=== PATIENT | male | born 1975 | race Caucasian/White ===

== ENCOUNTER 2020-02-19 01:08 | Emergency (ER) | payer OTHER, SELFPAY ==
[2020-02-19 02:00] VITALS: BP 110/73; PULSE 82; PULSE 83; RESP 15; TEMP 36.8; TEMP 37.2; O2SAT 93; O2SAT 94; BMI 27.3
--- NOTE | 2020-02-19 02:27 | ED.WOUNDLAC ---
HPI - Wound/Laceration General Chief Complaint: Wound/Laceration Stated Complaint: Wrist Lac Time Seen by Provider: 02/19/20 02:15 History of Present Illness HPI narrative: Patient is status post laceration to the left palmar aspect of the forearm. Patient cut it on a box turner. Patient denies any suicidal homicidal ideation. Completely accidental in nature. No systemic complaints. Patient not on blood thinners. Tetanus not updated. Related Data Allergies Allergy/AdvReac Type Severity Reaction Status Date / Time animal dander Allergy Unknown SINUS/RESPI Verified 02/19/20 02:17 RATORY Review of Systems Review of Systems: Constitutional: No Weight loss, No Fever, No Chills, No Night Sweats, No Fatigue, No Malaise ENT/Mouth: No Hearing loss, No Ear Pain, No Nasal Congestion, No Sinus Pain, No Hoarseness, No sore throat, No Rhinorrhea, No Swallowing Difficulty Eyes: No Eye Pain, No Swelling, No Redness, No Foreign Body, No Discharge, No Vision Changes Cardiovascular: No Chest Pain, No SOB, No Dyspnea on Exertion, No Orthopnea, No Edema, No Palpitations Respiratory: No Cough, No Sputum, No Wheezing, No Smoke Exposure, No Dyspnea Gastrointestinal: No Nausea, No Vomiting, No Diarrhea, No Constipation, No abdominal Pain, No Hematochezia, No Melena Genitourinary: no irregular bleeding, No Dysuria, No Urinary Frequency, No Hematuria, No Urinary Incontinence, No Urgency, No Flank Pain, No Urinary Flow Changes, No Hesitancy Musculoskeletal: No joint pain, No Myalgias, No Joint Swelling Skin: Positive laceration to the left forearm Neuro: No Weakness, No Numbness, No Paresthesias, No Loss of Consciousness, No Dizziness, No Headache Psych: No Anxiety/Panic, No Depression, No SI/HI/AH/VH, No Social Issues, Heme/Lymph: No Bruising, No Bleeding,No Lymphadenopathy Endocrine: No Polyuria, No Polydipsia, No Temperature Intolerance [facility] Past Medical History Attestation statement: The following information was validated with the patient. Medical History Asthma Social History Social History Smoking Status: Current every day smoker Use of substances other than those prescribed or required for medical reasons: No Advance Directives: No Advance Directives Information Provided: No Physical Exam Vital Signs: Vital Signs: Vital Signs Temp Pulse Resp BP Pulse Ox 02/19/20 02:00 98.9 F 83 15 110/73 93 Body Mass Index 27.3 Appearance: Alert. Oriented X3. No acute distress. Eyes: Pupils equal, round and reactive to light. ENT: Pharynx normal. Neck: Normal inspection. Neck supple. No lymph nodes noted. No crepitus CVS: Normal heart rate and rhythm. Pulses normal. Normal S1 and S2 Respiratory: No respiratory distress. Breath sounds normal. No Wheezing. No rales Abdomen: Soft and nontender. No rigidity. No distention. good BS x4 Skin: Skin warm and dry. Normal skin color. Positive laceration to the left palmar aspect of the forearm proximally 5 cm in size. The hand were put through full range of motion. There is no tendon laceration noted. Sensation grossly intact. Capillary refill less than 2 seconds. Negative De test. Extremities: No lower extremity edema. Neurovascular intact to all extremities. No Lacerations. No Rash Neuro: Oriented X 3. No motor deficit. No sensory deficit. Moving all extermities. No slurred speech Procedures Laceration Laceration 1: Site: upper extremity (left forarm) and other Side (If applicable): left Size (cm): 5 Description: linear Depth: simple, single layer Local Anesthetic: lidocaine 1% Amount of anesthesia used (mL): 3 Pre-repair: wound explored, irrigated extensively and deep structures intact Skin layer closed with: nylon Size (cm): 5-0 Number of sutures: 7 MDM - Wound/Laceration MDM Narrative Medical decision making narrative: Patient's wound closed. No distress. Will discharge patient home. Neurovascularly intact. No evidence of any tendon injury on full exploration of the wound. The wrist, hand and fingers were put through full range of motion Differential Diagnosis Differential diagnosis: Likely laceration Medical Records Attestation: I reviewed the patient's medical records. Lab Data Attestation: I reviewed the patient's lab results. Discharge Plan Discharge Clinical Impression: Laceration Patient Disposition: Home, Self-Care Instructions: Laceration (ED) Referrals: [place],Luisa Lopez MD [Emergency Provider] - 2 days Physician,Unknown [Primary Care Provider] - 10 days (For suture removal. You can also go to your regular doctor for suture removal)
[2020-02-19] MEDS: Acetaminophen 325 MG TABLET 650 MG PO (02:51)
[2020-02-19] MEDS: Lidocaine HCl 1 % MPF 5 ML VIAL SUBCUT (02:52)
== END 2020-02-19 03:30 | disposition home or self-care (01) ==
PROVIDERS: Emergency Provider Emergency Medicine Emergency Medical Services
DX: S51.812A Laceration without foreign body of left forearm, initial encounter (principal); S50.812A Abrasion of left forearm, initial encounter; M79.632 Pain in left forearm; W26.0XXA Contact with knife, initial encounter; Y93.9 Activity, unspecified; Y92.9 Unspecified place or not applicable; Y99.9 Unspecified external cause status; Z23 Encounter for immunization
CPT/HCPCS: 12002; 90471; 90715; 99284

== ENCOUNTER 2020-08-07 21:15 | Emergency (ER) | payer OTHER, SELFPAY ==
--- NOTE | ~2020-08-07 | CT_ITS ---
EXAMINATION: CT HEAD WITHOUT CONTRAST CLINICAL INFORMATION: Trauma. Fall. Intoxicated. COMPARISON: 09/26/2005 report only. TECHNIQUE: Contiguous helical images of the brain were obtained without IV contrast. Multiplanar reconstructions were performed. DLP: 757 mGy-cm. FINDINGS: There are no pathologic extra-axial fluid collections. The lateral, third, fourth ventricles are nondilated and concordant with the appearance of the sulci. There is no evidence for acute intraparenchymal hemorrhage or infarct. There is neither mass nor mass effect. There is no shift of midline structures. The paranasal sinuses and mastoid air cells are clear. There are no osseous lesions. CT/CT head/brain wo con IMPRESSION: No evidence for acute intracranial injury. Automated exposure control (Care Dose) Adjustment of the mA and/or kv according to patient size (this includes techniques or standardized protocols for targeted exams where dose is matched to indication / reason for exam; i.e. extremities or head).
[2020-08-07 21:26] VITALS: BP 144/92; PULSE 114; PULSE 98; RESP 16; TEMP 36.7; O2SAT 95; O2SAT 96; BMI 28.5
--- NOTE | 2020-08-07 23:18 | PC.NURSE ---
AT BEDSIDE FOR EVAL.
--- NOTE | 2020-08-07 23:20 | ED.ALCOHOL ---
HPI - Alcohol General Chief Complaint: ETOH/Substance Use Stated Complaint: etoh Time Seen by Provider: 08/07/20 23:16 Source: patient Mode of arrival: ambulatory Limitations: no limitations History of Present Illness HPI narrative: Patient comes to the emergency room for alcohol intoxication. Patient states that earlier this evening, he was drinking a lot of alcohol, estimates that he drink 40 oz beers and 10 nips and he has been drinking for of the 30 years. Patient is going to 45 day treatment program tomorrow. Denies suicidal or homicidal ideation. Patient states that this evening he had an argument with his mother, he fell in front of her, his mother got very concerned and brought him to the emergency room. Patient denies headache, no complaints. MD complaint: alcohol intoxication Related Data Allergies Allergy/AdvReac Type Severity Reaction Status Date / Time animal dander Allergy Unknown SINUS/RESPI Verified 02/19/20 02:17 RATORY Review of Systems Review of Systems: Constitutional : No Weight loss, No Fever, No Chills, No Night Sweats, No Fatigue, No Malaise ENT/Mouth : No Hearing loss, No Ear Pain, No Nasal Congestion, No Sinus Pain, No Hoarseness, No sore throat, No Rhinorrhea, No Swallowing Difficulty Eyes: No Eye Pain, No Swelling, No Redness, No Foreign Body, No Discharge, No Vision Changes Cardiovascular : No Chest Pain, No SOB, No Dyspnea on Exertion, No Orthopnea, No Edema, No Palpitations Respiratory : No Cough, No Sputum, No Wheezing, No Smoke Exposure, No Dyspnea Gastrointestinal : No Nausea, No Vomiting, No Diarrhea, No Constipation, No abdominal Pain, No Hematochezia, No Melena Genitourinary : no irregular bleeding, No Dysuria, No Urinary Frequency, No Hematuria, No Urinary Incontinence, No Urgency, No Flank Pain, No Urinary Flow Changes, No Hesitancy Musculoskeletal : No joint pain, No Myalgias, No Joint Swelling Skin : No Skin Lesions, No rash Neuro : No Weakness, No Numbness, No Paresthesias, No Loss of Consciousness, No Dizziness, No Headache Psych : No Anxiety/Panic, No Depression, No SI/HI/AH/VH, No Social Issues, Heme/Lymph: No Bruising, No Bleeding,No Lymphadenopathy Endocrine : No Polyuria, No Polydipsia, No Temperature Intolerance [facility] Past Medical History Medical History Asthma Social History Social History Smoking Status: Current every day smoker Advance Directives: No Advance Directives Information Provided: No Physical Exam Vital Signs: Vital Signs: Last Vital Signs Temp 98.1 F 08/07/20 21:26 Pulse 94 08/08/20 04:30 Resp 16 08/08/20 04:17 BP 118/84 08/08/20 04:30 Pulse Ox 97 08/08/20 04:17 Body Mass Index 28.5 Appearance: Alert. Oriented X3. No acute distress. Sleeping but easily arousable Eyes: Pupils equal, round and reactive to light. ENT: Pharynx normal. Neck: Normal inspection. Neck supple. No lymph nodes noted. No crepitus CVS: Normal heart rate and rhythm. Pulses normal. Normal S1 and S2 Respiratory: No respiratory distress. Breath sounds normal. No Wheezing. No rales Abdomen: Soft and nontender. No rigidity. No distention. good BS x4 Skin: Skin warm , mildly diaphoretic. Normal skin color. Normal skin turgor. Extremities: No lower extremity edema. No lower extremity edema. No Lacerations. No Rash Neuro: Oriented X 3. No motor deficit. No sensory deficit. Moving all extermities. No slurred speech. No signs of withdrawal Course Course Course Narrative: Patient's head CT shows no acute pathology. Patient states he feels well. Patient working on getting a sober ride to be discharged. Patient's history is picking him up, patient requested clonidine for shakiness sensation in his hands Patient has no clear signs of withdrawal, blood pressure normal, not diaphoretic, no tremor observed. Patient walking steadily on assisted alert and oriented x3 Discharge Plan Discharge Clinical Impression: Alcoholic intoxication Qualifiers: Complication of substance-induced condition: uncomplicated Qualified Code(s): F10.920 - Alcohol use, unspecified with intoxication, uncomplicated Patient Disposition: Home, Self-Care Instructions: Alcohol Intoxication (ED) Additional Instructions: Please follow-up with your primary care physician tomorrow. If you have any worsening or new symptoms, please return to the emergency room or call 911
[2020-08-08 02:00] VITALS: BP 118/90; PULSE 90; RESP 16; O2SAT 96
[2020-08-08 04:17] VITALS: BP 116/89; PULSE 94; RESP 16; O2SAT 97
[2020-08-08 04:30] VITALS: BP 118/84; PULSE 94
[2020-08-08] MEDS: cloNIDine HCL 0.2 MG TABLET PO (04:30)
--- NOTE | 2020-08-08 04:40 | PC.NURSE ---
pt walks with steady even gait to restroom. pt alert and drinking water. pt calling for ride home by his sister.
== END 2020-08-08 05:06 | disposition home or self-care (01) ==
PROVIDERS: Emergency Provider Emergency Medicine
DX: F10.920 Alcohol use, unspecified with intoxication, uncomplicated (principal); Y90.9 Presence of alcohol in blood, level not specified
CPT/HCPCS: 70450; 99283; 99284

== ENCOUNTER 2020-12-21 12:47 | Emergency (ER) | payer OTHER, SELFPAY ==
[2020-12-21 12:49] VITALS: BP 117/84; PULSE 127; RESP 22; TEMP 36.9; O2SAT 86; BMI 25.8
--- NOTE | 2020-12-21 13:05 | ED_ITS ---
HPI - Allergic Reaction General Chief complaint: Allergic Reaction Stated complaint: bee sting, difficulty breathing Time Seen by Provider: 12/21/20 12:57 Source: patient Mode of arrival: ambulatory Limitations: no limitations History of Present Illness HPI narrative: THIS IS A 45 YEARS OLD PRESENTED TO THE EMERGENCY DEPARTMENT COMPLAINING OF AN ALLERGIC REACTION. HE WAS STUNG MULTIPLE TIMES BY BEES, HE ARRIVED IN TRIAGE WITH 0 O2 SATURATION OF 86% ON ROOM AIR complaint: allergic reaction Onset (ago): hour(s) (1) Symptoms: rash and difficulty breathing Severity: moderate Treatment prior to arrival: none Related Data Previous Rx's Medication Instructions Recorded epinephrine 0.3 mg/0.3 mL 0.3 mg IM Q10M PRN #1 ea 12/21/20 injection, auto-injector (EpiPen) Allergies Allergy/AdvReac Type Severity Reaction Status Date / Time animal dander Allergy Unknown SINUS/RESPI Verified 12/21/20 12:49 RATORY Review of Systems Review of Systems: Yes all other systems are reviewed and are negative Eyes: Eyes: Reports no additional eye complaints Cardiovascular: Cardiovascular: Reports no additional cardiovascular complaints and Reports dyspnea Respiratory: Respiratory: Reports dyspnea Gastrointestinal: Gastrointestinal: Reports no additional gastrointestinal complaints PMFSH Past Medical History Medical History Asthma Social History Social History Advance Directives: Yes Advance Directives Information Provided: Yes Advance Directives on File: No Physical Exam Vital Signs: Vital Signs: Last Vital Signs Temp 98.5 F 12/21/20 12:49 Pulse 86 12/21/20 13:21 Resp 22 H 12/21/20 12:49 BP 127/87 12/21/20 13:21 Pulse Ox 86 L 12/21/20 12:49 Body Mass Index 25.8 Const: General: cooperative Nutritional Appearance: well nourished HENMT: Head: Yes normal to inspection Ears: hearing grossly normal bilaterally General nose exam: Normal external nose present Face and sinus: Yes normal facial exam Neck: Neck: Yes normal visual inspection Thyroid: Thyroid normal Chest: Chest palpation & inspection: normal inspection of the chest Resp: Auscultation: rhonchi and wheezes Cardio: Jugular venous distension: no JVD Rate: regular rate Rhythm: regular rhythm GI: Inspection: Yes normal to inspection Palpation (GI): Soft to palpation, not firm, nontender and no guarding Course Course Course Narrative: Patient is completely asymptomatic at this time he wants to go home a his sat is 94% Reevaluation(s) Reevaluation #1: doing much better reexamined at 2.40 PM asyntomatic off 02 MDM - Allergic Reaction Lab Data Result diagrams: 12/21/20 13:50 12/21/20 13:50 Labs: Lab Results 12/21/20 12/21/20 12/21/20 Range/Units 13:18 13:50 13:50 WBC 9.2 (4.8-10.8) X10*3/uL RBC 5.03 (4.60-5.80) X10*6/uL Hgb 15.0 (14.0-18.0) g/dl Hct 43.7 (42-52) % MCV 86.9 (80-98) fL MCH 29.8 (27.0-33.0) pg MCHC 34.3 (31.0-36.0) g/dl RDW 12.9 (11.0-16.0) % Plt Count 285 (160-400) X10*3/uL MPV 9.2 L (9.4-12.4) fL Immature Gran % (Auto) 0.2 (0.0-0.4) % Neut % (Auto) 51.6 (45-73) % Lymph % (Auto) 38.2 (20-40) % [place] % (Auto) 8.4 (2-11) % Eos % (Auto) 1.4 (0-4) % Baso % (Auto) 0.2 (0-2) % Lymph # (Auto) 3.5 (1.2-4.9) X10*3/uL [place] # (Auto) 0.8 (0.1-1.2) X10*3/uL Eos # (Auto) 0.1 (0.0-0.4) X10*3/uL Baso # (Auto) 0.0 (0.0-0.2) X10*3/uL Abs Immat Gran (auto) 0.02 (0.00-0.03) X10*3/uL Absolute Neuts (auto) 4.8 (2.0-8.3) X10*3/uL Absolute Nucleated RBC 0.000 (0.0-0.012) X10*3/uL Nucleated RBC % (auto) 0.0 (0.0-0.2) /100WBC Sodium 140 (135-145) mmol/L Potassium 3.7 (3.3-5.1) mmol/L Chloride 107 (96-108) mmol/L Carbon Dioxide 23 (22-29) mmol/L Anion Gap 14 (12-20) BUN 15 (9-16) mg/dL Creatinine 0.69 (0.5-1.4) mg/dL Estim Creat Clear Calc 128.0 Estimated GFR > 60 Random Glucose 112 (60-115) mg/dL Calcium 8.2 L (8.4-10.2) mg/dL Total Bilirubin 0.3 (0.0-1.0) mg/dL AST 28 (5-37) U/L ALT 41 H (0-40) U/L Alkaline Phosphatase 53 (39-117) U/L Total Protein 6.5 (6.5-8.0) g/dL Albumin 4.1 (3.5-5.0) g/dL Ethyl Alcohol mg/dL COVID-19 (MAIA) Negative (Negative) COVID-19 Clin Com See Note 12/21/20 Range/Units 13:50 WBC (4.8-10.8) X10*3/uL RBC (4.60-5.80) X10*6/uL Hgb (14.0-18.0) g/dl Hct (42-52) % MCV (80-98) fL MCH (27.0-33.0) pg MCHC (31.0-36.0) g/dl RDW (11.0-16.0) % Plt Count (160-400) X10*3/uL MPV (9.4-12.4) fL Immature Gran % (Auto) (0.0-0.4) % Neut % (Auto) (45-73) % Lymph % (Auto) (20-40) % [place] % (Auto) (2-11) % Eos % (Auto) (0-4) % Baso % (Auto) (0-2) % Lymph # (Auto) (1.2-4.9) X10*3/uL [place] # (Auto) (0.1-1.2) X10*3/uL Eos # (Auto) (0.0-0.4) X10*3/uL Baso # (Auto) (0.0-0.2) X10*3/uL Abs Immat Gran (auto) (0.00-0.03) X10*3/uL Absolute Neuts (auto) (2.0-8.3) X10*3/uL Absolute Nucleated RBC (0.0-0.012) X10*3/uL Nucleated RBC % (auto) (0.0-0.2) /100WBC Sodium (135-145) mmol/L Potassium (3.3-5.1) mmol/L Chloride (96-108) mmol/L Carbon Dioxide (22-29) mmol/L Anion Gap (12-20) BUN (9-16) mg/dL Creatinine (0.5-1.4) mg/dL Estim Creat Clear Calc Estimated GFR Random Glucose (60-115) mg/dL Calcium (8.4-10.2) mg/dL Total Bilirubin (0.0-1.0) mg/dL AST (5-37) U/L ALT (0-40) U/L Alkaline Phosphatase (39-117) U/L Total Protein (6.5-8.0) g/dL Albumin (3.5-5.0) g/dL Ethyl Alcohol 206 mg/dL COVID-19 (MAIA) (Negative) COVID-19 Clin Com Critical Care Time Critical Care Time Critical Care Time: Yes Total Critical Care Time: 45 Attestation: epi,IV steroids/nebs Discharge Plan Discharge Clinical Impression: Allergic reaction, Anaphylaxis Patient Disposition: Home, Self-Care Instructions: Anaphylaxis (ED) Prescriptions: New epinephrine [EpiPen] 0.3 mg/0.3 mL auto-injector 0.3 mg IM Q10M PRN (Reason: anaphylaxis) Qty: 1 RF: 0 Referrals: Physician,Unknown [Primary Care Provider] - 2 days
[2020-12-21] MEDS: Albuterol Sulfate 90 MCG 8 GM INHALER 4 PUFF INHALE (13:17)
[2020-12-21 13:21] VITALS: BP 127/87; PULSE 86
[2020-12-21] MEDS: EPINEPHrine 1 MG/ML VIAL 0.3 MG SUBCUT (13:21)
[2020-12-21] MEDS: Famotidine/PF 20 MG/2 ML VIAL IVPUSH (13:21)
[2020-12-21] MEDS: ondansetron HCL 4 MG/2 ML VIAL IVPUSH (13:21)
[2020-12-21] MEDS: methylPREDNISolone Sod Succ 125 MG/2 ML VIAL IVPUSH (13:21)
[2020-12-21] MEDS: diphenhydrAMINE HCL 50 MG/ML VIAL IVPUSH (13:21)
[2020-12-21] MEDS: 0.9 % Sodium Chloride 1,000 ML 999 ML IVCONT (13:24)
[2020-12-21 13:39] LABS: COVID-19 Test Negative (Negative); IDNOW Serial# 9DD0AD1C
[2020-12-21 13:55] LABS: MANUAL DIFF FLAG NO
[2020-12-21 13:57] LABS: Basophils Percent Auto 0.2 % (0-2); Eosinophils Absolute Auto 0.1 X10*3/uL (0.0-0.4); Eosinophils Percent Auto 1.4 % (0-4); Hematocrit 43.7 % (42-52); Imm Gran Abs Auto 0.02 X10*3/uL (0.00-0.03); Imm Gran Pct Auto 0.2 % (0.0-0.4); Lymphocytes Absolute Auto 3.5 X10*3/uL (1.2-4.9); Lymphocytes Percent Auto 38.2 % (20-40); Mean Corpuscular HGB Conc 34.3 g/dl (31.0-36.0); Mean Corpuscular Hemoglobin 29.8 pg (27.0-33.0); Mean Corpuscular Volume 86.9 fL (80-98); Mean Platelet Volume 9.2 fL (9.4-12.4); Monocytes Absolute Auto 0.8 X10*3/uL (0.1-1.2); Monocytes Percent Auto 8.4 % (2-11); Neutrophils Absolute Auto 4.8 X10*3/uL (2.0-8.3); Neutrophils Percent Auto 51.6 % (45-73); Platelet Count 285 X10*3/uL (160-400); Red Blood Count 5.03 X10*6/uL (4.60-5.80); Red Cell Distribution Width 12.9 % (11.0-16.0); White Blood Count 9.2 X10*3/uL (4.8-10.8)
[2020-12-21 14:24] LABS: Ethanol 206 mg/dL
[2020-12-21 14:26] LABS: Alanine Aminotransferase 41 U/L (0-40); Albumin Level 4.1 g/dL (3.5-5.0); Alkaline Phosphatase 53 U/L (39-117); Anion Gap 14 (12-20); Aspartate Amino Transferase 28 U/L (5-37); Bilirubin Total 0.3 mg/dL (0.0-1.0); Blood Urea Nitrogen 15 mg/dL (9-16); Calcium 8.2 mg/dL (8.4-10.2); Carbon Dioxide 23 mmol/L (22-29); Chloride 107 mmol/L (96-108); Estimated Glomerular Filt Rate > 60; Glucose Random 112 mg/dL (60-115); Potassium 3.7 mmol/L (3.3-5.1); Sodium 140 mmol/L (135-145); Total Protein 6.5 g/dL (6.5-8.0)
== END 2020-12-21 16:32 | disposition home or self-care (01) ==
PROVIDERS: Emergency Provider Emergency Medicine
DX: T63.441A Toxic effect of venom of bees, accidental (unintentional), initial encounter (principal); R06.00 Dyspnea, unspecified; T78.49XA Other allergy, initial encounter; Y92.9 Unspecified place or not applicable; X58.XXXA Exposure to other specified factors, initial encounter; Z20.822 Contact with and (suspected) exposure to COVID-19; Z79.899 Other long term (current) drug therapy
CPT/HCPCS: 36415; 80053; 82077; 85025; 87635; 96365; 96372; 96375; 99283; 99284; J0171; J1200; J2405; J2930

== ENCOUNTER 2021-01-08 17:33 | Emergency (ER) | payer OTHER, SELFPAY ==
[2021-01-08 17:35] VITALS: BP 150/94; PULSE 94; RESP 18; TEMP 37; O2SAT 95; BMI 22.0
--- NOTE | 2021-01-08 17:53 | ECG_ITS ---
Test Reason : OVERDOSE Blood Pressure : / mmHG Vent. Rate : 085 BPM Atrial Rate : 085 BPM P-R Int : 136 ms QRS Dur : 092 ms QT Int : 398 ms P-R-T Axes : 055 026 044 degrees QTc Int : 473 ms Normal sinus rhythm with sinus arrhythmia Normal ECG When compared with ECG of 04-MAY-2012 07:40, Vent. rate has decreased BY 43 BPM Referred By: John Law Electronically Signed By:GALE HALE
--- NOTE | 2021-01-08 18:05 | ED.OVERDOSE ---
HPI - Overdose General Chief Complaint: Overdose Stated Complaint: OD Time Seen by Provider: 01/08/21 17:53 Source: patient and family Mode of arrival: ambulatory Limitations: no limitations History of Present Illness HPI Narrative: 46-year-old male came in for evaluation after overdosing 16 pills of hydroxyzine 50 mg each (patient normally uses it for anxiety). Patient was drinking alcohol earlier today having fun with his friend and he overdosed on 16 pills of hydroxyzine, patient do not feel depressed or suicidal patient stated that he did that with no purpose of hurting himself. Patient declined any other coingestion. Related Data Previous Rx's Medication Instructions Recorded epinephrine 0.3 mg/0.3 mL 0.3 mg IM Q10M PRN #1 ea 12/21/20 injection, auto-injector (EpiPen) Allergies Allergy/AdvReac Type Severity Reaction Status Date / Time animal dander Allergy Unknown SINUS/RESPI Verified 01/08/21 17:35 RATORY Review of Systems Review of Systems: All other systems are reviewed and are negative Constitutional: Reports as per HPI and Reports no additional constitutional complaints Eyes: Reports as per HPI and Reports no additional eye complaints Reports system reviewed and no additional complaints, except as documented Cardiovascular: Reports as per HPI and Reports no additional cardiovascular complaints Respiratory: Reports as per HPI and Reports no additional respiratory complaints Gastrointestinal: Reports as per HPI and Reports no additional gastrointestinal complaints Genitourinary: Reports no additional female genitourinary complaints Musculoskeletal: Reports no additional musculoskeletal complaints Skin/Breast: Reports system reviewed and no additional complaints, except as docu Psychiatric: Reports no additional psychiatric complaints Endocrine: Reports no additional endocrine complaints Hematologic/Lymphatic: Reports no additional hematologic/lymphatic complaints Allergic/Immunologic: Reports no additional allergic/immunologic complaints Reports system reviewed and no additional complaints, except as documented and Reports Abnormal speech present [facility] Past Medical History Medical History Asthma Social History Social History Advance Directives: No Advance Directives Information Provided: No Physical Exam Vital Signs: Vital Signs: Last Vital Signs Temp 98 F 01/08/21 18:33 Pulse 81 01/08/21 18:33 Resp 20 01/08/21 18:33 BP 120/80 01/08/21 18:33 Pulse Ox 93 01/08/21 18:33 Body Mass Index 22.0 Vital signs have been reviewed as appeared to be correct. Blood pressure normal. Heart rate normal. Respiration rate normal. Temperature normal. Oxygen saturation normal. Appearance: Alert. Oriented X3. No acute distress. Head: Normal external exam. Normocephalic. Atraumatic. No Bravo signs noted. No raccoon eyes noted Eyes: PERRLA. EOMI. Conjunctiva and sclera normal. Eyelids normal. ENT: TM's Normal. Pharynx normal. Uvula midline. Moist mucous membranes. No trismus noted. No drooling noted. No muffled voice noted. Neck: Normal inspection. Neck supple. FROM. No adenopathy. Thyroid Normal. No meningeal signs. No neck mass noted. CVS: Normal heart rate and rhythm. Heart sound normal. No murmurs noted. Pulses normal throughout. Respiratory: No respiratory distress. Painless inspiration. Breath sounds normal. No wheezes/rales/rhonchi noted. Chest nontender. No accessory muscle usage noted or decreased air movement noted. Abdomen: Soft and nontender. Bowel sounds normal in all 4 quadrants. No distention noted. No organomegaly noted. No visible injury noted. Back: No CVA tenderness. Full range of motion noted. Skin: Skin warm and dry. Normal skin color. Normal skin turgor. No rashes/lesions/lacerations noted. Extremities: No lower extremity edema. Extremities exhibit normal range of motion. Extremities nontender. Neuro: Oriented X 3. Cranial nerve exam: II-XII are grossly intact No motor deficit. No sensory deficit. Reflexes normal. Course Course Course Narrative: Assessment and plan. 46-year-old male came in after drinking alcohol alcohol level is above 300, patient also overdosed on his medication for anxiety ( hydroxyzine) patient declined HI or SI, no other psychiatric symptoms, despite the high level of alcohol patient is competent to make his own decision. And patient will be discharged home with a sober adult (mother) at the bedside was willing to take the patient. Case discussed with poison control who recommended to which the patient for anticholinergic symptoms which patient do not have, EKG was unremarkable. MDM - Overdose Lab Data Attestation: I reviewed the patient's lab results. Result diagrams: 01/08/21 18:32 01/08/21 18:31 Labs: Lab Results 01/08/21 01/08/21 01/08/21 Range/Units 18:31 18:31 18:32 WBC 7.9 (4.8-10.8) X10*3/uL RBC 4.67 (4.60-5.80) X10*6/uL Hgb 14.4 (14.0-18.0) g/dl Hct 41.1 L (42-52) % MCV 88.0 (80-98) fL MCH 30.8 (27.0-33.0) pg MCHC 35.0 (31.0-36.0) g/dl RDW 13.2 (11.0-16.0) % Plt Count 245 (160-400) X10*3/uL MPV 9.3 L (9.4-12.4) fL Immature Gran % (Auto) 0.3 (0.0-0.4) % Neut % (Auto) 41.5 L (45-73) % Lymph % (Auto) 47.7 H (20-40) % [place] % (Auto) 8.2 (2-11) % Eos % (Auto) 1.8 (0-4) % Baso % (Auto) 0.5 (0-2) % Lymph # (Auto) 3.8 (1.2-4.9) X10*3/uL [place] # (Auto) 0.7 (0.1-1.2) X10*3/uL Eos # (Auto) 0.1 (0.0-0.4) X10*3/uL Baso # (Auto) 0.0 (0.0-0.2) X10*3/uL Abs Immat Gran (auto) 0.02 (0.00-0.03) X10*3/uL Absolute Neuts (auto) 3.3 (2.0-8.3) X10*3/uL Absolute Nucleated RBC 0.000 (0.0-0.012) X10*3/uL Nucleated RBC % (auto) 0.0 (0.0-0.2) /100WBC Sodium 145 (135-145) mmol/L Potassium 4.0 (3.3-5.1) mmol/L Chloride 108 (96-108) mmol/L Carbon Dioxide 26 (22-29) mmol/L Anion Gap 15 (12-20) BUN 7 L D (9-16) mg/dL Creatinine 0.75 (0.5-1.4) mg/dL Estim Creat Clear Calc 112.0 Estimated GFR > 60 Random Glucose 123 H (60-115) mg/dL Calcium 8.7 D (8.4-10.2) mg/dL Total Bilirubin 0.5 (0.0-1.0) mg/dL Direct Bilirubin < 0.2 (0.0-0.5) mg/dL AST 47 H D (5-37) U/L ALT 58 H (0-40) U/L Alkaline Phosphatase 60 (39-117) U/L Total Protein 7.0 (6.5-8.0) g/dL Albumin 4.4 (3.5-5.0) g/dL Lipase 103 H (8-78) U/L Salicylates < 5.0 L (15-30) mg/dL Acetaminophen < 1 (<30) mcg/mL Ethyl Alcohol 368 H* mg/dL ECG Data Interpretation: Normal sinus rhythm at 85 beats per minute, normal axis deviation, normal intervals, no ST-T changes. Discharge Plan Discharge Clinical Impression: Drug overdose Qualifiers: Encounter type: initial encounter Injury intent: accidental or unintentional Qualified Code(s): T50.901A - Poisoning by unspecified drugs, medicaments and biological substances, accidental (unintentional), initial encounter Alcohol intoxication Qualifiers: Complication of substance-induced condition: uncomplicated Qualified Code(s): F10.920 - Alcohol use, unspecified with intoxication, uncomplicated Patient Disposition: Home, Self-Care Instructions: Abuse of Alcohol (ED) Prescriptions: No Action epinephrine [EpiPen] 0.3 mg/0.3 mL auto-injector 0.3 mg IM Q10M PRN (Reason: anaphylaxis) Qty: 1 RF: 0 Referrals: Physician,Unknown [Primary Care Provider] - 2 days
--- NOTE | 2021-01-08 18:28 | PC.NURSE ---
Poison control called and recommends to monitor for HTN, confusion, dry mouth, widended QRS and tremors/seizurespt states taking pills not in SI attempts. 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 Mother at bedside and given bottle of meds. Sinus tach on tele, speech is slurred
[2021-01-08 18:33] VITALS: BP 120/80; PULSE 81; RESP 20; TEMP 36.6; O2SAT 93
[2021-01-08 18:42] LABS: MANUAL DIFF FLAG NO
[2021-01-08 18:43] LABS: Basophils Percent Auto 0.5 % (0-2); Eosinophils Absolute Auto 0.1 X10*3/uL (0.0-0.4); Eosinophils Percent Auto 1.8 % (0-4); Hematocrit 41.1 % (42-52); Hemoglobin 14.4 g/dl (14.0-18.0); Imm Gran Abs Auto 0.02 X10*3/uL (0.00-0.03); Imm Gran Pct Auto 0.3 % (0.0-0.4); Lymphocytes Absolute Auto 3.8 X10*3/uL (1.2-4.9); Lymphocytes Percent Auto 47.7 % (20-40); Mean Corpuscular Hemoglobin 30.8 pg (27.0-33.0); Mean Platelet Volume 9.3 fL (9.4-12.4); Monocytes Absolute Auto 0.7 X10*3/uL (0.1-1.2); Monocytes Percent Auto 8.2 % (2-11); Neutrophils Absolute Auto 3.3 X10*3/uL (2.0-8.3); Neutrophils Percent Auto 41.5 % (45-73); Platelet Count 245 X10*3/uL (160-400); Red Blood Count 4.67 X10*6/uL (4.60-5.80); Red Cell Distribution Width 13.2 % (11.0-16.0); White Blood Count 7.9 X10*3/uL (4.8-10.8)
[2021-01-08 19:02] LABS: Acetaminophen LAB < 1 mcg/mL (<30); Alanine Aminotransferase 58 U/L (0-40); Albumin Level 4.4 g/dL (3.5-5.0); Alkaline Phosphatase 60 U/L (39-117); Anion Gap 15 (12-20); Aspartate Amino Transferase 47 U/L (5-37); Bilirubin Direct < 0.2 mg/dL (0.0-0.5); Bilirubin Total 0.5 mg/dL (0.0-1.0); Blood Urea Nitrogen 7 mg/dL (9-16); Calcium 8.7 mg/dL (8.4-10.2); Carbon Dioxide 26 mmol/L (22-29); Chloride 108 mmol/L (96-108); Estimated Glomerular Filt Rate > 60; Glucose Random 123 mg/dL (60-115); Lipase 103 U/L (8-78); Salicylate < 5.0 mg/dL (15-30); Sodium 145 mmol/L (135-145)
[2021-01-08 19:20] LABS: Ethanol 368 mg/dL
[2021-01-08 19:47] VITALS: BP 126/80; PULSE 90; RESP 14; TEMP 37.3; O2SAT 94
== END 2021-01-08 20:24 | disposition home or self-care (01) ==
PROVIDERS: Emergency Provider Emergency Medicine
DX: T43.591A Poisoning by other antipsychotics and neuroleptics, accidental (unintentional), initial encounter (principal); T50.901A Poisoning by unspecified drugs, medicaments and biological substances, accidental (unintentional), initial encounter; F10.920 Alcohol use, unspecified with intoxication, uncomplicated; Y92.9 Unspecified place or not applicable; Z79.899 Other long term (current) drug therapy; Z71.51 Drug abuse counseling and surveillance of drug abuser
CPT/HCPCS: 36415; 80048; 80076; 80143; 80179; 82077; 83690; 85025; 93005; 99283; 99284

== ENCOUNTER 2021-04-13 04:13 | Inpatient (IN) | payer OTHER, SELFPAY ==
[2021-04-13] VITALS (10 sets, daily range): BP systolic 123–162; BP diastolic 78–97; PULSE 84–115; RESP 12–20; TEMP 36.4–36.8; O2SAT 85–100; BMI 25.9
--- NOTE | ~2021-04-13 | MR_ITS ---
EXAMINATION: MR BRAIN WITHOUT CONTRAST CLINICAL INFORMATION: Confusion and hyponatremia. To evaluate for central pontine myelinolysis. COMPARISON: Head CT 04/13/2021. TECHNIQUE: Multiplanar, multisequence imaging of the brain was performed without intravenous contrast. FINDINGS: There is no acute infarction, hemorrhage, mass, or extra-axial fluid collection. The nadira and remainder of the brainstem demonstrate normal signal. There is no restricted diffusion. The brain parenchyma signal is unremarkable. The ventricles are normal in size without hydrocephalus. The major arterial flow voids are preserved at the skull base. A small amount fluid is seen in the left mastoid. MR/MR head/brain wo con IMPRESSION: No acute intracranial abnormality identified. No brainstem signal abnormality. No evidence of central pontine myelinolysis.
--- NOTE | ~2021-04-13 | XR_ITS ---
EXAMINATION: XR CHEST CLINICAL INFORMATION: Shortness of breath COMPARISON: Report from 05/28/2013 TECHNIQUE: Frontal view of the chest was obtained. FINDINGS: Cardiac silhouettes overlie the chest. The lungs are well expanded. Bronchial wall thickening. There is no focal consolidation, edema, or effusion. No pneumothorax. The cardiomediastinal silhouette is within normal limits. No acute osseous abnormality. XR/XR chest 1V IMPRESSION: No dense consolidation. Bronchial wall thickening can be seen with a small airways process such as asthma or atypical/viral infection.
--- NOTE | ~2021-04-13 | CT_ITS ---
EXAMINATION: CT HEAD WITHOUT CONTRAST CLINICAL INFORMATION: Altered mental status COMPARISON: 08/08/2020 TECHNIQUE: Contiguous axial imaging was performed from the skull base to vertex without intravenous contrast. This CT examination was performed using dose optimization techniques as appropriate, variously including the following: * Automated exposure control * Adjustment of mA and/or kV according to patient size (this includes techniques or standardized protocols for targeted exams where dose is matched to indication/reason for exam; i.e. extremities or head) Use of iterative reconstruction technique DLP: 1294 mGy-cm. FINDINGS: There is no evidence of acute intracranial hemorrhage or territorial infarction. No abnormal mass effect or midline shift is seen. Ulrich to white matter differentiation is well preserved. No extra-axial fluid collections are identified. No hydrocephalus. No significant volume loss. There is no abnormal attenuation within the brain parenchyma. The osseous structures and soft tissues are normal. The mastoid air cells and visualized portions of the paranasal sinuses are well aerated. CT/CT head/brain wo con IMPRESSION: No acute intracranial pathology.
--- NOTE | 2021-04-13 04:44 | ED.GENADULT ---
HPI - General Adult General Chief complaint: Psychiatric Symptoms Stated complaint: Delusional/altered mental state Time Seen by Provider: 04/13/21 04:41 Source: patient and family Mode of arrival: ambulatory History of Present Illness HPI narrative: Patient history of asthma, alcohol abuse brought by his mother for increased confusion delusional and having the visual hallucinations for last 24 hours. Also per mother patient been drinking lot of water lately says that he is supposed to be on lot of medication which he is not taking but according to record has only hydroxyzine , no head injury has been vaccinated against COVID-19 been coughing for last 1 week his girlfriend has pneumonia was admitted to the hospital on arrival patient was saturating 85% at room air on 2 L saturating 95% afebrile per mother patient has been falling very often and has problem in walking Related Data Previous Rx's Medication Instructions Recorded epinephrine 0.3 mg/0.3 mL 0.3 mg (0.3 mL) IM Q10M PRN #1 ea 12/21/20 injection, auto-injector (EpiPen) Allergies Allergy/AdvReac Type Severity Reaction Status Date / Time animal dander Allergy Unknown SINUS/RESPI Verified 01/08/21 17:35 RATORY Review of Systems Review of Systems: Yes Unobtainable due to mental status PMFSH Past Medical History Medical History Asthma Social History Social History Advance Directives: No Advance Directives Information Provided: No Physical Exam Vital Signs: Vital Signs: Last Vital Signs Temp 98.2 F 04/13/21 07:24 Pulse 84 04/13/21 07:24 Resp 12 04/13/21 07:24 BP 162/97 H 04/13/21 07:24 Pulse Ox 100 04/13/21 07:24 BMI result Body Mass Index 25.9 Appearance: Alert. Oriented X1-2. No acute distress. Eyes: PERRLA, No Nystagmus EOMI ENT: Pharynx normal. Oral Mucosa moist Neck: Normal inspection. Neck supple. CVS: Normal heart rate and rhythm. Pulses normal. Respiratory: No respiratory distress. Equal air entry bilateral, no wheezing/rales/rhonchi Abdomen: Soft and nontender. Bowel sounds are present, no mass palpable, no CVA tenderness Skin: Skin warm and dry. Normal skin color. Normal skin turgor. Extremities: No lower extremity edema. No calf tenderness Neuro: Oriented X 1-2. No motor deficit. No sensory deficit.No cerebellar signs , cranial nerves II-XII intact delusional with visual hallucinations Procedures Lumbar Puncture Time Out Performed: Yes Patient Position: upright Skin Prep: Povidone-Iodine 1% Local Anesthetic: lidocaine 2% Amount of anesthesia used (mL): 4 Spinal Needle Gauge: 22G Interspace Used: L3-L4 Fluid Initially Obtained: clear Complications: none Medical Decision Making MDM Narrative Medical decision making narrative: Patient alcoholic with acute confusion lab workup showed leukocytosis etiology not very clear also lab shows metabolic alkalosis with severe hypercalcemia and hyponatremia and hypokalemia patient's symptoms seems like metabolic encephalopathy. Patient does have ataxia Shai acute confusion possible he has Wernicke's encephalopathy although there is no stool motor abnormalities patient does have ataxia acute confusion will give him IV thiamine. IV fluids. IV pamidronate. Calcitonin is not available at our hospital Lab Data Result diagrams: 04/13/21 04:54 04/13/21 04:54 Labs: Lab Results 04/13/21 04/13/21 04/13/21 Range/Units 04:54 04:54 04:54 WBC 22.5 H (4.8-10.8) X10*3/uL RBC 4.52 L (4.60-5.80) X10*6/uL Hgb 14.1 (14.0-18.0) g/dl Hct 38.5 L (42.0-52.0) % MCV 85.2 (80.0-98.0) fL MCH 31.2 (27.0-33.0) pg MCHC 36.6 H (31.0-36.0) g/dl RDW 11.7 (11.0-16.0) % Plt Count 256 (160-400) X10*3/uL MPV 10.3 (9.4-12.4) fL Immature Gran % (Auto) 0.7 H (0.0-0.4) % Neut % (Auto) 83.9 H (45-73) % Lymph % (Auto) 8.3 L (20-40) % [place] % (Auto) 7.0 (2-11) % Eos % (Auto) 0.0 (0-4) % Baso % (Auto) 0.1 (0-2) % Lymph # (Auto) 1.9 (1.2-4.9) X10*3/uL [place] # (Auto) 1.6 H (0.1-1.2) X10*3/uL Eos # (Auto) 0.0 (0.0-0.4) X10*3/uL Baso # (Auto) 0.0 (0.0-0.2) X10*3/uL Abs Immat Gran (auto) 0.16 H (0.00-0.03) X10*3/uL Absolute Neuts (auto) 18.9 H (2.0-8.3) x10*3/uL Absolute Nucleated RBC 0.020 H (0.0-0.012) X10*3/uL Nucleated RBC % (auto) 0.1 (0.0-0.2) /100WBC Smear Tech's Comments VERIFIED PT (9.9-13.0) SEC INR (0.9-1.1) APTT (24.1-38.0) SEC D-Dimer High Sensitivty NG/ML O2 Saturation % ABG pH at Pt Temp (7.35-7.45) ABG pH (Temp Correct) (7.35-7.45) ABG pCO2 at Pt Temp (32-45) mmHg ABG pCO2 (Temp Corrct (32-45) mmHg ABG pO2 at Pt Temp (83-108) mmHg ABG pO2 (Temp Correct (83-108) ABG HCO3 (22-26) mmol/L ABG Base Excess (Actual) mmol/L Sodium 128 L (135-145) mmol/L Potassium 2.6 L D (3.3-5.1) mmol/L Chloride 72 L D (96-108) mmol/L Carbon Dioxide 44 H* D (22-29) mmol/L Anion Gap 15 (12-20) BUN 49 H (9-16) mg/dL Creatinine 1.86 H (0.5-1.4) mg/dL Estim Creat Clear Calc 48.5 Estimated GFR 39 Random Glucose 124 H (60-115) mg/dL Lactic Acid (0.5-2.0) mmol/L Calcium 15.4 H* D (8.4-10.2) mg/dL Magnesium 2.2 (1.6-2.6) mg/dL Total Bilirubin 1.8 H (0.0-1.0) mg/dL Direct Bilirubin 0.7 H (0.0-0.5) mg/dL AST 358 H (5-37) U/L ALT 88 H (0-40) U/L Alkaline Phosphatase 76 D (39-117) U/L B-Natriuretic Peptide (<100) pg/mL Total Protein 6.8 (6.5-8.0) g/dL Albumin 4.1 (3.5-5.0) g/dL Urine Color Urine Appearance Urine pH (5.0-8.0) Ur Specific [place] (1.005-1.025) Urine Protein (NEG-TRACE) MG/DL Urine Glucose (UA) (NEG) MG/DL Urine Ketones (NEG) MG/DL Urine Blood (NEG) Urine Nitrite (NEG) Ur Leukocyte Esterase (NEG) CSF Tube Number CSF Appearance (b) CSF Glucose mg/dL CSF Total Protein (15-45) mg/dL Urine Opiates Screen (Not Detect) Urine Fentanyl Screen (Not Detect) Ur Barbiturates Screen (Not Detect) Ur Phencyclidine Scrn (Not Detect) Ur Amphetamines Screen (Not Detect) U Benzodiazepines Scrn (Not Detect) Urine Cocaine Screen (Not Detect) U Marijuana (THC) Screen (Not Detect) Ethyl Alcohol mg/dL COVID-19 (MAIA) Negative (Negative) COVID-19 Clin Com See Note 04/13/21 04/13/21 04/13/21 Range/Units 04:54 04:54 04:54 WBC (4.8-10.8) X10*3/uL RBC (4.60-5.80) X10*6/uL Hgb (14.0-18.0) g/dl Hct (42.0-52.0) % MCV (80.0-98.0) fL MCH (27.0-33.0) pg MCHC (31.0-36.0) g/dl RDW (11.0-16.0) % Plt Count (160-400) X10*3/uL MPV (9.4-12.4) fL Immature Gran % (Auto) (0.0-0.4) % Neut % (Auto) (45-73) % Lymph % (Auto) (20-40) % [place] % (Auto) (2-11) % Eos % (Auto) (0-4) % Baso % (Auto) (0-2) % Lymph # (Auto) (1.2-4.9) X10*3/uL [place] # (Auto) (0.1-1.2) X10*3/uL Eos # (Auto) (0.0-0.4) X10*3/uL Baso # (Auto) (0.0-0.2) X10*3/uL Abs Immat Gran (auto) (0.00-0.03) X10*3/uL Absolute Neuts (auto) (2.0-8.3) x10*3/uL Absolute Nucleated RBC (0.0-0.012) X10*3/uL Nucleated RBC % (auto) (0.0-0.2) /100WBC Smear Tech's Comments PT 9.8 L (9.9-13.0) SEC INR 0.9 (0.9-1.1) APTT 21.3 L (24.1-38.0) SEC D-Dimer High Sensitivty 424 NG/ML O2 Saturation % ABG pH at Pt Temp (7.35-7.45) ABG pH (Temp Correct) (7.35-7.45) ABG pCO2 at Pt Temp (32-45) mmHg ABG pCO2 (Temp Corrct (32-45) mmHg ABG pO2 at Pt Temp (83-108) mmHg ABG pO2 (Temp Correct (83-108) ABG HCO3 (22-26) mmol/L ABG Base Excess (Actual) mmol/L Sodium (135-145) mmol/L Potassium (3.3-5.1) mmol/L Chloride (96-108) mmol/L Carbon Dioxide (22-29) mmol/L Anion Gap (12-20) BUN (9-16) mg/dL Creatinine (0.5-1.4) mg/dL Estim Creat Clear Calc Estimated GFR Random Glucose (60-115) mg/dL Lactic Acid (0.5-2.0) mmol/L Calcium (8.4-10.2) mg/dL Magnesium (1.6-2.6) mg/dL Total Bilirubin (0.0-1.0) mg/dL Direct Bilirubin (0.0-0.5) mg/dL AST (5-37) U/L ALT (0-40) U/L Alkaline Phosphatase (39-117) U/L B-Natriuretic Peptide 171 H (<100) pg/mL Total Protein (6.5-8.0) g/dL Albumin (3.5-5.0) g/dL Urine Color Urine Appearance Urine pH (5.0-8.0) Ur Specific [place] (1.005-1.025) Urine Protein (NEG-TRACE) MG/DL Urine Glucose (UA) (NEG) MG/DL Urine Ketones (NEG) MG/DL Urine Blood (NEG) Urine Nitrite (NEG) Ur Leukocyte Esterase (NEG) CSF Tube Number CSF Appearance (b) CSF Glucose mg/dL CSF Total Protein (15-45) mg/dL Urine Opiates Screen (Not Detect) Urine Fentanyl Screen (Not Detect) Ur Barbiturates Screen (Not Detect) Ur Phencyclidine Scrn (Not Detect) Ur Amphetamines Screen (Not Detect) U Benzodiazepines Scrn (Not Detect) Urine Cocaine Screen (Not Detect) U Marijuana (THC) Screen (Not Detect) Ethyl Alcohol < 10 mg/dL COVID-19 (MAIA) (Negative) COVID-19 Clin Com 04/13/21 04/13/21 04/13/21 Range/Units 05:01 06:21 06:32 WBC (4.8-10.8) X10*3/uL RBC (4.60-5.80) X10*6/uL Hgb (14.0-18.0) g/dl Hct (42.0-52.0) % MCV (80.0-98.0) fL MCH (27.0-33.0) pg MCHC (31.0-36.0) g/dl RDW (11.0-16.0) % Plt Count (160-400) X10*3/uL MPV (9.4-12.4) fL Immature Gran % (Auto) (0.0-0.4) % Neut % (Auto) (45-73) % Lymph % (Auto) (20-40) % [place] % (Auto) (2-11) % Eos % (Auto) (0-4) % Baso % (Auto) (0-2) % Lymph # (Auto) (1.2-4.9) X10*3/uL [place] # (Auto) (0.1-1.2) X10*3/uL Eos # (Auto) (0.0-0.4) X10*3/uL Baso # (Auto) (0.0-0.2) X10*3/uL Abs Immat Gran (auto) (0.00-0.03) X10*3/uL Absolute Neuts (auto) (2.0-8.3) x10*3/uL Absolute Nucleated RBC (0.0-0.012) X10*3/uL Nucleated RBC % (auto) (0.0-0.2) /100WBC Smear Tech's Comments PT (9.9-13.0) SEC INR (0.9-1.1) APTT (24.1-38.0) SEC D-Dimer High Sensitivty NG/ML O2 Saturation 96.0 % ABG pH at Pt Temp 7.56 H (7.35-7.45) ABG pH (Temp Correct) 7.57 H (7.35-7.45) ABG pCO2 at Pt Temp 50 H (32-45) mmHg ABG pCO2 (Temp Corrct 49 H (32-45) mmHg ABG pO2 at Pt Temp 87 (83-108) mmHg ABG pO2 (Temp Correct 85 (83-108) ABG HCO3 45 H (22-26) mmol/L ABG Base Excess (Actual) 20.3 mmol/L Sodium (135-145) mmol/L Potassium (3.3-5.1) mmol/L Chloride (96-108) mmol/L Carbon Dioxide (22-29) mmol/L Anion Gap (12-20) BUN (9-16) mg/dL Creatinine (0.5-1.4) mg/dL Estim Creat Clear Calc Estimated GFR Random Glucose (60-115) mg/dL Lactic Acid 1.6 (0.5-2.0) mmol/L Calcium (8.4-10.2) mg/dL Magnesium (1.6-2.6) mg/dL Total Bilirubin (0.0-1.0) mg/dL Direct Bilirubin (0.0-0.5) mg/dL AST (5-37) U/L ALT (0-40) U/L Alkaline Phosphatase (39-117) U/L B-Natriuretic Peptide (<100) pg/mL Total Protein (6.5-8.0) g/dL Albumin (3.5-5.0) g/dL Urine Color Urine Appearance Urine pH (5.0-8.0) Ur Specific [place] (1.005-1.025) Urine Protein (NEG-TRACE) MG/DL Urine Glucose (UA) (NEG) MG/DL Urine Ketones (NEG) MG/DL Urine Blood (NEG) Urine Nitrite (NEG) Ur Leukocyte Esterase (NEG) CSF Tube Number 2 CSF Appearance (b) Clear, Colorless CSF Glucose 89 mg/dL CSF Total Protein 43.9 (15-45) mg/dL Urine Opiates Screen (Not Detect) Urine Fentanyl Screen (Not Detect) Ur Barbiturates Screen (Not Detect) Ur Phencyclidine Scrn (Not Detect) Ur Amphetamines Screen (Not Detect) U Benzodiazepines Scrn (Not Detect) Urine Cocaine Screen (Not Detect) U Marijuana (THC) Screen (Not Detect) Ethyl Alcohol mg/dL COVID-19 (MAIA) (Negative) COVID-19 Clin Com 04/13/21 04/13/21 Range/Units 06:51 06:51 WBC (4.8-10.8) X10*3/uL RBC (4.60-5.80) X10*6/uL Hgb (14.0-18.0) g/dl Hct (42.0-52.0) % MCV (80.0-98.0) fL MCH (27.0-33.0) pg MCHC (31.0-36.0) g/dl RDW (11.0-16.0) % Plt Count (160-400) X10*3/uL MPV (9.4-12.4) fL Immature Gran % (Auto) (0.0-0.4) % Neut % (Auto) (45-73) % Lymph % (Auto) (20-40) % [place] % (Auto) (2-11) % Eos % (Auto) (0-4) % Baso % (Auto) (0-2) % Lymph # (Auto) (1.2-4.9) X10*3/uL [place] # (Auto) (0.1-1.2) X10*3/uL Eos # (Auto) (0.0-0.4) X10*3/uL Baso # (Auto) (0.0-0.2) X10*3/uL Abs Immat Gran (auto) (0.00-0.03) X10*3/uL Absolute Neuts (auto) (2.0-8.3) x10*3/uL Absolute Nucleated RBC (0.0-0.012) X10*3/uL Nucleated RBC % (auto) (0.0-0.2) /100WBC Smear Tech's Comments PT (9.9-13.0) SEC INR (0.9-1.1) APTT (24.1-38.0) SEC D-Dimer High Sensitivty NG/ML O2 Saturation % ABG pH at Pt Temp (7.35-7.45) ABG pH (Temp Correct) (7.35-7.45) ABG pCO2 at Pt Temp (32-45) mmHg ABG pCO2 (Temp Corrct (32-45) mmHg ABG pO2 at Pt Temp (83-108) mmHg ABG pO2 (Temp Correct (83-108) ABG HCO3 (22-26) mmol/L ABG Base Excess (Actual) mmol/L Sodium (135-145) mmol/L Potassium (3.3-5.1) mmol/L Chloride (96-108) mmol/L Carbon Dioxide (22-29) mmol/L Anion Gap (12-20) BUN (9-16) mg/dL Creatinine (0.5-1.4) mg/dL Estim Creat Clear Calc Estimated GFR Random Glucose (60-115) mg/dL Lactic Acid (0.5-2.0) mmol/L Calcium (8.4-10.2) mg/dL Magnesium (1.6-2.6) mg/dL Total Bilirubin (0.0-1.0) mg/dL Direct Bilirubin (0.0-0.5) mg/dL AST (5-37) U/L ALT (0-40) U/L Alkaline Phosphatase (39-117) U/L B-Natriuretic Peptide (<100) pg/mL Total Protein (6.5-8.0) g/dL Albumin (3.5-5.0) g/dL Urine Color YELLOW Urine Appearance CLEAR Urine pH 5.5 (5.0-8.0) Ur Specific [place] 1.020 (1.005-1.025) Urine Protein NEG (NEG-TRACE) MG/DL Urine Glucose (UA) NEG (NEG) MG/DL Urine Ketones NEG (NEG) MG/DL Urine Blood 2+ H (NEG) Urine Nitrite NEG (NEG) Ur Leukocyte Esterase NEG (NEG) CSF Tube Number CSF Appearance (b) CSF Glucose mg/dL CSF Total Protein (15-45) mg/dL Urine Opiates Screen Not Detected (Not Detect) Urine Fentanyl Screen Not Detected (Not Detect) Ur Barbiturates Screen Not Detected (Not Detect) Ur Phencyclidine Scrn Not Detected (Not Detect) Ur Amphetamines Screen Not Detected (Not Detect) U Benzodiazepines Scrn Not Detected (Not Detect) Urine Cocaine Screen Not Detected (Not Detect) U Marijuana (THC) Screen Not Detected (Not Detect) Ethyl Alcohol mg/dL COVID-19 (MAIA) (Negative) COVID-19 Clin Com ECG Data Attestation: I personally reviewed and interpreted this ECG as follows: Interpretation: Normal sinus rhythm heart rate 81 beats per minute nonspecific T-wave changes QT interval prolonged to 501 milliseconds no acute ischemia Critical Care Time Critical Care Time Critical Care Time: Yes Total Critical Care Time: 60 Attestation: I spent 60 minutes of critical care, with interventions, assessments, speaking to patient, consultants, and family. Discharge Plan Discharge Clinical Impression: Acute metabolic encephalopathy, Hypercalcemia, Acute hyponatremia, Acute hypokalemia, Wernicke's encephalopathy Patient Disposition: Admitted As Inpatient
[2021-04-13 05:02] LABS: Basophils Percent Auto 0.1 % (0-2); Hematocrit 38.5 % (42.0-52.0); Hemoglobin 14.1 g/dl (14.0-18.0); Imm Gran Abs Auto 0.16 X10*3/uL (0.00-0.03); Imm Gran Pct Auto 0.7 % (0.0-0.4); Lymphocytes Absolute Auto 1.9 X10*3/uL (1.2-4.9); Lymphocytes Percent Auto 8.3 % (20-40); MANUAL DIFF FLAG SCAN; Mean Corpuscular HGB Conc 36.6 g/dl (31.0-36.0); Mean Corpuscular Hemoglobin 31.2 pg (27.0-33.0); Mean Corpuscular Volume 85.2 fL (80.0-98.0); Mean Platelet Volume 10.3 fL (9.4-12.4); Monocytes Absolute Auto 1.6 X10*3/uL (0.1-1.2); NRBC Pct Auto 0.1 /100WBC (0.0-0.2); Neutrophils Absolute Auto 18.9 x10*3/uL (2.0-8.3); Neutrophils Percent Auto 83.9 % (45-73); Platelet Count 256 X10*3/uL (160-400); Red Blood Count 4.52 X10*6/uL (4.60-5.80); Red Cell Distribution Width 11.7 % (11.0-16.0); SCAN SMEAR FLAG 1; White Blood Count 22.5 X10*3/uL (4.8-10.8)
[2021-04-13 05:15] LABS: COVID-19 Test Negative (Negative); IDNOW Serial# 9DD0AD1C
--- NOTE | 2021-04-13 05:15 | PC.NURSE ---
PT's mother wanted RN to know that pt has been drinking a bunch of water. Wanted to patient to be tested to see if he is a diabetic. RN Jim meng
[2021-04-13 05:18] LABS: D Dimer High Sensitivity 424 NG/ML; Ethanol < 10 mg/dL
[2021-04-13 05:19] LABS: Lactic Acid 1.6 mmol/L (0.5-2.0)
[2021-04-13 05:20] LABS: B Type Natriuretic Peptide 171 pg/mL (<100)
[2021-04-13 05:24] LABS: Alanine Aminotransferase 88 U/L (0-40); Albumin Level 4.1 g/dL (3.5-5.0); Alkaline Phosphatase 76 U/L (39-117); Anion Gap 15 (12-20); Aspartate Amino Transferase 358 U/L (5-37); Bilirubin Direct 0.7 mg/dL (0.0-0.5); Bilirubin Total 1.8 mg/dL (0.0-1.0); Blood Urea Nitrogen 49 mg/dL (9-16); Calcium 15.4 mg/dL (8.4-10.2); Carbon Dioxide 44 mmol/L (22-29); Chloride 72 mmol/L (96-108); Creatinine Clr Calc Pharmacy 48.5; Estimated Glomerular Filt Rate 39; Glucose Random 124 mg/dL (60-115); Magnesium 2.2 mg/dL (1.6-2.6); Potassium 2.6 mmol/L (3.3-5.1); Sodium 128 mmol/L (135-145); Total Protein 6.8 g/dL (6.5-8.0)
[2021-04-13 05:31] LABS: SLIDE REVIEW VERIFIED
--- NOTE | 2021-04-13 05:32 | ECG_ITS ---
Test Reason : psych Blood Pressure : / mmHG Vent. Rate : 081 BPM Atrial Rate : 081 BPM P-R Int : 142 ms QRS Dur : 100 ms QT Int : 432 ms P-R-T Axes : 074 050 041 degrees QTc Int : 501 ms Normal sinus rhythm Nonspecific T wave abnormality Prolonged QT Abnormal ECG When compared with ECG of 08-JAN-2021 18:21, ST elevation now present in Anterior leads QT has lengthened Referred By: Giovanni Bertrand Electronically Signed By:SADAF MARTINEZ
[2021-04-13] MEDS: 0.9 % Sodium Chloride 1,000 ML 999 ML IVCONT ×2 (05:58)
[2021-04-13] MEDS: Potassium Chloride Packet 20 MEQ PACKET 40 MEQ PO (05:58)
[2021-04-13] MEDS: Potassium Chloride/H20 10 MEQ/100 ML PIGGYBACK 100 MEQ IV ×4 (06:03→10:47)
[2021-04-13 06:17] LABS: INTERNATIONAL NORM RATIO 0.9 (0.9-1.1); Prothrombin Time 9.8 SEC (9.9-13.0)
[2021-04-13 06:26] LABS: ABG Refer to POC result
[2021-04-13 06:27] LABS: ABG Base Excess 20.3 mmol/L; ABG HCO3 45 mmol/L (22-26); ABG pCO2 50 mmHg (32-45); ABG pCO2 TC 49 mmHg (32-45); ABG pH 7.56 (7.35-7.45); ABG pH TC 7.57 (7.35-7.45); ABG pO2 87 mmHg (83-108); ABG pO2 TC 85 (83-108)
[2021-04-13 06:29] LABS: Partial Thromboplastin Time 21.3 SEC (24.1-38.0)
[2021-04-13] MEDS: Piperacillin Sodium/Tazobactam 3.375 GM in 0.9 % Sodium Chloride 50 ML IV (06:36)
[2021-04-13 06:50] LABS: CSF Appearance Clear, Colorless; CSF Tube # 2
[2021-04-13 07:06] LABS: Glucose CSF 89 mg/dL; Total Protein CSF 43.9 mg/dL (15-45)
[2021-04-13 07:19] LABS: Appearance Urine CLEAR; Color Urine YELLOW; Glucose Urine UA NEG (NEG); Leukocyte Esterase Urine NEG (NEG); Nitrite Urine NEG (NEG); PH 5.5 (5.0-8.0); UACC Culture Trigger NO; Urine Blood 2+ (NEG); Urine Ketones NEG (NEG); Urine Protein NEG (NEG-TRACE)
[2021-04-13 07:21] LABS: Amphetamine Screen Urine Not Detected (Not Detect); Barbiturates, Urine Not Detected (Not Detect); Benzodiazepines Screen Urine Not Detected (Not Detect); Cannabinoid Screen Urine Not Detected (Not Detect); Cocaine Screen Urine Not Detected (Not Detect); Fentanyl, urine Not Detected (Not Detect); Opiate Screen Urine Not Detected (Not Detect); Phencyclidine Screen Urine Not Detected (Not Detect)
--- NOTE | 2021-04-13 07:25 | PC.NURSE ---
pt is a/o x 2, pt is confused states that the yr is 1973. pt's sister is at the bedside.
[2021-04-13] MEDS: Folic Acid 1 MG TABLET PO (07:39)
[2021-04-13] MEDS: Thiamine HCL 500 MG in 0.9 % Sodium Chloride 100 ML 210 MG IV ×2 (07:39→21:15)
[2021-04-13 07:40] LABS: Appearance CSF CLEAR; CSF Tube # 1
[2021-04-13 07:41] LABS: Appearance CSF CLEAR; CSF Monos 50 %; CSF Tube # 4; Color CSF COLORLESS; Lymphocytes CSF 50 %; Red Blood Cell CSF 22 MM*3; White Blood Cell CSF 1 MM*3
[2021-04-13 07:42] LABS: CSF Monos 50 %; Lymphocytes CSF 50 %; Red Blood Cell CSF 0 MM*3
[2021-04-13 08:14] LABS: Squamous Epithelial Cell Urine TRACE /LPF; WBC Urine 0-2 /HPF (0-4)
--- NOTE | 2021-04-13 09:42 | PM.IMHP ---
History of Present Illness Date of Service: 04/13/21 Chief Complaint: confusion This is a 46 yo M with a history of heavy alcohol use who was brought in by family after they noticed that he was confused. The history is obtained from the ED chart/provider note + the patients sister who is bedside. The patient himself is oriented to self, but otherwise disoriented. Per ED charts -- the patient was was hallucinating and was seeing things run across his room. His mother reported that he was speaking with people on the porch that were that there. His sister who is bedside reports that their mother called her on the day of admission around 330AM. She is unsure how long these symptoms have been on going. She reports that he drinks vodka daily but is unsure the amount and when his last drink was. She reports that the patients baseline mentation is normal. Upon arrival to the ED, the patient underwent work up which revealed significant electrolyte abnormalities including hypercalcemia, hypoNa, hypoK and abnormal LFTs. He underwent a LP which was no suggestive of an infectious process. He was given multiple liters of IVF, potassium replacement, 1 dose of pamidronate, IV thiamin, IV zosyn and will not be admitted for further treatment. PMH/PSH/SH/FH -- all cannot be accurately assessed at this time due to the patients mental status. Review of Systems Review of Systems: unreliable due to patients current mental status [facility] Medical History Asthma Pertinent family history: unable to assess as patient is confused currently Social History Advance Directives: No Advance Directives Information Provided: No Meds Allergies Allergy/AdvReac Type Severity Reaction Status Date / Time animal dander Allergy Unknown SINUS/RESPI Verified 01/08/21 17:35 RATORY Active Medications: Current Medications Acetaminophen (Acetaminophen 325 Mg Tablet) 650 mg PO Q6H PRN PRN Reason: Pain, Mild (Pain Scale 1-3) Thiamine HCl 500 mg/ Sodium (Chloride) 105 mls @ 210 mls/hr IV Q12H AUBREY Last Infusion: 04/13/21 08:44 Dose: Infused Documented by: Sodium Chloride (Ns) 1,000 mls @ 200 mls/hr IVCONT .Q5H AUBREY Ondansetron HCl (Ondansetron Hcl 4 Mg/2 Ml Vial) 4 mg IVPUSH Q8H PRN PRN Reason: Nausea and Vomiting Sodium Chloride (0.9 % Sodium Chloride Flush 3 Ml Syringe) 3 ml IVFLUSH QSHIFT AUBREY Physical Exam Vital Signs and Narrative: Vital Signs: Last Vital Signs Temp 98.2 F 04/13/21 09:33 Pulse 84 04/13/21 09:33 Resp 16 04/13/21 09:33 BP 151/78 H 04/13/21 09:33 Pulse Ox 98 04/13/21 09:33 BMI result Body Mass Index 25.9 Const: Other: Constitutional - Awake and Alert, No apparent distress, disoriented HEENT - PERRLA, EOMI, dry mucous membranes Cardiovascular - S1S2, RRR, No edema Respiratory - Normal lung expansion, Normal respiratory effort, No respiratory distress, CTA bilaterally Gastrointestinal - NT / ND; +BS; No rebound or guarding - No CVA tenderness Extremities - no calf tenderness bilaterally, no swelling Musculoskeletal - Normal inspection, normal ROM Skin - Warm/Dry Neurological - awake and alert, able to obey some basic commands like lifting arms and legs; disoriented to place and time; oriented to self Psychological - Appropriate affect Results Labs CBC and Chem 7: 04/13/21 04:54 04/13/21 04:54 Labs: Laboratory Results - last 24 hr 04/13/21 04/13/21 04/13/21 04:54 04:54 04:54 MCV 85.2 MCH 31.2 MCHC 36.6 H RDW 11.7 Plt Count 256 MPV 10.3 Immature Gran % (Auto) 0.7 H Neut % (Auto) 83.9 H Lymph % (Auto) 8.3 L [place] % (Auto) 7.0 Eos % (Auto) 0.0 Baso % (Auto) 0.1 Lymph # (Auto) 1.9 [place] # (Auto) 1.6 H Eos # (Auto) 0.0 Baso # (Auto) 0.0 Abs Immat Gran (auto) 0.16 H Absolute Neuts (auto) 18.9 H Absolute Nucleated RBC 0.020 H Nucleated RBC % (auto) 0.1 Smear Tech's Comments VERIFIED PT INR APTT D-Dimer High Sensitivty O2 Saturation ABG pH at Pt Temp ABG pH (Temp Correct) ABG pCO2 at Pt Temp ABG pCO2 (Temp Corrct ABG pO2 at Pt Temp ABG pO2 (Temp Correct ABG HCO3 ABG Base Excess (Actual) Anion Gap 15 Estim Creat Clear Calc 48.5 Estimated GFR 39 Random Glucose 124 H Lactic Acid Calcium 15.4 H* D Magnesium 2.2 Total Bilirubin 1.8 H Direct Bilirubin 0.7 H AST 358 H ALT 88 H Alkaline Phosphatase 76 D B-Natriuretic Peptide Total Protein 6.8 Albumin 4.1 Urine Color Urine Appearance Urine pH Ur Specific [place] Urine Protein Urine Glucose (UA) Urine Ketones Urine Blood Urine Nitrite Ur Leukocyte Esterase Urine RBC Urine WBC Ur Squamous Epith Cells Urine Bacteria CSF Tube Number CSF Volume CSF Appearance CSF Color CSF WBC CSF RBC CSF Lymphocytes CSF Monocytes % CSF Appearance (b) CSF Glucose CSF Total Protein CSF Herpes I DNA (PCR) CSF Herpes II DNA (PCR) Urine Opiates Screen Urine Fentanyl Screen Ur Barbiturates Screen Ur Phencyclidine Scrn Ur Amphetamines Screen U Benzodiazepines Scrn Urine Cocaine Screen U Marijuana (THC) Screen Ethyl Alcohol COVID-19 (MAIA) Negative COVID-19 Clin Com See Note Body Source 04/13/21 04/13/21 04/13/21 04:54 04:54 04:54 MCV MCH MCHC RDW Plt Count MPV Immature Gran % (Auto) Neut % (Auto) Lymph % (Auto) [place] % (Auto) Eos % (Auto) Baso % (Auto) Lymph # (Auto) [place] # (Auto) Eos # (Auto) Baso # (Auto) Abs Immat Gran (auto) Absolute Neuts (auto) Absolute Nucleated RBC Nucleated RBC % (auto) Smear Tech's Comments PT 9.8 L INR 0.9 APTT 21.3 L D-Dimer High Sensitivty 424 O2 Saturation ABG pH at Pt Temp ABG pH (Temp Correct) ABG pCO2 at Pt Temp ABG pCO2 (Temp Corrct ABG pO2 at Pt Temp ABG pO2 (Temp Correct ABG HCO3 ABG Base Excess (Actual) Anion Gap Estim Creat Clear Calc Estimated GFR Random Glucose Lactic Acid Calcium Magnesium Total Bilirubin Direct Bilirubin AST ALT Alkaline Phosphatase B-Natriuretic Peptide 171 H Total Protein Albumin Urine Color Urine Appearance Urine pH Ur Specific [place] Urine Protein Urine Glucose (UA) Urine Ketones Urine Blood Urine Nitrite Ur Leukocyte Esterase Urine RBC Urine WBC Ur Squamous Epith Cells Urine Bacteria CSF Tube Number CSF Volume CSF Appearance CSF Color CSF WBC CSF RBC CSF Lymphocytes CSF Monocytes % CSF Appearance (b) CSF Glucose CSF Total Protein CSF Herpes I DNA (PCR) CSF Herpes II DNA (PCR) Urine Opiates Screen Urine Fentanyl Screen Ur Barbiturates Screen Ur Phencyclidine Scrn Ur Amphetamines Screen U Benzodiazepines Scrn Urine Cocaine Screen U Marijuana (THC) Screen Ethyl Alcohol < 10 COVID-19 (MAIA) COVID-19 Clin Com Body Source 04/13/21 04/13/21 04/13/21 05:01 06:21 06:32 MCV MCH MCHC RDW Plt Count MPV Immature Gran % (Auto) Neut % (Auto) Lymph % (Auto) [place] % (Auto) Eos % (Auto) Baso % (Auto) Lymph # (Auto) [place] # (Auto) Eos # (Auto) Baso # (Auto) Abs Immat Gran (auto) Absolute Neuts (auto) Absolute Nucleated RBC Nucleated RBC % (auto) Smear Tech's Comments PT INR APTT D-Dimer High Sensitivty O2 Saturation 96.0 ABG pH at Pt Temp 7.56 H ABG pH (Temp Correct) 7.57 H ABG pCO2 at Pt Temp 50 H ABG pCO2 (Temp Corrct 49 H ABG pO2 at Pt Temp 87 ABG pO2 (Temp Correct 85 ABG HCO3 45 H ABG Base Excess (Actual) 20.3 Anion Gap Estim Creat Clear Calc Estimated GFR Random Glucose Lactic Acid 1.6 Calcium Magnesium Total Bilirubin Direct Bilirubin AST ALT Alkaline Phosphatase B-Natriuretic Peptide Total Protein Albumin Urine Color Urine Appearance Urine pH Ur Specific [place] Urine Protein Urine Glucose (UA) Urine Ketones Urine Blood Urine Nitrite Ur Leukocyte Esterase Urine RBC Urine WBC Ur Squamous Epith Cells Urine Bacteria CSF Tube Number 2 CSF Volume CSF Appearance CSF Color CSF WBC CSF RBC CSF Lymphocytes CSF Monocytes % CSF Appearance (b) Clear, Colorless CSF Glucose 89 CSF Total Protein 43.9 CSF Herpes I DNA (PCR) CSF Herpes II DNA (PCR) Urine Opiates Screen Urine Fentanyl Screen Ur Barbiturates Screen Ur Phencyclidine Scrn Ur Amphetamines Screen U Benzodiazepines Scrn Urine Cocaine Screen U Marijuana (THC) Screen Ethyl Alcohol COVID-19 (MAIA) COVID-19 Clin Com Body Source 04/13/21 04/13/21 04/13/21 06:32 06:32 06:32 MCV MCH MCHC RDW Plt Count MPV Immature Gran % (Auto) Neut % (Auto) Lymph % (Auto) [place] % (Auto) Eos % (Auto) Baso % (Auto) Lymph # (Auto) [place] # (Auto) Eos # (Auto) Baso # (Auto) Abs Immat Gran (auto) Absolute Neuts (auto) Absolute Nucleated RBC Nucleated RBC % (auto) Smear Tech's Comments PT INR APTT D-Dimer High Sensitivty O2 Saturation ABG pH at Pt Temp ABG pH (Temp Correct) ABG pCO2 at Pt Temp ABG pCO2 (Temp Corrct ABG pO2 at Pt Temp ABG pO2 (Temp Correct ABG HCO3 ABG Base Excess (Actual) Anion Gap Estim Creat Clear Calc Estimated GFR Random Glucose Lactic Acid Calcium Magnesium Total Bilirubin Direct Bilirubin AST ALT Alkaline Phosphatase B-Natriuretic Peptide Total Protein Albumin Urine Color Urine Appearance Urine pH Ur Specific [place] Urine Protein Urine Glucose (UA) Urine Ketones Urine Blood Urine Nitrite Ur Leukocyte Esterase Urine RBC Urine WBC Ur Squamous Epith Cells Urine Bacteria CSF Tube Number 1 4 CSF Volume 1.0 2.0 CSF Appearance CLEAR CLEAR CSF Color COLORLESS COLORLESS CSF WBC 1 1 CSF RBC 22 0 CSF Lymphocytes 50 50 CSF Monocytes % 50 50 CSF Appearance (b) CSF Glucose CSF Total Protein CSF Herpes I DNA (PCR) Cancelled CSF Herpes II DNA (PCR) Cancelled Urine Opiates Screen Urine Fentanyl Screen Ur Barbiturates Screen Ur Phencyclidine Scrn Ur Amphetamines Screen U Benzodiazepines Scrn Urine Cocaine Screen U Marijuana (THC) Screen Ethyl Alcohol COVID-19 (MAIA) COVID-19 Clin Com Body Source Cancelled 04/13/21 04/13/21 06:51 06:51 MCV MCH MCHC RDW Plt Count MPV Immature Gran % (Auto) Neut % (Auto) Lymph % (Auto) [place] % (Auto) Eos % (Auto) Baso % (Auto) Lymph # (Auto) [place] # (Auto) Eos # (Auto) Baso # (Auto) Abs Immat Gran (auto) Absolute Neuts (auto) Absolute Nucleated RBC Nucleated RBC % (auto) Smear Tech's Comments PT INR APTT D-Dimer High Sensitivty O2 Saturation ABG pH at Pt Temp ABG pH (Temp Correct) ABG pCO2 at Pt Temp ABG pCO2 (Temp Corrct ABG pO2 at Pt Temp ABG pO2 (Temp Correct ABG HCO3 ABG Base Excess (Actual) Anion Gap Estim Creat Clear Calc Estimated GFR Random Glucose Lactic Acid Calcium Magnesium Total Bilirubin Direct Bilirubin AST ALT Alkaline Phosphatase B-Natriuretic Peptide Total Protein Albumin Urine Color YELLOW Urine Appearance CLEAR Urine pH 5.5 Ur Specific [place] 1.020 Urine Protein NEG Urine Glucose (UA) NEG Urine Ketones NEG Urine Blood 2+ H Urine Nitrite NEG Ur Leukocyte Esterase NEG Urine RBC 1-4 Urine WBC 0-2 Ur Squamous Epith Cells TRACE Urine Bacteria NONE CSF Tube Number CSF Volume CSF Appearance CSF Color CSF WBC CSF RBC CSF Lymphocytes CSF Monocytes % CSF Appearance (b) CSF Glucose CSF Total Protein CSF Herpes I DNA (PCR) CSF Herpes II DNA (PCR) Urine Opiates Screen Not Detected Urine Fentanyl Screen Not Detected Ur Barbiturates Screen Not Detected Ur Phencyclidine Scrn Not Detected Ur Amphetamines Screen Not Detected U Benzodiazepines Scrn Not Detected Urine Cocaine Screen Not Detected U Marijuana (THC) Screen Not Detected Ethyl Alcohol COVID-19 (MAIA) COVID-19 Clin Com Body Source Imaging Radiologist's Impressions: Impressions Chest X-Ray 04/13/21 04:50 IMPRESSION: No dense consolidation. Bronchial wall thickening can be seen with a small airways process such as asthma or atypical/viral infection. Head CT 04/13/21 05:55 IMPRESSION: No acute intracranial pathology. Assessment and Plan (1) Acute metabolic encephalopathy: Status: Acute This is a 46 yo M with a PMH of heavy alcohol use who presents to the hospital in a confused state. His work up is significant for severe hypercalcemia and acute encephalopathy. He will be admitted for further work up and treatment. 1. Acute Toxic/Metabolic Encephalopathy Multifactorial including hypercalcemia / heavey alcohol use and possibly Wernicke's treat underlying issues. 2. Hypercalcemia Given Pamidronate + IVF in the ED continue NS @ 200 cc/hr repeat labs at noon; check PTH with labs 3. HypoNa / HypoK suspected hypovoluemic fluids for HypoNa as above replace K with IV (40) + PO (40) repeat labs as above 4. Alcohol abuse and dependence, rule out Wernicke's IV thiamin Start phenobarb monitor lytes 5. Hyperbilirubinemia / Transaminitis suspected due to alcohol use 6. Acute Respiratory Failure with hypoxia Saturations decreased to 85-86 on RA; stable on NC CXR not impressive, possibly reactive airways DuoNebs scheduled + doxycycline hold off prednisone for now Patient does not have severe sepsis at this time. His lab anormalities (Leukocytosis, elevated bilirubin) and his tachycardia/tachypnea are not related to severe sepsis. Med rec pending at this time, will continue his baseilne meds (if appropriate). Full Code DVT pptx, mechanical for now; start lovenox/heparin by tomorrow (had LP completed) Quality Stroke Does the patient have a stroke diagnosis?: No VTE Prior VTE?: No VTE Risk Level:: Medical - moderate - high VTE Device Contraindication: N/A - Device Ordered VTE Drug Contraindication: Treatment Not Indicated
[2021-04-13] MEDS: PHENobarbitaL sodium 130 MG/ML VIAL 283 MG IM (10:46)
[2021-04-13] MEDS: 0.9 % Sodium Chloride 1,000 ML 200 ML IVCONT (10:46)
--- NOTE | 2021-04-13 11:20 | PHA.MEDREC ---
Pharmacy Consult ? Medication Reconciliation Pharmacy has completed the medication reconciliation. Patient had AMS, poor historian. Family unsure of which anxiety medication patient takes. Confirmed with [facility] patient has routinely picked up desvenlafaxine, buspirone and hydroxyzine. Family reports patient is not adherent to medications. Olivia Mtz, PharmD
--- NOTE | 2021-04-13 12:27 | PC.NURSE ---
per pt 's mother pt receives his psych meds from [facility] ([facility], [address], [place] [address])
[2021-04-13 12:28] LABS: Alanine Aminotransferase 69 U/L (0-40); Albumin Level 3.3 g/dL (3.5-5.0); Alkaline Phosphatase 57 U/L (39-117); Anion Gap 10 (12-20); Aspartate Amino Transferase 243 U/L (5-37); Blood Urea Nitrogen 39 mg/dL (9-16); Calcium 12.2 mg/dL (8.4-10.2); Carbon Dioxide 37 mmol/L (22-29); Chloride 88 mmol/L (96-108); Creatinine Clr Calc Pharmacy 71.6; Estimated Glomerular Filt Rate > 60; Glucose Random 87 mg/dL (60-115); Sodium 132 mmol/L (135-145); Total Protein 5.4 g/dL (6.5-8.0)
[2021-04-13] MEDS: PHENobarbitaL sodium 130 MG/ML VIAL 212 MG IM ×2 (12:49→16:27)
[2021-04-13] MEDS: Potassium Chloride ER 20 MEQ TAB.ER.PRT 60 MEQ PO (12:49)
--- NOTE | 2021-04-13 13:16 | CONS_ITS ---
DATE OF SERVICE: REASON FOR CONSULTATION: I was asked to see patient to assist in evaluation and management of his acute kidney injury with a creatinine of 1.86 in the setting of hypercalcemia with a calcium of 15.4 and hypokalemia, potassium of 2.6 in the backdrop of history of heavy alcohol abuse and presenting delirious. HISTORY OF PRESENT ILLNESS: In summary, patient is a 46-year-old gentleman who is unable to provide any information, so information was obtained from electronic medical record and he has a history of heavy alcohol abuse, was brought in by family member when they noted that he was confused. Apparently, patient was witnessed to be hallucinating and there is mention made that he was speaking to people that were not there. There is also mention made that he drinks vodka daily, but it is unclear how much and when his last drink was. In the emergency room, he underwent laboratory studies and noted the hypercalcemia and the other electrolyte abnormalities along with increase in creatinine and abnormal LFTs. He underwent a lumbar puncture, which ruled out anything suggestive of infection. He has been given IV fluids and potassium as well as a dose of pamidronate along with IV thiamine and antibiotics. PAST MEDICAL HISTORY: Only thing listed in the electronic medical record is asthma. FAMILY HISTORY: Could not be obtained. SOCIAL HISTORY: Could not be obtained. REVIEW OF SYSTEMS: Unobtainable. MEDICATIONS: It is unclear what medications he is normally on. Current medications are noted in the MAR. PHYSICAL EXAMINATION: VITAL SIGNS: Blood pressure with a heart rate in the 80s. He is afebrile, 98. GENERAL: He is awake, but confused, disoriented x3. LUNGS: Breath sounds bilaterally. CARDIAC: Regular rate. ABDOMEN: Soft, nontender. EXTREMITIES: Without edema. LABORATORY DATA: Labs show hemoglobin of 14, hematocrit 38.5, white blood cell count 22.5, platelet count 256. Sodium 128, potassium 2.6, chloride 72, bicarb 44, BUN 49, creatinine 1.86, calcium 15.4, lactate 1.6, AST of 358, ALT of 88, alkaline phosphatase of 76, albumin 4.1. Previous labs from December showed a sodium of 145, bicarbonate 26, creatinine from December of 0.75, calcium of 8.7. These labs are all from January 08. His urine studies show 2+ blood by dipstick, but no rbc's in the high-power field. His alcohol level was less than 10. Back in December, he had an alcohol level of 368; and in November, an alcohol level of 206. IMPRESSION: A 46-year-old heavy alcohol user, admitted with altered mental status and multiple metabolic abnormalities including hyponatremia, renal failure, and relatively severe hypercalcemia along with hypokalemia. 1. Acute kidney injury. I suspect this is due to dehydration and we will see what the repeat labs are after he has gotten the IV fluids. His high serum bicarb would be suggestive of contraction alkalosis and is likely playing a role in the cause of his elevated bicarb. a. Other cause for acute kidney injury need to be sorted out. In particular, we need to check a CPK to rule out rhabdo given the UA showing blood by dipstick, but no blood in the urine. Hypercalcemia can be a cause of acute kidney injury due to renovascular vasospasm. We will need to consider further evaluation to rule out other causes for acute kidney injury depending on his response to the IV fluids. Urine studies including a fractional excretion of sodium can be helpful here and we will order that as well. 2. Hypercalcemia. Typically, the causes of hypercalcemia are either due to increased gut absorption from vitamin D excess state, excessive oral calcium intake, or due to bone resorption from primary hyperparathyroidism. Other considerations including an underlying cancer or thyrotoxicosis can also be associated with increased bone resorption and hypercalcemia. Other potential causes such as thiazide diuretics, which he is not on. There are cases of rhabdomyolysis also associated with hypercalcemia. a. We certainly need to track down his outpatient medications to make sure he is not on anything like lithium or thiazide diuretics. 3. Hypokalemia. This will go along with dehydration and secondary increase in jackie with increased urinary potassium losses. We again will monitor his response to potassium replacement. 4. Hyponatremia. Clinically, it may be hypovolemic hyponatremia. Additionally, poor solute intake associated with heavy alcohol intake can be associated with hyponatremia and SIADH would certainly be in the differential as well. 5. Altered mental status. He is getting a thorough evaluation to sort out the cause of his acute mental status changes. He had an LP. He is getting neurology evaluation and most likely needs further imaging studies including an MRI. SUGGESTIONS: At this time include repeat labs now that he is getting IV fluids to see what his serum sodium and calcium are doing as well as his potassium. We will add a CPK to prior labs. Check thyroid studies. Neurologic evaluation is ongoing. Consider MRI to evaluate for other abnormalities causing his altered mental status. Depending on his laboratory studies and renal function response, further evaluation may be necessary. Regarding the hypercalcemia, we will check a serum immunofixation along with vitamin D 25 and 125 levels and an intact PTH level. Need to get his outpatient medication list as mentioned. We will follow the patient closely with the team. MD ROSALEE Joe/YRIS / [id number]
[2021-04-13 13:18] LABS: Glucose, Whole Blood 87 mg/dL (60-115)
[2021-04-13 13:33] LABS: TSH reflex Free T4 1.18 uIU/mL (0.32-4.0); Vitamin D 25-OH Total 12.2 ng/mL (>30)
[2021-04-13 13:59] LABS: Anion Gap 11 (12-20); Calcium 12.4 mg/dL (8.4-10.2); Carbon Dioxide 36 mmol/L (22-29); Chloride 88 mmol/L (96-108); Phosphorus 1.8 mg/dL (2.7-4.5); Potassium 2.8 mmol/L (3.3-5.1); Sodium 132 mmol/L (135-145)
[2021-04-13] MEDS: Albuterol/Iprat 2.5/0.5MG 3 ML AMPUL.NEB INHALE ×2 (15:26→19:43)
--- NOTE | 2021-04-13 16:01 | PC.NURSE ---
assumed care of this PT at 1500 - will complete late medication administration of KCL 40mEq per mar
[2021-04-13] MEDS: 0.9 % Sodium Chloride Flush 3 ML SYRINGE IVFLUSH (16:18)
[2021-04-13] MEDS: KCl 40 mEq in 0.9 % Sodium Chl 40 MEQ/1,000 ML IV.SOLN 100 MEQ IVCONT (16:18)
--- NOTE | 2021-04-13 17:31 | PC.NURSE ---
pt placed on [employer] camera
[2021-04-13 17:53] LABS: Anion Gap 11 (12-20); Blood Urea Nitrogen 35 mg/dL (9-16); Calcium 11.8 mg/dL (8.4-10.2); Carbon Dioxide 34 mmol/L (22-29); Chloride 91 mmol/L (96-108); Creatinine Clr Calc Pharmacy 76.5; Estimated Glomerular Filt Rate > 60; Glucose Random 77 mg/dL (60-115); Potassium 2.9 mmol/L (3.3-5.1); Sodium 133 mmol/L (135-145)
--- NOTE | 2021-04-13 19:47 | PC.NURSE ---
columbia scale not complete, pt unable to participate. in alcohol withdrawal and hallucinating, picking at the air and unable to comprehend
--- NOTE | 2021-04-13 19:54 | PC.NURSE ---
contacted pharmacy for edith
--- NOTE | 2021-04-13 21:44 | PC.NURSE ---
pt incontinent of urine, changed over with PCT
[2021-04-13] MEDS: PHENobarbitaL 15 MG TABLET 45 MG PO (22:55)
[2021-04-14] VITALS (7 sets, daily range): BP systolic 133–154; BP diastolic 81–95; PULSE 78–99; RESP 16–18; TEMP 36.6–37.1; O2SAT 91–99
[2021-04-14] MEDS: KCl 40 mEq in 0.9 % Sodium Chl 40 MEQ/1,000 ML IV.SOLN 100 MEQ IVCONT (03:23)
[2021-04-14 06:18] LABS: Hematocrit 31.3 % (42.0-52.0); Mean Corpuscular HGB Conc 35.1 g/dl (31.0-36.0); Mean Corpuscular Hemoglobin 30.9 pg (27.0-33.0); Mean Corpuscular Volume 87.9 fL (80.0-98.0); Mean Platelet Volume 10.7 fL (9.4-12.4); Platelet Count 203 X10*3/uL (160-400); Red Blood Count 3.56 X10*6/uL (4.60-5.80); Red Cell Distribution Width 11.9 % (11.0-16.0); White Blood Count 11.4 X10*3/uL (4.8-10.8)
[2021-04-14 06:29] LABS: Anion Gap 10 (12-20); Blood Urea Nitrogen 27 mg/dL (9-16); Calcium 11.1 mg/dL (8.4-10.2); Carbon Dioxide 31 mmol/L (22-29); Chloride 101 mmol/L (96-108); Creatinine Clr Calc Pharmacy 96.1; Estimated Glomerular Filt Rate > 60; Glucose Random 71 mg/dL (60-115); Potassium 3.1 mmol/L (3.3-5.1); Sodium 139 mmol/L (135-145)
--- NOTE | 2021-04-14 08:58 | P.CNNE_ITS ---
History of Present Illness Data of Consult Service Date: 04/14/21 Primary Care Provider: Unknown Physician HPI Reason for consult: Altered mental status, hallucinations, alcoholism This is a 46 yo man with a history of heavy alcohol use brought in by family for AMS and confusion, hallucinating: seeing things run across his room. His mother reported that? he was speaking with people on the porch that were not there. Family is unsure how long these symptoms have been on going. Patient cannot give a Hx. He drinks vodka daily but is unsure the amount and when his last drink was. At baseline, his mentation is supposedly normal. ER w/u showed hypercalcemia, mild hyponatremia, moderate hypokalemia. LP was negative for infection. He was given multiple liters of IVF, potassium replacement, 1 dose of pamidronate, IV thiamin, IV zosyn. Heat CT was negative.He patient does not remember that he passed out and is not sure how he came into the hospital. He says that he goes unbend her his and drinks heavy and then when he stops then everything falls apart. Review of Systems Review of Systems: unreliable due to patients current mental status Yes Unobtainable due to mental status PMFSH Past Medical History Medical History Asthma Family History Pertinent family history: unable to assess as patient is confused currently Social History Social History Household Members: Family Housing: Unknown / Unable to assess Unable to assess alcohol history related to: Unable to respond Patient Tobacco Use Status: Tobacco use Unknown service: No Current occupational status: unemployed Meds Allergies Allergy/AdvReac Type Severity Reaction Status Date / Time animal dander Allergy Unknown SINUS/RESPI Verified 01/08/21 17:35 RATORY Active Medications: Current Medications Acetaminophen (Acetaminophen 325 Mg Tablet) 650 mg PO Q6H PRN PRN Reason: Pain, Mild (Pain Scale 1-3) Albuterol/Ipratropium (Albuterol/Iprat 2.5/0.5mg 3 Ml Ampul.Neb) 3 ml INHALE RQ4H WHILE AWAKE [facility] Last Admin: 04/14/21 08:01 Dose: Not Given Documented by: Doxycycline Hyclate (Doxycycline Hyclate 100 Mg Tablet) 100 mg PO Q12H COUNT INCLUDES THE [facility] Last Admin: 04/13/21 22:55 Dose: 100 mg Documented by: Folic Acid (Folic Acid 1 Mg Tablet) 1 mg PO DAILY COUNT INCLUDES THE [facility] Thiamine HCl 500 mg/ Sodium (Chloride) 105 mls @ 210 mls/hr IV Q12H COUNT INCLUDES THE [facility] Last Infusion: 04/13/21 22:43 Dose: Infused Documented by: Medication (No Benzodiazepines) 1 each MISCELLANE DAILY COUNT INCLUDES THE [facility] Nicotine (Nicotine 14 Mg Patch.Td24) 14 mg TRANSDERMA DAILY COUNT INCLUDES THE [facility] Last Admin: 04/13/21 18:44 Dose: Not Given Documented by: Ondansetron HCl (Ondansetron Hcl 4 Mg/2 Ml Vial) 4 mg IVPUSH Q8H PRN PRN Reason: Nausea and Vomiting Pharmacy Consult (Consult Rx Perform Med Rec) 1 each MISCELLANE ONCE PRN PRN Reason: Consult order Phenobarbital (Phenobarbital 15 Mg Tablet) 45 mg PO BID COUNT INCLUDES THE [facility]; Protocol Stop: 04/15/21 09:01 Last Admin: 04/13/21 22:55 Dose: 45 mg Documented by: Phenobarbital (Phenobarbital 30 Mg Tablet) 30 mg PO BID COUNT INCLUDES THE [facility]; Protocol Stop: 04/17/21 09:01 Phenobarbital (Phenobarbital 30 Mg Tablet) 30 mg PO DAILY COUNT INCLUDES THE [facility]; Protocol Stop: 04/19/21 09:01 Potassium Chloride (Potassium Chloride Er 20 Meq Tab.Er.Prt) 40 meq PO DAILY COUNT INCLUDES THE [facility] Sodium Chloride (0.9 % Sodium Chloride Flush 3 Ml Syringe) 3 ml IVFLUSH QSHIFT COUNT INCLUDES THE [facility] Last Admin: 04/14/21 00:17 Dose: Not Given Documented by: Home Medications Medication Instructions Recorded Confirmed Last Taken Type albuterol sulfate 90 mcg/actuation 2 puff INHALATION Q4H 04/13/21 04/13/21 Unknown History aerosol inhaler atorvastatin 20 mg tablet 1 tab PO DAILY 04/13/21 04/13/21 Unknown History buspirone 10 mg tablet 1 tab PO TID 04/13/21 04/13/21 Unknown History desvenlafaxine succinate 50 mg 1 tab PO DAILY 04/13/21 04/13/21 Unknown History tablet,extended release 24 hr hydroxyzine pamoate 50 mg capsule 1 cap PO TID PRN 04/13/21 04/13/21 Unknown History Physical Exam Vital Signs: Vital Signs: Last Vital Signs Temp 98.1 F 04/14/21 08:00 Pulse 81 04/14/21 08:00 Resp 18 04/14/21 08:00 BP 133/95 H 04/14/21 08:00 Pulse Ox 91 L 04/14/21 08:00 BMI result Body Mass Index 25.9 Const: Other: Constitutional - Awake and Alert, No apparent distress, disoriented HEENT - PERRLA, EOMI, dry mucous membranes Cardiovascular - S1S2, RRR, No edema Respiratory - Normal lung expansion, Normal respiratory effort, No respiratory distress, CTA bilaterally Gastrointestinal - NT / ND; +BS; No rebound or guarding - No CVA tenderness Extremities - no calf tenderness bilaterally, no swelling Musculoskeletal - Normal inspection, normal ROM Skin - Warm/Dry Neurological - awake and alert, able to obey some basic commands like lifting arms and legs; disoriented to place and time; oriented to self Psychological - Appropriate affect Neuro: Other: Non focal exam. He is alert, oriented to person but not to place. He knew it was March 2021. He is very confused about why he is in the hospital or what happened. Results Labs CBC & Chem 7: 04/14/21 05:21 04/14/21 17:04 Labs: Short CBC 04/14/21 Range/Units 05:21 WBC 11.4 H (4.8-10.8) X10*3/uL Hgb 11.0 L D (14.0-18.0) g/dl Hct 31.3 L (42.0-52.0) % Plt Count 203 (160-400) X10*3/uL BMP 04/13/21 04/13/21 04/13/21 12:01 12:49 17:28 Sodium 132 L 132 L 133 L Potassium 3.0 L 2.8 L 2.9 L Chloride 88 L D 88 L 91 L Carbon Dioxide 37 H 36 H 34 H BUN 39 H 35 H Creatinine 1.26 1.18 Calcium 12.2 H D 12.4 H 11.8 H 04/14/21 05:21 Sodium 139 Potassium 3.1 L Chloride 101 Carbon Dioxide 31 H BUN 27 H Creatinine 0.94 Calcium 11.1 H Cardiac Enzymes 04/13/21 Range/Units 12:49 Total Creatine Kinase 1591 H (38-174) U/L Liver Function 04/13/21 Range/Units 12:01 Total Bilirubin 1.0 (0.0-1.0) mg/dL AST 243 H (5-37) U/L ALT 69 H (0-40) U/L Alkaline Phosphatase 57 D (39-117) U/L Albumin 3.3 L (3.5-5.0) g/dL Microbiology Microbiology Results: Microbiology 04/13/21 05:01 Blood - Venous Blood Culture - Preliminary No growth after 24 hours. 04/13/21 05:01 Blood - Venous Blood Culture - Preliminary No growth after 24 hours. 04/13/21 06:32 Cerebrospinal Fluid Gram Stain - Final 04/13/21 06:32 Cerebrospinal Fluid CSF Examination - Final 04/13/21 06:32 Cerebrospinal Fluid Fluid Description - Final Assessment and Plan (1) Acute metabolic encephalopathy: Status: Acute correction of metabolic abnormalities. Alcohol counselling. Thiamine supplements. Watch for DTs. This is a 46 yo M with a PMH of heavy alcohol use who presents to the hospital in a confused state. His work up is significant for severe hypercalcemia and acute encephalopathy. He will be admitted for further work up and treatment. 1. Acute Toxic/Metabolic Encephalopathy Multifactorial including hypercalcemia / heavey alcohol use and possibly Wernicke's treat underlying issues. 2. Hypercalcemia Given Pamidronate + IVF in the ED continue NS @ 200 cc/hr repeat labs at noon; check PTH with labs 3. HypoNa / HypoK suspected hypovoluemic fluids for HypoNa as above replace K with IV (40) + PO (40) repeat labs as above 4. Alcohol abuse and dependence, rule out Wernicke's IV thiamin Start phenobarb monitor lytes 5. Hyperbilirubinemia / Transaminitis suspected due to alcohol use 6. Acute Respiratory Failure with hypoxia Saturations decreased to 85-86 on RA; stable on NC CXR not impressive, possibly reactive airways DuoNebs scheduled + doxycycline hold off prednisone for now Patient does not have severe sepsis at this time. His lab anormalities (Leukocytosis, elevated bilirubin) and his tachycardia/tachypnea are not related to severe sepsis. Med rec pending at this time, will continue his baseilne meds (if appropriate). Full Code DVT pptx, mechanical for now; start lovenox/heparin by tomorrow (had LP completed) Procedures Date of Service Date of Service: 04/14/21
[2021-04-14] MEDS: Thiamine HCL 500 MG in 0.9 % Sodium Chloride 100 ML 210 MG IV ×2 (09:42→20:03)
[2021-04-14] MEDS: 0.9 % Sodium Chloride Flush 3 ML SYRINGE IVFLUSH ×3 (09:43→20:10)
[2021-04-14] MEDS: Folic Acid 1 MG TABLET PO (09:44)
[2021-04-14] MEDS: Nicotine 14 MG PATCH.TD24 TRANSDERMA (09:44)
[2021-04-14] MEDS: PHENobarbitaL 15 MG TABLET 45 MG PO ×2 (09:44→21:18)
[2021-04-14] MEDS: Potassium Chloride ER 20 MEQ TAB.ER.PRT 40 MEQ PO (09:44)
--- NOTE | 2021-04-14 10:25 | HO.PM.IMPN ---
Subjective Subjective Date of Service: 04/14/21 Review of Systems Follow up encephalopathy, electrolyte imbalance feeling better today, more awake Denies chest pain, shortness of breath All other systems are reviewed and are negative Physical Exam Vital Signs: Vital Signs: Last Vital Signs Temp 98.1 F 04/14/21 08:00 Pulse 81 04/14/21 08:00 Resp 18 04/14/21 08:00 BP 133/95 H 04/14/21 08:00 Pulse Ox 91 L 04/14/21 08:00 BMI result Body Mass Index 25.9 Appearing in no acute distress, more alert today lung sounds are clear to auscultation heart regular rate rhythm, clear S1, S2 positive bowel sounds, abdomen is soft, nontender neuro patient is alert x3, no focal deficits Objective Data Active Medications Acetaminophen (Acetaminophen 325 Mg Tablet) 650 mg PO Q6H PRN PRN Reason: Pain, Mild (Pain Scale 1-3) Albuterol/Ipratropium (Albuterol/Iprat 2.5/0.5mg 3 Ml Ampul.Neb) 3 ml INHALE RQ4H WHILE AWAKE [facility] Last Admin: 04/14/21 08:01 Dose: Not Given Documented by: USAMA Non-Admin Reason: Patient Asleep Doxycycline Hyclate (Doxycycline Hyclate 100 Mg Tablet) 100 mg PO Q12H [facility] Last Admin: 04/13/21 22:55 Dose: 100 mg Documented by: DIONNE Folic Acid (Folic Acid 1 Mg Tablet) 1 mg PO DAILY [facility] Last Admin: 04/14/21 09:44 Dose: 1 mg Documented by: TAMMIE Thiamine HCl 500 mg/ Sodium (Chloride) 105 mls @ 210 mls/hr IV Q12H [facility] Last Admin: 04/14/21 09:42 Dose: 210 mls/hr Documented by: TAMMIE Medication (No Benzodiazepines) 1 each MISCELLANE DAILY [facility] Nicotine (Nicotine 14 Mg Patch.Td24) 14 mg TRANSDERMA DAILY [facility] Last Admin: 04/14/21 09:44 Dose: 14 mg Documented by: TAMMIE Ondansetron HCl (Ondansetron Hcl 4 Mg/2 Ml Vial) 4 mg IVPUSH Q8H PRN PRN Reason: Nausea and Vomiting Pharmacy Consult (Consult Rx Perform Med Rec) 1 each MISCELLANE ONCE PRN PRN Reason: Consult order Phenobarbital (Phenobarbital 15 Mg Tablet) 45 mg PO BID [facility]; Protocol Stop: 04/15/21 09:01 Last Admin: 04/14/21 09:44 Dose: 45 mg Documented by: TAMMIE Phenobarbital (Phenobarbital 30 Mg Tablet) 30 mg PO BID [facility]; Protocol Stop: 04/17/21 09:01 Phenobarbital (Phenobarbital 30 Mg Tablet) 30 mg PO DAILY [facility]; Protocol Stop: 04/19/21 09:01 Potassium Chloride (Potassium Chloride Er 20 Meq Tab.Er.Prt) 40 meq PO DAILY [facility] Last Admin: 04/14/21 09:44 Dose: 40 meq Documented by: TAMMIE Sodium Chloride (0.9 % Sodium Chloride Flush 3 Ml Syringe) 3 ml IVFLUSH QSHIFT [facility] Last Admin: 04/14/21 09:43 Dose: 3 ml Documented by: TAMMIE Labs CBC & Chem 7: 04/14/21 05:21 04/14/21 05:21 Labs: Laboratory Results - last 24 hr 04/13/21 04/13/21 04/13/21 06:32 12:01 12:49 MCV MCH MCHC RDW Plt Count MPV Absolute Nucleated RBC Nucleated RBC % (auto) Anion Gap 10 L 11 L Estim Creat Clear Calc 71.6 Estimated GFR > 60 POC Glucose Random Glucose 87 Calcium 12.2 H D 12.4 H Phosphorus 1.8 L Total Bilirubin 1.0 AST 243 H ALT 69 H Alkaline Phosphatase 57 D Total Creatine Kinase 1591 H Total Protein 5.4 L D Albumin 3.3 L 25-OH Vitamin D Total 12.2 TSH 1.18 CSF Mening/Enceph PCR SEE NOTE 04/13/21 04/13/21 04/14/21 13:14 17:28 05:21 MCV 87.9 MCH 30.9 MCHC 35.1 RDW 11.9 Plt Count 203 MPV 10.7 Absolute Nucleated RBC 0.000 Nucleated RBC % (auto) 0.0 Anion Gap 11 L Estim Creat Clear Calc 76.5 Estimated GFR > 60 POC Glucose 87 Random Glucose 77 Calcium 11.8 H Phosphorus Total Bilirubin AST ALT Alkaline Phosphatase Total Creatine Kinase Total Protein Albumin 25-OH Vitamin D Total TSH CSF Mening/Enceph PCR 04/14/21 05:21 MCV MCH MCHC RDW Plt Count MPV Absolute Nucleated RBC Nucleated RBC % (auto) Anion Gap 10 L Estim Creat Clear Calc 96.1 Estimated GFR > 60 POC Glucose Random Glucose 71 Calcium 11.1 H Phosphorus Total Bilirubin AST ALT Alkaline Phosphatase Total Creatine Kinase Total Protein Albumin 25-OH Vitamin D Total TSH CSF Mening/Enceph PCR Microbiology Microbiology Results: Microbiology 04/13/21 05:01 Blood Culture - Preliminary Blood - Venous No growth after 24 hours. 04/13/21 05:01 Blood Culture - Preliminary Blood - Venous No growth after 24 hours. 04/13/21 06:32 Gram Stain - Final Cerebrospinal Fluid CSF Examination - Final Fluid Description - Final Assessment and Plan (1) Acute metabolic encephalopathy: Status: Acute (2) Hypercalcemia: Status: Acute Assessment and Plan: This is a 46 yo M with a PMH of heavy alcohol use who presents to the hospital in a confused state. His work up is significant for severe hypercalcemia and acute encephalopathy. He will be admitted for further work up and treatment. Acute Toxic/Metabolic Encephalopathy Multifactorial including hypercalcemia / heavy alcohol use and possibly Wernicke's treat underlying issues. Hypercalcemia. tredning down Given Pamidronate + IVF in the ED PTH pending Seen by nephrology rec fluids and MRI HypoNa. Resolved / HypoK. 3.1 suspected hypovoluemic fluids for HypoNa as above stop fluids Add daily potassium Alcohol abuse and dependence, rule out Wernicke's IV thiamine Start phenobarb monitor lytes Hyperbilirubinemia / Transaminitis suspected due to alcohol use Acute Respiratory Failure with hypoxia. improving Saturations decreased to 85-86 on RA; stable on NC CXR not impressive, possibly reactive airways DuoNebs scheduled + doxycycline hold off prednisone for now Patient does not have severe sepsis at this time. His lab anormalities (Leukocytosis, elevated bilirubin) and his tachycardia/tachypnea are not related to severe sepsis. Full Code DVT pptx heparin Attending Dr. Soto Quality Stroke Does the patient have a stroke diagnosis?: No VTE Prior VTE?: No VTE Risk Level:: Medical - moderate - high VTE Device Contraindication: N/A - Device Ordered VTE Drug Contraindication: Treatment Not Indicated
[2021-04-14 11:42] LABS: PTHI 7 pg/mL (14-64)
[2021-04-14] MEDS: Heparin Sodium,Porcine 5,000 UNIT/ML VIAL 5000 UNIT SUBCUT ×2 (11:45→22:55)
--- NOTE | 2021-04-14 16:01 | MHC.CM.PN ---
Addendum entered by Amada Montoya 04/14/21 16:09: CONTAXTS PATIENT LIVES WITH HIS MOM HE GAVE CONTACT TO HIS SISTER RAMBO [phone] AND SHE GAVE ME HIS DTRS NAME WILLIE [phone] SPOKE WITH MEMBER FROM THE CARE TEAM YON THEY WILL SEE HIM TOMORROW Original Note: ÁNGELA [employer]UE[employer] AGENT [employer] REVIEWED , ALSO MET WITH PATIENT AND WITH HIS PERMISSION HIS SISTER WAS AT HIS BEDSIDE. PATIENT WAS ADMITTED WITH CONFUSION AND ELECTROLYTE IMBALANCE HE REPORTED HE RECENLTY WAS DISCHARGED FROM A [place] [facility] BUT SOON AFTER BEING HOME STARTED FDRINKING ETOH , AT THIS TIME HE COULD NOT TELL ME HOW MUCH HE WAS DRINIKING , HE LIVES WITH HOS MOTHER , HE CURRENTLY IS UN EMPLOYED AFTER BEING TERMINATED FROM TWO OTHER JOBS, PATIENT SISTER CONFIRMED PCP AT [facility] HE RECIVED COVID [facility] AT [facility] - HE HAS NOT RECIVED HIS BOOSTER YET PATIRNT ALSO REPORTED HE WAS DIAGNOSED WITH ANXIETY AND DEPRESSION , AND HE DOES NOT KNOW HOW MUCH HE WAAS DRINKING , DISCHARGE PLAN 1. NEEDS TO COMPLETE HCP WAS WELL ORIENTATEED AND NOT CONFUSED CARE TEAM REFERRAL ASKED FOR THEM TO SEE HIM 04/15/21 FOR ETOH ABUSE AND MENTAL HEALTH COUNSELING REFERRALS WITH HIS KNOWLEDGE AND ACEEPTANCE FOR SOME ONE TO COME TALK WITH HIM TRANSPOTRTATION FAMILY
--- NOTE | 2021-04-14 16:33 | PM.PNNEP ---
Subjective Subjective Date of Service: 04/14/21 Principal diagnosis: BENY, HyperCa Interval history: Seen and examined, events noted Physical Exam Vital Signs: Vital Signs: Last Vital Signs Temp 97.8 F 04/14/21 12:00 Pulse 99 04/14/21 12:00 Resp 18 04/14/21 12:00 BP 139/89 04/14/21 12:00 Pulse Ox 91 L 04/14/21 08:00 BMI result Body Mass Index 25.9 Const: Other: Constitutional - Awake and Alert, No apparent distress, disoriented HEENT - PERRLA, EOMI, dry mucous membranes Cardiovascular - S1S2, RRR, No edema Respiratory - Normal lung expansion, Normal respiratory effort, No respiratory distress, CTA bilaterally Gastrointestinal - NT / ND; +BS; No rebound or guarding - No CVA tenderness Extremities - no calf tenderness bilaterally, no swelling Musculoskeletal - Normal inspection, normal ROM Skin - Warm/Dry Neurological - awake and alert, able to obey some basic commands like lifting arms and legs; disoriented to place and time; oriented to self Psychological - Appropriate affect Neuro: Other: Non focal exam Objective Data Labs CBC & Chem 7: 04/14/21 05:21 04/14/21 05:21 Labs: Laboratory Results - last 24 hr 04/13/21 04/13/21 04/14/21 12:01 17:28 05:21 WBC 11.4 H RBC 3.56 L D Hgb 11.0 L D Hct 31.3 L MCV 87.9 MCH 30.9 MCHC 35.1 RDW 11.9 Plt Count 203 MPV 10.7 Absolute Nucleated RBC 0.000 Nucleated RBC % (auto) 0.0 Sodium 133 L Potassium 2.9 L Chloride 91 L Carbon Dioxide 34 H Anion Gap 11 L BUN 35 H Creatinine 1.18 Estim Creat Clear Calc 76.5 Estimated GFR > 60 Random Glucose 77 Calcium 11.8 H Total Creatine Kinase PTH Intact 7 L Calcium (PTH Intact) 12.0 H 04/14/21 04/14/21 05:21 15:52 WBC RBC Hgb Hct MCV MCH MCHC RDW Plt Count MPV Absolute Nucleated RBC Nucleated RBC % (auto) Sodium 139 Potassium 3.1 L Chloride 101 Carbon Dioxide 31 H Anion Gap 10 L BUN 27 H Creatinine 0.94 Estim Creat Clear Calc 96.1 Estimated GFR > 60 Random Glucose 71 Calcium 11.1 H Total Creatine Kinase 415 H D PTH Intact Calcium (PTH Intact) Microbiology Microbiology Results: Microbiology 04/13/21 06:32 Cerebrospinal Fluid Gram Stain - Final 04/13/21 06:32 Cerebrospinal Fluid CSF Examination - Final 04/13/21 06:32 Cerebrospinal Fluid Fluid Description - Final 04/13/21 06:32 Cerebrospinal Fluid CSF Culture - Preliminary No growth after 1 day 04/13/21 05:01 Blood - Venous Blood Culture - Preliminary No growth after 24 hours. 04/13/21 05:01 Blood - Venous Blood Culture - Preliminary No growth after 24 hours. Procedures Date of Service Date of Service: 04/14/21 Assessment & Plan Assessment and plan (1) Acute metabolic encephalopathy: Status: Acute (2) Hypercalcemia: Status: Acute Assessment and Plan: This is a 46 yo M with a PMH of heavy alcohol use who presents to the hospital in a confused state. His work up is significant for severe hypercalcemia and acute encephalopathy, BENY and HypoNa 1. BENY: resolved 2. HypoNa: resolved 3. JypoK: improved 4. HyperCa: signif improved with IVF and IV palimdronate ( seems too early for the latter to have any impact); w/u thus far does notshed light on cause of hyperCa PTH appropriate suppressed Vit D: not elevated immunofix pending 5. AMS: much improved REC: reepat SNa to avoid further incr SNa given 128 on adm; cont to track CA Will follow with team Time Spent With Patient Time: Total time spent is greater than 50% in coordination of care (as documented) at patient's floor/unit and/or counseling patient: Progress Note: Quality Stroke Does the patient have a stroke diagnosis?: No
[2021-04-14 17:33] LABS: Anion Gap 13 (12-20); Carbon Dioxide 30 mmol/L (22-29); Chloride 100 mmol/L (96-108); Potassium 3.3 mmol/L (3.3-5.1); Sodium 140 mmol/L (135-145)
[2021-04-14] MEDS: Albuterol/Iprat 2.5/0.5MG 3 ML AMPUL.NEB INHALE (21:13)
[2021-04-14] MEDS: Dextrose 5 % 1,000 ML 100 ML IVCONT (22:55)
[2021-04-15 03:42] VITALS: BP 123/82; PULSE 77; RESP 18; TEMP 36.2; O2SAT 96
[2021-04-15 05:49] LABS: Hematocrit 30.8 % (42.0-52.0); Hemoglobin 10.8 g/dl (14.0-18.0); Mean Corpuscular HGB Conc 35.1 g/dl (31.0-36.0); Mean Corpuscular Hemoglobin 30.9 pg (27.0-33.0); Mean Corpuscular Volume 88.3 fL (80.0-98.0); Mean Platelet Volume 10.3 fL (9.4-12.4); Platelet Count 201 X10*3/uL (160-400); Red Blood Count 3.49 X10*6/uL (4.60-5.80); Red Cell Distribution Width 11.9 % (11.0-16.0); White Blood Count 10.4 X10*3/uL (4.8-10.8)
[2021-04-15 06:13] LABS: Anion Gap 9 (12-20); Blood Urea Nitrogen 17 mg/dL (9-16); Calcium 9.4 mg/dL (8.4-10.2); Carbon Dioxide 30 mmol/L (22-29); Chloride 101 mmol/L (96-108); Creatinine Clr Calc Pharmacy 106.2; Estimated Glomerular Filt Rate > 60; Glucose Random 128 mg/dL (60-115); Sodium 137 mmol/L (135-145)
[2021-04-15] MEDS: Thiamine HCL 500 MG in 0.9 % Sodium Chloride 100 ML 210 MG IV ×2 (07:23→19:59)
[2021-04-15 07:29] VITALS: BP 145/90; PULSE 79; RESP 16; TEMP 36.5; O2SAT 94
[2021-04-15] MEDS: Nicotine 14 MG PATCH.TD24 TRANSDERMA (08:02)
[2021-04-15] MEDS: PHENobarbitaL 15 MG TABLET 45 MG PO (08:03)
[2021-04-15] MEDS: Folic Acid 1 MG TABLET PO (08:03)
[2021-04-15] MEDS: Potassium Chloride ER 20 MEQ TAB.ER.PRT 40 MEQ PO (08:04)
--- NOTE | 2021-04-15 09:56 | HO.PM.IMPN ---
Subjective Subjective Date of Service: 04/15/21 Interval History: seen and examined this AM reports generalized aches but otherwise no complaints knows hes in the hospital and what month it is does not remember the circumstances which brought him here Review of Systems negative except HPI Physical Exam Vital Signs: Vital Signs: Last Vital Signs Temp 97.7 F 04/15/21 07:29 Pulse 79 04/15/21 07:29 Resp 16 04/15/21 07:29 BP 145/90 H 04/15/21 07:29 Pulse Ox 94 04/15/21 07:29 BMI result Body Mass Index 25.9 Const: Other: Constitutional - Awake and Alert, No apparent distress HEENT - PERRLA, EOMI, dry mucous membranes Cardiovascular - S1S2, RRR, No edema Respiratory - Normal lung expansion, Normal respiratory effort, No respiratory distress, CTA bilaterally Gastrointestinal - NT / ND; +BS; No rebound or guarding - No CVA tenderness Extremities - no calf tenderness bilaterally, no swelling Musculoskeletal - Normal inspection, normal ROM Skin - Warm/Dry Neurological - awake and alert, oriented to self, place and time Psychological - Appropriate affect Objective Data Active Medications Acetaminophen (Acetaminophen 325 Mg Tablet) 650 mg PO Q6H PRN PRN Reason: Pain, Mild (Pain Scale 1-3) Albuterol/Ipratropium (Albuterol/Iprat 2.5/0.5mg 3 Ml Ampul.Neb) 3 ml INHALE RQ4H WHILE AWAKE [facility] Last Admin: 04/15/21 08:22 Dose: Not Given Documented by: TRIPP Non-Admin Reason: eating breakfast Doxycycline Hyclate (Doxycycline Hyclate 100 Mg Tablet) 100 mg PO Q12H [facility] Last Admin: 04/14/21 22:55 Dose: 100 mg Documented by: TERRANCE Folic Acid (Folic Acid 1 Mg Tablet) 1 mg PO DAILY [facility] Last Admin: 04/15/21 08:03 Dose: 1 mg Documented by: KIARRA Heparin Sodium (Porcine) (Heparin Sodium,Porcine 5,000 Unit/Ml Vial) 5,000 unit SUBCUT Q12H [facility] Last Admin: 04/14/21 22:55 Dose: 5,000 unit Documented by: TERRANCE Thiamine HCl 500 mg/ Sodium (Chloride) 105 mls @ 210 mls/hr IV Q12H [facility] Last Infusion: 04/15/21 08:14 Dose: 0 mls/hr Documented by: KIARRA Medication (No Benzodiazepines) 1 each MISCELLANE DAILY [facility] Nicotine (Nicotine 14 Mg Patch.Td24) 14 mg TRANSDERMA DAILY [facility] Last Admin: 04/15/21 08:02 Dose: 14 mg Documented by: KIARRA Ondansetron HCl (Ondansetron Hcl 4 Mg/2 Ml Vial) 4 mg IVPUSH Q8H PRN PRN Reason: Nausea and Vomiting Pharmacy Consult (Consult Rx Perform Med Rec) 1 each MISCELLANE ONCE PRN PRN Reason: Consult order Phenobarbital (Phenobarbital 30 Mg Tablet) 30 mg PO BID [facility]; Protocol Stop: 04/17/21 09:01 Phenobarbital (Phenobarbital 30 Mg Tablet) 30 mg PO DAILY [facility]; Protocol Stop: 04/19/21 09:01 Potassium Chloride (Potassium Chloride Er 20 Meq Tab.Er.Prt) 40 meq PO DAILY [facility] Last Admin: 04/15/21 08:04 Dose: 40 meq Documented by: KIARRA Sodium Chloride (0.9 % Sodium Chloride Flush 3 Ml Syringe) 3 ml IVFLUSH QSHIFT [facility] Last Admin: 04/14/21 20:10 Dose: 3 ml Documented by: TERRANCE Labs CBC & Chem 7: 04/15/21 05:34 04/15/21 05:34 Labs: Laboratory Results - last 24 hr 04/13/21 04/14/21 04/14/21 12:01 15:52 17:04 MCV MCH MCHC RDW Plt Count MPV Absolute Nucleated RBC Nucleated RBC % (auto) Anion Gap 13 Estim Creat Clear Calc Estimated GFR Random Glucose Calcium Total Creatine Kinase 415 H D PTH Intact 7 L Calcium (PTH Intact) 12.0 H 04/15/21 04/15/21 05:34 05:34 MCV 88.3 MCH 30.9 MCHC 35.1 RDW 11.9 Plt Count 201 MPV 10.3 Absolute Nucleated RBC 0.000 Nucleated RBC % (auto) 0.0 Anion Gap 9 L Estim Creat Clear Calc 106.2 Estimated GFR > 60 Random Glucose 128 H D Calcium 9.4 D Total Creatine Kinase PTH Intact Calcium (PTH Intact) Microbiology Microbiology Results: Microbiology 04/13/21 06:32 Gram Stain - Final Cerebrospinal Fluid CSF Examination - Final Fluid Description - Final CSF Culture - Preliminary No growth after 2 days 04/13/21 05:01 Blood Culture - Preliminary Blood - Venous No growth after 48 hours. 04/13/21 05:01 Blood Culture - Preliminary Blood - Venous No growth after 48 hours. Assessment and Plan (1) Acute metabolic encephalopathy: Status: Acute Assessment and Plan: This is a 46 yo M with a PMH of heavy alcohol use who presents to the hospital in a confused state. His work up is significant for severe hypercalcemia and acute encephalopathy. He will be admitted for further work up and treatment. Acute Toxic/Metabolic Encephalopathy Multifactorial including hypercalcemia / heavy alcohol use and possibly Wernicke's continues to improve MRI negative Hypercalcemia resolved recevied Pamidronate in the ED HypoNa. Resolved / Hypok / hypophos suspected hypovoluemic improving replete lytes as needed IV and PO Alcohol abuse and dependence phenobarb IV thiamin monitor lytes Hyperbilirubinemia / Transaminitis suspected due to alcohol use Acute Respiratory Failure with hypoxia resolved possible bronchitis treat with duonebelén and fredi Full Code DVT pptx, subcut. heparin Quality Stroke Does the patient have a stroke diagnosis?: No VTE Prior VTE?: No VTE Risk Level:: Medical - moderate - high VTE Device Contraindication: N/A - Device Ordered VTE Drug Contraindication: Treatment Not Indicated
[2021-04-15 11:06] VITALS: BP 147/94; PULSE 98; RESP 18; TEMP 36.4; O2SAT 97
--- NOTE | 2021-04-15 12:35 | MHC.RECOVRN ---
Met with pt in 368 to discuss substance use. Pt reports drinking alcohol, typically 40 oz beer and/or a sleeve of vodka nips daily. Pt began drinking around 1992 and has not had significant time in recovery since then. Pt has not engaged in tx for AUD other than ATS and some AA meetings. Pt very interested in resources and pursuing recovery. Pt has been to [facility] a few times and most recently was in [place] for ATS and continued treatment from 08/08/20-09/23/20. Pt resumed drinking shortly after return from [place]. Pt reports being started on medications while in treatment, including campral and naltrexone. Pt was provided with prescriptions upon discharge. T/w provided pt with information regarding those medications as well as local outpatient providers. Pt has gone to a couple virtual AA meetings and is interested in connecting locally. Pt also plans on connecting with [facility], pt aware of location, days, times of meetings, etc. Pt has family support and lives with mother and 19 cats. Pt would like to be linked to a chief engineer drilling and recovery, t/w will facilitate. Pt provided with written recovery resources and information on local supports as well as t/w contact information if questions arise. Pt to meet with CARE Team to follow up regarding desire for therapy and BH supports. T/w available as needed.
[2021-04-15] MEDS: Sodium,Potassium Phosphates POWD.PACK 1 PACKET PO ×3 (13:14→21:44)
[2021-04-15] MEDS: Heparin Sodium,Porcine 5,000 UNIT/ML VIAL 5000 UNIT SUBCUT ×2 (13:14→21:49)
--- NOTE | 2021-04-15 13:14 | MHC.CARE ---
CARE team consult received on 04/14/21 for pt who has been medically admitted to [facility] for encephalopathy and suspected Wernicke's secondary to heavy alcohol use. Pt reported that for a week or so prior to his ED presentation he had been drinking a sleeve of nips daily, chain smoking cigarettes, and not eating. He said that he had been isolated to his bedroom at his mother's house and only ingesting Tums to manage heartburn, likely an outcome from his lack of food intake and hard liquor consumption. He shared that he had been diagnosed with depression and anxiety ~20 years ago and started taking an antidepressant at that time. He doesn't remember what medication he had initially been prescribed, but he had ongoing complaints about restlessness and poor sleep and was started on prozac, which he had taken consistently until his medications were adjusted during a rehab admission in [place] earlier this year. He was taking 60mg daily. Medications he discharged from rehab on were Buspar, Hydroxyzine, and Naltrexone. He reported that he had been taking the medications as directed up until his relapse, then was taking every few days or so when he remembered to, and believes that he last took them sometime last week. He identified that he feels that his present episode of depression/anxiety and subsequent relapse were triggered by his ex-girlfriend ending their relationship the day before he left the rehab program, resulting in him having to move in with his mother and her 19 cats (he has a cat/animal dander allergy). He shared that their relationship hadn't been very good, but has been improving over time since he returned from [place]. This newspaper writer discussed individual therapy and partial hospitalization program with the pt. He is agreeable to both treatment programs. Referrals will be made to [facility] for therapy and medication management as well as for [facility] PHP. This newspaper writer updated Dr. Soto re: outcomes of the depression/anxiety consultation, and requested a psych consult while pt is still in the hospital so that he can be safely restarted on his medications. Consulting psych Marcela Ramirez COMMUNICATIONS AND SIGNALS SUPERVISOR was given a brief explanation of the situation a purpose for consultation.
--- NOTE | 2021-04-15 13:45 | MHC.RECOVSUP ---
? Reason for consult:Recovery support o Current location: [facility] o Identified substance use concern:ETOH - Withdrawal - Support ? Intervention: o MAT started or to be started o Community resources provided o ? Plan: o Referral to [facility] o Patient to follow up with [facility] after discharge ? Additional information: referred patient to [facility], spoke to him re: Recovery coaching, gave him community resources.
[2021-04-15] MEDS: Acetaminophen 325 MG TABLET 650 MG PO (14:03)
--- NOTE | 2021-04-15 15:10 | MHC.CM.PN ---
NO PLAN FOR DISCHARGE OF THIS NOTE. PATIENT 85-86% ON R.A. STABLE ON [place]. CASE MANAGEMENT FOLLOWING FOR DC NEEDS.
[2021-04-15 15:26] LABS: Calcium, Ionized 6.9 mg/dL (4.8-5.6)
[2021-04-15 15:39] VITALS: BP 134/94; PULSE 86; RESP 18; TEMP 37.1; O2SAT 96
[2021-04-15] MEDS: 0.9 % Sodium Chloride Flush 3 ML SYRINGE IVFLUSH ×2 (16:03→21:49)
--- NOTE | 2021-04-15 16:36 | PM.PSYCN ---
History of Present Illness Date of Service: 04/15/21 Chief Complaint: Confusion Reason for Consult: Re-initiation of psychiatric medications. Requesting physician: Ismael Soto Discussed with referring provider: Yes Sources of Information: patient interviewed, chart reviewed and crisis/core team assessment reviewed HPI Narrative: Mr. Reis is a 46-year-old single male, with PMH of alcohol use disorder severe, was brought by family to this facility after noting he was confused. Patient was admitted for care and management of acute toxic/metabolic encephalopathy, hypercalcemia, and multiple fluid electrolyte imbalances including low-sodium, low-potassium, with r/o of Wernicke's. Patient has been receiving treatment, is currently much improved. This creative writer was asked to meet with patient regarding re-initiation of his psychiatric medications. A chart review reveals the patient had been receiving BuSpar 10 mg t.i.d., as well as desvenlafaxine ER 50 mg daily. When this creative writer met with patient, he was sitting up in chair an room. Fully alert and oriented x4. Speech clear, coherent. No evidence of any type of distress noted. He reports that he had taken Prozac in the past, for years, due to a history of depression and anxiety. In September, he had been looking to go to a detox/rehab. A friend helped him get admitted to a rehab center in [place], which he entered in October 2020. He states that while there, they had made several medication changes. Patient had been started with desvenlafaxine ER 25 mg daily. This dose was increased in October 2020 by PCP office here. He reports he also has been taking BuSpar 10 mg t.i.d.. Patient explained that he had been home drinking large amounts of alcohol. He states he has not taken his medication for approximately 5-6 days. A med review shows Script for desvenlafaxine ER 50 mg was filled on 04/04/2021, and buspar script last filled 04/04/21. Patient reports that he had decided at some point to stop alcohol, and was trying to wean himself down. He also reports for some reason he had stopped eating and drinking, thus ending up here in the hospital . He denies any previous inpatient level of care, PHP, other types of services for psychiatry. He currently does not have a psych provider, and care team has been working with him to obtain referrals for therapy and provider going forward. We discussed patient's medications, and he is requesting to be restarted on them. Past Psychiatric History: Has been prescribed psychiatric medications by PCP office in past. No history of psych providers, no inpatient level of care. Medical Evaluation Reviewed: Yes Personal & Social History: Long history of alcohol use disorder. Currently living with mother, after breakup while he was in rehab facility. Has several siblings. Describes family as supportive. Review of Systems Review of Systems A full review of systems was completed and was negative with the exception of pertinent positives noted in history of the presenting illness (HPI). Yes all other systems are reviewed and are negative Constitutional: Reports no additional constitutional complaints [facility] Medical History Asthma Family History: unknown Social History: currently living with mother. Substance History: Long history of ETOH use disorder, severe. Trauma History: unknown Diagnostics Vital Signs (24Hr): Vital Signs - 24 hr 04/14/21 19:23 04/14/21 21:15 04/14/21 23:39 Temperature 98.2 F 98.8 F Pulse Rate 90 99 92 Respiratory Rate 18 16 18 Blood Pressure 145/92 H 142/81 H Pulse Oximetry 93 99 04/15/21 03:42 04/15/21 07:29 04/15/21 11:06 Temperature 97.2 F 97.7 F 97.6 F Pulse Rate 77 79 98 Respiratory Rate 18 16 18 Blood Pressure 123/82 145/90 H 147/94 H Pulse Oximetry 96 94 97 04/15/21 15:39 Temperature 98.7 F Pulse Rate 86 Respiratory Rate 18 Blood Pressure 134/94 H Pulse Oximetry 96 BMI result Body Mass Index 25.9 Labs Results: 04/15/21 05:34 04/15/21 05:34 Labs: Laboratory Results - last 48 hr 04/13/21 04/13/21 04/13/21 12:01 12:48 17:28 WBC RBC Hgb Hct MCV MCH MCHC RDW Plt Count MPV Absolute Nucleated RBC Nucleated RBC % (auto) Sodium 133 L Potassium 2.9 L Chloride 91 L Carbon Dioxide 34 H Anion Gap 11 L BUN 35 H Creatinine 1.18 Estim Creat Clear Calc 76.5 Estimated GFR > 60 Random Glucose 77 Calcium 11.8 H Ionized Calcium 6.9 H Total Creatine Kinase PTH Intact 7 L Calcium (PTH Intact) 12.0 H 04/14/21 04/14/21 04/14/21 05:21 05:21 15:52 WBC 11.4 H RBC 3.56 L D Hgb 11.0 L D Hct 31.3 L MCV 87.9 MCH 30.9 MCHC 35.1 RDW 11.9 Plt Count 203 MPV 10.7 Absolute Nucleated RBC 0.000 Nucleated RBC % (auto) 0.0 Sodium 139 Potassium 3.1 L Chloride 101 Carbon Dioxide 31 H Anion Gap 10 L BUN 27 H Creatinine 0.94 Estim Creat Clear Calc 96.1 Estimated GFR > 60 Random Glucose 71 Calcium 11.1 H Ionized Calcium Total Creatine Kinase 415 H D PTH Intact Calcium (PTH Intact) 04/14/21 04/15/21 04/15/21 17:04 05:34 05:34 WBC 10.4 RBC 3.49 L Hgb 10.8 L Hct 30.8 L MCV 88.3 MCH 30.9 MCHC 35.1 RDW 11.9 Plt Count 201 MPV 10.3 Absolute Nucleated RBC 0.000 Nucleated RBC % (auto) 0.0 Sodium 140 137 Potassium 3.3 3.0 L Chloride 100 101 Carbon Dioxide 30 H 30 H Anion Gap 13 9 L BUN 17 H Creatinine 0.85 Estim Creat Clear Calc 106.2 Estimated GFR > 60 Random Glucose 128 H D Calcium 9.4 D Ionized Calcium Total Creatine Kinase PTH Intact Calcium (PTH Intact) Imaging Radiology Impressions: ITS Impressions Chest X-Ray 04/13/21 04:50 IMPRESSION: No dense consolidation. Bronchial wall thickening can be seen with a small airways process such as asthma or atypical/viral infection. Head CT 04/13/21 05:55 IMPRESSION: No acute intracranial pathology. Brain MRI 04/14/21 12:26 IMPRESSION: No acute intracranial abnormality identified. No brainstem signal abnormality. No evidence of central pontine myelinolysis. Mental Status Exam Mental Status Exam Narrative: Well-developed, well-nourished male, in NAD. Somewhat disheveled. Sitting up in chair at bedside. No involuntary movements noted, motor activity calm, posture within normal limits. Ambulation not observed. No cogwheeling or rigidity noted. Patient Appearance: Disheveled and Unkempt Patient Orientation: Person, Time and Situation Level of Consciousness: Awake, Appropriate and Alert Patient Behavior: Appropriate, Cooperative and Good Eye Contact Mood Description: Appropriate, Depressed and Anxious Affect Description: Calm and Appropriate Patient Cognition Impaired: No Ability to Follow Directions: Excellent Speech Pattern: Clear, Appropriate and Coherent Memory Description: Recent Impaired (Memory of recent events leading to hospitalization somewhat impaired. Reports family and providers have informed him of details.) Hallucinations: None Delusions: Not Present Thought Process: Intact, Goal Oriented and Linear Thought Content: positive for Intact, positive for Goal Oriented and positive for Linear Depressive Symptoms: Increased Anxiety, Feelings of Worthlessness, Feelings of Guilt and Unhappiness Judgement: Fair Judgement and Insight: Insight and judgment fair but adequate. Medications Medications Current Medications Acetaminophen (Acetaminophen 325 Mg Tablet) 650 mg PO Q6H PRN PRN Reason: Pain, Mild (Pain Scale 1-3) Last Admin: 04/15/21 14:03 Dose: 650 mg Documented by: Albuterol Sulfate (Albuterol Sulfate (0.083%) 2.5 Mg/3 Ml Vial.Neb) 2.5 mg INHALE RQ4H PRN PRN Reason: Wheezing Buspirone HCl (Buspirone Hcl 10 Mg Tablet) 10 mg PO TID [facility] Doxycycline Hyclate (Doxycycline Hyclate 100 Mg Tablet) 100 mg PO Q12H [facility] Last Admin: 04/15/21 13:14 Dose: 100 mg Documented by: Folic Acid (Folic Acid 1 Mg Tablet) 1 mg PO DAILY [facility] Last Admin: 04/15/21 08:03 Dose: 1 mg Documented by: Heparin Sodium (Porcine) (Heparin Sodium,Porcine 5,000 Unit/Ml Vial) 5,000 unit SUBCUT Q12H [facility] Last Admin: 04/15/21 13:14 Dose: 5,000 unit Documented by: Thiamine HCl 500 mg/ Sodium (Chloride) 105 mls @ 210 mls/hr IV Q12H [facility] Last Infusion: 04/15/21 08:14 Dose: Infused Documented by: Medication (No Benzodiazepines) 1 each MISCELLANE DAILY [facility] Nicotine (Nicotine 14 Mg Patch.Td24) 14 mg TRANSDERMA DAILY [facility] Last Admin: 04/15/21 08:02 Dose: 14 mg Documented by: Non-Formulary Medication (Desenlafaxine Er) 50 mg PO DAILY [facility] Ondansetron HCl (Ondansetron Hcl 4 Mg/2 Ml Vial) 4 mg IVPUSH Q8H PRN PRN Reason: Nausea and Vomiting Pharmacy Consult (Consult Rx Perform Med Rec) 1 each MISCELLANE ONCE PRN PRN Reason: Consult order Phenobarbital (Phenobarbital 30 Mg Tablet) 30 mg PO BID [facility]; Protocol Stop: 04/17/21 09:01 Phenobarbital (Phenobarbital 30 Mg Tablet) 30 mg PO DAILY [facility]; Protocol Stop: 04/19/21 09:01 Potassium Chloride (Potassium Chloride Er 20 Meq Tab.Er.Prt) 40 meq PO DAILY [facility] Last Admin: 04/15/21 08:04 Dose: 40 meq Documented by: Potassium Phos/Sodium Phos (Sodium,Potassium Phosphates Powd.Pack) 1 packet PO QID [facility] Last Admin: 04/15/21 16:03 Dose: 1 packet Documented by: Sodium Chloride (0.9 % Sodium Chloride Flush 3 Ml Syringe) 3 ml IVFLUSH QSHIFT [facility] Last Admin: 04/15/21 16:03 Dose: 3 ml Documented by: Allergies Allergies Allergy/AdvReac Type Severity Reaction Status Date / Time animal dander Allergy Unknown SINUS/RESPI Verified 01/08/21 17:35 RATORY Assessment & Plan Assessment & Plan (1) MDD (major depressive disorder), recurrent episode, severe: Status: Acute Code(s): F33.2 - Major depressive disorder, recurrent severe without psychotic features Assessment and Plan: Patient currently receiving desvenlafaxine ER 50mg daily from primary care provider's office. He reports he did not take it for 5 or 6 days prior to admission. He had toll care team staff that he had been taking it sporadically recently due to increased alcohol consumption. He has had withdrawal symptoms including some dizziness, nausea, sweating, increased anxiety and irritability. He also had been detoxing from alcohol, so it is unclear whether symptoms were discontinuation syndrome of the Pristiq or related to the alcohol withdrawals. He is asking to be restarted on this medication. BP has been elevated but has been tending down to wnl. He denies any type of thought of harm to self or others, and reports that he has never felt suicidal at any time in his life. No safety concern. Denies any auditory, visual, tactile hallucinations. Did not appear to be responding to internal stimuli in any way. (2) LAI (generalized anxiety disorder): Status: Acute Code(s): F41.1 - Generalized anxiety disorder Assessment and Plan: Patient reports he has a longstanding history of anxiety along with his depression. He reports that he has taken BuSpar 10 mg t.i.d. with positive affect, prescribed by his PCP office. He states he stopped taking this at approximately the same time he stopped with the Pristiq. He is requesting to be re-initiated on this medication. Assessment and Plan: 1. Start desvenlafaxine ER 50mg daily. Medication is non formulary to this hospital. Nurse has been asked asked patient to have family member bring in medication. 2. Start buspar 10mg TID. These recommendations and thoughts have been shared with provider Dr. Lorene Soto, via telephone. It was also discussed that blood pressure can be affected by desvenlafaxine. stated he is aware. Thank you for this consultation. If you have any further questions or concerns, please do not hesitate to contact us. I spent ____40__ minutes with the patient and/or on the patient floor today, greater than?50% of which was spent counseling/coordinating care.
--- NOTE | 2021-04-15 17:18 | PM.PNNEP ---
Subjective Subjective Date of Service: 04/15/21 Principal diagnosis: BENY, HyperCa Interval history: Seen and examined, events noted Physical Exam Vital Signs: Vital Signs: Last Vital Signs Temp 98.7 F 04/15/21 15:39 Pulse 86 04/15/21 15:39 Resp 18 04/15/21 15:39 BP 134/94 H 04/15/21 15:39 Pulse Ox 96 04/15/21 15:39 BMI result Body Mass Index 25.9 Const: Other: Constitutional - Awake and Alert, No apparent distress, disoriented HEENT - PERRLA, EOMI, dry mucous membranes Cardiovascular - S1S2, RRR, No edema Respiratory - Normal lung expansion, Normal respiratory effort, No respiratory distress, CTA bilaterally Gastrointestinal - NT / ND; +BS; No rebound or guarding - No CVA tenderness Extremities - no calf tenderness bilaterally, no swelling Musculoskeletal - Normal inspection, normal ROM Skin - Warm/Dry Neurological - awake and alert, able to obey some basic commands like lifting arms and legs; disoriented to place and time; oriented to self Psychological - Appropriate affect Neuro: Other: Non focal exam Objective Data Labs CBC & Chem 7: 04/15/21 05:34 04/15/21 05:34 Labs: Laboratory Results - last 24 hr 04/13/21 04/14/21 04/15/21 12:48 17:04 05:34 WBC 10.4 RBC 3.49 L Hgb 10.8 L Hct 30.8 L MCV 88.3 MCH 30.9 MCHC 35.1 RDW 11.9 Plt Count 201 MPV 10.3 Absolute Nucleated RBC 0.000 Nucleated RBC % (auto) 0.0 Sodium 140 Potassium 3.3 Chloride 100 Carbon Dioxide 30 H Anion Gap 13 BUN Creatinine Estim Creat Clear Calc Estimated GFR Random Glucose Calcium Ionized Calcium 6.9 H 04/15/21 05:34 WBC RBC Hgb Hct MCV MCH MCHC RDW Plt Count MPV Absolute Nucleated RBC Nucleated RBC % (auto) Sodium 137 Potassium 3.0 L Chloride 101 Carbon Dioxide 30 H Anion Gap 9 L BUN 17 H Creatinine 0.85 Estim Creat Clear Calc 106.2 Estimated GFR > 60 Random Glucose 128 H D Calcium 9.4 D Ionized Calcium Microbiology Microbiology Results: Microbiology 04/13/21 06:32 Cerebrospinal Fluid Gram Stain - Final 04/13/21 06:32 Cerebrospinal Fluid CSF Examination - Final 04/13/21 06:32 Cerebrospinal Fluid Fluid Description - Final 04/13/21 06:32 Cerebrospinal Fluid CSF Culture - Preliminary No growth after 2 days 04/13/21 05:01 Blood - Venous Blood Culture - Preliminary No growth after 48 hours. 04/13/21 05:01 Blood - Venous Blood Culture - Preliminary No growth after 48 hours. Procedures Date of Service Date of Service: 04/15/21 Assessment & Plan Assessment and plan (1) Acute metabolic encephalopathy: Status: Acute (2) Hypercalcemia: Status: Acute Assessment and Plan: This is a 46 yo M with a PMH of heavy alcohol use who presents to the hospital in a confused state. His work up is significant for severe hypercalcemia and acute encephalopathy, BENY and HypoNa 1. BENY: resolved 2. HypoNa: resolved 3. hypoK: cont run low and getting replaced 4. HyperCa: resolved; h/o excessive PO calcium 5. AMS: much improved REC: cont to replace K; track CA Will follow with team Time Spent With Patient Time: Total time spent is greater than 50% in coordination of care (as documented) at patient's floor/unit and/or counseling patient: Progress Note: Quality Stroke Does the patient have a stroke diagnosis?: No
[2021-04-15 19:29] VITALS: BP 145/86; PULSE 96; RESP 18; TEMP 36.8; O2SAT 98
[2021-04-15] MEDS: PHENobarbitaL 30 MG TABLET PO (21:45)
[2021-04-15] MEDS: busPIRone HCl 10 MG TABLET PO (21:45)
[2021-04-16] VITALS: BP 154/100; PULSE 93; RESP 16; TEMP 37.1; O2SAT 98
[2021-04-16 04:00] VITALS: BP 146/98; PULSE 92; RESP 16; TEMP 37; O2SAT 98
[2021-04-16] MEDS: Acetaminophen 325 MG TABLET 650 MG PO ×2 (05:43→12:30)
[2021-04-16] MEDS: Thiamine HCL 500 MG in 0.9 % Sodium Chloride 100 ML 210 MG IV (06:03)
[2021-04-16 07:27] VITALS: BP 155/95; PULSE 80; RESP 18; TEMP 36.7; O2SAT 96
[2021-04-16] MEDS: Nicotine 14 MG PATCH.TD24 TRANSDERMA (08:01)
[2021-04-16] MEDS: busPIRone HCl 10 MG TABLET PO (08:02)
[2021-04-16] MEDS: PHENobarbitaL 30 MG TABLET PO (08:02)
[2021-04-16] MEDS: Folic Acid 1 MG TABLET PO (08:02)
[2021-04-16] MEDS: Potassium Chloride ER 20 MEQ TAB.ER.PRT 40 MEQ PO (08:02)
[2021-04-16] MEDS: Sodium,Potassium Phosphates POWD.PACK 1 PACKET PO ×2 (08:03→12:26)
[2021-04-16] MEDS: 0.9 % Sodium Chloride Flush 3 ML SYRINGE IVFLUSH (08:04)
[2021-04-16 08:17] LABS: Hematocrit 34.4 % (42.0-52.0); Mean Corpuscular HGB Conc 34.9 g/dl (31.0-36.0); Mean Corpuscular Hemoglobin 31.3 pg (27.0-33.0); Mean Corpuscular Volume 89.6 fL (80.0-98.0); Mean Platelet Volume 9.9 fL (9.4-12.4); Platelet Count 236 X10*3/uL (160-400); Red Blood Count 3.84 X10*6/uL (4.60-5.80); Red Cell Distribution Width 12.5 % (11.0-16.0); White Blood Count 11.2 X10*3/uL (4.8-10.8)
[2021-04-16 08:46] LABS: Alanine Aminotransferase 57 U/L (0-40); Albumin Level 3.2 g/dL (3.5-5.0); Alkaline Phosphatase 54 U/L (39-117); Anion Gap 11 (12-20); Aspartate Amino Transferase 73 U/L (5-37); Bilirubin Direct 0.2 mg/dL (0.0-0.5); Bilirubin Total 0.6 mg/dL (0.0-1.0); Blood Urea Nitrogen 14 mg/dL (9-16); Calcium 8.3 mg/dL (8.4-10.2); Carbon Dioxide 28 mmol/L (22-29); Chloride 103 mmol/L (96-108); Creatinine Clr Calc Pharmacy 102.6; Estimated Glomerular Filt Rate > 60; Glucose Random 89 mg/dL (60-115); Magnesium 1.6 mg/dL (1.6-2.6); Phosphorus 2.3 mg/dL (2.7-4.5); Potassium 3.6 mmol/L (3.3-5.1); Sodium 138 mmol/L (135-145); Total Protein 5.5 g/dL (6.5-8.0)
[2021-04-16] MEDS: Heparin Sodium,Porcine 5,000 UNIT/ML VIAL 5000 UNIT SUBCUT (11:10)
[2021-04-16 11:17] VITALS: BP 147/86; PULSE 88; RESP 18; TEMP 36.2; O2SAT 98
--- NOTE | 2021-04-16 12:05 | PM.DS ---
DS: Providers Provider Date of Service: 04/16/21 <JAM Burch - Last Filed: 04/16/21 12:19> Date of admission: 04/13/21 09:36 <JAM Burch - Last Filed: 04/16/21 12:19> Date of discharge: 04/16/21 <JAM Burch - Last Filed: 04/16/21 12:19> Primary care physician: Unknown Physician <JAM Burch - Last Filed: 04/16/21 12:19> Consults: 04/13/21 11:18 Consult to Nephrology Routine Consulting Provider: Americo Martinez Reason for consultation: hypercalcemia Has provider been notified: Yes 04/13/21 14:11 Consult to Neurology Routine Consulting Provider: [facility] Reason for consultation: altereted mental status 04/14/21 16:01 Consult to Care Team Routine Comment: Reason for consultation: [place] ETOH DETO RECENT D/C RESTARTED ETOH / ALSO FOR MENTAL HEALTH A 04/15/21 15:59 Consult to Psychiatry Routine Consulting Provider: Marcela Ramirez Reason for consultation: depression, heavy alcohol use, off meds <JAM Burch - Last Filed: 04/16/21 12:19> Attending physician on discharge: Ismael Soto <JAM Burch - Last Filed: 04/16/21 12:19> Discharging clinician: Joseline Jacobson <JAM Burch - Last Filed: 04/16/21 12:19> DS: Diagnosis Discharge Diagnosis (1) Acute metabolic encephalopathy: Status: Acute <JAM Burch - Last Filed: 04/16/21 12:19> (2) Hypercalcemia: Status: Acute <JAM Burch - Last Filed: 04/16/21 12:19> (3) Bronchitis: Status: Acute <JAM Burch - Last Filed: 04/16/21 12:19> (4) Acute hyponatremia: Status: Acute <JAM Burch - Last Filed: 04/16/21 12:19> (5) Acute hypokalemia: Status: Acute <JAM Burch - Last Filed: 04/16/21 12:19> (6) LAI (generalized anxiety disorder): Status: Acute <JAM Burch - Last Filed: 04/16/21 12:19> (7) MDD (major depressive disorder), recurrent episode, severe: Status: Acute <JAM Burch - Last Filed: 04/16/21 12:19> DS: Summary Hospital Course Hospital Course: From H&P on day of admission This is a 46 yo M with a history of heavy alcohol use who was brought in by family after they noticed that he was confused. The history is obtained from the ED chart/provider note + the patients sister who is bedside. The patient himself is oriented to self, but otherwise disoriented. Per ED charts -- the patient was was hallucinating and was seeing things run across his room. His mother reported that? he was speaking with people on the porch that were that there. His sister who is bedside reports that their mother called her on the day of admission around 330AM. She is unsure how long these symptoms have been on going. She reports that he drinks vodka daily but is unsure the amount and when his last drink was. She reports that the patients baseline mentation is normal. Upon arrival to the ED, the patient underwent work up which revealed significant electrolyte abnormalities including hypercalcemia, hypoNa, hypoK and abnormal LFTs. He underwent a LP which was no suggestive of an infectious process. He was given multiple liters of IVF, potassium replacement, 1 dose of pamidronate, IV thiamin, IV zosyn and will not be admitted for further treatment. Toxic metabolic encephalopathy likely multifactorial related to alcohol withdrawal and numerous electrolyte abnormalities. MRI of brain unremarkable, LP not suggestive of infectious etiology. Patient initially treated with IV thiamine for ?of weirnicke's encephalopahty. after treatment and resolution of electrolyte abnormalities/alcohol withdrawal patient currently alert and oriented x3. alcohol dependence with withdrawal. Treated with phenobarbital. No evidence of alcohol withdrawal at this time. patient was seen by care team and given appropriate resources. Patient is urged to abstain from alcohol altogether. hypercalcemia. resolved. Treated with pamidronate in the emergency department. Hyponatremia/hypokalemia / hypophosphatemia. Improved. will discharge with 3 days of neutra-phos. should follow up with PCP tansaminitis. improving. likely r/t alcohol use. abdominal pain. pt reports taking tums frequently r/t abdominal pain. Likely alcohol induced gastritis. No abdominal pain at this time. Will start oral PPI. Patient should avoid alcohol and follow-up with GI on an outpatient basis depression/anxiety. Seen by psych and continued on home medications. Referral sent to [facility] for therapy and medication management bronchitis. cxr concerning for atypical infection, was started on doxycyline. currently saturiating 98% on room air. will be discharge home with 3 more days of doxycycline <JAM Burch - Last Filed: 04/16/21 12:19> Time Spent with Patient Time attestation: Total time spent providing and/or coordinating discharge services: <JAM Burch - Last Filed: 04/16/21 12:19> Discharge coordination time: Greater than 30 minutes <JAM Burch Last Filed: 04/16/21 12:19> Quality: Stroke Does the patient have a stroke diagnosis?: No <JAM Burch Last Filed: 04/16/21 12:19> Physical Exam Vital Signs: Vital Signs: Last Vital Signs Temp 97.2 F 04/16/21 11:17 Pulse 88 04/16/21 11:17 Resp 18 04/16/21 11:17 BP 147/86 H 04/16/21 11:17 Pulse Ox 98 04/16/21 11:17 BMI result Body Mass Index 25.9 <JAM Burch - Last Filed: 04/16/21 12:19> Const: General: cooperative, healthy appearing, comfortable, alert and awake <JAM Burch - Last Filed: 04/16/21 12:19> Nutritional Appearance: well nourished <JAM Burch Last Filed: 04/16/21 12:19> Orientation/consciousness: patient oriented x3 <JAM Burch Last Filed: 04/16/21 12:19> HENMT: Head: Yes normocephalic and Yes atraumatic <JAM Burch Last Filed: 04/16/21 12:19> Eyes: Sclerae: sclerae normal <JAM Burch - Last Filed: 04/16/21 12:19> Resp: Effort & Inspection: normal respiratory effort and no respiratory distress <JAM Burch - Last Filed: 04/16/21 12:19> Cardio: Rate: regular rate <JAM Burch - Last Filed: 04/16/21 12:19> Rhythm: regular rhythm <JAM Burch - Last Filed: 04/16/21 12:19> GI: Palpation (GI): Soft to palpation and nontender <JAM Burch - Last Filed: 04/16/21 12:19> Neuro: General: patient oriented x3 <JAM Burch - Last Filed: 04/16/21 12:19> Cranial nerves: Yes CN's II-XII intact bilaterally and Yes Bilaterally intact EOM present <JAM Burch - Last Filed: 04/16/21 12:19> DS: Data Data Completed and Pending Labs on day of discharge: Laboratory Results - last 24 hr 04/13/21 04/16/21 04/16/21 12:48 07:58 07:58 WBC 11.2 H RBC 3.84 L Hgb 12.0 L Hct 34.4 L MCV 89.6 MCH 31.3 MCHC 34.9 RDW 12.5 Plt Count 236 MPV 9.9 Absolute Nucleated RBC 0.000 Nucleated RBC % (auto) 0.0 Sodium 138 Potassium 3.6 Chloride 103 Carbon Dioxide 28 Anion Gap 11 L BUN 14 Creatinine 0.88 Estim Creat Clear Calc 102.6 Estimated GFR > 60 Random Glucose 89 Calcium 8.3 L D Ionized Calcium 6.9 H Phosphorus 2.3 L Magnesium 1.6 Total Bilirubin 0.6 Direct Bilirubin 0.2 AST 73 H ALT 57 H Alkaline Phosphatase 54 Total Protein 5.5 L Albumin 3.2 L Preliminary micro results at discharge 04/13/21 05:01 Blood Culture - Preliminary Blood - Venous No growth after 48 hours. 04/13/21 05:01 Blood Culture - Preliminary Blood - Venous No growth after 48 hours. <JAM Burch - Last Filed: 04/16/21 12:19> Discharge Plan Discharge Patient Disposition: Home, Self-Care <JAM Burch - Last Filed: 04/16/21 12:19> Discharge Diagnosis: toxic metabolic encephalopathy <JAM Burch - Last Filed: 04/16/21 12:19> toxic metabolic encephalopathy <Ismael Soto MD - Last Filed: 04/20/21 08:51> Referrals: CARE Team referrals [Other] - 3-5 Days (pcare team recomendations met with recovery nurse written recovery resources and information on local supports as well as contacty information guven to patient referrals were made to [facility] by the care team for mental health counseling and referral [facility] was made by them patient met with recovery coordinator and sajan made referral to the comprehensiver care program and patient given number to call for appointment transpotation family) Todd Hidalgo MD [Physician] - 2 Weeks Physician,Honorio J [Primary Care Provider] - 1 Week <JAM Burch - Last Filed: 04/16/21 12:19> Discharge Medications: New thiamine HCl (vitamin B1) [Vitamin B-1] 100 mg tablet 100 mg PO DAILY 30 Days Qty: 30 RF: 0 folic acid 1 mg tablet 1 mg PO DAILY 30 Days Qty: 30 RF: 0 doxycycline hyclate 100 mg capsule 100 mg PO BID 3 Days Qty: 6 RF: 0 sod phos di, mono-K phos mono 250 mg tablet 1 tab PO BID 3 Days Qty: 6 RF: 0 omeprazole 40 mg capsule,delayed release(DR/EC) 40 mg PO DAILY 30 Days Qty: 30 RF: 0 doxycycline hyclate 100 mg tablet 100 mg PO BID 3 Days Qty: 6 RF: 0 Continued atorvastatin 20 mg tablet 1 tab PO DAILY RF: 0 hydroxyzine pamoate 50 mg capsule 1 cap PO TID PRN (Reason: Anxiety) RF: 0 buspirone 10 mg tablet 1 tab PO TID RF: 0 albuterol sulfate 90 mcg/actuation HFA aerosol inhaler 2 puff inhalation Q4H RF: 0 desvenlafaxine succinate 50 mg tablet extended release 24 hr 1 tab PO DAILY RF: 0 <JAM Burch - Last Filed: 04/16/21 12:19> Discharge Orders: Discharge Order (Routine); Ordered 04/16/21 Ordered By: Joseline Jacobson <JAM Burch - Last Filed: 04/16/21 12:19> Diet: regular diet <JAM Burch - Last Filed: 04/16/21 12:19> regular diet <Ismael Soto MD - Last Filed: 04/20/21 08:51> Activity on Discharge: As tolerated <JAM Burch - Last Filed: 04/16/21 12:19> As tolerated <Ismael Soto MD - Last Filed: 04/20/21 08:51> Stand Alone Forms: Patient Portal Discharge page <JAM Burch - Last Filed: 04/16/21 12:19> Care Plan Goals: see below <JAM Burch - Last Filed: 04/16/21 12:19> Health Concerns: hypercalcemia hypokalemia hyponatremia encephalopathy alcohol dependence/withdrawal depression/anxiety bronchitis probable alcohol induced gastritis <JAM Burch - Last Filed: 04/16/21 12:19> Plan of Treatment: metabolic abnormalities including High calcium, low potassium, low sodium levels have normalized. abstain from alcohol take thiamine and folate supplementation. referrals have meed made to [facility] for therpay and medication management complete course of antibiotics start taking omeprazole and schedule a follow up with GI as outpatient. avoid taking tums if able, do not take in excess call to schedule follow up with PCP <JAM Burch - Last Filed: 04/16/21 12:19> Assessment: see discharge summary Attending Attestation: I have personally seen and examined the patient independently (on the date of service as documented by NPP), reviewed the NPP history, exam and?MDM and agree with the assessment and plan as?written <JAM Burch - Last Filed: 04/16/21 12:19> Discharge Date/Time: 04/16/21 14:06 <JAM Burch - Last Filed: 04/16/21 12:19>
--- NOTE | 2021-04-16 12:28 | PM.PNNEP ---
Subjective Subjective Date of Service: 04/16/21 Principal diagnosis: BENY, HyperCa Interval history: Seen and examined, events noted Physical Exam Vital Signs: Vital Signs: Last Vital Signs Temp 97.2 F 04/16/21 11:17 Pulse 88 04/16/21 11:17 Resp 18 04/16/21 11:17 BP 147/86 H 04/16/21 11:17 Pulse Ox 98 04/16/21 11:17 BMI result Body Mass Index 25.9 Const: Other: Constitutional - Awake and Alert, No apparent distress, disoriented HEENT - PERRLA, EOMI, dry mucous membranes Cardiovascular - S1S2, RRR, No edema Respiratory - Normal lung expansion, Normal respiratory effort, No respiratory distress, CTA bilaterally Gastrointestinal - NT / ND; +BS; No rebound or guarding - No CVA tenderness Extremities - no calf tenderness bilaterally, no swelling Musculoskeletal - Normal inspection, normal ROM Skin - Warm/Dry Neurological - awake and alert, able to obey some basic commands like lifting arms and legs; disoriented to place and time; oriented to self Psychological - Appropriate affect Neuro: Other: Non focal exam Objective Data Labs CBC & Chem 7: 04/16/21 07:58 04/16/21 07:58 Labs: Laboratory Results - last 24 hr 04/13/21 04/16/21 04/16/21 12:48 07:58 07:58 WBC 11.2 H RBC 3.84 L Hgb 12.0 L Hct 34.4 L MCV 89.6 MCH 31.3 MCHC 34.9 RDW 12.5 Plt Count 236 MPV 9.9 Absolute Nucleated RBC 0.000 Nucleated RBC % (auto) 0.0 Sodium 138 Potassium 3.6 Chloride 103 Carbon Dioxide 28 Anion Gap 11 L BUN 14 Creatinine 0.88 Estim Creat Clear Calc 102.6 Estimated GFR > 60 Random Glucose 89 Calcium 8.3 L D Ionized Calcium 6.9 H Phosphorus 2.3 L Magnesium 1.6 Total Bilirubin 0.6 Direct Bilirubin 0.2 AST 73 H ALT 57 H Alkaline Phosphatase 54 Total Protein 5.5 L Albumin 3.2 L Microbiology Microbiology Results: Microbiology 04/13/21 06:32 Cerebrospinal Fluid Gram Stain - Final 04/13/21 06:32 Cerebrospinal Fluid CSF Examination - Final 04/13/21 06:32 Cerebrospinal Fluid Fluid Description - Final 04/13/21 06:32 Cerebrospinal Fluid CSF Culture - Final No growth after 3 days. 04/13/21 05:01 Blood - Venous Blood Culture - Preliminary No growth after 48 hours. 04/13/21 05:01 Blood - Venous Blood Culture - Preliminary No growth after 48 hours. Procedures Date of Service Date of Service: 04/16/21 Assessment & Plan Assessment and plan (1) Acute metabolic encephalopathy: Status: Acute (2) Hypercalcemia: Status: Acute Assessment and Plan: This is a 46 yo M with a PMH of heavy alcohol use who presents to the hospital in a confused state. His work up is significant for severe hypercalcemia and acute encephalopathy, BENY and HypoNa 1. BENY: resolved 2. HypoNa: resolved 3. hypoK: cont run low and getting replaced 4. HyperCa: resolved; h/o excessive PO calcium which is unusal but w/u supports this at this time 5. AMS: much improved--? back to bsl REC: avoid excaess CA intake; outpt labs in 1 wk will sign off; call prn Time Spent With Patient Time: Total time spent is greater than 50% in coordination of care (as documented) at patient's floor/unit and/or counseling patient: Progress Note: Quality Stroke Does the patient have a stroke diagnosis?: No
--- NOTE | 2021-04-16 12:46 | MHC.CM.PN ---
nurse resident care associate note discharge plan home with his mom and his sisters and daughters support 1 comprehensive care team for [facility] recovery resource community supports , assistant cross country coach met with patient and given phone contact name , and patient to follow up with comprehensive care center here at [facility] [place] also care immigration officer REFERRALS TO [facility], AND TO [facility];IZATION PROGRAM REVIEWW THIS WITH PATIENT AND WITH HIS PERMISSION HIS SISTER RAMBO BY PHONE TRANSPORTATION FAMILY
--- NOTE | 2021-04-16 13:32 | MHC.CM.PN ---
Addendum entered by Luz Marina Molina RN 04/16/21 13:35: PT AND NURSE ARE AWARE. Original Note: PT REPORTED CONCERN ABOUT HIS SCRIPTS NOT BEING COVERED THIS HAS HAPPENED RECENTLY, THIS CM CALLED PT'S PHARMACY [facility] IN [place] AND SPOKE W/PHARMACIST WHO REPORTED ALL OF HIS NEW SCRIPTS WENT THROUGH [employer] AND REQUESTED WE RESEND FOR TABLETS WHICH ARE COVERED 100% BY INSURANCE, CM HAS INFORMED HOSPITALIST AND HOSPITALIST WILL RESEND.
[2021-04-16 16:41] LABS: IgA 262 mg/dL (47-310); IgG 566 mg/dL (600-1640); IgM 77 mg/dL (50-300)
[2021-04-20 14:21] LABS: VITAMIN D (1,25 OH) D3 <8 pg/mL; Vit D (1,25-Dihydroxy) Total <8 pg/mL (18-72); Vitamin D (1,25 OH) D2 <8 pg/mL
[2021-04-20 15:06] LABS: Kappa, Serum 164 mg/dL (176-443); Kappa/Lambda Ratio, Serum 1.82 (1.29-2.55); Lambda, Serum 90 mg/dL (91-240)
== END 2021-04-16 14:06 | disposition home or self-care (01) | DRG 421 ==
LOC: HO.ED 06:57 → HO.EDOVER 09:44 → HO.S3 15:27
PROVIDERS: Internal Medicine Nephrology; Nurse Practitioner Acute Care; Admitting Provider Family Medicine; Emergency Provider Internal Medicine; PCP Physician Assistant Medical; Visit Provider Physician Assistant Medical
DX: E51.2 Wernicke's encephalopathy (principal); J96.01 Acute respiratory failure with hypoxia; G92.8 Other toxic encephalopathy; N17.9 Acute kidney failure, unspecified; F33.2 Major depressive disorder, recurrent severe without psychotic features; F41.1 Generalized anxiety disorder; F10.239 Alcohol dependence with withdrawal, unspecified; J40 Bronchitis, not specified as acute or chronic; E87.1 Hypo-osmolality and hyponatremia; E87.3 Alkalosis; K29.20 Alcoholic gastritis without bleeding; E83.52 Hypercalcemia; Z20.822 Contact with and (suspected) exposure to COVID-19; Z91.14 Patient's other noncompliance with medication regimen; Y90.0 Blood alcohol level of less than 20 mg/100 ml; Z79.899 Other long term (current) drug therapy
CPT/HCPCS: 36415; 70450; 70551; 71045; 80048; 80051; 80053; 80076; 80307; 81001; 81003; 82077; 82306; 82310; 82330; 82550; 82652; 82784; 82803; 82945; 82947; 83605; 83735; 83880; 83883; 83970; 84100; 84157; 84443; 85025; 85027; 85379; 85610; 85730; 86334; 87015; 87040; 87070; 87205; 87529; 87635; 89051; 93005; 94640; 96361; 96365; 96367; 96375; 99218; 99285; 99291; J2430; J2543; J2560; J3411

== ENCOUNTER 2021-05-29 15:28 | Outpatient (REF) | payer OTHER, SELFPAY ==
[2021-05-29 16:04] LABS: COVID-19 Test Negative (Negative)
== END 2021-05-29 15:29 | disposition home or self-care (01) ==
LOC: HO.LAB 15:28
PROVIDERS: Visit Provider Internal Medicine
DX: Z20.822 Contact with and (suspected) exposure to COVID-19 (principal)
CPT/HCPCS: 87635; C9803

== ENCOUNTER 2021-06-03 11:11 | Emergency (ER) | payer OTHER, SELFPAY ==
[2021-06-03 11:18] VITALS: BP 144/105; PULSE 123; RESP 19; TEMP 36.6; O2SAT 99; BMI 24.3
[2021-06-03 11:39] LABS: MANUAL DIFF FLAG NO
[2021-06-03 11:42] LABS: Basophils Percent Auto 0.3 % (0-2); Eosinophils Percent Auto 0.1 % (0-4); Hematocrit 40.8 % (42.0-52.0); Hemoglobin 14.6 g/dl (14.0-18.0); Imm Gran Abs Auto 0.02 X10*3/uL (0.00-0.03); Imm Gran Pct Auto 0.2 % (0.0-0.4); Lymphocytes Absolute Auto 2.5 X10*3/uL (1.2-4.9); Lymphocytes Percent Auto 25.9 % (20-40); Mean Corpuscular HGB Conc 35.8 g/dl (31.0-36.0); Mean Corpuscular Hemoglobin 30.9 pg (27.0-33.0); Mean Corpuscular Volume 86.4 fL (80.0-98.0); Mean Platelet Volume 9.8 fL (9.4-12.4); Monocytes Absolute Auto 1.3 X10*3/uL (0.1-1.2); Neutrophils Absolute Auto 5.9 x10*3/uL (2.0-8.3); Neutrophils Percent Auto 60.5 % (45-73); Platelet Count 300 X10*3/uL (160-400); Red Blood Count 4.72 X10*6/uL (4.60-5.80); Red Cell Distribution Width 13.2 % (11.0-16.0); White Blood Count 9.8 X10*3/uL (4.8-10.8)
[2021-06-03 12:01] LABS: COVID-19 Test Negative (Negative); IDNOW Serial# 9DD0AD1C
[2021-06-03 12:57] LABS: Alanine Aminotransferase 30 U/L (0-40); Albumin Level 4.2 g/dL (3.5-5.0); Alkaline Phosphatase 64 U/L (39-117); Anion Gap 18 (12-20); Aspartate Amino Transferase 42 U/L (5-37); Bilirubin Direct 0.6 mg/dL (0.0-0.5); Bilirubin Total 1.8 mg/dL (0.0-1.0); Carbon Dioxide 37 mmol/L (22-29); Chloride 84 mmol/L (96-108); Creatinine Clr Calc Pharmacy 54.6; Estimated Glomerular Filt Rate 46; Glucose Random 206 mg/dL (60-115); Lipase 79 U/L (8-78); Magnesium 2.5 mg/dL (1.6-2.6); Potassium 3.6 mmol/L (3.3-5.1); Sodium 135 mmol/L (135-145); Total Protein 7.3 g/dL (6.5-8.0)
--- NOTE | 2021-06-03 14:17 | ED.NAVMDI ---
HPI - Nausea/Vomiting/Diarrhea General Chief complaint: Nausea/Vomiting/Diarrhea Stated complaint: vomiting diarrhea Time Seen by Provider: 06/03/21 14:12 Source: patient Mode of arrival: ambulatory Limitations: no limitations History of Present Illness HPI Narrative: 46-year-old male with history of alcohol abuse admission to the hospital in March 2021 for altered mental status due to multiple electrolyte abnormalities & ETOH withdrawal who presents to the ER from Urgent Care with reports of 5 days of nausea, vomiting and diarrhea. He reportedly had lab workup done there yesterday that showed an elevated WBC and electrolyte abnormalities. He was unable to come to the hospital until today. He reports last night he was able to drink 2 bottles of Pedialyte. Today he drank a few nips thinking that his symptoms may be due to withdrawal because it felt similar to prior. He denies daily ETOH use and last drink before today was 2 days ago. No drug use. Recently went to a 45 day detox program in [place] in 2020. MD elicited complaint: nausea, vomiting and diarrhea Pertinent past history: alcohol abuse Onset (ago): day(s) (5) Description of vomiting: watery, bilious and blood-streaked (x1 then resolved) Description of diarrhea: loose Associated nausea: Yes Associated abdominal pain: Yes Location of pain: diffuse Radiation: diffuse Pain consistency: intermittent Severity: moderate Quality: aching Exacerbating factors: eating Relieving factors: none Context: alcohol abuse Associated symptoms: diaphoresis, headaches, loss of appetite, nausea/vomiting, weakness and anxiety Related Data Home Medications Medication Instructions Recorded Confirmed albuterol sulfate 90 mcg/actuation 2 puff INHALATION Q4H 04/13/21 04/13/21 aerosol inhaler atorvastatin 20 mg tablet 1 tab PO DAILY 04/13/21 04/13/21 buspirone 10 mg tablet 1 tab PO TID 04/13/21 04/13/21 desvenlafaxine succinate 50 mg 1 tab PO DAILY 04/13/21 04/13/21 tablet,extended release 24 hr hydroxyzine pamoate 50 mg capsule 1 cap PO TID PRN 04/13/21 04/13/21 Previous Rx's Medication Instructions Recorded doxycycline hyclate 100 mg capsule 100 mg PO BID 3 Days #6 cap 04/16/21 doxycycline hyclate 100 mg tablet 100 mg PO BID 3 Days #6 tab 04/16/21 folic acid 1 mg tablet 1 mg PO DAILY 30 Days #30 tab 04/16/21 omeprazole 40 mg capsule,delayed 40 mg PO DAILY 30 Days #30 cap 04/16/21 release sodium di- and 1 tab PO BID 3 Days #6 tab 04/16/21 monophosphate-potassium phos monobasic 250 mg tablet thiamine HCl (vitamin B1) 100 mg 100 mg PO DAILY 30 Days #30 tab 04/16/21 tablet (Vitamin B-1) ondansetron 4 mg disintegrating 4 mg PO Q8H PRN #10 tab 06/03/21 tablet Allergies Allergy/AdvReac Type Severity Reaction Status Date / Time animal dander Allergy Unknown SINUS/RESPI Verified 01/08/21 17:35 RATORY Review of Systems Review of Systems: Constitutional: No Fever, No Chills ENT/Mouth: No sore throat, No Rhinorrhea, No Swallowing Difficulty Cardiovascular: No Chest Pain, No SOB, No Orthopnea, No Edema Respiratory: No Cough, No Sputum, No Wheezing, No dyspnea Gastrointestinal: + Nausea, + Vomiting, + Diarrhea, + abdominal Pain, No Hematochezia, No Melena Genitourinary: No Dysuria, No Urinary Frequency, No Hematuria Musculoskeletal: No joint pain, No Myalgias Skin: No Skin Lesions, No rash Neuro: + Weakness, No Numbness, No Dizziness, + Headache Psych: + Anxiety/Panic, + Depression, No SI Heme/Lymph: No Bruising, No Lymphadenopathy Endocrine: No Polyuria, No Polydipsia Gastrointestinal: Gastrointestinal: Reports nausea PMFSH Past Medical History Medical History Asthma Social History Social History Household Members: Family Housing: Unknown / Unable to assess Unable to assess alcohol history related to: Unable to respond Patient Tobacco Use Status: Tobacco use Unknown Advance Directives: No Advance Directives Information Provided: No service: No Current occupational status: unemployed Physical Exam Vital Signs: Vital Signs: Last Vital Signs Temp 99.3 F 06/03/21 15:32 Pulse 98 06/03/21 15:32 Resp 16 06/03/21 15:32 BP 150/101 H 06/03/21 15:32 Pulse Ox 95 06/03/21 15:32 BMI result Body Mass Index 24.3 Appearance: Alert. Oriented X3. No acute distress. Eyes: Pupils equal, round and reactive to light. Nonicteric ENT: Pharynx normal. Neck: Normal inspection. Neck supple. CVS: Tachycardic, regular rhythm. Pulses normal. Respiratory: No respiratory distress. Breath sounds normal. Abdomen: Soft with some guarding throughout, soft tissue tenderness of the abdominal wall. no tenderness to deep palpation, no HSM. +BS x4 Skin: Skin warm and dry. Normal skin color. Normal skin turgor. No rashes. Extremities: No lower extremity edema. Neuro: Oriented X 3. No motor deficit. No sensory deficit. Slight tremor of bilateral hands. Course Course Course Narrative: 46-year-old male with history of alcohol abuse and withdrawal, history of multiple electrolyte derangements requiring admission and aggressive repletion back in March 2021 who presents to the ER feeling similar to when he did in March. He reports 5 days of nausea, vomiting and intermittent diarrhea. Concern for possible alcohol withdrawal versus possible gastroenteritis. He is tachycardic on arrival with a slight tremor. His lab workup showing an acute kidney injury with creatinine 1.60 due to dehydration from GI losses. He has a contraction alkalosis from this. His potassium is 3.6, most likely because he is able to drink Pedialyte last night. Will give 2 L of IV fluids, IV Zofran and IV Ativan. Will reassess. Will check a CIWA. Reevaluation(s) Reevaluation #1: 5pm - PIV is positional and IVF are running very slow. 1st liter has been completed and 2nd liter to start. Plan to repeat BMP after that is completed. He is declining need for ETOH detox and states he knows what he needs to do. If labs improved patient is stable for discharge home with outpatient follow up. Will sign out to night provider. MDM - Nausea/Vomiting/Diarrhea Lab Data Result diagrams: 06/03/21 11:32 06/03/21 11:32 Labs: Lab Results 06/03/21 06/03/21 06/03/21 Range/Units 11:32 11:32 11:32 WBC 9.8 (4.8-10.8) X10*3/uL RBC 4.72 D (4.60-5.80) X10*6/uL Hgb 14.6 D (14.0-18.0) g/dl Hct 40.8 L (42.0-52.0) % MCV 86.4 (80.0-98.0) fL MCH 30.9 (27.0-33.0) pg MCHC 35.8 (31.0-36.0) g/dl RDW 13.2 (11.0-16.0) % Plt Count 300 D (160-400) X10*3/uL MPV 9.8 (9.4-12.4) fL Immature Gran % (Auto) 0.2 (0.0-0.4) % Neut % (Auto) 60.5 (45-73) % Lymph % (Auto) 25.9 (20-40) % [place] % (Auto) 13.0 H (2-11) % Eos % (Auto) 0.1 (0-4) % Baso % (Auto) 0.3 (0-2) % Lymph # (Auto) 2.5 (1.2-4.9) X10*3/uL [place] # (Auto) 1.3 H (0.1-1.2) X10*3/uL Eos # (Auto) 0.0 (0.0-0.4) X10*3/uL Baso # (Auto) 0.0 (0.0-0.2) X10*3/uL Abs Immat Gran (auto) 0.02 (0.00-0.03) X10*3/uL Absolute Neuts (auto) 5.9 (2.0-8.3) x10*3/uL Absolute Nucleated RBC 0.000 (0.0-0.012) X10*3/uL Nucleated RBC % (auto) 0.0 (0.0-0.2) /100WBC Sodium 135 (135-145) mmol/L Potassium 3.6 (3.3-5.1) mmol/L Chloride 84 L (96-108) mmol/L Carbon Dioxide 37 H (22-29) mmol/L Anion Gap 18 (12-20) BUN 15 (9-16) mg/dL Creatinine 1.60 H (0.5-1.4) mg/dL Estim Creat Clear Calc 54.6 Estimated GFR 46 Random Glucose 206 H D (60-115) mg/dL Calcium 12.4 H D (8.4-10.2) mg/dL Magnesium 2.5 (1.6-2.6) mg/dL Total Bilirubin 1.8 H (0.0-1.0) mg/dL Direct Bilirubin 0.6 H (0.0-0.5) mg/dL AST 42 H D (5-37) U/L ALT 30 (0-40) U/L Alkaline Phosphatase 64 (39-117) U/L Total Protein 7.3 D (6.5-8.0) g/dL Albumin 4.2 D (3.5-5.0) g/dL Lipase 79 H (8-78) U/L Urine Color Urine Appearance Urine pH (5.0-8.0) Ur Specific [place] (1.005-1.025) Urine Protein (NEG-TRACE) MG/DL Urine Glucose (UA) (NEG) MG/DL Urine Ketones (NEG) MG/DL Urine Blood (NEG) Urine Nitrite (NEG) Ur Leukocyte Esterase (NEG) Urine RBC (0) /HPF Urine WBC (0-4) /HPF Ur Squamous Epith Cells /LPF Amorphous Sediment /LPF Urine Bacteria /LPF Granular Casts /LPF COVID-19 ([facility]) Negative (Negative) COVID-19 Clin Com See Note 06/03/21 Range/Units 15:37 WBC (4.8-10.8) X10*3/uL RBC (4.60-5.80) X10*6/uL Hgb (14.0-18.0) g/dl Hct (42.0-52.0) % MCV (80.0-98.0) fL MCH (27.0-33.0) pg MCHC (31.0-36.0) g/dl RDW (11.0-16.0) % Plt Count (160-400) X10*3/uL MPV (9.4-12.4) fL Immature Gran % (Auto) (0.0-0.4) % Neut % (Auto) (45-73) % Lymph % (Auto) (20-40) % [place] % (Auto) (2-11) % Eos % (Auto) (0-4) % Baso % (Auto) (0-2) % Lymph # (Auto) (1.2-4.9) X10*3/uL [place] # (Auto) (0.1-1.2) X10*3/uL Eos # (Auto) (0.0-0.4) X10*3/uL Baso # (Auto) (0.0-0.2) X10*3/uL Abs Immat Gran (auto) (0.00-0.03) X10*3/uL Absolute Neuts (auto) (2.0-8.3) x10*3/uL Absolute Nucleated RBC (0.0-0.012) X10*3/uL Nucleated RBC % (auto) (0.0-0.2) /100WBC Sodium (135-145) mmol/L Potassium (3.3-5.1) mmol/L Chloride (96-108) mmol/L Carbon Dioxide (22-29) mmol/L Anion Gap (12-20) BUN (9-16) mg/dL Creatinine (0.5-1.4) mg/dL Estim Creat Clear Calc Estimated GFR Random Glucose (60-115) mg/dL Calcium (8.4-10.2) mg/dL Magnesium (1.6-2.6) mg/dL Total Bilirubin (0.0-1.0) mg/dL Direct Bilirubin (0.0-0.5) mg/dL AST (5-37) U/L ALT (0-40) U/L Alkaline Phosphatase (39-117) U/L Total Protein (6.5-8.0) g/dL Albumin (3.5-5.0) g/dL Lipase (8-78) U/L Urine Color YELLOW Urine Appearance CLEAR Urine pH 8.5 H (5.0-8.0) Ur Specific [place] 1.010 (1.005-1.025) Urine Protein 1+ H (NEG-TRACE) MG/DL Urine Glucose (UA) NEG (NEG) MG/DL Urine Ketones NEG (NEG) MG/DL Urine Blood NEG (NEG) Urine Nitrite NEG (NEG) Ur Leukocyte Esterase NEG (NEG) Urine RBC 1-4 (0) /HPF Urine WBC 0 (0-4) /HPF Ur Squamous Epith Cells TRACE /LPF Amorphous Sediment 4+ /LPF Urine Bacteria NONE /LPF Granular Casts 5-9 /LPF COVID-19 ([facility]) (Negative) COVID-19 Clin Com Discharge Plan Discharge Clinical Impression: Dehydration Patient Disposition: Still a Patient Instructions: Dehydration (ED), Alcohol Dependence (ED) Additional Instructions: Do not drink alcohol - recommend detox. Continue to drink plenty of fluids like gatorade or Pedialyte Take the prescribed medication as needed for nausea and vomiting Recommend over the counter Imodium or Pepto Bismol as needed for diarrhea Follow up with [facility] doctor as needed If you develop new or worsening symptoms call 911 or come back to the ER for further evaluation. Prescriptions: New ondansetron 4 mg tablet,disintegrating 4 mg PO Q8H PRN (Reason: nausea and vomiting) Qty: 10 0RF No Action atorvastatin 20 mg tablet 1 tab PO DAILY 0RF hydroxyzine pamoate 50 mg capsule 1 cap PO TID PRN (Reason: Anxiety) 0RF buspirone 10 mg tablet 1 tab PO TID 0RF albuterol sulfate 90 mcg/actuation HFA aerosol inhaler 2 puff inhalation Q4H 0RF desvenlafaxine succinate 50 mg tablet extended release 24 hr 1 tab PO DAILY 0RF thiamine HCl (vitamin B1) [Vitamin B-1] 100 mg tablet 100 mg PO DAILY 30 Days Qty: 30 0RF folic acid 1 mg tablet 1 mg PO DAILY 30 Days Qty: 30 0RF doxycycline hyclate 100 mg capsule 100 mg PO BID 3 Days Qty: 6 0RF sod phos di, mono-K phos mono 250 mg tablet 1 tab PO BID 3 Days Qty: 6 0RF omeprazole 40 mg capsule,delayed release(DR/EC) 40 mg PO DAILY 30 Days Qty: 30 0RF doxycycline hyclate 100 mg tablet 100 mg PO BID 3 Days Qty: 6 0RF
[2021-06-03] MEDS: ondansetron HCL 4 MG/2 ML VIAL IVPUSH (14:49)
[2021-06-03] MEDS: 0.9 % Sodium Chloride 1,000 ML 999 ML IVCONT (14:49)
[2021-06-03] MEDS: LORazepam 2 MG/ML VIAL 1 MG IVPUSH (14:49)
[2021-06-03 15:01] LABS: Blood Urea Nitrogen 15 mg/dL (9-16); Calcium 12.4 mg/dL (8.4-10.2)
[2021-06-03 15:32] VITALS: BP 150/101; PULSE 98; RESP 16; TEMP 37.4; O2SAT 95
[2021-06-03 15:46] LABS: Appearance Urine CLEAR; Color Urine YELLOW; Glucose Urine UA NEG (NEG); Leukocyte Esterase Urine NEG (NEG); Nitrite Urine NEG (NEG); PH 8.5 (5.0-8.0); UACC Culture Trigger NO; Urine Blood NEG (NEG); Urine Ketones NEG (NEG)
[2021-06-03 15:47] LABS: Urine Protein 1+ MG/DL (NEG-TRACE)
[2021-06-03 15:55] LABS: Squamous Epithelial Cell Urine TRACE /LPF; WBC Urine 0 /HPF (0-4)
[2021-06-03 15:56] LABS: Amorphous Sediment Urine 4+ /LPF
[2021-06-03] MEDS: Lactated Ringers 1,000 ML 999 ML IV (17:35)
[2021-06-03 18:00] VITALS: BP 130/97; PULSE 95; RESP 16; TEMP 36.9; O2SAT 96
[2021-06-03 19:33] LABS: Anion Gap 17 (12-20); Blood Urea Nitrogen 14 mg/dL (9-16); Calcium 10.6 mg/dL (8.4-10.2); Carbon Dioxide 34 mmol/L (22-29); Chloride 88 mmol/L (96-108); Creatinine Clr Calc Pharmacy 57.8; Estimated Glomerular Filt Rate 50; Glucose Random 156 mg/dL (60-115); Potassium 3.7 mmol/L (3.3-5.1); Sodium 135 mmol/L (135-145)
[2021-06-03 20:00] VITALS: BP 146/95; PULSE 87; RESP 16; TEMP 36.8; O2SAT 97
[2021-06-03] MEDS: diphenhydrAMINE HCL 50 MG/ML VIAL IVPUSH (20:59)
[2021-06-03] MEDS: 0.9 % Sodium Chloride 1,000 ML 999 ML IV (21:00)
[2021-06-03] MEDS: Metoclopramide HCl 10 MG/2 ML VIAL IVPUSH (21:00)
[2021-06-03 22:00] VITALS: BP 147/94; PULSE 96; RESP 16; TEMP 36.6; O2SAT 97
== END 2021-06-03 22:30 | disposition home or self-care (01) ==
PROVIDERS: Physician Assistant; Emergency Provider Emergency Medicine; PCP Physician Assistant Medical
DX: E86.0 Dehydration (principal); R11.2 Nausea with vomiting, unspecified; R00.0 Tachycardia, unspecified; F10.10 Alcohol abuse, uncomplicated; Y90.9 Presence of alcohol in blood, level not specified; Z20.822 Contact with and (suspected) exposure to COVID-19
CPT/HCPCS: 36415; 80048; 80076; 81001; 83690; 83735; 85025; 87635; 96361; 96374; 96375; 99284; J1200; J2060; J2405; J2765

== ENCOUNTER 2021-07-09 10:46 | Emergency (ER) | payer OTHER, SELFPAY ==
[2021-07-09 10:51] VITALS: BP 147/103; PULSE 98; RESP 19; TEMP 36.6; O2SAT 98; BMI 25.8
== END 2021-07-09 14:08 | disposition left against medical advice (07) ==
PROVIDERS: Emergency Provider Emergency Medicine
DX: F10.10 Alcohol abuse, uncomplicated (principal); Y90.9 Presence of alcohol in blood, level not specified; R74.8 Abnormal levels of other serum enzymes
CPT/HCPCS: 99281; 99282

== ENCOUNTER 2021-09-09 11:36 | Emergency (ER) | payer OTHER, SELFPAY ==
[2021-09-09] VITALS (7 sets, daily range): BP systolic 104–138; BP diastolic 60–72; PULSE 62–89; RESP 10–16; TEMP 36.4–36.7; O2SAT 80–98; BMI 23.6
--- NOTE | ~2021-09-09 | XR_ITS ---
EXAMINATION: XR CHEST CLINICAL INFORMATION: Shortness of breath COMPARISON: 04/13/2021 TECHNIQUE: Frontal view of the chest was obtained. FINDINGS: Mild central bronchial wall thickening may be present, similar to prior. No focal consolidation or mass. Normal pulmonary vascularity. No pleural effusion or pneumothorax. Normal heart size. No acute osseous abnormality. XR/XR chest 1V IMPRESSION: No acute pulmonary disease. No significant change from prior study. There may be mild chronic central bronchial wall thickening reflecting underlying reactive airways disease; the appearance is similar to the prior study.
--- NOTE | ~2021-09-09 | CT_ITS ---
CT head/brain wo con CLINICAL INFORMATION: Reason for Exam altered mental status COMPARISON: No prior CT scan available for comparison. TECHNIQUE: Department standard protocol. Without contrast This CT examination was performed using dose optimization techniques as appropriate, variously including the following: *Automated exposure control *Adjustment of mA and/or kV according to patient size (this includes techniques or standardized protocols for targeted exams where dose is matched to indication/reason for exam; i.e. extremities or head) *Use of iterative reconstruction technique DLP: 723 mGy-cm FINDINGS: CEREBRAL HEMISPHERES: There is no evidence of intra-axial or extra-axial mass, hemorrhage or acute infarct. BRAIN PARENCHYMA: Normal garcia-white matter differentiation. SUBDURAL SPACE: No bleed. BASAL GANGLIA AND PINEAL GLAND: Unremarkable VENTRICLES: Symmetric and normal in size. CEREBELLUM AND BRAINSTEM: No space-occupying mass, hemorrhage or acute infarct. CEREBELLOPONTINE ANGLES: No lesion found. ORBITS: No intraorbital mass. VESSELS: Unremarkable SKULL BASE: Unremarkable INCLUDED SINUSES AT SKULL BASE: Clear SKULL AND SKIN: No fracture or bone lesion found. CT/CT head/brain wo con IMPRESSION: No CT evidence of intracranial space-occupying mass, bleed or infarct.
--- NOTE | 2021-09-09 11:42 | ED_ITS ---
HPI - Altered Mental Status General Chief Complaint: Altered Mental Status <Aung Tirado MD - Last Filed: 09/09/21 16:32> Stated Complaint: unresponsive <Aung Tirado MD - Last Filed: 09/09/21 16:32> Time Seen by Provider: 09/09/21 11:41 <Aung Tirado MD - Last Filed: 09/09/21 16:32> Source: family <Aung Tirado MD - Last Filed: 09/09/21 16:32> Mode of arrival: ambulatory <Aung Tirado MD - Last Filed: 09/09/21 16:32> Limitations: altered mental status <Aung Tirado MD - Last Filed: 09/09/21 16:32> History of Present Illness HPI narrative: Dropped off by family member who states that the patient is a known alcoholic with decreasd responsivenss. The last time he was here he was dehydrated with slight decreased renal function. Mother states he was tired this morining <Aung Tirado MD - Last Filed: 09/09/21 16:32> MD complaint: altered mental status <Aung Tirado MD - Last Filed: 09/09/21 16:32> Onset (ago): minute(s) <Aung Tirado MD - Last Filed: 09/09/21 16:32> Timing confirmed by: family member <Aung Tirado MD - Last Filed: 09/09/21 16:32> Severity: moderate <Aung Tirado MD - Last Filed: 09/09/21 16:32> Consistency of symptoms: waxing and waning <Aung Tirado MD - Last Filed: 09/09/21 16:32> Context: alcohol abuse <Aung Tirado MD - Last Filed: 09/09/21 16:32> Associated symptoms: denies other symptoms <Aung Tirado MD - Last Filed: 09/09/21 16:32> Related Data Home Medications: Home Medications Medication Instructions Recorded Confirmed albuterol sulfate 90 mcg/actuation 2 puff INHALATION Q4H 04/13/21 04/13/21 aerosol inhaler atorvastatin 20 mg tablet 1 tab PO DAILY 04/13/21 04/13/21 buspirone 10 mg tablet 1 tab PO TID 04/13/21 04/13/21 desvenlafaxine succinate 50 mg 1 tab PO DAILY 04/13/21 04/13/21 tablet,extended release 24 hr hydroxyzine pamoate 50 mg capsule 1 cap PO TID PRN 04/13/21 04/13/21 Previous Rx's Medication Instructions Recorded doxycycline hyclate 100 mg capsule 100 mg PO BID 3 Days #6 cap 04/16/21 doxycycline hyclate 100 mg tablet 100 mg PO BID 3 Days #6 tab 04/16/21 folic acid 1 mg tablet 1 mg PO DAILY 30 Days #30 tab 04/16/21 omeprazole 40 mg capsule,delayed 40 mg PO DAILY 30 Days #30 cap 04/16/21 release sodium di- and 1 tab PO BID 3 Days #6 tab 04/16/21 monophosphate-potassium phos monobasic 250 mg tablet thiamine HCl (vitamin B1) 100 mg 100 mg PO DAILY 30 Days #30 tab 04/16/21 tablet (Vitamin B-1) ondansetron 4 mg disintegrating 4 mg PO Q8H PRN #10 tab 06/03/21 tablet <Aung Tirado MD - Last Filed: 09/09/21 16:32> Allergies/Adverse Reactions: Allergies Allergy/AdvReac Type Severity Reaction Status Date / Time animal dander Allergy Unknown SINUS/RESPI Verified 01/08/21 17:35 RATORY <Aung Tirado MD - Last Filed: 09/09/21 16:32> Review of Systems Review of Systems: Yes Unobtainable due to mental status <Aung Tirado MD - Last Filed: 09/09/21 16:32> Neurologic: Denies Sensory deficit (Neuro) <Aung Tirado MD - Last Filed: 09/09/21 16:32> [facility] Past Medical History Medical History: Medical History Asthma <Aung Tirado MD - Last Filed: 09/09/21 16:32> Social History Social History: Social History Household Members: Family Housing: Unknown / Unable to assess Unable to assess alcohol history related to: Unable to respond Patient Tobacco Use Status: Current everyday Tobacco user Smoked in Last 30 Days: Yes Use of substances other than those prescribed or required for medical reasons: Unable to respond Advance Directives: No Advance Directives Information Provided: No service: No Current occupational status: unemployed <Aung Tirado MD - Last Filed: 09/09/21 16:32> Physical Exam ED Vital Signs: Vital Signs - 24 hr 09/09/21 11:49 09/09/21 11:56 09/09/21 12:15 Temperature 97.6 F Pulse Rate 76 72 Respiratory Rate 10 L 12 16 Blood Pressure 108/66 108/72 Pulse Oximetry 80 L 98 97 09/09/21 13:06 09/09/21 16:11 09/09/21 18:33 Temperature 97.8 F 98.0 F Pulse Rate 70 65 62 Respiratory Rate 16 16 16 Blood Pressure 104/65 106/64 110/60 Pulse Oximetry 97 98 98 BMI result Body Mass Index 23.6 <Aung Tirado MD - Last Filed: 09/09/21 16:32> Vital Signs - 24 hr 09/09/21 11:49 09/09/21 11:56 09/09/21 12:15 Temperature 97.6 F Pulse Rate 76 72 Respiratory Rate 10 L 12 16 Blood Pressure 108/66 108/72 Pulse Oximetry 80 L 98 97 09/09/21 13:06 09/09/21 16:11 09/09/21 18:33 Temperature 97.8 F 98.0 F Pulse Rate 70 65 62 Respiratory Rate 16 16 16 Blood Pressure 104/65 106/64 110/60 Pulse Oximetry 97 98 98 BMI result Body Mass Index 23.6 <John Law MD - Last Filed: 09/09/21 23:30> Const Other: minimally responsive <Aung Tirado MD - Last Filed: 09/09/21 16:32> Nutritional Appearance: average body habitus <Aung Tirado MD - Last Filed: 09/09/21 16:32> Limitations: altered mental status <Aung Tirado MD - Last Filed: 09/09/21 16:32> HENMT Head: Yes normal to inspection <Aung Tirado MD - Last Filed: 09/09/21 16:32> Ears: external ears normal <Aung Tirado MD - Last Filed: 09/09/21 16:32> General nose exam: Normal external nose present <Aung Tirado MD - Last Filed: 09/09/21 16:32> Mouth: Normal oral and palatal mucosa present and oropharynx normal <Aung Tirado MD - Last Filed: 09/09/21 16:32> Throat: Yes posterior oropharynx normal <Aung Tirado MD - Last Filed: 09/09/21 16:32> Eyes General: appearance normal, both eyes and all related structures <Aung Tirado MD - Last Filed: 09/09/21 16:32> Neck Neck: Yes normal visual inspection <Aung Tirado MD - Last Filed: 09/09/21 16 :32> Chest Chest palpation & inspection: normal inspection of the chest <Aung Tirado MD - Last Filed: 09/09/21 16:32> Resp Other: bilateral crackles <Aung Tirado MD - Last Filed: 09/09/21 16:32> Cardio Jugular venous distension: no JVD <Aung Tirado MD - Last Filed: 09/09/21 16:32> Rate: regular rate <Aung Tirado MD - Last Filed: 09/09/21 16:32> Rhythm: regular rhythm <Aung Tirado MD - Last Filed: 09/09/21 16:32> Heart sounds: S1 normal heart sound present and S2 normal heart sound present <Aung Tiardo MD - Last Filed: 09/09/21 16:32> GI Inspection: Yes normal to inspection <Aung Tirado MD - Last Filed: 09/09/21 16:32> Palpation (GI): Soft to palpation, nontender and No hepatosplenomegaly present <Aung Tirado MD - Last Filed: 09/09/21 16:32> Auscultation: normal bowel sounds <Aung Tirado MD - Last Filed: 09/09/21 16:32> General: Yes no CVA tenderness <Aung Tirado MD - Last Filed: 09/09/21 16:32> Back/Spine/Pelvis Back: no CVA tenderness <Aung Tirado MD - Last Filed: 09/09/21 16:32> Skin General skin exam: no rashes or lesions noted <Aung Tirado MD - Last Filed: 09/09/21 16:32> Neuro Other: moves extremities to negative stimuli <Aung Tirado MD - Last Filed: 09/09/21 16:32> Sensory Exam: No Sensory deficit (Neuro) <Aung Tirado MD - Last Filed: 09/09/21 16:32> Extrem General: Yes normal to inspection <Aung Tirado MD - Last Filed: 09/09/21 16:32> Psych Appearance: grossly normal <Aung Tirado MD - Last Filed: 09/09/21 16:32> Course Reevaluation(s) Reevaluation #1: This is a 46-year-old male was seen earlier in the emergency department for ETOH intoxication, patient had high BAL initially, signed out to me at the end of the shaft, patient now is awake, alert, oriented x3, able to ambulate in the emergency department with steady gait, patient is sober, patient remained in the emergency department for over 11 hours, however mother has been called by ED staff and will come to drive the patient home. All labs were reviewed slight elevation of lipase but patient declined any abdominal pain or vomiting. <John Law MD - Last Filed: 09/09/21 23:30> Time: 23:29 <John Law MD - Last Filed: 09/09/21 23:30> MDM - Altered Mental Status Lab Data Result diagrams: : 09/09/21 11:57 09/09/21 11:58 <Aung Tirado MD - Last Filed: 09/09/21 16:32> Labs: Lab Results 09/09/21 09/09/21 09/09/21 Range/Units 11:44 11:57 11:57 WBC 12.0 H (4.8-10.8) X10*3/uL RBC 4.42 L (4.60-5.80) X10*6/uL Hgb 13.8 L (14.0-18.0) g/dl Hct 41.4 L (42.0-52.0) % MCV 93.7 (80.0-98.0) fL MCH 31.2 (27.0-33.0) pg MCHC 33.3 (31.0-36.0) g/dl RDW 15.6 (11.0-16.0) % Plt Count 406 H D (160-400) X10*3/uL MPV 9.6 (9.4-12.4) fL Immature Gran % (Auto) 0.3 (0.0-0.4) % Neut % (Auto) 31.1 L (45-73) % Lymph % (Auto) 57.4 H (20-40) % Noble % (Auto) 9.6 (2-11) % Eos % (Auto) 0.8 (0-4) % Baso % (Auto) 0.8 (0-2) % Lymph # (Auto) 6.9 H (1.2-4.9) X10*3/uL Noble # (Auto) 1.2 (0.1-1.2) X10*3/uL Eos # (Auto) 0.1 (0.0-0.4) X10*3/uL Baso # (Auto) 0.1 (0.0-0.2) X10*3/uL Abs Immat Gran (auto) 0.04 H (0.00-0.03) X10*3/uL Absolute Neuts (auto) 3.7 (2.0-8.3) x10*3/uL Absolute Nucleated RBC 0.000 (0.0-0.012) X10*3/uL Nucleated RBC % (auto) 0.0 (0.0-0.2) /100WBC Smear Tech's Comments VERIFIED VBG pH (7.32-7.43) VBG pCO2 mmHg VBG pO2 mmHg VBG HCO3 (22-26) mmol/L VBG O2 Saturation % VBG Base Excess mmol/L Sodium Cancelled Potassium Cancelled Chloride Cancelled Carbon Dioxide Cancelled Anion Gap Cancelled BUN Cancelled Creatinine Cancelled Estim Creat Clear Calc Cancelled Estimated GFR Cancelled POC Glucose 76 (60-115) mg/dL Random Glucose Cancelled Calcium Cancelled Total Bilirubin Cancelled AST Cancelled ALT Cancelled Alkaline Phosphatase Cancelled Troponin I High Sens (<3.5-35.0) ng/L Total Protein Cancelled Albumin Cancelled Lipase Cancelled Ethyl Alcohol mg/dL COVID-19 ([facility]) (Negative) COVID-19 Clin Com 09/09/21 09/09/21 09/09/21 Range/Units 11:57 11:58 11:58 WBC (4.8-10.8) X10*3/uL RBC (4.60-5.80) X10*6/uL Hgb (14.0-18.0) g/dl Hct (42.0-52.0) % MCV (80.0-98.0) fL MCH (27.0-33.0) pg MCHC (31.0-36.0) g/dl RDW (11.0-16.0) % Plt Count (160-400) X10*3/uL MPV (9.4-12.4) fL Immature Gran % (Auto) (0.0-0.4) % Neut % (Auto) (45-73) % Lymph % (Auto) (20-40) % Noble % (Auto) (2-11) % Eos % (Auto) (0-4) % Baso % (Auto) (0-2) % Lymph # (Auto) (1.2-4.9) X10*3/uL Noble # (Auto) (0.1-1.2) X10*3/uL Eos # (Auto) (0.0-0.4) X10*3/uL Baso # (Auto) (0.0-0.2) X10*3/uL Abs Immat Gran (auto) (0.00-0.03) X10*3/uL Absolute Neuts (auto) (2.0-8.3) x10*3/uL Absolute Nucleated RBC (0.0-0.012) X10*3/uL Nucleated RBC % (auto) (0.0-0.2) /100WBC Smear Tech's Comments VBG pH (7.32-7.43) VBG pCO2 mmHg VBG pO2 mmHg VBG HCO3 (22-26) mmol/L VBG O2 Saturation % VBG Base Excess mmol/L Sodium 144 Potassium 4.2 Chloride 105 Carbon Dioxide 23 Anion Gap 20 BUN 8 L Creatinine 0.70 Estim Creat Clear Calc 133.2 Estimated GFR > 60 POC Glucose (60-115) mg/dL Random Glucose 81 D Calcium 8.7 D Total Bilirubin 0.3 AST 79 H ALT 83 H Alkaline Phosphatase 73 Troponin I High Sens < 3.5 (<3.5-35.0) ng/L Total Protein 7.1 Albumin 4.1 Lipase 124 H Ethyl Alcohol 465 H* mg/dL COVID-19 ([facility]) (Negative) COVID-19 Clin Com 09/09/21 09/09/21 Range/Units 12:03 12:09 WBC (4.8-10.8) X10*3/uL RBC (4.60-5.80) X10*6/uL Hgb (14.0-18.0) g/dl Hct (42.0-52.0) % MCV (80.0-98.0) fL MCH (27.0-33.0) pg MCHC (31.0-36.0) g/dl RDW (11.0-16.0) % Plt Count (160-400) X10*3/uL MPV (9.4-12.4) fL Immature Gran % (Auto) (0.0-0.4) % Neut % (Auto) (45-73) % Lymph % (Auto) (20-40) % Noble % (Auto) (2-11) % Eos % (Auto) (0-4) % Baso % (Auto) (0-2) % Lymph # (Auto) (1.2-4.9) X10*3/uL Noble # (Auto) (0.1-1.2) X10*3/uL Eos # (Auto) (0.0-0.4) X10*3/uL Baso # (Auto) (0.0-0.2) X10*3/uL Abs Immat Gran (auto) (0.00-0.03) X10*3/uL Absolute Neuts (auto) (2.0-8.3) x10*3/uL Absolute Nucleated RBC (0.0-0.012) X10*3/uL Nucleated RBC % (auto) (0.0-0.2) /100WBC Smear Tech's Comments VBG pH 7.34 (7.32-7.43) VBG pCO2 62 mmHg VBG pO2 50 mmHg VBG HCO3 34 H (22-26) mmol/L VBG O2 Saturation 69.0 % VBG Base Excess 6.7 mmol/L Sodium Potassium Chloride Carbon Dioxide Anion Gap BUN Creatinine Estim Creat Clear Calc Estimated GFR POC Glucose (60-115) mg/dL Random Glucose Calcium Total Bilirubin AST ALT Alkaline Phosphatase Troponin I High Sens (<3.5-35.0) ng/L Total Protein Albumin Lipase Ethyl Alcohol mg/dL COVID-19 (MAIA) Negative (Negative) COVID-19 Clin Com See Note <Aung Tirado MD - Last Filed: 09/09/21 16:32> Lab Results 09/09/21 09/09/21 09/09/21 Range/Units 11:44 11:57 11:57 WBC 12.0 H (4.8-10.8) X10*3/uL RBC 4.42 L (4.60-5.80) X10*6/uL Hgb 13.8 L (14.0-18.0) g/dl Hct 41.4 L (42.0-52.0) % MCV 93.7 (80.0-98.0) fL MCH 31.2 (27.0-33.0) pg MCHC 33.3 (31.0-36.0) g/dl RDW 15.6 (11.0-16.0) % Plt Count 406 H D (160-400) X10*3/uL MPV 9.6 (9.4-12.4) fL Immature Gran % (Auto) 0.3 (0.0-0.4) % Neut % (Auto) 31.1 L (45-73) % Lymph % (Auto) 57.4 H (20-40) % Noble % (Auto) 9.6 (2-11) % Eos % (Auto) 0.8 (0-4) % Baso % (Auto) 0.8 (0-2) % Lymph # (Auto) 6.9 H (1.2-4.9) X10*3/uL Noble # (Auto) 1.2 (0.1-1.2) X10*3/uL Eos # (Auto) 0.1 (0.0-0.4) X10*3/uL Baso # (Auto) 0.1 (0.0-0.2) X10*3/uL Abs Immat Gran (auto) 0.04 H (0.00-0.03) X10*3/uL Absolute Neuts (auto) 3.7 (2.0-8.3) x10*3/uL Absolute Nucleated RBC 0.000 (0.0-0.012) X10*3/uL Nucleated RBC % (auto) 0.0 (0.0-0.2) /100WBC Smear Tech's Comments VERIFIED VBG pH (7.32-7.43) VBG pCO2 mmHg VBG pO2 mmHg VBG HCO3 (22-26) mmol/L VBG O2 Saturation % VBG Base Excess mmol/L Sodium Cancelled Potassium Cancelled Chloride Cancelled Carbon Dioxide Cancelled Anion Gap Cancelled BUN Cancelled Creatinine Cancelled Estim Creat Clear Calc Cancelled Estimated GFR Cancelled POC Glucose 76 (60-115) mg/dL Random Glucose Cancelled Calcium Cancelled Total Bilirubin Cancelled AST Cancelled ALT Cancelled Alkaline Phosphatase Cancelled Troponin I High Sens (<3.5-35.0) ng/L Total Protein Cancelled Albumin Cancelled Lipase Cancelled Ethyl Alcohol mg/dL COVID-19 ([facility]IA) (Negative) COVID-19 Clin Com 09/09/21 09/09/21 09/09/21 Range/Units 11:57 11:58 11:58 WBC (4.8-10.8) X10*3/uL RBC (4.60-5.80) X10*6/uL Hgb (14.0-18.0) g/dl Hct (42.0-52.0) % MCV (80.0-98.0) fL MCH (27.0-33.0) pg MCHC (31.0-36.0) g/dl RDW (11.0-16.0) % Plt Count (160-400) X10*3/uL MPV (9.4-12.4) fL Immature Gran % (Auto) (0.0-0.4) % Neut % (Auto) (45-73) % Lymph % (Auto) (20-40) % Noble % (Auto) (2-11) % Eos % (Auto) (0-4) % Baso % (Auto) (0-2) % Lymph # (Auto) (1.2-4.9) X10*3/uL Noble # (Auto) (0.1-1.2) X10*3/uL Eos # (Auto) (0.0-0.4) X10*3/uL Baso # (Auto) (0.0-0.2) X10*3/uL Abs Immat Gran (auto) (0.00-0.03) X10*3/uL Absolute Neuts (auto) (2.0-8.3) x10*3/uL Absolute Nucleated RBC (0.0-0.012) X10*3/uL Nucleated RBC % (auto) (0.0-0.2) /100WBC Smear Tech's Comments VBG pH (7.32-7.43) VBG pCO2 mmHg VBG pO2 mmHg VBG HCO3 (22-26) mmol/L VBG O2 Saturation % VBG Base Excess mmol/L Sodium 144 Potassium 4.2 Chloride 105 Carbon Dioxide 23 Anion Gap 20 BUN 8 L Creatinine 0.70 Estim Creat Clear Calc 133.2 Estimated GFR > 60 POC Glucose (60-115) mg/dL Random Glucose 81 D Calcium 8.7 D Total Bilirubin 0.3 AST 79 H ALT 83 H Alkaline Phosphatase 73 Troponin I High Sens < 3.5 (<3.5-35.0) ng/L Total Protein 7.1 Albumin 4.1 Lipase 124 H Ethyl Alcohol 465 H* mg/dL COVID-19 ([facility]IA) (Negative) COVID-19 Clin Com 09/09/21 09/09/21 Range/Units 12:03 12:09 WBC (4.8-10.8) X10*3/uL RBC (4.60-5.80) X10*6/uL Hgb (14.0-18.0) g/dl Hct (42.0-52.0) % MCV (80.0-98.0) fL MCH (27.0-33.0) pg MCHC (31.0-36.0) g/dl RDW (11.0-16.0) % Plt Count (160-400) X10*3/uL MPV (9.4-12.4) fL Immature Gran % (Auto) (0.0-0.4) % Neut % (Auto) (45-73) % Lymph % (Auto) (20-40) % Noble % (Auto) (2-11) % Eos % (Auto) (0-4) % Baso % (Auto) (0-2) % Lymph # (Auto) (1.2-4.9) X10*3/uL Noble # (Auto) (0.1-1.2) X10*3/uL Eos # (Auto) (0.0-0.4) X10*3/uL Baso # (Auto) (0.0-0.2) X10*3/uL Abs Immat Gran (auto) (0.00-0.03) X10*3/uL Absolute Neuts (auto) (2.0-8.3) x10*3/uL Absolute Nucleated RBC (0.0-0.012) X10*3/uL Nucleated RBC % (auto) (0.0-0.2) /100WBC Smear Tech's Comments VBG pH 7.34 (7.32-7.43) VBG pCO2 62 mmHg VBG pO2 50 mmHg VBG HCO3 34 H (22-26) mmol/L VBG O2 Saturation 69.0 % VBG Base Excess 6.7 mmol/L Sodium Potassium Chloride Carbon Dioxide Anion Gap BUN Creatinine Estim Creat Clear Calc Estimated GFR POC Glucose (60-115) mg/dL Random Glucose Calcium Total Bilirubin AST ALT Alkaline Phosphatase Troponin I High Sens (<3.5-35.0) ng/L Total Protein Albumin Lipase Ethyl Alcohol mg/dL COVID-19 ([facility]) Negative (Negative) COVID-19 Clin Com See Note <John Law MD - Last Filed: 09/09/21 23:30> Imaging Data Chest x-ray: Radiologist's impression: IMPRESSION: No acute pulmonary disease. No significant change from prior study. There may be mild chronic central bronchial wall thickening reflecting underlying reactive airways disease; the appearance is similar to the prior study. ? <Aung Tirado MD - Last Filed: 09/09/21 16:32> CT scan - head: Radiologist's impression: IMPRESSION: No CT evidence of intracranial space-occupying mass, bleed or infarct. ? <Aung Tirado MD - Last Filed: 09/09/21 16:32> ECG Data ECG #1: Interpretation: sinus 72, no st or twave changes <Aung Tirado MD - Last Filed: 09/09/21 16:32> Discharge Plan Discharge Clinical Impression: Alcoholic intoxication, Pancreatitis, chronic <Aung Tirado MD - Last Filed: 09/09/21 16:32> Patient Disposition: Home, Self-Care <Aung Tirado MD - Last Filed: 09/09/21 16:32> Instructions: Pancreatitis (ED) <Aung Tirado MD - Last Filed: 09/09/21 16:32> Prescriptions: No Action atorvastatin 20 mg tablet 1 tab PO DAILY 0RF hydroxyzine pamoate 50 mg capsule 1 cap PO TID PRN (Reason: Anxiety) 0RF buspirone 10 mg tablet 1 tab PO TID 0RF albuterol sulfate 90 mcg/actuation HFA aerosol inhaler 2 puff inhalation Q4H 0RF desvenlafaxine succinate 50 mg tablet extended release 24 hr 1 tab PO DAILY 0RF thiamine HCl (vitamin B1) [Vitamin B-1] 100 mg tablet 100 mg PO DAILY 30 Days Qty: 30 0RF folic acid 1 mg tablet 1 mg PO DAILY 30 Days Qty: 30 0RF doxycycline hyclate 100 mg capsule 100 mg PO BID 3 Days Qty: 6 0RF sod phos di, mono-K phos mono 250 mg tablet 1 tab PO BID 3 Days Qty: 6 0RF omeprazole 40 mg capsule,delayed release(DR/EC) 40 mg PO DAILY 30 Days Qty: 30 0RF doxycycline hyclate 100 mg tablet 100 mg PO BID 3 Days Qty: 6 0RF ondansetron 4 mg tablet,disintegrating 4 mg PO Q8H PRN (Reason: nausea and vomiting) Qty: 10 0RF <Aung Tirado MD - Last Filed: 09/09/21 16:32> Referrals: Physician,Unknown J [Primary Care Provider] - <Aung Tirado MD - Last Filed: 09/09/21 16:32>
--- NOTE | 2021-09-09 11:42 | ECG_ITS ---
Test Reason : altered mental status Blood Pressure : / mmHG Vent. Rate : 072 BPM Atrial Rate : 072 BPM P-R Int : 148 ms QRS Dur : 098 ms QT Int : 438 ms P-R-T Axes : 069 041 016 degrees QTc Int : 479 ms Normal sinus rhythm Low voltage QRS Borderline ECG When compared with ECG of 13-APR-2021 07:11, ST no longer elevated in Anterolateral leads Referred By: Aung Tirado Electronically Signed By:SADAF MARTINEZ
[2021-09-09 11:48] LABS: Glucose, Whole Blood 76 mg/dL (60-115)
[2021-09-09 12:09] LABS: Basophils Absolute Auto 0.1 X10*3/uL (0.0-0.2); Basophils Percent Auto 0.8 % (0-2); Eosinophils Absolute Auto 0.1 X10*3/uL (0.0-0.4); Eosinophils Percent Auto 0.8 % (0-4); Hematocrit 41.4 % (42.0-52.0); Hemoglobin 13.8 g/dl (14.0-18.0); Imm Gran Abs Auto 0.04 X10*3/uL (0.00-0.03); Imm Gran Pct Auto 0.3 % (0.0-0.4); Lymphocytes Absolute Auto 6.9 X10*3/uL (1.2-4.9); Lymphocytes Percent Auto 57.4 % (20-40); MANUAL DIFF FLAG SCAN; Mean Corpuscular HGB Conc 33.3 g/dl (31.0-36.0); Mean Corpuscular Hemoglobin 31.2 pg (27.0-33.0); Mean Corpuscular Volume 93.7 fL (80.0-98.0); Mean Platelet Volume 9.6 fL (9.4-12.4); Monocytes Absolute Auto 1.2 X10*3/uL (0.1-1.2); Monocytes Percent Auto 9.6 % (2-11); Neutrophils Absolute Auto 3.7 x10*3/uL (2.0-8.3); Neutrophils Percent Auto 31.1 % (45-73); Platelet Count 406 X10*3/uL (160-400); Red Blood Count 4.42 X10*6/uL (4.60-5.80); Red Cell Distribution Width 15.6 % (11.0-16.0); SCAN SMEAR FLAG 1
[2021-09-09 12:09] LABS: Venous Blood Gas Refer to POC result
[2021-09-09 12:10] LABS: VBG Base Excess 6.7 mmol/L; VBG HCO3 34 mmol/L (22-26); VBG pCO2 62 mmHg; VBG pH 7.34 (7.32-7.43); VBG pO2 50 mmHg
[2021-09-09] MEDS: 0.9 % Sodium Chloride 1,000 ML 999 ML IVCONT ×2 (12:13→13:05)
[2021-09-09 12:21] LABS: Ethanol 465 mg/dL
[2021-09-09 12:27] LABS: SLIDE REVIEW VERIFIED
[2021-09-09 12:28] LABS: Troponin-I High Sensitivity < 3.5 ng/L (<3.5-35.0)
[2021-09-09 12:45] LABS: COVID-19 Test Negative (Negative)
[2021-09-09 12:48] LABS: Alanine Aminotransferase 83 U/L (0-40); Albumin Level 4.1 g/dL (3.5-5.0); Alkaline Phosphatase 73 U/L (39-117); Anion Gap 20 (12-20); Aspartate Amino Transferase 79 U/L (5-37); Bilirubin Total 0.3 mg/dL (0.0-1.0); Blood Urea Nitrogen 8 mg/dL (9-16); Calcium 8.7 mg/dL (8.4-10.2); Carbon Dioxide 23 mmol/L (22-29); Chloride 105 mmol/L (96-108); Creatinine Clr Calc Pharmacy 133.2; Estimated Glomerular Filt Rate > 60; Glucose Random 81 mg/dL (60-115); Lipase 124 U/L (8-78); Potassium 4.2 mmol/L (3.3-5.1); Sodium 144 mmol/L (135-145); Total Protein 7.1 g/dL (6.5-8.0)
--- NOTE | 2021-09-09 18:38 | PC.NURSE ---
Pt ambulatory to bathroom but unsteady needing assist of one. BTB at this time
== END 2021-09-09 23:35 | disposition home or self-care (01) ==
PROVIDERS: Emergency Provider Emergency Medicine
DX: F10.120 Alcohol abuse with intoxication, uncomplicated (principal); Y90.8 Blood alcohol level of 240 mg/100 ml or more; K86.1 Other chronic pancreatitis; Z20.822 Contact with and (suspected) exposure to COVID-19; F17.200 Nicotine dependence, unspecified, uncomplicated
CPT/HCPCS: 36415; 70450; 71045; 80053; 82077; 82803; 82947; 83690; 84484; 85025; 87635; 93005; 96360; 99284

== ENCOUNTER 2021-11-23 15:43 | Emergency (ER) | payer OTHER, SELFPAY ==
[2021-11-23 15:57] VITALS: BP 119/87; PULSE 84; RESP 18; TEMP 36.8; O2SAT 95; BMI 23.6
[2021-11-23 16:13] LABS: MANUAL DIFF FLAG NO
[2021-11-23 16:16] LABS: Basophils Absolute Auto 0.1 X10*3/uL (0.0-0.2); Eosinophils Absolute Auto 0.1 X10*3/uL (0.0-0.4); Eosinophils Percent Auto 0.6 % (0-4); Hematocrit 47.5 % (42.0-52.0); Hemoglobin 16.4 g/dl (14.0-18.0); Imm Gran Abs Auto 0.02 X10*3/uL (0.00-0.03); Imm Gran Pct Auto 0.2 % (0.0-0.4); Lymphocytes Absolute Auto 4.4 X10*3/uL (1.2-4.9); Lymphocytes Percent Auto 47.8 % (20-40); Mean Corpuscular HGB Conc 34.5 g/dl (31.0-36.0); Mean Corpuscular Hemoglobin 32.2 pg (27.0-33.0); Mean Corpuscular Volume 93.1 fL (80.0-98.0); Mean Platelet Volume 9.4 fL (9.4-12.4); Monocytes Absolute Auto 0.6 X10*3/uL (0.1-1.2); Monocytes Percent Auto 6.2 % (2-11); Neutrophils Absolute Auto 4.1 x10*3/uL (2.0-8.3); Neutrophils Percent Auto 44.2 % (45-73); Platelet Count 305 X10*3/uL (160-400); White Blood Count 9.3 X10*3/uL (4.8-10.8)
[2021-11-23 16:29] LABS: COVID-19 Test Negative (Negative)
[2021-11-23 16:31] LABS: Alanine Aminotransferase 44 U/L (0-40); Albumin Level 4.1 g/dL (3.5-5.0); Alkaline Phosphatase 73 U/L (39-117); Anion Gap 18 (12-20); Aspartate Amino Transferase 64 U/L (5-37); Bilirubin Total 0.4 mg/dL (0.0-1.0); Blood Urea Nitrogen 16 mg/dL (9-16); Calcium 8.1 mg/dL (8.4-10.2); Carbon Dioxide 29 mmol/L (22-29); Chloride 103 mmol/L (96-108); Creatinine Clr Calc Pharmacy 107.9; Estimated Glomerular Filt Rate > 60; Ethanol 414 mg/dL; Glucose Random 95 mg/dL (60-115); Potassium 4.2 mmol/L (3.3-5.1); Sodium 146 mmol/L (135-145)
== END 2021-11-23 21:06 | disposition left against medical advice (07) ==
LOC: HO.ED 21:05
PROVIDERS: Emergency Provider Emergency Medicine; PCP Physician Assistant
DX: F43.0 Acute stress reaction (principal); R47.81 Slurred speech; Z79.899 Other long term (current) drug therapy; Z20.822 Contact with and (suspected) exposure to COVID-19
CPT/HCPCS: 36415; 80053; 82077; 85025; 87635; 99281; 99283

== ENCOUNTER 2024-09-26 16:23 | Emergency (ER) | payer OTHER, SELFPAY ==
--- NOTE | ~2024-09-26 | XR_ITS ---
CLINICAL HISTORY: Fall, left thigh pain, R O fracture Two views of the left femur. COMPARISON: None FINDINGS: Femur appears intact. Visualized portions of the left hip and knee are unremarkable. No radiopaque foreign body. IMPRESSION: 1. No radiographic evidence of acute injury to the left femur. This document has been electronically signed by: Melchor Cheung MD on 09/26/2024 20:12:17
[2024-09-26 16:32] VITALS: BP 140/90; PULSE 99; O2SAT 94
[2024-09-26 16:38] VITALS: BP 145/93; PULSE 95; RESP 20; TEMP 36; O2SAT 92; BMI 26.6
[2024-09-26 16:55] VITALS: PULSE 95
[2024-09-26 18:11] LABS: MANUAL DIFF FLAG NO
[2024-09-26 18:25] LABS: Basophils Percent Auto 0.5 % (0-2); Eosinophils Absolute Auto 0.1 X10*3/uL (0.0-0.4); Eosinophils Percent Auto 0.8 % (0-4); Hematocrit 45.2 % (42.0-52.0); Imm Gran Abs Auto 0.02 X10*3/uL (0.00-0.03); Imm Gran Pct Auto 0.3 % (0.0-0.4); Lymphocytes Absolute Auto 2.1 X10*3/uL (1.2-4.9); Lymphocytes Percent Auto 32.5 % (20-40); Mean Corpuscular HGB Conc 35.4 g/dl (31.0-36.0); Mean Corpuscular Hemoglobin 31.7 pg (27.0-33.0); Mean Corpuscular Volume 89.5 fL (80.0-98.0); Mean Platelet Volume 10.3 fL (9.4-12.4); Monocytes Absolute Auto 0.3 X10*3/uL (0.1-1.2); Neutrophils Absolute Auto 3.9 x10*3/uL (2.0-8.3); Neutrophils Percent Auto 60.9 % (45-73); Platelet Count 193 X10*3/uL (160-400); Red Blood Count 5.05 X10*6/uL (4.60-5.80); Red Cell Distribution Width 12.4 % (11.0-16.0); White Blood Count 6.3 X10*3/uL (4.8-10.8)
[2024-09-26 18:30] LABS: Alanine Aminotransferase 423 U/L (0-40); Albumin Level 4.1 g/dL (3.5-5.0); Alkaline Phosphatase 105 U/L (39-117); Anion Gap 13 (12-20); Aspartate Amino Transferase 198 U/L (5-37); Blood Urea Nitrogen 13 mg/dL (9-16); Calcium 8.1 mg/dL (8.4-10.2); Carbon Dioxide 28 mmol/L (22-29); Chloride 106 mmol/L (96-108); Creatinine Clr Calc Pharmacy 112.7; Estimated Glomerular Filt Rate > 60; Ethanol 428 mg/dL; Glucose Random 133 mg/dL (60-115); Magnesium 2.3 mg/dL (1.6-2.6); Potassium 3.8 mmol/L (3.3-5.1); Sodium 143 mmol/L (135-145); Total Protein 7.1 g/dL (6.5-8.0)
--- NOTE | 2024-09-26 18:32 | ED_ITS ---
HPI - Alcohol General Chief Complaint: ETOH/Substance Use Stated Complaint: ETOH, UNABLE TO WALK PER EMS Time Seen by Provider: 09/26/24 18:32 Source: patient Mode of arrival: EMS Limitations: no limitations History of Present Illness ED Provider: Dr. Jb Dong HPI narrative: 49-year-old male with a history of asthma, depression, anxiety, alcohol use disorder who presents emergency department for evaluation of fall and unable get off the floor. The patient was at home with his mother. The patient fell in the bathroom and apparently did a ?split? and was unable to get off the floor. Family called an ambulance. The patient was drinking alcohol and he states he drinks beer and nips of schnapps daily. He can not quantify how much he drinks but he states that he drinks a lot. In the emergency department he is complaining of left thigh pain and has no other complaints. Patient states that he is not interested in pursuing detox at this time but would consider pursuing detox as an outpatient. Patient's sister is here in the emergency department and she is concerned about the amount of alcohol that the patient drinks and states she is considering pursuing a Section 35 on this patient. Related Data Home Medications ?Medication ?Instructions ?Recorded ?Confirmed albuterol sulfate 90 mcg/actuation 2 puff inhalation Q4H 04/13/21 04/13/21 aerosol inhaler atorvastatin 20 mg tablet 1 tab PO DAILY 04/13/21 04/13/21 buspirone 10 mg tablet 1 tab PO TID 04/13/21 04/13/21 desvenlafaxine succinate 50 mg 1 tab PO DAILY 04/13/21 04/13/21 tablet,extended release 24 hr hydroxyzine pamoate 50 mg capsule 1 cap PO TID PRN Anxiety 04/13/21 04/13/21 Previous Rx's ?Medication ?Instructions ?Recorded doxycycline hyclate 100 mg capsule 100 mg PO BID 3 days #6 caps 04/16/21 doxycycline hyclate 100 mg tablet 100 mg PO BID 3 days #6 tabs 04/16/21 folic acid 1 mg tablet 1 mg PO DAILY 30 days #30 tabs 04/16/21 omeprazole 40 mg capsule,delayed 40 mg PO DAILY 30 days #30 caps 04/16/21 release sodium di- and 1 tab PO BID 3 days #6 tabs 04/16/21 monophosphate-potassium phos monobasic 250 mg tablet thiamine HCl (vitamin B1) 100 mg 100 mg PO DAILY 30 days #30 tabs 04/16/21 tablet (Vitamin B-1) ondansetron 4 mg disintegrating 4 mg PO Q8H PRN nausea and 06/03/21 tablet vomiting #10 tabs Allergies Allergy/AdvReac Type Severity Reaction Status Date / Time animal dander Allergy Unknown SINUS/RESPI Verified 09/26/24 16:39 RATORY Review of Systems 2 Review of Systems: Yes all other systems are reviewed and are negative [facility] Past Medical History [facility] Narrative: Social history: The patient denies tobacco and drug use. Please see HPI for alcohol use Medical History Asthma Social History Social History Household Members: Family Housing: Unknown / Unable to assess Unable to assess alcohol history related to: Unable to respond Alcohol intake: current Alcohol intake frequency: a few times a week Alcohol type: beer and hard liquor Patient Tobacco Use Status: Current everyday Tobacco user Smoked in Last 30 Days: No Use of substances other than those prescribed or required for medical reasons: No Advance Directives: No Advance Directives Information Provided: No Do you have a plan to hurt others: No Plan service: No Current occupational status: unemployed Physical Exam ED Vital Signs: Vital Signs - 24 hr 09/26/24 16:38 09/26/24 20:08 09/26/24 20:59 Temperature 96.8 F 97.9 F Pulse Rate 95 94 94 Respiratory Rate 20 16 16 Blood Pressure 145/93 H 146/93 H 146/93 H Pulse Oximetry 92 93 93 Oxygen Delivery Method Room Air Room Air Room Air BMI result Body Mass Index 26.6 vital signs revealed elevated blood pressure otherwise unremarkable Exam: General: Awake, alert in no distress, strong odor of alcohol on his breath, answers questions appropriately Head: Normocephalic, atraumatic EENT: PERRL, Lids normal, sclera normal, conjunctiva normal, nose normal , ears normal, throat without erythema or exudates Neck: Supple, no adenopathy Lung: breath sounds symmetric, no wheezing, rales or rhonchi Chest: symmetric movement, nontender Heart: regular rate and rhythm, normal S1, S2 no murmurs or rubs Abdomen: soft, non-tender, nondistended, normal bowel sounds Back: no vertebral tenderness, no CVAT Extremities: no deformities, moves all extremities symmetrically, tenderness with palpation of the inner thighs, no ecchymosis and bruising noted Neuro: Awake, alert, oriented, normal speech, cranial nerves intact, moves all extremities symmetrically Psych: Pleasant, cooperative Medical Decision Making Medical Decision Making MDM Narrative: 49-year-old male with a history of asthma, depression, anxiety, alcohol use disorder who presents emergency department for evaluation of fall and unable get off the floor. The patient was at home with his mother. The patient fell in the bathroom and apparently did a ?split? and was unable to get off the floor. Family called an ambulance. The patient was drinking alcohol and he states he drinks beer and nips of schnapps daily. He can not quantify how much he drinks but he states that he drinks a lot. In the emergency department he is complaining of left thigh pain and has no other complaints. Patient states that he is not interested in pursuing detox at this time but would consider pursuing detox as an outpatient. Patient's sisters here in the emergency department and she is concerned about the amount of alcohol that the patient drinks and states she is considering pursuing a Section 35 on this patient. vital signs revealed elevated blood pressure otherwise unremarkable. Physical examination the tenderness palpation of his left in time with no significant deformities. Differential diagnosis: Includes but is not limited to: Skull fracture, intracranial bleed, neck fracture, left high muscle strain /sprain, left hip fracture, left femur fracture, alcohol intoxication, anemia, electrolyte abnormalities, LFT abnormalities Course: My independent interpretation patient's laboratory evaluation is as follows: CBC was normal. Glucose elevated 133. AST and ALT elevated 198 and 423, significantly higher than previous values. ethanol level elevated 428. The patient's left femur /hip x-ray revealed no significant fracture or deformity. Patient's presentation is consistent with acute alcohol intoxication with a very elevated alcohol level which is consistent with the amount of alcohol that he states he drinks and suggest that he has a high alcohol tolerance from daily use. Patient had a significant elevation in his transaminases which is consistent with alcoholic hepatitis. I did have a discussion with the patient and his sister. I told the patient that if he continues to drink alcohol, he will eventually causes liver scarring / cirrhosis and he will from alcoholic liver failure. The patient is not interested in getting into detox at this time but he states that he will pursue outpatient detox. He was also given information regarding the [facility] and alcohol use disorder. the patient's left hip and femur x-ray did not reveal any acute abnormalities is suspect patient has musculoskeletal injury of his left thigh secondary to his fall and split when he fell. I also discuss the Section 35 with the patient's sister and with the patient as well. The patient is acutely intoxicated but he is able to walk without any difficulty and his sister is going to take him. Admission/Observation Consideration of admission/observation: Escalation of care including admission/observation considered ( yes) Lab Data MDM Lab Attestation statement: I reviewed the patient's lab results. 09/26/24 18:08 09/26/24 18:08 Labs: Lab Results 09/26/24 Range/Units 18:08 WBC 6.3 (4.8-10.8) X10*3/uL RBC 5.05 (4.60-5.80) X10*6/uL Hgb 16.0 (14.0-18.0) g/dl Hct 45.2 (42.0-52.0) % MCV 89.5 (80.0-98.0) fL MCH 31.7 (27.0-33.0) pg MCHC 35.4 (31.0-36.0) g/dl RDW 12.4 (11.0-16.0) % Plt Count 193 D (160-400) X10*3/uL MPV 10.3 (9.4-12.4) fL Immature Gran % (Auto) 0.3 (0.0-0.4) % Neut % (Auto) 60.9 (45-73) % Lymph % (Auto) 32.5 (20-40) % [place] % (Auto) 5.0 (2-11) % Eos % (Auto) 0.8 (0-4) % Baso % (Auto) 0.5 (0-2) % Lymph # (Auto) 2.1 (1.2-4.9) X10*3/uL [place] # (Auto) 0.3 (0.1-1.2) X10*3/uL Eos # (Auto) 0.1 (0.0-0.4) X10*3/uL Baso # (Auto) 0.0 (0.0-0.2) X10*3/uL Abs Immat Gran (auto) 0.02 (0.00-0.03) X10*3/uL Absolute Neuts (auto) 3.9 (2.0-8.3) x10*3/uL Absolute Nucleated RBC 0.000 (0.0-0.012) X10*3/uL Nucleated RBC % (auto) 0.0 (0.0-0.2) /100WBC Sodium 143 (135-145) mmol/L Potassium 3.8 (3.3-5.1) mmol/L Chloride 106 (96-108) mmol/L Carbon Dioxide 28 (22-29) mmol/L Anion Gap 13 (12-20) BUN 13 (9-16) mg/dL Creatinine 0.75 (0.5-1.4) mg/dL Estim Creat Clear Calc 112.7 Estimated GFR > 60 Random Glucose 133 H (60-115) mg/dL Calcium 8.1 L (8.4-10.2) mg/dL Magnesium 2.3 (1.6-2.6) mg/dL Total Bilirubin 1.0 (0.0-1.0) mg/dL AST 198 H (5-37) U/L ALT 423 H (0-40) U/L Alkaline Phosphatase 105 (39-117) U/L Total Protein 7.1 (6.5-8.0) g/dL Albumin 4.1 (3.5-5.0) g/dL Ethyl Alcohol 428 H* mg/dL Independent Interpretation I performed an independent interpretation of an: Plain X-Ray Interpretation: my independent interpretation of the patient's left femur x-rays as follows: No acute fracture seen Radiology Impression Discussion of test interpretation with radiology: I have reviewed the radiologist's reading. Radiologist Impression: Two views of the left femur. COMPARISON: None FINDINGS: Femur appears intact. Visualized portions of the left hip and knee are unremarkable. No radiopaque foreign body. IMPRESSION: 1. No radiographic evidence of acute injury to the left femur. This document has been electronically signed by: Melchor Cheung MD on 09/26/2024 20:12:17 Independent Historian Clinical information obtained from an independent historian. History obtained from or confirmed by: Other ( sister) Chronic Conditions Patient?s care impacted by: Other ( alcohol use disorder) Discharge Plan Discharge Clinical Impression: Fall, Acute alcohol intoxication, Acute alcoholic hepatitis, Contusion of right thigh Patient Disposition: Home, Self-Care Additional Instructions: The blood level for legal intoxication is 80. Your blood alcohol level was 428 which is 4-5 times above the legal limit of intoxication. Your liver tests were elevated. Your AST was 198 (normal is 5-37). Your ALT was 423 (normal is 0-40). These liver numbers are significantly elevated and if you continue to drink alcohol you will eventually developed cirrhosis of the liver in you will from alcoholic cirrhosis. The x-ray of your thigh did not reveal any broken bones, you most likely stretched knee muscles, tendons and ligaments of the thigh and this has caused. Apply ice for 15 minutes 4 to 6 times a day to the area that hurts to help reduce the pain. Alcohol use disorder You were seen in the Emergency Department today for treatment of alcohol use disorder.? If you would like to cut down or stop your alcohol use please consider calling our outpatient Addiction Treatment office:? [facility] (M-F [id number]) [address] [place] [address] [address] ? You have also been given a list of treatment providers in the area that can assist as well.? If you experience seizures, vomiting blood, black stools, falls, severe headache, chest pain, fevers, trouble breathing, hallucinations or any other concerns you need to call 911 or seek immediate care. Please stay hydrated. Prescriptions: No Action atorvastatin 20 mg tablet 1 tab PO DAILY hydroxyzine pamoate 50 mg capsule 1 cap PO TID PRN (Reason: Anxiety) buspirone 10 mg tablet 1 tab PO TID albuterol sulfate 90 mcg/actuation HFA aerosol inhaler 2 puff inhalation Q4H desvenlafaxine succinate 50 mg tablet extended release 24 hr 1 tab PO DAILY thiamine HCl (vitamin B1) [Vitamin B-1] 100 mg tablet 100 mg PO DAILY 30 Days Qty: 30 0RF folic acid 1 mg tablet 1 mg PO DAILY 30 Days Qty: 30 0RF doxycycline hyclate 100 mg capsule 100 mg PO BID 3 Days Qty: 6 0RF sod phos di, mono-K phos mono 250 mg tablet 1 tab PO BID 3 Days Qty: 6 0RF omeprazole 40 mg capsule,delayed release(DR/EC) 40 mg PO DAILY 30 Days Qty: 30 0RF doxycycline hyclate 100 mg tablet 100 mg PO BID 3 Days Qty: 6 0RF ondansetron 4 mg tablet,disintegrating 4 mg PO Q8H PRN (Reason: nausea and vomiting) Qty: 10 0RF Interventions: ED Discharge Assessment Last Done: 09/26/24 20:59 Discharge Date/Time: 09/26/24 21:00 Print Language: Greenlandic
[2024-09-26 20:08] VITALS: BP 146/93; PULSE 94; RESP 16; O2SAT 93
--- NOTE | 2024-09-26 20:17 | PC.NURSE ---
Informed MD that pt. was able to ambulate. Awaiting dc orders.
[2024-09-26 20:59] VITALS: BP 146/93; PULSE 94; RESP 16; TEMP 36.6; O2SAT 93
== END 2024-09-26 21:00 | disposition home or self-care (01) ==
PROVIDERS: Emergency Provider Emergency Medicine Emergency Medical Services
DX: F10.129 Alcohol abuse with intoxication, unspecified (principal); Y90.8 Blood alcohol level of 240 mg/100 ml or more; K70.10 Alcoholic hepatitis without ascites; S70.11XA Contusion of right thigh, initial encounter; W19.XXXA Unspecified fall, initial encounter; Y93.89 Activity, other specified; Y92.002 Bathroom of unspecified non-institutional (private) residence as the place of occurrence of the external cause; Y99.9 Unspecified external cause status
CPT/HCPCS: 36415; 73552; 80053; 80307; 83735; 85025; 99284

== ENCOUNTER → 2024-09-26 19:16 | Outpatient (BNV) | payer OTHER, SELFPAY | PROVIDERS: Emergency Provider Emergency Medicine Emergency Medical Services; Visit Provider Radiology Diagnostic Radiology | DX: M79.652 Pain in left thigh (principal) | CPT/HCPCS: 73552 ==

== ENCOUNTER 2024-09-30 16:27 | Emergency (ER) | payer OTHER, SELFPAY ==
[2024-09-30 16:34] VITALS: BP 129/91; BP 151/90; PULSE 102; PULSE 120; RESP 18; TEMP 36.6; O2SAT 94; O2SAT 98; BMI 25.1
[2024-09-30 18:03] LABS: MANUAL DIFF FLAG NO
[2024-09-30 18:05] LABS: Basophils Percent Auto 0.2 % (0-2); Eosinophils Absolute Auto 0.1 X10*3/uL (0.0-0.4); Eosinophils Percent Auto 0.5 % (0-4); Hematocrit 34.7 % (42.0-52.0); Hemoglobin 12.8 g/dl (14.0-18.0); Imm Gran Abs Auto 0.03 X10*3/uL (0.00-0.03); Imm Gran Pct Auto 0.3 % (0.0-0.4); Lymphocytes Percent Auto 10.6 % (20-40); Mean Corpuscular HGB Conc 36.9 g/dl (31.0-36.0); Mean Corpuscular Hemoglobin 32.5 pg (27.0-33.0); Mean Corpuscular Volume 88.1 fL (80.0-98.0); Mean Platelet Volume 10.9 fL (9.4-12.4); Monocytes Absolute Auto 0.6 X10*3/uL (0.1-1.2); Monocytes Percent Auto 6.3 % (2-11); Neutrophils Absolute Auto 8.1 x10*3/uL (2.0-8.3); Neutrophils Percent Auto 82.1 % (45-73); Platelet Count 153 X10*3/uL (160-400); Red Blood Count 3.94 X10*6/uL (4.60-5.80); White Blood Count 9.8 X10*3/uL (4.8-10.8)
[2024-09-30 18:29] LABS: Lactic Acid 2.4 mmol/L (0.5-2.0)
[2024-09-30 18:39] VITALS: BP 139/89; PULSE 90; RESP 14; TEMP 37.3; O2SAT 96
[2024-09-30 18:41] LABS: Influenza A PCR NEGATIVE (Negative); Influenza B PCR NEGATIVE (Negative); Resp Syncy Virus RNA Qual PCR NEGATIVE (Negative); SARS COV2 PCR INHOUSE NEGATIVE (Negative)
[2024-09-30 19:07] LABS: Alanine Aminotransferase 226 U/L (0-40); Albumin Level 4.1 g/dL (3.5-5.0); Alkaline Phosphatase 102 U/L (39-117); Anion Gap 12 (12-20); Aspartate Amino Transferase 229 U/L (5-37); Bilirubin Total 2.5 mg/dL (0.0-1.0); Blood Urea Nitrogen 10 mg/dL (9-16); Calcium 8.9 mg/dL (8.4-10.2); Carbon Dioxide 29 mmol/L (22-29); Chloride 98 mmol/L (96-108); Creatinine Clr Calc Pharmacy 98.1; Estimated Glomerular Filt Rate > 60; Ethanol < 10 mg/dL; Glucose Random 144 mg/dL (60-115); Lipase 60 U/L (8-78); Magnesium 2.2 mg/dL (1.6-2.6); Potassium 3.6 mmol/L (3.3-5.1); Sodium 135 mmol/L (135-145); Total Protein 6.8 g/dL (6.5-8.0)
--- NOTE | 2024-09-30 19:57 | PC.NURSE ---
(@1800) MD Shaffer informed of 2.4 lac
[2024-09-30 20:01] LABS: Reflex Lactate? Lactic Acid Added
--- NOTE | 2024-09-30 20:16 | ED.GENADULT ---
HPI - General Adult General Chief complaint: Seizure Stated complaint: witnessed seizure,pt heavy drinker, only 1 today Time Seen by Provider: 09/30/24 20:16 History of Present Illness ED Provider: Eleuterio JIMENEZ narrative: The patient is a 49-year-old male who was an alcoholic. He says he has a recently had less alcohol than he typically does. today he has been in a car with his mother. His mother has been driving. She says that she had just pulled into a parking lot when the patient got out of the passenger seat of the car and then seemed to have a seizure. The patient had the seizure on the blacktop of a parking lot. The mother says that the patient had 3 seizures in a row with only brief intervals between the seizures. She called an ambulance and the patient was brought to the hospital. The patient says that he remembers that they had been driving to go to a dumpster to get rid of some garbage but he does not remember getting out of the car or anything else about the episode. He does not feel injured. He does not have a headache or any sense of a neck injury. He does feel somewhat tremulous. He was somewhat vague about when his last alcohol was but he does acknowledge that he has been drinking less alcohol than he typically does. There has been no vomiting. The patient does not wish to be hospitalized or go to any kind of formal detox center today. Related Data Home Medications ?Medication ?Instructions ?Recorded ?Confirmed albuterol sulfate 90 mcg/actuation 2 puff inhalation Q4H 04/13/21 04/13/21 aerosol inhaler atorvastatin 20 mg tablet 1 tab PO DAILY 04/13/21 04/13/21 buspirone 10 mg tablet 1 tab PO TID 04/13/21 04/13/21 desvenlafaxine succinate 50 mg 1 tab PO DAILY 04/13/21 04/13/21 tablet,extended release 24 hr hydroxyzine pamoate 50 mg capsule 1 cap PO TID PRN Anxiety 04/13/21 04/13/21 Previous Rx's ?Medication ?Instructions ?Recorded doxycycline hyclate 100 mg capsule 100 mg PO BID 3 days #6 caps 04/16/21 doxycycline hyclate 100 mg tablet 100 mg PO BID 3 days #6 tabs 04/16/21 folic acid 1 mg tablet 1 mg PO DAILY 30 days #30 tabs 04/16/21 omeprazole 40 mg capsule,delayed 40 mg PO DAILY 30 days #30 caps 04/16/21 release sodium di- and 1 tab PO BID 3 days #6 tabs 04/16/21 monophosphate-potassium phos monobasic 250 mg tablet thiamine HCl (vitamin B1) 100 mg 100 mg PO DAILY 30 days #30 tabs 04/16/21 tablet (Vitamin B-1) ondansetron 4 mg disintegrating 4 mg PO Q8H PRN nausea and 06/03/21 tablet vomiting #10 tabs chlordiazepoxide HCl 25 mg capsule 50 mg (2 x 25 mg) PO TID PRN 09/30/24 alcohol withdrawal #20 caps Allergies Allergy/AdvReac Type Severity Reaction Status Date / Time animal dander Allergy Unknown SINUS/RESPI Verified 09/26/24 16:39 RATORY cat dander Allergy Wheezing Unverified 09/30/24 16:39 dog dander [dogs] Allergy Wheezing Unverified 09/30/24 16:39 Review of Systems Review of Systems: Yes all other systems are reviewed and are negative [facility] Past Medical History Medical History Asthma Social History Social History Household Members: Family Housing: Unknown / Unable to assess Unable to assess alcohol history related to: Unable to respond Alcohol intake: current Alcohol intake frequency: a few times a week Alcohol type: beer and hard liquor Patient Tobacco Use Status: Current everyday Tobacco user Smoked in Last 30 Days: Yes Use of substances other than those prescribed or required for medical reasons: No Substance Use Frequency Other:: prior marijuana and cocaine use, currently denies use Advance Directives: No Advance Directives Information Provided: No Do you have a plan to hurt others: No Plan service: No Current occupational status: unemployed Physical Exam ED Vital Signs: Vital Signs - 24 hr 09/30/24 16:34 09/30/24 18:39 09/30/24 22:05 Temperature 97.9 F 99.2 F 98.9 F Pulse Rate 102 H 90 94 Respiratory Rate 18 14 17 Blood Pressure 129/91 H 139/89 144/93 H Pulse Oximetry 94 96 98 Oxygen Delivery Method Room Air Room Air Room Air BMI result Body Mass Index 25.1 Const Other: The patient is awake and alert with a normal mental status. He seems mildly tremulous. He does not seem in acute distress otherwise. There are no signs of obvious injury. HENMT Other: The face is symmetrical. There is some slight bruising to the tip of the tongue. There was no irma tongue swelling. There was no tongue laceration. Dentition is intact. Jaw movement is normal. No raccoon eyes. No maldonado sign. Eyes General: appearance normal, both eyes and all related structures Periorbital: periorbital findings normal Eyelids: Yes eyelids normal Conjunctivae: conjunctivae normal Sclerae: sclerae normal Pupils: Equal, round and reactive pupils present EOM: EOMs intact bilaterally Neck Other: No posterior midline C-spine tenderness. No pain with range of motion of the neck. The C-spine is clinically clear. Resp Effort & Inspection: normal respiratory effort Auscultation: clear to auscultation bilaterally Cardio Rate: regular rate Rhythm: regular rhythm Heart sounds: S1 normal heart sound present and S2 normal heart sound present GI Other: Abdomen is soft and nontender Back/Spine/Pelvis Other: no midline vertebral tenderness in the back. No sign of trauma to the back. Skin Other: No bruising or other signs of injury to the skin. Skin is pale and dry. Neuro Other: The patient is awake and alert. He has a mild tremulousness but a clear mental status. Cranial nerves 2-12 are intact. He moves his extremities symmetrically and appropriately. No focal findings. Cranial nerves: Yes Equal, round and reactive pupils present Extrem Other: No injuries or deformities to the extremities. No peripheral edema. Medications Administered Discontinued Medications Generic Name Dose Route Start Last Admin Trade Name Freq PRN Reason Stop Dose Admin Chlordiazepoxide HCl 50 mg 09/30/24 21:43 09/30/24 21:58 Chlordiazepoxide Hcl 25 Mg Capsule PO 09/30/24 21:44 50 mg ONCE ONE Administration Diazepam 10 mg 09/30/24 20:24 09/30/24 20:49 Diazepam 10 Mg/2 Ml Cartridge IVPUSH 09/30/24 20:25 10 mg STAT STA Administration Sodium Chloride 1,000 mls @ 999 mls/hr 09/30/24 20:15 09/30/24 20:53 Ns IV 09/30/24 21:15 999 mls/hr .Q1H1M AUBREY Administration Sodium Chloride 1,000 mls @ 999 mls/hr 09/30/24 20:30 09/30/24 20:54 Ns IV 09/30/24 21:30 999 mls/hr .Q1H1M AUBREY Administration Medical Decision Making Medical Decision Making [facility] Narrative: The patient is a 49-year-old man who is a significant alcoholic. He was here 4 days ago and had an alcohol level of 428. at that time the patient was discharged from the emergency room. Apparently his sister (who was at the bedside with the patient's mother) had at that time expressed interest in pursuing a section 35. the patient clearly has cut back on alcohol use since his ER visit 4 days ago. His alcohol level today is undetectable. I believe he had an alcohol withdrawal seizure. Currently he is tremulous but he has a normal mental status and seems, in my opinion, to have capacity to make decisions for himself. he is not suicidal. The patient's medical workup is unremarkable. I do not see any indication for neuroimaging. This seems to have been an alcohol withdrawal seizure. He seems to have made a good neurological recovery aside from tremulousness likely related to alcohol withdrawal as well. The patient was given 10 mg of IV diazepam with improvement in his tremulousness. He was offered hospitalization for alcohol withdrawal. He is not wish to be hospitalized today. Additionally does not wish to consider going to any kind of formal inpatient detox unit. He wishes to be discharged. He has a primary care doctor at [facility]. He will be given a prescription for chlordiazepoxide for use at home if he does not resumed drinking. He is adamant that he wishes to be discharged today. He is also given the contact information for the [facility]. He is encouraged to contact the [facility] for assistance with strategies for Managing his alcoholism. He should return to the emergency room if he is worse or if he has a change of heart about additional acute care for his alcohol withdrawal. Lab Data 09/30/24 17:56 09/30/24 18:36 Labs: Lab Results 09/30/24 09/30/24 Range/Units 17:56 18:36 WBC 9.8 (4.8-10.8) X10*3/uL RBC 3.94 L D (4.60-5.80) X10*6/uL Hgb 12.8 L (14.0-18.0) g/dl Hct 34.7 L D (42.0-52.0) % MCV 88.1 (80.0-98.0) fL MCH 32.5 (27.0-33.0) pg MCHC 36.9 H (31.0-36.0) g/dl RDW 12.0 (11.0-16.0) % Plt Count 153 L (160-400) X10*3/uL MPV 10.9 (9.4-12.4) fL Immature Gran % (Auto) 0.3 (0.0-0.4) % Neut % (Auto) 82.1 H (45-73) % Lymph % (Auto) 10.6 L (20-40) % [place] % (Auto) 6.3 (2-11) % Eos % (Auto) 0.5 (0-4) % Baso % (Auto) 0.2 (0-2) % Lymph # (Auto) 1.0 L (1.2-4.9) X10*3/uL [place] # (Auto) 0.6 (0.1-1.2) X10*3/uL Eos # (Auto) 0.1 (0.0-0.4) X10*3/uL Baso # (Auto) 0.0 (0.0-0.2) X10*3/uL Abs Immat Gran (auto) 0.03 (0.00-0.03) X10*3/uL Absolute Neuts (auto) 8.1 (2.0-8.3) x10*3/uL Absolute Nucleated RBC 0.000 (0.0-0.012) X10*3/uL Nucleated RBC % (auto) 0.0 (0.0-0.2) /100WBC Sodium 135 (135-145) mmol/L Potassium 3.6 (3.3-5.1) mmol/L Chloride 98 (96-108) mmol/L Carbon Dioxide 29 (22-29) mmol/L Anion Gap 12 (12-20) BUN 10 (9-16) mg/dL Creatinine 0.89 (0.5-1.4) mg/dL Estim Creat Clear Calc 98.1 Estimated GFR > 60 Random Glucose 144 H (60-115) mg/dL Lactic Acid 2.4 H* (0.5-2.0) mmol/L Calcium 8.9 D (8.4-10.2) mg/dL Magnesium 2.2 (1.6-2.6) mg/dL Total Bilirubin 2.5 H (0.0-1.0) mg/dL Direct Bilirubin 1.0 H (0.0-0.5) mg/dL AST 229 H (5-37) U/L ALT 226 H (0-40) U/L Alkaline Phosphatase 102 (39-117) U/L Total Protein 6.8 (6.5-8.0) g/dL Albumin 4.1 (3.5-5.0) g/dL Lipase 60 (8-78) U/L Ethyl Alcohol < 10 mg/dL Influenza Type A (PCR) NEGATIVE (Negative) Influenza Type B (PCR) NEGATIVE (Negative) RSV RNA Qual (PCR) NEGATIVE (Negative) SARS-CoV-2 RNA (RT-PCR) NEGATIVE (Negative) Discharge Plan Discharge Clinical Impression: Alcohol withdrawal seizure Patient Disposition: Home, Self-Care Instructions: Alcohol Withdrawal (ED) Additional Instructions: I believe that you had an alcohol withdrawal seizure today. You has been given some medication here in the emergency room to help prevent another seizure. I have also sent a prescription for additional chlordiazepoxide (Librium) to your pharmacy which you may also use. If you choose to resume using alcohol you should not use the chlordiazepoxide. However if you do not use alcohol you should use the chlordiazepoxide as needed. Also please plan on contacting the [facility] here at [facility] in the morning. This is an outpatient clinic with the purpose of helping people with substance use problems like alcohol. Please call the office in the morning to see if you can get a follow up appointment to discuss what options might be helpful in stopping alcohol. Since you had a seizure today you should not drive a car until you has been seizure-free for 6 months. Please also follow up with your regular doctor to discuss this episode further as well. Return to the emergency room if you feel significantly worse. Also return to the emergency room if you have another seizure. Prescriptions: New chlordiazepoxide HCl 25 mg capsule 50 mg PO TID PRN (Reason: alcohol withdrawal) Qty: 20 0RF No Action atorvastatin 20 mg tablet 1 tab PO DAILY hydroxyzine pamoate 50 mg capsule 1 cap PO TID PRN (Reason: Anxiety) buspirone 10 mg tablet 1 tab PO TID albuterol sulfate 90 mcg/actuation HFA aerosol inhaler 2 puff inhalation Q4H desvenlafaxine succinate 50 mg tablet extended release 24 hr 1 tab PO DAILY thiamine HCl (vitamin B1) [Vitamin B-1] 100 mg tablet 100 mg PO DAILY 30 Days Qty: 30 0RF folic acid 1 mg tablet 1 mg PO DAILY 30 Days Qty: 30 0RF doxycycline hyclate 100 mg capsule 100 mg PO BID 3 Days Qty: 6 0RF sod phos di, mono-K phos mono 250 mg tablet 1 tab PO BID 3 Days Qty: 6 0RF omeprazole 40 mg capsule,delayed release(DR/EC) 40 mg PO DAILY 30 Days Qty: 30 0RF doxycycline hyclate 100 mg tablet 100 mg PO BID 3 Days Qty: 6 0RF ondansetron 4 mg tablet,disintegrating 4 mg PO Q8H PRN (Reason: nausea and vomiting) Qty: 10 0RF Referrals: [facility] [place] [facility] [Provider Group] (alcohol withdrawal) Loc Guadarrama PA [Physician [employer]] - (alcohol withdrawal) Interventions: ED Discharge Assessment Last Done: 09/30/24 22:05 Discharge Date/Time: 09/30/24 22:06 Print Language: Mohawk
[2024-09-30] MEDS: diazePAM 10 MG/2 ML CARTRIDGE IVPUSH (20:49)
[2024-09-30] MEDS: 0.9 % Sodium Chloride 1,000 ML 999 ML IV ×2 (20:53→20:54)
[2024-09-30] MEDS: chlordiazePOXIDE HCl 25 MG CAPSULE 50 MG PO (21:58)
[2024-09-30 22:05] VITALS: BP 144/93; PULSE 94; RESP 17; TEMP 37.2; O2SAT 98
== END 2024-09-30 22:06 | disposition home or self-care (01) ==
PROVIDERS: Physician Assistant; Emergency Provider Emergency Medicine
DX: F10.130 Alcohol abuse with withdrawal, uncomplicated (principal); Y90.0 Blood alcohol level of less than 20 mg/100 ml; F33.2 Major depressive disorder, recurrent severe without psychotic features; F41.1 Generalized anxiety disorder; J45.909 Unspecified asthma, uncomplicated; F17.200 Nicotine dependence, unspecified, uncomplicated; Z03.818 Encounter for observation for suspected exposure to other biological agents ruled out; Z79.02 Long term (current) use of antithrombotics/antiplatelets; Z79.899 Other long term (current) drug therapy
CPT/HCPCS: 0241U; 36415; 80048; 80076; 80307; 83605; 83690; 83735; 85025; 96361; 96374; 99284; 99285; J3360

== ENCOUNTER 2024-11-29 14:58 | Emergency (ER) | payer OTHER, SELFPAY ==
[2024-11-29 15:30] VITALS: BP 138/78; PULSE 111; RESP 16; TEMP 37.2; O2SAT 94; BMI 27.1
--- NOTE | 2024-11-29 15:32 | ED.GENADULT ---
HPI - General Adult General Chief complaint: Nausea/Vomiting/Diarrhea Stated complaint: sick all week end Time Seen by Provider: 11/29/24 19:25 Source: patient Mode of arrival: ambulatory Limitations: no limitations History of Present Illness ED Provider: RALPH NY PA-C HPI narrative: 49 year old male with pmhx significant for asthma, depression, anxiety, alcohol use disorder in remission presents to the ED today for evaluation of nausea, vomiting, and diarrhea x1 week that has since resolved. He reports recently starting divalproex BID for his bipolar disorder. Began having GI side effects over this past week, causing him to miss multiple days of work. His last episode of vomiting was yesterday. Reports normal BM today. He reports presenting to work today however was advised to come in for evaluation as he may be dehydrated. Denies any symptoms at present. No complaints. Denies fever, chills, n/v/d, abdominal pain, flank pain, urinary sx. Denies etoh consumption. Related Data Home Medications ?Medication ?Instructions ?Recorded ?Confirmed albuterol sulfate 90 mcg/actuation 2 puff inhalation Q4H 04/13/21 04/13/21 aerosol inhaler atorvastatin 20 mg tablet 1 tab PO DAILY 04/13/21 04/13/21 buspirone 10 mg tablet 1 tab PO TID 04/13/21 04/13/21 desvenlafaxine succinate 50 mg 1 tab PO DAILY 04/13/21 04/13/21 tablet,extended release 24 hr hydroxyzine pamoate 50 mg capsule 1 cap PO TID PRN Anxiety 04/13/21 04/13/21 Previous Rx's ?Medication ?Instructions ?Recorded doxycycline hyclate 100 mg capsule 100 mg PO BID 3 days #6 caps 04/16/21 doxycycline hyclate 100 mg tablet 100 mg PO BID 3 days #6 tabs 04/16/21 folic acid 1 mg tablet 1 mg PO DAILY 30 days #30 tabs 04/16/21 omeprazole 40 mg capsule,delayed 40 mg PO DAILY 30 days #30 caps 04/16/21 release sodium di- and 1 tab PO BID 3 days #6 tabs 04/16/21 monophosphate-potassium phos monobasic 250 mg tablet thiamine HCl (vitamin B1) 100 mg 100 mg PO DAILY 30 days #30 tabs 04/16/21 tablet (Vitamin B-1) ondansetron 4 mg disintegrating 4 mg PO Q8H PRN nausea and 06/03/21 tablet vomiting #10 tabs chlordiazepoxide HCl 25 mg capsule 50 mg (2 x 25 mg) PO TID PRN 09/30/24 alcohol withdrawal #20 caps Allergies Allergy/AdvReac Type Severity Reaction Status Date / Time animal dander Allergy Unknown SINUS/RESPI Verified 11/29/24 15:30 RATORY cat dander Allergy Wheezing Verified 11/29/24 15:30 dog dander (dogs) Allergy Wheezing Verified 11/29/24 15:30 Review of Systems Review of Systems: Yes all other systems are reviewed and are negative [facility] Past Medical History Attestation statement: The following information was validated with the patient. Source: old records reviewed and nursing notes reviewed Medical History Asthma Social History Social History Household Members: Family Housing: Unknown / Unable to assess Unable to assess alcohol history related to: Unable to respond Alcohol intake: current Alcohol intake frequency: a few times a week Alcohol type: beer and hard liquor Patient Tobacco Use Status: Current everyday Tobacco user Use of substances other than those prescribed or required for medical reasons: No Advance Directives: No Advance Directives Information Provided: No service: No Current occupational status: unemployed Physical Exam ED Vital Signs: Vital Signs - 24 hr 11/29/24 15:30 11/29/24 19:54 Temperature 98.9 F 99.1 F Pulse Rate 111 H 95 Respiratory Rate 16 16 Blood Pressure 138/78 144/91 H Pulse Oximetry 94 95 Oxygen Delivery Method Room Air Room Air BMI result Body Mass Index 27.1 hypertensive, tachycardic, afebrile General: Well appearing, in no acute distress. Skin: Warm, dry, intact. No rashes or lesions. Head: Normocephalic, atraumatic. EENT: Hearing is intact b/l. Conjunctiva clear. Sclera is anicteric. PERRLA. EOM intact. Moist mucous membranes.? Cardiac: Chest wall symmetric. RRR Lungs: Normal respiratory effort without accessory muscle use. CTA bilaterally Abdomen: Soft, non-tender, non-distended. No rebound tenderness or guarding. Positive BS x4. no cvat. Back: No midline spinous or paraspinal tenderness. No step off deformity. Ext: Upper and lower extremities atraumatic, without tenderness, deformity, swelling or erythema Neuro: AOx3. Normal speech. Ambulating with steady gait. Psych: Appropriate mood and affect. Responds appropriately to questions. Course Course Course Narrative: This is a rapid medical exam performed by Nicola Villegas NP: Additional HPI, ROS, PE not included below will be deferred to primary provider. Patient is a 49-year-old male with history of LAI, MDD presenting to the ED with complaint of dizziness, nausea, vomiting, diarrhea, abdominal pain after starting a new medication last week. States he previously drank alcohol regularly for 30 years but is no longer drinking daily. Plan: Labs, UA Reevaluation(s) Reevaluation #1: 2003 -- cbc showing leukocytosis to 12.1 without left shift - likely reactive to recent vomiting. no anemia, h&h stable. No thrombocytopenia. Chemistry showing hypokalemia to 3.1, likely secondary to recent vomiting. Normal magnesium. No other acute electrolyte abnormalities requiring intervention. No BENY. Random glucose 152. Liver function at baseline. Lipase WNL. Urine without infection. > discussed workup results with patient. She is agreeable to PO potassium repletion and 1 L of IV fluids. He is completely asymptomatic. I do not feel as though scanning his abdomen is warranted at this time. Likely medication side effect. tolerating PO. Anticipate discharge home following potassium repletion and IV fluids. Medications Administered Generic Name Dose Route Start Last Admin Trade Name Freq PRN Reason Stop Dose Admin Sodium Chloride 1,000 mls @ 999 mls/hr 11/29/24 20:00 11/29/24 20:20 Ns IV 11/29/24 21:00 999 mls/hr .Q1H1M AUBREY Administration Discontinued Medications Generic Name Dose Route Start Last Admin Trade Name Freq PRN Reason Stop Dose Admin Potassium Chloride 60 meq 11/29/24 19:56 11/29/24 20:21 Potassium Chloride Packet 20 Meq Packet PO 11/29/24 19:57 60 meq ONCE ONE Administration Medical Decision Making Medical Decision Making MDM Narrative: 49 year old male with pmhx significant for asthma, depression, anxiety, alcohol use disorder in remission presents to the ED today for evaluation of nausea, vomiting, and diarrhea x1 week that has since resolved. Initially tachycardic on arrival. Afebrile. He is well-appearing in no acute distress. Abdomen soft, nondistended, nontender to palpation, no rebound or guarding. No CVAT. Active bowel sounds x4. Lungs clear. Differential diagnosis includes anemia, electrolyte abnormality, dehydration, medication SE, UTI, gastroenteritis. unlikely acute abdomen. Plan for labs, UA, re-evaluation. Differential Diagnosis Differential Diagnoses: The differential diagnosis associated with the presentation includes as above. Admission/Observation not indicated. Lab Data MDM Lab Attestation statement: I reviewed the patient's lab results. as above. 11/29/24 16:14 11/29/24 16:14 Labs: Lab Results 11/29/24 Range/Units 16:14 WBC 12.1 H (4.8-10.8) X10*3/uL RBC 4.88 D (4.60-5.80) X10*6/uL Hgb 14.7 (14.0-18.0) g/dl Hct 41.7 L D (42.0-52.0) % MCV 85.5 (80.0-98.0) fL MCH 30.1 (27.0-33.0) pg MCHC 35.3 (31.0-36.0) g/dl RDW 11.9 (11.0-16.0) % Plt Count 319 D (160-400) X10*3/uL MPV 9.9 (9.4-12.4) fL Immature Gran % (Auto) 0.2 (0.0-0.4) % Neut % (Auto) 55.2 (45-73) % Lymph % (Auto) 38.4 (20-40) % [place] % (Auto) 5.2 (2-11) % Eos % (Auto) 0.3 (0-4) % Baso % (Auto) 0.7 (0-2) % Lymph # (Auto) 4.7 (1.2-4.9) X10*3/uL [place] # (Auto) 0.6 (0.1-1.2) X10*3/uL Eos # (Auto) 0.0 (0.0-0.4) X10*3/uL Baso # (Auto) 0.1 (0.0-0.2) X10*3/uL Abs Immat Gran (auto) 0.03 (0.00-0.03) X10*3/uL Absolute Neuts (auto) 6.7 (2.0-8.3) x10*3/uL Absolute Nucleated RBC 0.000 (0.0-0.012) X10*3/uL Nucleated RBC % (auto) 0.0 (0.0-0.2) /100WBC Sodium 143 (135-145) mmol/L Potassium 3.1 L (3.3-5.1) mmol/L Chloride 101 (96-108) mmol/L Carbon Dioxide 28 (22-29) mmol/L Anion Gap 17 (12-20) BUN 11 (9-16) mg/dL Creatinine 0.71 (0.5-1.4) mg/dL Estim Creat Clear Calc 119.0 Estimated GFR > 60 Random Glucose 152 H (60-115) mg/dL Calcium 9.0 (8.4-10.2) mg/dL Magnesium 2.3 (1.6-2.6) mg/dL Total Bilirubin 0.8 (0.0-1.0) mg/dL AST 40 H (5-37) U/L ALT 33 (0-40) U/L Alkaline Phosphatase 58 (39-117) U/L Total Protein 7.5 (6.5-8.0) g/dL Albumin 4.7 (3.5-5.0) g/dL Lipase 51 (8-78) U/L Urine Color Yellow Urine Appearance Clear Urine pH 6.5 (5.0-9.0) Ur Specific [place] 1.010 (1.005-1.025) Urine Protein Negative (Neg-Trace) mg/dL Urine Glucose (UA) Negative (Negative) mg/dL Urine Ketones Negative (Negative) mg/dL Urine Blood Negative (Negative) Urine Nitrite Negative (Negative) Ur Leukocyte Esterase Negative (Negative) External Record Review External record reviewed: Inpatient record Social Determinants Patient?s care significantly limited by Social Determinants of Health including: Other Social Determinant of Health Critical Care Time Critical Care Time Critical Care Time: No Discharge Plan Discharge Clinical Impression: Acute hypokalemia, Nausea & vomiting Patient Disposition: Home, Self-Care Instructions: Hypokalemia (ED) Additional Instructions: Your blood work showed low potassium. Likely due to your recent vomiting. This was repleted in the ED today. You were also given a liter of IVF to rehydrate you. Your blood work is otherwise reassuring. Your urine does not show infection. You are asymptomatic. Return with any new or worsening symptoms. In the case of an emergency call 911. Prescriptions: No Action atorvastatin 20 mg tablet 1 tab PO DAILY hydroxyzine pamoate 50 mg capsule 1 cap PO TID PRN (Reason: Anxiety) buspirone 10 mg tablet 1 tab PO TID albuterol sulfate 90 mcg/actuation HFA aerosol inhaler 2 puff inhalation Q4H desvenlafaxine succinate 50 mg tablet extended release 24 hr 1 tab PO DAILY thiamine HCl (vitamin B1) [Vitamin B-1] 100 mg tablet 100 mg PO DAILY 30 Days Qty: 30 0RF folic acid 1 mg tablet 1 mg PO DAILY 30 Days Qty: 30 0RF doxycycline hyclate 100 mg capsule 100 mg PO BID 3 Days Qty: 6 0RF sod phos di, mono-K phos mono 250 mg tablet 1 tab PO BID 3 Days Qty: 6 0RF omeprazole 40 mg capsule,delayed release(DR/EC) 40 mg PO DAILY 30 Days Qty: 30 0RF doxycycline hyclate 100 mg tablet 100 mg PO BID 3 Days Qty: 6 0RF ondansetron 4 mg tablet,disintegrating 4 mg PO Q8H PRN (Reason: nausea and vomiting) Qty: 10 0RF chlordiazepoxide HCl 25 mg capsule 50 mg PO TID PRN (Reason: alcohol withdrawal) Qty: 20 0RF Referrals: Loc Guadarrama PA [Primary Care Provider, Internal Medicine] Stand Alone Forms: Work/School Release Print Language: Kazakh
[2024-11-29 16:33] LABS: MANUAL DIFF FLAG NO
[2024-11-29 16:39] LABS: Appearance Urine Clear; Glucose Urine UA Negative (Negative); PH 6.5 (5.0-9.0); Specific Gravity - Urine 1.010 (1.005-1.025)
[2024-11-29 16:41] LABS: Hematocrit 41.7 % (42.0-52.0); Hemoglobin 14.7 g/dl (14.0-18.0); Imm Gran Abs Auto 0.03 X10*3/uL (0.00-0.03); Imm Gran Pct Auto 0.2 % (0.0-0.4); Lymphocytes Absolute Auto 4.7 X10*3/uL (1.2-4.9); Mean Corpuscular HGB Conc 35.3 g/dl (31.0-36.0); Mean Corpuscular Hemoglobin 30.1 pg (27.0-33.0); Mean Corpuscular Volume 85.5 fL (80.0-98.0); NRBC Abs Auto 0.000 X10*3/uL (0.0-0.012); NRBC Pct Auto 0.0 /100WBC (0.0-0.2); Platelet Count 319 X10*3/uL (160-400); Red Blood Count 4.88 X10*6/uL (4.60-5.80); White Blood Count 12.1 X10*3/uL (4.8-10.8)
[2024-11-29 16:47] LABS: Alanine Aminotransferase 33 U/L (0-40); Albumin Level 4.7 g/dL (3.5-5.0); Alkaline Phosphatase 58 U/L (39-117); Anion Gap 17 (12-20); Aspartate Amino Transferase 40 U/L (5-37); Blood Urea Nitrogen 11 mg/dL (9-16); Calcium 9.0 mg/dL (8.4-10.2); Carbon Dioxide 28 mmol/L (22-29); Chloride 101 mmol/L (96-108); Creatinine Clr Calc Pharmacy 119.0; Estimated Glomerular Filt Rate > 60; Lipase 51 U/L (8-78); Magnesium 2.3 mg/dL (1.6-2.6); Potassium 3.1 mmol/L (3.3-5.1); Sodium 143 mmol/L (135-145); Total Protein 7.5 g/dL (6.5-8.0)
[2024-11-29 19:54] VITALS: BP 144/91; PULSE 95; RESP 16; TEMP 37.3; O2SAT 95
[2024-11-29] MEDS: Potassium Chloride Packet 20 MEQ PACKET 60 MEQ PO (20:21)
--- OUTSIDE RECORDS SUMMARY | 2024-11-29 20:22 | XMS_ITS | Clinical Summary ---
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 Name Role Phone Unavailable Primary Care Provider Unavailabl e Allergies No known active allergies Medications fluticasone-salmet vilma (ADVAIR DISKUS) 100-50 MCG/DOSE diskus inhaler Active FLUoxetine (PROzac) 20 MG capsule Take 1 capsule by mouth 1 (one) time each day Active albuterol HFA (PROVENTIL HFA;VENTOLIN HFA) 108 (90 Base) MCG/ACT inhaler Acti ve thiamine (VITAMIN B-1) 100 MG tablet Take 100 mg by mouth 1 (one) time each day 2 Active KLOR-CON 20 MEQ CR tablet Take 20 mEq by mouth 1 (one) time each day 2 Active PEG 1763-MEc-[id number]-NaC l-NaSulf (PEG-3350/Electrol ytes) 236 g reconstituted solution 2 Active omeprazole (PriLOSEC) [address] capsule Take by mouth 1 (one) time each day 2 Active omeprazole (PriLOSEC) [address] capsule Take by mouth 1 (one) time each day 2 Active naltrexone (DEPADE) 50 MG tablet Take 50 mg by mouth 1 (one) time each day 2 Active montelukast (SINGULAIR) 10 MG tablet Take 10 mg by mouth 1 (one) time each day in the evening 2 Active metoprolol succinate XL (TOPROL XL) 25 MG 24 hr tablet Take 25 mg by mouth 1 (one) time each day 2 Active methocarbamol (ROBAXIN) 750 MG tablet Take 750 mg by mouth 2 Active loratadine (CLARITIN) 10 MG tablet Take 10 mg by mouth 1 (one) time each day 2 Active hydrOXYzine (VISTARIL) 50 MG capsule TAKE 1 CAPSULE BY MOUTH 3 TIMES DAILY NEEDED FOR ANXIETY. 2 Active folic acid (FOLVITE) 1 MG tablet Take 1,000 mcg by mouth 1 (one) time each day 2 Active desvenlafaxine (PRISTIQ) 50 MG 24 hr tablet Take 50 mg by mouth 1 (one) time each day 2 Active chlordiazePOXIDE (LIBRIUM) 10 MG capsule Take 10 mg by mouth 2 Active busPIRone (BUSPAR) 10 MG tablet Take 10 mg by mouth 2 Active DULCOLAX 5 MG EC tablet 2 Active atorvastatin (LIPITOR) 20 MG tablet Take 20 mg by mouth 1 (one) time each day 2 Active Active Problems Problem Noted Date Diagnosed Date Hypokalemia 10/27/2021 Hypophosphatemia 10/27/2021 Hyponatremia 07/10/2021 Family History Medical History Relation Comments Cancer Father Diabetes Father Heart disease Father Relation Status Comments Father Alive Mother Alive Social History Tobacco Use Types Packs/Day Years Used Date Smoking Tobacco: Some Days Alcohol Use Standard Drinks/Week Comments No 0 (1 standard drink = 0.6 oz pur e alcohol) Sex and Gender Information Value Date Recorded Sex Assigned at Not on file Legal Sex Male 5:09 PM EST Gender Identity Not on file Sexual Orientation Not on file Last Filed Vital Signs Vital Sign Reading Time Taken Comments Blood Pressure 125/80 10/27/2021 2:47 PM EDT Pulse 84 10/27/2021 2:47 PM EDT Temperature - - Respiratory Rate - - Oxygen Saturation 98% 10/27/2021 2:47 PM EDT Inhaled Oxygen Concentration - - Weight 70.7 kg (155 lb 12.8 oz) 10/27/2021 2:47 PM EDT Height - - Body Mass Index - - Plan of Treatment Health Maintenance Due Date Last Done Comments Hepatitis B Vaccine (1 of 3 - 19+ 3-dose series) 01/01 Pneumococcal Vaccine: 50+ Years (1 of 2 - PCV) 992 Colorectal Cancer Screening: Annual FOBT 2022 Colorectal Cancer Screening: Colonoscopy 2022 Colorectal Cancer Screening: Sigmoidoscopy 2022 Influenza Vaccine (#1) 2024 Insurance Medicaid Medicaid
--- OUTSIDE RECORDS SUMMARY | 2024-11-29 20:22 | XMS_ITS | Clinical Summary ---
Author Organization [facility] [address] [facility] Address [address] [facility] [place] [address] Phone Care Team Providers Care Cardiopulmonary Technologist Name Role Phone Loc Gu[facility] Primary Care Provider [phone] Allergies Active Allergy Reactions Criticality Noted Date Comments Bee Venom Protein (Honey Bee) 2024 Medications metoprolol succinate (TOPROL-XL) 50 mg 24 hr tablet Take 1 tablet (50 mg total) by mouth 1 (one) time each day. 08/19/19 24 Active atorvastatin (LIPITOR) 20 mg tablet Take 1 tablet (20 mg total) by mouth 1 (one) time each day. 08/19/19 24 Active desvenlafaxine 100 mg tablet extended release 24 hr Take 1 tablet by mouth 1 (one) time each day. 05/06/19 24 Active folic acid (FOLVITE) 1 mg tablet Take 1 tablet (1,000 mcg total) by mouth 1 (one) time each day. 08/19/19 24 Active fluticasone furoate-vilante roL (BREO ELLIPTA) 200-25 mcg/dose inhaler Inhale 1 puff by mouth 1 (one) time each day. 1 each 05/04/19 25 Active fluticasone propion-salmete roL (ADVAIR DISKUS) 500-50 mcg/dose diskus inhaler Inhale 1 puff by mouth 2 (two) times a day. Rinse mouth with water after use to reduce aftertaste and incidence of candidiasis. Do not swallow. 1 each 05/04/19 25 Active acamprosate (CAMPRAL) 333 mg EC tablet TAKE 2 TABLETS BY MOUTH 3 TIMES A DAY 180 tablet 5 06/02/19 25 Active desvenlafaxine succinate (PRISTIQ) 100 mg 24 hr tablet TAKE 1 TABLET BY MOUTH EVERY DAY 90 tablet 1 06/02/19 25 Active buPROPion SR (WELLBUTRIN SR) 150 mg 12 hr tablet TAKE 1 TABLET BY MOUTH TWICE A DAY 180 tablet 1 06/02/19 25 Active omeprazole (PriLOSEC) [address] capsule TAKE 1 CAPSULE BY MOUTH EVERY DAY 90 capsule 1 06/02/19 25 Active busPIRone (BUSPAR) 15 mg tablet TAKE 1 TABLET BY MOUTH 3 TIMES A DAY. 270 tablet 1 07/03/19 25 Active hydrOXYzine pamoate (VISTARIL) 50 mg capsule TAKE 1 CAPSULE BY MOUTH 3 TIMES DAILY NEEDED FOR ANXIETY. 270 capsule 1 07/03/19 25 Active levoFLOXacin (LEVAQUIN) 750 mg tablet TAKE 1 TABLET BY MOUTH 1 TIME EACH DAY FOR 7 DAYS. 7 tablet 10/03/19 25 Active methocarbamoL (ROBAXIN) 750 mg tablet Take 1 tablet (750 mg total) by mouth 3 (three) times a day if needed for muscle spasms. 270 tablet 10/03/19 25 Active loratadine (CLARITIN) 10 mg tablet Take 1 tablet (10 mg total) by mouth 1 (one) time each day. 90 tablet 1 10/05/19 25 Active montelukast (SINGULAIR) 10 mg tablet Take 1 tablet (10 mg total) by mouth at bedtime. at bedtime. 90 tablet 1 10/05/19 25 Active triamcinolone (KENALOG) 0.1 % cream APPLY TO AFFECTED AREA 1-2 TIMES DAILY NEEDED. 60 g 2 10/06/19 25 Active EPINEPHrine (EpiPen 2-Burton) 0.3 mg/0.3 mL injection Inject 0.3 mL (0.3 mg total) into the thigh 1 (one) time for 1 dose. 1 each 10/11/19 25 Active chlordiazePOXID E (LIBRIUM) 10 mg capsule Take 1 capsule (10 mg total) by mouth 3 (three) times a day if needed for anxiety. Max Daily Amount: 30 mg 90 capsule 10/11/19 25 Active thiamine 100 mg tablet TAKE 1 TABLET BY MOUTH EVERY DAY 90 tablet 1 10/11/19 25 Active cloNIDine (CATAPRES) 0.1 mg tablet TAKE 1 TABLET BY MOUTH TWICE A DAY 60 tablet 5 10/30/19 25 Active QUEtiapine (SEROquel) 25 mg tablet Take 1 tablet (25 mg total) by mouth at bedtime. 30 each 5 10/31/19 25 026 Active albuterol HFA (Ventolin HFA) 90 mcg/actuation inhalerIndicati ons:Mild intermittent asthma with acute exacerbation Inhale 2 puffs by mouth every 4 (four) hours if needed for wheezing or shortness of breath. 18 each 3 10/31/19 25 Active diazePAM (VALIUM) 5 mg tablet TAKE 1 TABLET (5 MG TOTAL) BY MOUTH 3 TIMES A DAY IF NEEDED FOR ANXIETY. MAX DAILY AMOUNT: 15 MG 90 tablet 11/16/19 25 Active divalproex (Depakote) [address] tablet Take 1 tablet (250 mg total) by mouth 2 (two) times a day. Do not crush, chew, or split. 60 each 11/22/19 25 Active naltrexone (DEPADE) 50 mg tablet Take 1 tablet (50 mg total) by mouth 1 (one) time each day. 05/03/19 24 025 Discontinued(F ormulary change) diazePAM (VALIUM) 5 mg tablet Take 1 tablet (5 mg total) by mouth 3 (three) times a day if needed for anxiety. Max Daily Amount: 15 mg 90 tablet 10/17/19 25 025 Discontinued Active Problems Problem Noted Date Diagnosed Date Bipolar disorder ([facility], [facility] V28) 10/25 ETOH abuse 05/18/2023 Alcoholic fatty liver 11/04/2021 SVT (supraventricular tachycardia) ([facility] V24) 09/17/2021 Overview (03/10/2024): Last Assessment & Plan: Doing better with metoprolol and reducing alcohol intake. His blood pressure slightly higher and pulse rate is in the 80s. I will increase metoprolol to 50 mg daily. I will explore the reason why echo was not done and will reschedule it if no particular reason. Hypogammaglobulinemia ([facility] V24) 08/08/2018 Allergic rhinitis 11/21/2017 Asthma 11/21/2017 GERD (gastroesophageal reflux disease) 8 Hyperlipidemia 11/21/2017 Overview (03/10/2024): Last Assessment & Plan: His triglyceride was quite elevated recently. We will repeat lipid profile after he has significantly reduced alcohol intake for 2 to 3 months. Hypertension 11/21/2017 Depression 05/25/2017 Bronchiectasis ([facility], [facility] V28) 2015 Scoliosis 11/12/2013 History of substance abuse ([facility], [facility] V28) 03/05/2013 Overview (03/10/2024): alcohol Encounters Date Type Department Care Team Description 11/29/2024 Telephone Adult Medicine [address] [phone] Loc Guadarrama PA Medication Problem; Medication Reaction 11/21/2024 8:15 AM EDT Office Visit Adult Medicine [address] [phone] Loc Guadarrama PA Primary hypertension (Primary Dx); Need for vaccination against Streptococcus pneumoniae; Alcoholic fatty liver; Mild intermittent asthma with acute exacerbation; Bronchiectasis with acute lower respiratory infection ([facility], [facility] V28); Hyperlipidemia, unspecified hyperlipidemia type; Bipolar affective disorder, remission status unspecified ([facility], [facility] V28) 10/24/2024 3:32 PM EDT - 10/24/2024 11:59 PM EDT Hospital Encounter Radiology Department - [address] [phone] Alcoholic fatty liver; Mild intermittent asthma with acute exacerbation; Depression, unspecified depression type; Primary hypertension; Hyperlipidemia, unspecified hyperlipidemia type; Hospital discharge follow-up; Seizure ([facility] V24, [facility] V28) Discharge Disposition: Home or Self Care 10/16/2024 Telephone Adult Medicine [address] [phone] Loc Guadarrama PA Medication Problem 10/10/2024 8:15 AM EDT Office Visit Adult [address] [phone] Loc Guadarrama PA Hospital discharge follow-up (Primary Dx); Alcoholic fatty liver; Mild intermittent asthma with acute exacerbation; Depression, unspecified depression type; Primary hypertension; Hyperlipidemia, unspecified hyperlipidemia type; Seizure (CMS/HCC V24, CMS/HCC V28) 10/05/2024 Telephone Adult Medicine [address] [phone] Loc Guadarrama PA Hospital Follow-up 10/05/2024 Telephone Adult Medicine [address] [phone] Loc Guadarrama PA Medication Problem 10/03/2024 Telephone Adult Medicine [address] [phone] Loc Guadarrama PA prior auth for medication 08/30/2024 Telephone Adult [address] [phone] Loc Guadarrama PA Results from Last 3 Months Immunizations Name Administration Dates Next Due Influenza Quadravalent, MDCK , 0.5ml, preservative free (Flucelvax) 6mo and older 01/26/2023,05/05/2022,06/24/2021 Influenza trivalent, 0.5mL, preservative free (Fluarix; FluLaval; Fluzone) ages 6mo and older (Afluria) 3 years and older 02/02/2024 Moderna SARS-CoV-2 COVID-19, mRNA, LNP-S, preservative free 05/09/2021 Pfizer Covid-19 Bivalent, Or iginal + Ba.1 (Non-US Trademark [employer] Bivalent) 04/13/2022 Pneumococcal conjugate 13 va lent (Prevnar 13, PCV13) 2mo and older 10/20/2015 Pneumococcal conjugate 20 va lent (Prevnar 20, PCV 20) 2mo and older 11/21/2024 Pneumococcal polysaccharide 23 valent (Pneumovax 23) 2yo and older 05/22/2013 Tdap Tetanus diptheria acell ular pertussis (Boostrix; Adacel) 7yo and older 02/19/2020 Surgical History Surgery Date Site/Laterality Comments VASECTOMY COLONOSCOPY 09/03/2021 Grubbs - normal repeat 5 years Medical History Medical History Date Comments Allergic rhinitis 11/21/2017 Asthma 11/21/2017 Bronchiectasis ([facility]24, [facility] V28) 2015 Depression 05/25/2017 GERD (gastroesophageal reflux disease) 11/21/2017 History of substance abuse ([facility] V24, [facility] V28) 03/05/2013 Alcohol Hyperlipidemia 11/21/2017 Hypertension 11/21/2017 Hypogammaglobulinemia ([facility] V24) 07/22/2016 Scoliosis 11/12/2013 Family History Medical History Relation Name Comments No Known Problems Daughter Diabetes Father rectal cancer Hypertension Father No Known Problems Maternal Grandfather No Known Problems Maternal Grandmother No Known Problems Mother No Known Problems Paternal Grandfather No Known Problems Paternal Grandmother No Known Problems Sister No Known Problems Son Other: cancer Uncle mets Relation Name Status Comments Daughter Alive Father Alive Maternal Grandfather Maternal Grandmother Mother Alive Paternal Grandfather Paternal Grandmother Sister Alive Son Alive Uncle Social History Tobacco Use Types Packs/Day Years Used Date Smoking Tobacco: Every Day Cigarettes 1 2.6 Started: 04/27/2022 Smokeless Tobacco: Never Tobacco Cessation:Ready to Q uit: Not Asked; Counseling Given: Not Answered Comments:06/2024: 1/3 PPD Alcohol Use Standard Drinks/Week Comments Yes 0 (1 standard drink = 0.6 oz pur e alcohol) 1 beer nightly Housing Instability Answer Date Recorde d Are you worried that in the next 2 months you may not have stable housing? No 10/06/2024 Food Access & Nutrition Answer Date Rec orded Do you have access to a vari ety of food including fruits and vegetables? Yes 10/06/2024 Access to Healthcare Answer Date Record ed Within the last 3 months, ho w many times did you visit the emergency department for your medical care? 1 10/06/2024 Health Literacy Answer Date Recorded How often do you need to hav e someone help you when you read instructions, pamphlets, or other written material from your doctor or pharmacy? Never 10/06/2024 Caregiver: How often do you need to have someone help you when you read instructions, pamphlets, or other written material from your doctor or pharmacy? Not on file 10/06/2024 Financial Risk Answer Date Recorded How hard is it for you to pa y for the very basics like food, housing, medical care, and air conditioning / heating? Not very hard 10/06/2024 Transportation Answer Date Recorded Has the lack of transportati on kept you from meetings, work, or from getting things needed for daily living? No Has the lack of transportati on kept you from medical appointments or from getting medications? No 10/06/2024 Social Isolation Answer Date Recorded How often do you feel lonely or isolated from those around you? Sometimes 10/06/2024 Food Risk Answer Date Recorded Within the past 12 months we worried whether our food would run out before we got money to buy more. Never true 10/06/2024 Within the past 12 months th e food we bought just didn't last and we didn't have money to get more. Never true 10/06/2024 Dependent Care Answer Date Recorded Do you need help finding or paying for care for your loved ones. For example, early childhood lead teacher or elderly care for an older adult? No 10/06/2024 Education Answer Date Recorded Do you think completing more education or training, like finishing a GED, going to college, or learning a trade, would be helpful for you? No 10/06/2024 Employment and Income Answer Date Recor ded During the last four weeks, have you been actively looking for work? Yes 10/06/2024 Living Situation Answer Date Recorded What is your living situation? 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 Not on file Not on file Not on file Obstetrics History Last Filed Vital Signs Vital Sign Reading Time Taken Comments Blood Pressure 114/75 11/21/2024 8:17 AM EDT Pulse 89 11/21/2024 8:17 AM EDT Temperature 35.9 C (96.7 F) 11/21/2024 8:17 AM EDT Respiratory Rate 15 11/21/2024 8:17 AM EDT Oxygen Saturation 100% 08/09/2024 11: 20 AM EDT Inhaled Oxygen Concentration - - Weight 82.5 kg (181 lb 12.8 oz) 11/21/2024 8:17 AM EDT Height 172.7 cm (5' 8 ) 11/21/2024 8:17 AM EDT Body Mass Index 27.64 11/21/2024 8:17 AM EDT Plan of Treatment Upcoming Encounters Date Type Department Care Team (Late st Contact Info) Description 04/10/2025 2:30 PM EST Office Visit Adult Medicine [facility] [address] [place] [phone] Loc Guadarrama PA [address] [place] [address] Health Maintenance Due Date Last Done Comments Hepatitis A Vaccines (1 of 2 - Risk 2-dose series) 01/02/1992 Hepatitis B Vaccines (1 of 3 - 19+ 3-dose series) 01/02/1992 Zoster Vaccines (1 of 2) 2023 Influenza Vaccine (#1) 2024 , 01/26/2023, 05/05/2022, Additional history exists Social Influencers of Health Screening 10/06/2025 10/06/2024, 06/28/2024 Hypertension/CHF/CAD Annual BMP Blood Test 10/10/2025 10/10/2024, 04/27/2023 Colorectal Cancer Screening: Colonoscopy 09/03/2026 09/03/2021 Cholesterol Screening (Lipid Panel) 10/10/2029 10/10/2024, 04/27/2023 DTaP,Tdap,and Td Vaccines (3 - Td or Tdap) 02/18/2030 02/19/2020, 05/03/2017 Hepatitis C Screening Completed 08/19/2021 COVID-19 Vaccine Completed 02/02/2024, 07/2022, 05/09/2021, Additional history exists Depression Screening Completed 10/06/2024, 08/19/19 24 HIV Screening Completed 10/10/2024 Pneumococcal Vaccine: 50+ Years Completed 11/21/2024, 10/20/2015, 05/22/2013 HIB Vaccines Aged Out No longer eligi ble based on patient's age to complete this topic HPV Vaccines Aged Out No longer eligi ble based on patient's age to complete this topic IPV Vaccines Aged Out No longer eligi ble based on patient's age to complete this topic MMR Vaccines Aged Out No longer eligi ble based on patient's age to complete this topic Meningococcal ACWY Vaccine Aged Out N o longer eligible based on patient's age to complete this topic Meningococcal B Vaccine Aged Out No l onger eligible based on patient's age to complete this topic RSV Immunization Patients Under 20 months Aged Out No longer eligible based on patient's age to complete this topic Varicella Vaccines Aged Out No longer eligible based on patient's age to complete this topic Procedures Procedure Name Priority Date/Time Associated Diagnosis Comments MR BRAIN WO AND W CONTRAST Routine 10/24/2024 4:43 PM EDT Alcoholic fatty liver Mild intermittent asthma with acute exacerbation Depression, unspecified depression type Primary hypertension Hyperlipidemia, unspecified hyperlipidemia type Hospital discharge follow-up Seizure ([facility], [facility] V28) CBC WITH AUTO DIFFERENTIAL Routine 10/10/2024 9:10 AM EDT Alcoholic fatty liver Mild intermittent asthma with acute exacerbation Depression, unspecified depression type Primary hypertension Hyperlipidemia, unspecified hyperlipidemia type Hospital discharge follow-up Seizure ([facility]24, [facility] V28) HEMOGLOBIN A1C Routine 10/10/2024 9:10 AM EDT Bronchiectasis without complication ([facility] V24, [facility] V28) Allergic rhinitis due to pollen, unspecified seasonality Gastroesophageal reflux disease without esophagitis Asthma with status asthmaticus, unspecified asthma severity, unspecified whether persistent LIPID PANEL WITH REFLEX TO DIRECT LDL Routine 10/10/2024 9:10 AM EDT Bronchiectasis without complication ([facility] V24, [facility] V28) Allergic rhinitis due to pollen, unspecified seasonality Gastroesophageal reflux disease without esophagitis Asthma with status asthmaticus, unspecified asthma severity, unspecified whether persistent HIV 1, 2 ANTIBODY, P24 ANTIGEN WITH REFLEX TO DIFFERENTIATION Routine 10/10/2024 9:10 AM EDT Bronchiectasis without complication ([facility]) Allergic rhinitis due to pollen, unspecified seasonality Gastroesophageal reflux disease without esophagitis Asthma with status asthmaticus, unspecified asthma severity, unspecified whether persistent PROSTATE SPECIFIC ANTIGEN SCREEN Routine 10/10/2024 9:10 AM EDT Screening PSA (prostate specific antigen) COMPREHENSIVE METABOLIC PANEL Routine 10/10/2024 9:10 AM EDT Alcoholic fatty liver Mild intermittent asthma with acute exacerbation Depression, unspecified depression type Primary hypertension Hyperlipidemia, unspecified hyperlipidemia type Hospital discharge follow-up [facility]iz[facility] ([facility], [facility] V28) CBC AND DIFFERENTIAL Routine 10/10/2024 9:10 AM EDT Alcoholic fatty liver Mild intermittent asthma with acute exacerbation Depression, unspecified depression type Primary hypertension Hyperlipidemia, unspecified hyperlipidemia type Hospital discharge follow-up [facility]iz[facility] ([facility], [facility] V28) IRON AND TIBC Routine 10/10/2024 9:10 AM EDT Alcoholic fatty liver Mild intermittent asthma with acute exacerbation Depression, unspecified depression type Primary hypertension Hyperlipidemia, unspecified hyperlipidemia type Hospital discharge follow-up Seizure ([facility], [facility]/H[facility] V28) FERRITIN Routine 10/10/2024 9:10 AM EDT Alcoholic fatty liver Mild intermittent asthma with acute exacerbation Depression, unspecified depression type Primary hypertension Hyperlipidemia, unspecified hyperlipidemia type Hospital discharge follow-up Seizure ([facility], [facility] V28) VITAMIN B12 Routine 10/10/2024 9:10 AM EDT Alcoholic fatty liver Mild intermittent asthma with acute exacerbation Depression, unspecified depression type Primary hypertension Hyperlipidemia, unspecified hyperlipidemia type Hospital discharge follow-up Seizure ([facility], [facility] V28) FOLATE Routine 10/10/2024 9:10 AM EDT Alcoholic fatty liver Mild intermittent asthma with acute exacerbation Depression, unspecified depression type Primary hypertension Hyperlipidemia, unspecified hyperlipidemia type Hospital discharge follow-up Seizure (CMS/HCC V24, CMS/HCC V28) DEPRESSION SCREENING Routine 08/19/2023 COLONOSCOPY Routine 09/03/2021 HEPATITIS C SCREENING Routine 08/19/2021 from Last 3 Months or Most Recently Relevant to Health Maintenance Results * MR Brain wo and w Contrast (10/24/2024 4:43 PM EDT) Anatomical Region Laterality Modality Head and Neck Magnetic Resonan ce 10/24/2024 6:48 PM EDT Impressions 10/24/2024 7:49 PM EDT No evidence of a recent infarction, intracranial hemorrhage, mass, or mass effect. No evidence of mesial temporal sclerosis. POS - [id number] -------- FINAL REPORT -------- Dictated By: Jennifer Link Dictated Date: 10/24/2024 18:48 ET Assigned Physician: Jennifer Link Reviewed and Electronically Signed By: Jennifer Link Signed Date: 10/24/2024 19:49 ET Workstation ID: [id number] Transcribed By: Self Edit Transcribed Date: 10/24/2024 19:13 ET Narrative 10/24/2024 7:49 PM EDT EXAM: BRAIN MRI HISTORY: New onset seizure. COMPARISON: None CORRELATION: None TECHNIQUE: Exam performed on a 1.5 Kerry high-field MRI scanner. Multiplanar imaging performed without and with contrast. 15 cc of Dotarem administered intravenously. FINDINGS: No restricted diffusion to indicate a recent infarct. No evidence of intracranial hemorrhage. No significant signal abnormality in the brain parenchyma. No evidence of mesial temporal sclerosis. No evidence of an enhancing mass, mass effect, or midline shift. No hydrocephalus. Basal cisterns are patent. No cerebellar ectopia. Pituitary gland is not enlarged. Normal vascular flow-voids appear present in the major intracranial arteries at the skull base. Mild mucosal thickening in the left maxillary sinus and minimally in the ethmoid sinuses. Minimal fluid signal within inferior mastoid air cells. Procedure Note Jennifer Link MD - 10/24/2024 EXAM: BRAIN MRI HISTORY: New onset seizure. COMPARISON: None CORRELATION: None TECHNIQUE: Exam performed on a 1.5 Kerry high-field MRI scanner.Multiplanar imaging performed without and with contrast. 15 cc of Dotaremadministered intravenously. FINDINGS: No restricted diffusion to indicate a recent infarct. No evidence ofintracranial hemorrhage. No significant signal abnormality in the brainparenchyma. No evidence of mesial temporal sclerosis. No evidence of an enhancing mass, mass effect, or midline shift. Nohydrocephalus. Basal cisterns are patent. No cerebellar ectopia.Pituitary gland is not enlarged. Normal vascular flow-voids appearpresent in the major intracranial arteries at the skull base. Mild mucosal thickening in the left maxillary sinus and minimally in theethmoid sinuses. Minimal fluid signal within inferior mastoid air cells. IMPRESSION: No evidence of a recent infarction, intracranial hemorrhage, mass, or masseffect. No evidence of mesial temporal sclerosis. POS - [id number] -------- FINAL REPORT -------- Dictated By: Jennifer Link Dictated Date: 10/24/2024 18:48 ET Assigned Physician: Jennifer Link Reviewed and Electronically Signed By: Jennifer Link Signed Date: 10/24/2024 19:49 ET Workstation ID: [id number] Transcribed By: Self Edit Transcribed Date: 10/24/2024 19:13 ET Loc [facility] MRI PROCEDURES Final Result * Prostate specific antigen screen (10/10/2024 9:10 AM EDT) PSA 0.54 0.00 - 4.00 ng/mL LAB CHEMISTRY METHOD 10/10/2024 2:[address] [facility] Blood Venous blood specimen / Unknown Venipuncture / Unknown 10/10/2024 9:10 AM EDT 10/10/2024 9:[address] [facility] - 10/10/2024 2:17 PM EDT The Siemens Advia Centaur Chemiluminescent Immunoassay is used. Results obtained with different assay methods or kits cannot be used interchangeably. Results cannot be interpreted as absolute evidence of the presence or absence of malignant disease. [facility] BLOOD ORDERABLES Final Resul t Performing Organization Address [facility] Co de Phone Number [facility] [address] [place] [address], * HIV 1,2 antibody, p24 antigen with reflex to differentiation (10/10/2024 9:10 AM EDT) [facility] HIV Combo AB/AG Negative Negative LAB CHEMISTRY METHOD 10/10/2024 2:[address] [facility] Blood Venous blood specimen / Unknown Venipuncture / Unknown 10/10/2024 9:10 AM EDT 10/10/2024 9:[address] [facility] - 10/10/2024 2:57 PM EDT This assay is a 4th generation assay allowing for earlier detection of HIV infection by detecting the presence of the HIV-1 p24 antigen as well as the traditional antibodies to HIV type 1 (including group O) and type 2. Use of a 4th generation assay is the current CDC recommendation for HIV screening. Loc [facility] BLOOD ORDERABLES Gale l Result Performing Organization Address [facility] Co de Phone Number [facility] [address] [place] [address], [place] [phone] * (ABNORMAL) Lipid panel with reflex to direct LDL (10/10/2024 9:10 AM EDT) Pathologist [facility] Cholesterol 207(H) 0 - 200 mg/dL LAB CHEMISTRY METHOD 10/10/2024 1:[address] [facility] Triglycerides 96 0 - 150 mg/dL LAB CHEMISTRY METHOD 10/10/2024 1:[address] [facility] HDL 54 >=40 mg/dL LAB CHEMISTRY METHOD 10/10/2024 1:[address] [facility] LDL Calculated 134(H) 0 - 100 mg/dL LAB CHEMISTRY METHOD 10/10/2024 1:[address] [facility] VLDL Cholesterol Robles 19.2 mg/dL LAB CHEMISTRY METHOD 10/10/2024 1:[address] [facility] Non HDL Chol. (LDL+VLDL) 153(H) <145 mg/dL LAB CHEMISTRY METHOD 10/10/2024 1:[address] [facility] Chol/HDL Ratio 3.8 0.0 - 4.4 LAB CHEMISTRY METHOD 10/10/2024 1:[address] [facility] Blood Venous blood specimen / Unknown Venipuncture / Unknown 10/10/2024 9:10 AM EDT 10/10/2024 9:10 AM EDT Loc [facility] LAB BLOOD ORDERABLES Gale l Result [facility] [address] [place] [address], * (ABNORMAL) CBC auto differential (10/10/2024 9:10 AM EDT) WBC 7.4 4.8 - 10.8 K/mcL LAB HEMETOLOGY METHOD 10/10/2024 10:[address] [facility] RBC 3.90(L) 4.50 - 5.50 M/mcL LAB HEMETOLOGY METHOD 10/10/2024 10:[address] [facility] Hemoglobin 12.1(L) 13.5 - 17.5 g/dL LAB HEMETOLOGY METHOD 10/10/2024 10:[address] [facility] Hematocrit 38.3(L) 42.0 - 54.0 % LAB HEMETOLOGY METHOD 10/10/2024 10:[address] [facility] MCV 97.2 79.0 - 98.0 FL LAB HEMETOLOGY METHOD 10/10/2024 10:03 AM [facility] MCH 30.7 27.0 - 32.0 pcg LAB HEMETOLOGY METHOD 10/10/2024 10:03 AM [facility] MCHC 31.6(L) 32.0 - 37.0 g/dL LAB HEMETOLOGY METHOD 10/10/2024 10:03 AM [facility] RDW 13.0 11.0 - 15.0 % LAB HEMETOLOGY METHOD 10/10/2024 10:03 AM [facility] Platelets 433(H) 130 - 400 K/mcL LAB HEMETOLOGY METHOD 10/10/2024 10:03 AM [facility] MPV 10.0 7.0 - 11.0 FL LAB HEMETOLOGY METHOD 10/10/2024 10:03 AM [facility] NRBC 0.0 <1.0 % LAB HEMETOLOGY METHOD 10/10/2024 10:03 AM [facility] NRBC Absolute 0.00 <0.10 K/mcL LAB HEMETOLOGY METHOD 10/10/2024 10:03 AM [facility] Neutrophils Relative 48.2 % LAB HEMETOLOGY METHOD 10/10/2024 10:03 AM [facility] Lymphocytes Relative 33.1 % LAB HEMETOLOGY METHOD 10/10/2024 10:03 AM [facility] Monocytes Relative 15.0 % LAB HEMETOLOGY METHOD 10/10/2024 10:03 AM [facility] Eosinophils Relative 2.2 % LAB HEMETOLOGY METHOD 10/10/2024 10:03 AM [facility] Basophils Relative 1.1 % LAB HEMETOLOGY METHOD 10/10/2024 10:[address] [facility] Immature Granulocytes Relative 0.4 % LAB HEMETOLOGY METHOD 10/10/2024 10:03 AM [facility] Neutrophils Absolute 3.57 1.50 - 7.00 K/mcL LAB HEMETOLOGY METHOD 10/10/2024 10:03 AM [facility] Lymphocytes Absolute 2.45 1.00 - 5.00 K/mcL LAB [facility]OLOG[facility] Mon[facility] Absolute 1.11(H) 0.20 - 1.00 K/mcL LAB HEMETOLOGY METHOD 10/10/2024 10:03 AM [facility] Eosinophils Absolute 0.16 0.00 - 0.50 K/mcL LAB HEMETOLOGY METHOD 10/10/2024 10:03 AM [facility] Basophils Absolute 0.08 0.00 - 0.20 K/mcL LAB HEMETOLOGY METHOD 10/10/2024 10:03 AM [facility] Immature Granulocytes Absolute 0.03 0.00 - 0.03 K/mcL LAB HEMETOLOGY METHOD 10/10/2024 10:03 AM [facility] Blood Venous blood specimen / Unknown Venipuncture / Unknown 10/10/2024 9:10 AM EDT 10/10/2024 9:10 AM EDT Loc [facility] LAB BLOOD ORDERABLES Gale l Result [facility] [address] [place] [address], * (ABNORMAL) Iron and TIBC (10/10/2024 9:10 AM EDT) Iron 51 50 - 160 mcg/dL LAB CHEMISTRY METHOD 10/10/2024 1:[address] [facility] TIBC 357 250 - 450 mcg/dL LAB CHEMISTRY METHOD 10/10/2024 1:[address] [facility] Iron Saturation 14(L) 20 - 50 % LAB CHEMISTRY METHOD 10/10/2024 1:[address] [facility] Blood Venous blood specimen / Unknown Venipuncture / Unknown 10/10/2024 9:10 AM EDT 10/10/2024 9:10 AM EDT [facility] Nicolas Guadarrama DC LAB BLOOD ORDERABLES Gale l Result Performing Organization Address City/[facility]/ZIP Co de Phone Number [facility] [address] [place] [address], [place] [phone] * Hemoglobin A1c (10/10/2024 9:10 AM EDT) Hemoglobin A1C 6.1 <6.5 % LAB CHEMISTRY METHOD 10/10/2024 12:[address] [facility] Mean Bld Glu Estim. 128 mg/dL LAB CHEMISTRY METHOD 10/10/2024 12:[address] [facility] Blood Venous blood specimen / Unknown Venipuncture / Unknown 10/10/2024 9:10 AM EDT 10/10/2024 9:10 AM EDT [facility] Nicolas Guadarrama DC LAB BLOOD ORDERABLES Gale l Result [facility] [address] [place] [address], [place] [phone] * Folate (10/10/2024 9:10 AM EDT) Folate 8.4 2.8 - 17.0 ng/ml LAB CHEMISTRY METHOD 10/10/2024 1:[address] [facility] Blood Venous blood specimen / Unknown Venipuncture / Unknown 10/10/2024 9:10 AM EDT 10/10/2024 9:10 AM EDT Loc [facility] LAB BLOOD ORDERABLES Gale l Result Performing Organization Address [facility]/ZIP Co de Phone Number [facility] [address] [place] [address], [place] [phone] * Ferritin (10/10/2024 9:10 AM EDT) [facility] Ferritin 297 26 - 388 ng/mL LAB CHEMISTRY METHOD 10/10/2024 1:[address] [facility] Blood Venous blood specimen / Unknown Venipuncture / Unknown 10/10/2024 9:10 AM EDT 10/10/2024 9:10 AM EDT Loc [facility] LAB BLOOD ORDERABLES Gale l Result Performing Organization Address [facility]/ZIP Co de Phone Number [facility] [address] [place] [address], [place] [phone] * Vitamin B12 (10/10/2024 9:10 AM EDT) [facility] Vitamin B-12 377 250 - 900 pcg/mL LAB CHEMISTRY METHOD 10/10/2024 1:[address] [facility] Blood Venous blood specimen / Unknown Venipuncture / Unknown 10/10/2024 9:10 AM EDT 10/10/2024 9:10 AM EDT Loc [facility] LAB BLOOD ORDERABLES Gale l Result [facility] [address] [place] [address], [place] [phone] * (ABNORMAL) Comprehensive metabolic panel (10/10/2024 9:10 AM EDT) [facility] Sodium 137 133 - 145 mmol/L LAB CHEMISTRY METHOD 10/10/2024 1:53 PM [facility] Potassium 4.3 3.5 - 5.5 mmol/L LAB CHEMISTRY METHOD 10/10/2024 1:53 PM [facility] Chloride 103 96 - 110 mmol/L LAB CHEMISTRY METHOD 10/10/2024 1:53 PM [facility] CO2 29 21 - 32 mmol/L LAB CHEMISTRY METHOD 10/10/2024 1:53 PM [facility] Anion Gap 5 3 - 11 LAB CHEMISTRY METHOD 10/10/2024 1:53 PM [facility] Glucose 124(H) 70 - 100 mg/dL LAB CHEMISTRY METHOD 10/10/2024 1:53 PM [facility] BUN 13 5 - 25 mg/dL LAB CHEMISTRY METHOD 10/10/2024 1:53 PM [facility] Creatinine 1.04 0.70 - 1.30 mg/dL LAB CHEMISTRY METHOD 10/10/2024 1:53 PM [facility] eGFR 87 >=60 mL/min/1. 73m2 LAB CHEMISTRY METHOD 10/10/2024 1:53 PM [facility] Comment:Calculation based on the Chronic Kidney Disease Epidemiology Collaboration (CKD-EPI) equation refit without adjustment for race. BUN/Creatinine Ratio 12.5 LAB CHEMISTRY METHOD 10/10/2024 1:53 PM [facility] Calcium 8.7 8.5 - 10.5 mg/dL LAB CHEMISTRY METHOD 10/10/2024 1:53 PM [facility] AST (SGOT) 19 10 - 42 unit/L LAB CHEMISTRY METHOD 10/10/2024 1:53 PM [facility] ALT (SGPT) 40 10 - 60 unit/L LAB CHEMISTRY METHOD 10/10/2024 1:53 PM [facility] Alkaline Phosphatase 75 42 - 121 unit/L LAB CHEMISTRY METHOD 10/10/2024 1:[address] [facility] Total Protein 6.5 6.0 - 8.0 g/dL LAB CHEMISTRY METHOD 10/10/2024 1:[address] [facility] Albumin 3.4 3.2 - 5.0 g/dL LAB CHEMISTRY METHOD 10/10/2024 1:[address] [facility] Total Bilirubin 0.3 0.0 - 1.4 mg/dL LAB CHEMISTRY METHOD 10/10/2024 1:[address] [facility] Blood Venous blood specimen / Unknown Venipuncture / Unknown 10/10/2024 9:10 AM EDT 10/10/2024 9:10 AM EDT Loc [facility] LAB BLOOD ORDERABLES Gale l Result [facility] [address] [place] [address], * Depression Screening (08/19/2023) [facility] Depression Screening abstracted [facility] Provider HEALTH MAINTENANCE Final Result * Colonoscopy (09/03/2021) [facility] Colonoscopy no interpretation , abstracted Anatomical Region Laterality Modality Other [facility] Provider HEALTH MAINTENANCE Final Result * Hepatitis C Screening (08/19/2021) [facility] Hepatitis C Screening abstracted Historical Provider HEALTH MAINTENANCE Final Result from Last 3 Months or Most Recently Relevant to Health Maintenance Additional Health Concerns Infection Onset Date Last Indicated Parainfluenza Virus 08/09/2024 08/09/2024 Insurance [facility] [place] [address] Care Teams Cardiopulmonary Technologist Relationship Specialty Start Date End Date Loc Guadarrama PA [address] [place] [address] PCP - General Internal Medicine 04/16/24
--- OUTSIDE RECORDS SUMMARY | 2024-11-29 20:22 | XMS_ITS ---
Author Name [facility] Organization Unknown Care Team Organization Name Specialty Phone Email Start Date End Da booker [facility] Loc Guadarrama Primary [facility] 03/02/2022
[2024-11-29 20:53] VITALS: BP 144/91; PULSE 95; RESP 16; TEMP 37.3; O2SAT 95
== END 2024-11-29 21:00 | disposition home or self-care (01) ==
PROVIDERS: Registered Nurse Emergency; Emergency Provider Emergency Medicine; PCP Physician Assistant Medical
DX: E87.6 Hypokalemia (principal); R11.2 Nausea with vomiting, unspecified; R00.0 Tachycardia, unspecified; R19.7 Diarrhea, unspecified; Z79.899 Other long term (current) drug therapy
CPT/HCPCS: 36415; 80053; 81003; 83690; 83735; 85025; 96360; 99284

== ENCOUNTER 2024-12-02 14:14 | Emergency (ER) | payer OTHER, SELFPAY ==
--- NOTE | ~2024-12-02 | XR_ITS ---
CLINICAL HISTORY: fall,etoh chest trauma 1 view chest x-ray Comparison: None provided Findings: The lungs are clear. No pleural effusion or pneumothorax. Heart size is normal. No acute fracture. IMPRESSION: 1. No acute findings. This document has been electronically signed by: Freddie Aguilar MD on 12/02/2024 17:10:41
--- NOTE | ~2024-12-02 | CT_ITS ---
CLINICAL HISTORY: fall neck pain etoh CT cervical spine without contrast Comparison: None provided Findings: There is some motion artifact present. Vertebral alignment is within normal limits. Mild degenerative changes. No acute fractures or dislocations. Visualized intracranial contents are unremarkable. Soft tissues of the neck are normal. No consolidation or effusion at the lung apices. IMPRESSION: No acute fracture deformity within the limitations of motion artifact. This document has been electronically signed by: Freddie Aguilar MD on 12/02/2024 18:20:33
--- NOTE | ~2024-12-02 | CT_ITS ---
CLINICAL HISTORY: fall etoh head strike CT head without contrast Comparison: None provided Findings: No intra-axial mass, midline shift, hydrocephalus, or acute hemorrhage. No significant atrophy-like change or white matter disease. There is no sinus or mastoid fluid. The orbits are within normal limits. There is no acute fracture. IMPRESSION: 1. No acute intracranial findings. This document has been electronically signed by: Freddie Aguilar MD on 12/02/2024 18:23:05
[2024-12-02 14:19] VITALS: BP 110/50; BP 140/93; PULSE 91; PULSE 92; RESP 18; TEMP 36.6; O2SAT 92; O2SAT 94; BMI 28.4
[2024-12-02 14:32] VITALS: BP 110/50; PULSE 91; RESP 18; TEMP 36.6; O2SAT 92
[2024-12-02 14:54] LABS: Cannabinoid Screen Urine Not Detected (Not Detect)
[2024-12-02 15:38] LABS: MANUAL DIFF FLAG NO
[2024-12-02 15:39] LABS: Hematocrit 36.6 % (42.0-52.0); Hemoglobin 12.8 g/dl (14.0-18.0); Imm Gran Abs Auto 0.02 X10*3/uL (0.00-0.03); Imm Gran Pct Auto 0.3 % (0.0-0.4); Lymphocytes Absolute Auto 2.7 X10*3/uL (1.2-4.9); Mean Corpuscular HGB Conc 35.0 g/dl (31.0-36.0); Mean Corpuscular Hemoglobin 30.1 pg (27.0-33.0); Mean Corpuscular Volume 86.1 fL (80.0-98.0); NRBC Abs Auto 0.000 X10*3/uL (0.0-0.012); NRBC Pct Auto 0.0 /100WBC (0.0-0.2); Platelet Count 225 X10*3/uL (160-400); Red Blood Count 4.25 X10*6/uL (4.60-5.80); White Blood Count 7.2 X10*3/uL (4.8-10.8)
--- OUTSIDE RECORDS SUMMARY | 2024-12-02 15:48 | XMS_ITS | Clinical Summary ---
Author Organization [facility] [address] [facility] Address [address] [facility] [place] [address] Phone Care Team Providers Care Marine Electrician Helper Name Role Phone Loc Guadarrama Primary Care Provider [phone] Allergies Active Allergy Reactions Criticality Noted Date [...] Problem Noted Date Diagnosed Date Bipolar disorder ([facility] V24, [facility] V28) 10/25 ETOH abuse 05/18/2023 Alcoholic fatty liver 11/04/2021 SVT (supraventricular tachycardia) ([facility] V24) 09/17/2021 Overview (03/10/2024): Last Assessment & Plan: Doing better with metoprolol and reducing alcohol intake. His blood pressure slightly higher and pulse rate is in the 80s. I will increase metoprolol to 50 mg daily. I will explore the reason why echo was not done and will reschedule it if no particular reason. Hypogammaglobulinemia ([facility] V24) 08/08/2018 Allergic rhinitis 11/21/2017 Asthma 11/21/2017 GERD (gastroesophageal reflux disease) 8 Hyperlipidemia 11/21/2017 Overview (03/10/2024): Last Assessment & Plan: His triglyceride was quite elevated recently. We will repeat lipid profile after he has significantly reduced alcohol intake for 2 to 3 months. Hypertension 11/21/2017 Depression 05/25/2017 Bronchiectasis ([facility] V24, [facility] V28) 2015 Scoliosis 11/12/2013 History of substance abuse ([facility] V24, [facility] V28) 03/05/2013 Overview (03/10/2024): alcohol Encounters Date Type Department Care Team Description 11/29/2024 Telephone Adult Medicine [address] [phone] Loc Guadarrama PA Medication Problem; Medication Reaction 11/21/2024 8:15 AM EDT Office Visit Adult Medicine [address] [phone] Loc Guadarrama PA Primary hypertension (Primary Dx); Need for vaccination against Streptococcus pneumoniae; Alcoholic fatty liver; Mild intermittent asthma with acute exacerbation; Bronchiectasis with acute lower respiratory infection ([facility] V24, [facility] V28); Hyperlipidemia, unspecified hyperlipidemia type; Bipolar affective disorder, remission status unspecified ([facility] V24, [facility] V28) 10/24/2024 3:32 PM EDT - 10/24/2024 11:59 PM EDT Hospital Encounter Radiology Department - [address] [phone] Alcoholic fatty liver; Mild intermittent asthma with acute exacerbation; Depression, unspecified depression type; Primary hypertension; Hyperlipidemia, unspecified hyperlipidemia type; Hospital discharge follow-up; Seizure ([facility] V24, [facility] V28) Discharge Disposition: Home or Self Care 10/16/2024 Telephone Adult Medicine [address] [phone] Loc Guadarrama PA Medication Problem 10/10/2024 8:15 AM EDT Office Visit Adult [address] [phone] Loc Guadarrama PA Hospital discharge follow-up (Primary Dx); Alcoholic fatty liver; Mild intermittent asthma with acute exacerbation; Depression, unspecified depression type; Primary hypertension; Hyperlipidemia, unspecified hyperlipidemia type; Seizure (CMS/HCC V24, CMS/HCC V28) 10/05/2024 Telephone Adult Medicine [address] [phone] Loc Guadarrama PA Hospital Follow-up 10/05/2024 Telephone Adult [address] [phone] Loc Guadarrama PA Medication Problem 10/03/2024 Telephone Adult [address] [phone] Loc Guadarrama PA prior auth for medication from Last 3 Months Immunizations Name Administration Dates Next Due Influenza Quadravalent, MDCK , 0.5ml, preservative free (Flucelvax) 6mo and older 01/26/2023,05/05/2022,06/24/2021 Influenza trivalent, 0.5mL, preservative free (Fluarix; FluLaval; Fluzone) ages 6mo and older (Afluria) 3 years and older 02/02/2024 Moderna SARS-CoV-2 COVID-19, mRNA, LNP-S, preservative free 05/09/2021 Innoviti Covid-19 Bivalent, Or iginal + Ba.1 (Non-US Trademark Genomatica Bivalent) 04/13/2022 Pneumococcal conjugate 13 va lent [...] Comments Allergic rhinitis 11/21/2017 Asthma 11/21/2017 Bronchiectasis ([facility] V24, [facility] V28) 2015 Depression 05/25/2017 GERD (gastroesophageal reflux disease) 11/21/2017 History of substance abuse ([facility] V24, [facility] V28) 03/05/2013 Alcohol Hyperlipidemia 11/21/2017 Hypertension 11/21/2017 Hypogammaglobulinemia ([facility] V24) 07/22/2016 Scoliosis 11/12/2013 Family History Medical [...] care for your loved ones. For example, salesperson children's shoes or elderly care for an older adult? [...] 2:30 PM EST Office Visit Adult Medicine [facility] [address] [place] [address] Loc Guadarrama PA [address] [place] [address] Health Maintenance Due Date Last Done Comments [...] unspecified hyperlipidemia type Hospital discharge follow-up Seizure ([facility] V24, [facility] V28) CBC WITH AUTO DIFFERENTIAL Routine 10/10/2024 9:10 AM EDT Alcoholic fatty liver Mild intermittent asthma with acute exacerbation Depression, unspecified depression type Primary hypertension Hyperlipidemia, unspecified hyperlipidemia type Hospital discharge follow-up Seizure ([facility] V24, [facility] V28) HEMOGLOBIN A1C Routine 10/10/2024 9:10 AM EDT Bronchiectasis without complication ([facility] V24, [facility] V28) Allergic rhinitis due to pollen, unspecified seasonality Gastroesophageal reflux disease without esophagitis Asthma with status asthmaticus, unspecified asthma severity, unspecified whether persistent LIPID PANEL WITH REFLEX TO DIRECT LDL Routine 10/10/2024 9:10 AM EDT Bronchiectasis without complication ([facility] V24, [facility] V28) Allergic rhinitis due to pollen, unspecified seasonality Gastroesophageal reflux disease without esophagitis Asthma with status asthmaticus, unspecified asthma severity, unspecified whether persistent HIV 1, 2 ANTIBODY, P24 ANTIGEN WITH REFLEX TO DIFFERENTIATION Routine 10/10/2024 9:10 AM EDT Bronchiectasis without complication ([facility] V24, [facility] V28) Allergic rhinitis due to pollen, unspecified [...] discharge follow-up Seizure (CMS/HCC V24, CMS/HCC V28) CBC AND DIFFERENTIAL Routine 10/10/2024 9:10 AM EDT Alcoholic fatty liver Mild intermittent asthma with acute exacerbation Depression, unspecified depression type Primary hypertension Hyperlipidemia, unspecified hyperlipidemia type Hospital discharge follow-up Seizure (CMS/HCC V24, CMS/HCC V28) IRON AND TIBC Routine 10/10/2024 9:10 AM EDT Alcoholic fatty liver Mild intermittent asthma with acute exacerbation Depression, unspecified depression type Primary hypertension Hyperlipidemia, unspecified hyperlipidemia type Hospital discharge follow-up Seizure (CMS/HCC V24, CMS/HCC V28) FERRITIN Routine 10/10/2024 9:10 AM EDT Alcoholic fatty liver Mild intermittent asthma with acute exacerbation Depression, unspecified depression type Primary hypertension Hyperlipidemia, unspecified hyperlipidemia type Hospital discharge follow-up Seizure (CMS/HCC V24, CMS/HCC V28) VITAMIN B12 Routine 10/10/2024 9:10 AM EDT Alcoholic fatty liver Mild intermittent asthma with acute exacerbation Depression, unspecified depression type Primary hypertension Hyperlipidemia, unspecified hyperlipidemia type Hospital discharge follow-up Seizure (CMS/HCC V24, CMS/HCC V28) FOLATE Routine 10/10/2024 9:10 AM EDT Alcoholic fatty liver Mild intermittent asthma with acute exacerbation Depression, unspecified depression type Primary hypertension Hyperlipidemia, unspecified hyperlipidemia type Hospital discharge follow-up Seizure (CMS/HCC V24, CMS/HCC V28) HM DEPRESSION SCREENING Routine 08/19/2023 HM COLONOSCOPY Routine 09/03/2021 HEPATITIS C SCREENING Routine [...] evidence of mesial temporal sclerosis. POS - [id number] -------- FINAL REPORT -------- Dictated By: Jennifer Link Dictated Date: 10/24/2024 18:48 ET Assigned Physician: Jennifer Link Reviewed and Electronically Signed By: Jennifer Link Signed Date: 10/24/2024 19:49 ET Workstation ID: [id number] Transcribed By: Self Edit Transcribed Date: 10/24/2024 [...] evidence of mesial temporal sclerosis. POS - [id number] -------- FINAL REPORT -------- Dictated By: Jennifer Link Dictated Date: 10/24/2024 18:48 ET Assigned Physician: Jennifer Link Reviewed and Electronically Signed By: Jennifer Link Signed Date: 10/24/2024 19:49 ET Workstation ID: [id number] Transcribed By: Self Edit Transcribed Date: 10/24/2024 19:13 ET Loc [facility] [place] PROCEDURES Final Result * Prostate specific antigen screen (10/10/2024 9:10 AM EDT) PSA 0.54 0.00 - 4.00 ng/mL LAB CHEMISTRY METHOD 10/10/2024 2:17 PM EDT [facility] Blood Venous blood specimen / Unknown Venipuncture / Unknown 10/10/2024 9:10 AM EDT 10/10/2024 9:10 AM EDT Narrative [facility] - 10/10/2024 2:17 PM EDT The Siemens Advia Centaur Chemiluminescent Immunoassay is used. Results obtained with different assay methods or kits cannot be used interchangeably. Results cannot be interpreted as absolute evidence of the presence or absence of malignant disease. [employer] [facility] LAB BLOOD ORDERABLES Final Resul t Performing Organization Address [facility]/ZIP Co de Phone Number [facility] [address] [place] [address], * HIV 1,2 antibody, p24 antigen with reflex to differentiation (10/10/2024 9:10 AM EDT) [facility] HIV Combo AB/AG Negative Negative LAB CHEMISTRY METHOD 10/10/2024 2:57 PM EDT [facility] Blood Venous blood specimen / Unknown Venipuncture / Unknown 10/10/2024 9:10 AM EDT 10/10/2024 9:10 AM EDT Narrative [facility] - 10/10/2024 2:57 PM EDT [...] ORDERABLES Gale l Result Performing Organization Address City/[facility]/ZIP Co de Phone Number [facility] [address] [place] [address], [place] [phone] * (ABNORMAL) Lipid panel with reflex to direct LDL (10/10/2024 9:10 AM EDT) [facility] Cholesterol 207(H) 0 - 200 mg/dL LAB CHEMISTRY METHOD 10/10/2024 1:53 PM EDT [facility] Triglycerides 96 0 - 150 mg/dL LAB CHEMISTRY METHOD 10/10/2024 1:53 PM EDT [facility] HDL 54 >=40 mg/dL LAB CHEMISTRY METHOD 10/10/2024 1:53 PM EDT [facility] LDL Calculated 134(H) 0 - 100 mg/dL LAB CHEMISTRY METHOD 10/10/2024 1:53 PM EDT [facility] VLDL Cholesterol Robles 19.2 mg/dL LAB CHEMISTRY METHOD 10/10/2024 1:53 PM EDT [facility] Non HDL Chol. (LDL+VLDL) 153(H) <145 mg/dL LAB CHEMISTRY METHOD 10/10/2024 1:53 PM EDT [facility] Chol/HDL Ratio 3.8 0.0 - 4.4 LAB CHEMISTRY METHOD 10/10/2024 1:53 PM EDT [facility] Blood Venous blood specimen / Unknown Venipuncture / Unknown 10/10/2024 9:10 AM EDT 10/10/2024 9:10 AM EDT Loc [facility] LAB BLOOD ORDERABLES Gale l Result [facility] [address] [place] [address], * (ABNORMAL) CBC auto differential (10/10/2024 9:10 AM EDT) WBC 7.4 4.8 - 10.8 K/mcL LAB HEMETOLOGY METHOD 10/10/2024 10:03 AM [facility] RBC 3.90(L) 4.50 - 5.50 M/mcL LAB HEMETOLOGY METHOD 10/10/2024 10:03 AM [facility] Hemoglobin 12.1(L) 13.5 - 17.5 g/dL LAB HEMETOLOGY METHOD 10/10/2024 10:03 AM T [facility] Hematocrit 38.3(L) 42.0 - 54.0 % LAB HEMETOLOGY METHOD 10/10/2024 10:03 AM EDT [facility] MCV 97.2 79.0 - 98.0 FL LAB HEMETOLOGY METHOD 10/10/2024 10:03 AM T [facility] MCH 30.7 27.0 - 32.0 pcg LAB HEMETOLOGY METHOD 10/10/2024 10:03 AM [facility] MCHC 31.6(L) 32.0 - 37.0 g/dL LAB HEMETOLOGY METHOD 10/10/2024 10:03 AM [facility] RDW 13.0 11.0 - 15.0 % LAB HEMETOLOGY METHOD 10/10/2024 10:03 AM [facility] Platelets 433(H) 130 - 400 K/mcL LAB HEMETOLOGY METHOD 10/10/2024 10:03 AM [facility] MPV 10.0 7.0 - 11.0 FL LAB HEMETOLOGY METHOD 10/10/2024 10:03 AM [facility] NRBC 0.0 <1.0 % LAB HEMETOLOGY METHOD 10/10/2024 10:03 AM [facility] NRBC Absolute 0.00 <0.10 K/mcL LAB HEMETOLOGY METHOD 10/10/2024 10:03 AM [facility] Neutrophils Relative 48.2 % LAB HEMETOLOGY METHOD 10/10/2024 10:03 AM [facility] Lymphocytes Relative 33.1 % LAB HEMETOLOGY METHOD 10/10/2024 10:03 AM [facility] Monocytes Relative 15.0 % LAB HEMETOLOGY METHOD 10/10/2024 10:03 AM [facility] Eosinophils Relative 2.2 % LAB HEMETOLOGY METHOD 10/10/2024 10:03 AM [facility] Basophils Relative 1.1 % LAB HEMETOLOGY METHOD 10/10/2024 10:03 AM [facility] Immature Granulocytes Relative 0.4 % LAB HEMETOLOGY METHOD 10/10/2024 10:03 AM [facility] Neutrophils Absolute 3.57 1.50 - 7.00 K/mcL LAB HEMETOLOGY METHOD 10/10/2024 10:03 AM EDT [facility] Lymphocytes Absolute 2.45 1.00 - 5.00 K/mcL LAB HEMETOLOGY METHOD 10/10/2024 10:03 AM EDT [facility] Monocytes Absolute 1.11(H) 0.20 - 1.00 K/mcL LAB HEMETOLOGY METHOD 10/10/2024 10:03 AM EDT [facility] Eosinophils Absolute 0.16 0.00 - 0.50 K/mcL LAB HEMETOLOGY METHOD 10/10/2024 10:03 AM EDT [facility] Basophils Absolute 0.08 0.00 - 0.20 K/mcL LAB HEMETOLOGY METHOD 10/10[facility]24 [facility] Immature Granulocytes Absolute 0.03 0.00 - 0.03 K/mcL LAB HEMETOLOGY METHOD 10/10/2024 10:03 AM EDT [facility] Blood Venous blood specimen / Unknown Venipuncture / Unknown 10/10/2024 9:10 AM EDT 10/10/2024 9:10 AM EDT us Loc [facility] LAB BLOOD ORDERABLES Gale l Result [facility] [address] [place] [address], * (ABNORMAL) Iron and TIBC (10/10/2024 9:10 AM EDT) Iron 51 50 - 160 mcg/dL LAB CHEMISTRY METHOD 10/10/2024 1:53 PM EDT [facility] TIBC 357 250 - 450 mcg/dL LAB CHEMISTRY METHOD 10/10/2024 1:53 PM EDT [facility] Iron Saturation 14(L) 20 - 50 % LAB CHEMISTRY METHOD 10/10/2024 1:53 PM EDT [facility] Blood Venous blood specimen / Unknown Venipuncture / Unknown 10/10/2024 9:10 AM EDT 10/10/2024 9:10 AM EDT Loc [facility] BLOOD ORDERABLES Gale l Result Performing Organization Address City/[facility]/ZIP Co de Phone Number [facility] [address] [place] [address], [place] [phone] * Hemoglobin A1c (10/10/2024 9:10 AM EDT) Hemoglobin A1C 6.1 <6.5 % LAB CHEMISTRY METHOD 10/10/2024 12:34 PM EDT [facility] Mean Bld Glu Estim. 128 mg/dL LAB CHEMISTRY METHOD 10/10/2024 12:34 PM EDT [facility] Blood Venous blood specimen / Unknown Venipuncture / Unknown 10/10/2024 9:10 AM EDT 10/10/2024 9:10 AM EDT Loc [facility] BLOOD ORDERABLES Gale l Result Performing Organization Address [facility]/ZIP Co de Phone Number [facility] [address] [place] [address], * Folate (10/10/2024 9:10 AM EDT) Folate 8.4 2.8 - 17.0 ng/ml LAB CHEMISTRY METHOD 10/10/2024 1:53 PM EDT [facility] Blood Venous blood specimen / Unknown Venipuncture / Unknown 10/10/2024 9:10 AM EDT 10/10/2024 9:10 AM EDT Loc [facility] LAB BLOOD ORDERABLES Gale l Result Performing Organization Address City/[facility]/ZIP Co de Phone Number [facility] [address] [place] [address], [place] [phone] * Ferritin (10/10/2024 9:10 AM EDT) [facility] Ferritin 297 26 - 388 ng/mL LAB CHEMISTRY METHOD 10/10/2024 1:53 PM EDT [facility] Blood Venous blood specimen / Unknown Venipuncture / Unknown 10/10/2024 9:10 AM EDT 10/10/2024 9:10 AM EDT Loc [facility] BLOOD ORDERABLES Gale l Result Performing Organization Address [facility] de Phone Number [facility] [address] [place] [address], [place] [phone] * Vitamin B12 (10/10/2024 9:10 AM EDT) [facility] Vitamin B-12 377 250 - 900 pcg/mL LAB CHEMISTRY METHOD 10/10/2024 1:53 PM EDT [facility] Blood Venous blood specimen / Unknown Venipuncture / Unknown 10/10/2024 9:10 AM EDT 10/10/2024 9:10 AM EDT Loc [facility] BLOOD ORDERABLES Gale l Result Performing Organization Address City/[facility]/ZIP Co de Phone Number [facility] [address] [place] [address], [place] [phone] * (ABNORMAL) Comprehensive metabolic panel (10/10/2024 9:10 AM EDT) [facility] Sodium 137 133 - 145 mmol/L LAB CHEMISTRY METHOD 10/10/2024 1:53 PM EDT [facility] Potassium 4.3 3.5 - 5.5 mmol/L LAB CHEMISTRY METHOD 10/10/2024 1:53 PM [facility] Chloride 103 96 - 110 mmol/L LAB CHEMISTRY METHOD 10/10/2024 1:53 PM [facility] CO2 29 21 - 32 mmol/L LAB CHEMISTRY METHOD 10/10/2024 1:53 PM [facility] Anion Gap 5 3 - 11 LAB CHEMISTRY METHOD 10/10/2024 1:53 PM [facility] Glucose 124(H) 70 - 100 mg/dL LAB CHEMISTRY METHOD 10/10/2024 1:53 PM [facility] BUN 13 5 - 25 mg/dL LAB CHEMISTRY METHOD 10/10/2024 1:53 PM [facility] Creatinine 1.04 0.70 - 1.30 mg/dL LAB CHEMISTRY METHOD 10/10/2024 1:53 PM [facility] eGFR 87 >=60 mL/min/1. 73m2 LAB CHEMISTRY METHOD 10/10/2024 1:53 PM [facility] Comment:Calculation based on the Chronic Kidney Disease Epidemiology Collaboration (CKD-EPI) equation refit without adjustment for race. BUN/Creatinine Ratio 12.5 LAB CHEMISTRY METHOD 10/10/2024 1:53 PM [facility] Calcium 8.7 8.5 - 10.5 mg/dL LAB CHEMISTRY METHOD 10/10/2024 1:53 PM [facility] AST (SGOT) 19 10 - 42 unit/L LAB CHEMISTRY METHOD 10/10/2024 1:53 PM [facility] ALT (SGPT) 40 10 - 60 unit/L LAB CHEMISTRY METHOD 10/10/2024 1:53 PM [facility] Alkaline Phosphatase 75 42 - 121 unit/L LAB CHEMISTRY METHOD 10/10/2024 1:53 PM [facility] Total Protein 6.5 6.0 - 8.0 g/dL LAB CHEMISTRY METHOD 10/10/2024 1:53 PM EDT [facility] Albumin 3.4 3.2 - 5.0 g/dL LAB CHEMISTRY METHOD 10/10/2024 1:53 PM EDT [facility] Total Bilirubin 0.3 0.0 - 1.4 mg/dL LAB CHEMISTRY METHOD 10/10/2024 1:53 PM EDT [facility] Blood Venous blood specimen / Unknown Venipuncture / Unknown 10/10/2024 9:10 AM EDT 10/10/2024 9:10 AM EDT Loc [facility] BLOOD ORDERABLES Gale beaulieu Result [facility] [address] [place] [address], * Depression Screening (08/19/2023) [facility] Scre[facility] abstracted [facility] Provider HEALTH MAINTENANCE Final Result * Colonoscopy (09/03/2021) [facility] Colonoscopy no interpretation , abstracted Anatomical Region Laterality Modality Other [facility] Provider HEALTH MAINTENANCE Final Result * Hepatitis C Screening (08/19/2021) [facility] Hep[facility] C Screening abstracted [facility] Provider HEALTH MAINTENANCE Final Result from Last 3 Months or Most Recently Relevant to Health Maintenance Additional Health Concerns Infection Onset Date Last Indicated Parainfluenza Virus 08/09/2024 08/09/2024 Insurance [facility] Care Teams Marine Electrician Helper Relationship Specialty Start Date End Date Loc Guadarrama PA [address] [place] [address] PCP - General Internal Medicine 04/16/24
--- OUTSIDE RECORDS SUMMARY | 2024-12-02 15:48 | XMS_ITS | Clinical Summary ---
Author Organization [facility] Facility Address [address] [address] Care Team Providers Care Green Building Engineer Name Role Phone Unavailable Primary Care Provider [...] (one) time each day 2 Active PEG [id number] l-NaSulf (PEG-3350/Electrol ytes) 236 g reconstituted solution [...]
[2024-12-02 15:52] LABS: Alanine Aminotransferase 29 U/L (0-40); Albumin Level 4.3 g/dL (3.5-5.0); Alkaline Phosphatase 60 U/L (39-117); Anion Gap 15 (12-20); Aspartate Amino Transferase 39 U/L (5-37); Blood Urea Nitrogen 11 mg/dL (9-16); Calcium 8.3 mg/dL (8.4-10.2); Carbon Dioxide 28 mmol/L (22-29); Chloride 105 mmol/L (96-108); Creatinine Clr Calc Pharmacy 128.5; Estimated Glomerular Filt Rate > 60; Magnesium 2.2 mg/dL (1.6-2.6); Potassium 3.2 mmol/L (3.3-5.1); Sodium 145 mmol/L (135-145); Total Protein 6.8 g/dL (6.5-8.0)
--- NOTE | 2024-12-02 16:24 | ED.ALCOHOL ---
HPI - Alcohol General Chief Complaint: ETOH/Substance Use Stated Complaint: ETOH, FALL, -HS/LOC NOT TAKING MEDS Time Seen by Provider: 12/02/24 14:37 Source: patient and EMS Mode of arrival: EMS Limitations: other (Very intoxicated ) History of Present Illness ED Provider: JAM Aaron HPI narrative: This is a 49-year-old male history of major depression, generalized anxiety presenting via EMS with alcohol intoxication and reported fall. Patient very intoxicated and unable to provide history. Per EMS report patient has sustained a fall unclear if head strike or loss of consciousness, patient reports drinking 12-15 shots of vodka has been drinking since 10:00. No reports of suicidal or homicidal ideation. However patient is very intoxicated and dozing off during my examination and history. Limited history taking due to intoxication Related Data Home Medications ?Medication ?Instructions ?Recorded ?Confirmed albuterol sulfate 90 mcg/actuation 2 puff inhalation Q4H 04/13/21 04/13/21 aerosol inhaler atorvastatin 20 mg tablet 1 tab PO DAILY 04/13/21 04/13/21 buspirone 10 mg tablet 1 tab PO TID 04/13/21 04/13/21 desvenlafaxine succinate 50 mg 1 tab PO DAILY 04/13/21 04/13/21 tablet,extended release 24 hr hydroxyzine pamoate 50 mg capsule 1 cap PO TID PRN Anxiety 04/13/21 04/13/21 Previous Rx's ?Medication ?Instructions ?Recorded doxycycline hyclate 100 mg capsule 100 mg PO BID 3 days #6 caps 04/16/21 doxycycline hyclate 100 mg tablet 100 mg PO BID 3 days #6 tabs 04/16/21 folic acid 1 mg tablet 1 mg PO DAILY 30 days #30 tabs 04/16/21 omeprazole 40 mg capsule,delayed 40 mg PO DAILY 30 days #30 caps 04/16/21 release sodium di- and 1 tab PO BID 3 days #6 tabs 04/16/21 monophosphate-potassium phos monobasic 250 mg tablet thiamine HCl (vitamin B1) 100 mg 100 mg PO DAILY 30 days #30 tabs 04/16/21 tablet (Vitamin B-1) ondansetron 4 mg disintegrating 4 mg PO Q8H PRN nausea and 06/03/21 tablet vomiting #10 tabs chlordiazepoxide HCl 25 mg capsule 50 mg (2 x 25 mg) PO TID PRN 09/30/24 alcohol withdrawal #20 caps Allergies Allergy/AdvReac Type Severity Reaction Status Date / Time animal dander Allergy Unknown SINUS/RESPI Verified 12/02/24 14:27 RATORY cat dander Allergy Wheezing Verified 12/02/24 14:27 dog dander (dogs) Allergy Wheezing Verified 12/02/24 14:27 Review of Systems Review of Systems: Yes all other systems are reviewed and are negative [facility] Past Medical History Attestation statement: The following information was validated with the patient. Source: old records reviewed and nursing notes reviewed Medical History Asthma Social History Social History Household Members: Family Housing: Unknown / Unable to assess Unable to assess alcohol history related to: Unable to respond Alcohol intake: current Alcohol intake frequency: 3 or more drinks per day Alcohol type: hard liquor Patient Tobacco Use Status: Current everyday Tobacco user Smoked in Last 30 Days: No Use of substances other than those prescribed or required for medical reasons: No Advance Directives: No Advance Directives Information Provided: No Do you have a plan to hurt others: No Plan service: No Current occupational status: unemployed Physical Exam ED Exam Exam: Appearance: Alert.? Oriented X3.? No acute distress.?+ patient's smells heavily like alcohol. Dozing off during my examination. Head: Normocephalic, atraumatic, no step-offs or deformities Eyes: Pupils equal, round and reactive to light.? ENT: Pharynx normal.? Neck: Normal inspection.? Neck supple.? CVS: Normal heart rate and rhythm.? Pulses normal.? Respiratory: No respiratory distress.? Breath sounds normal.? Abdomen: Soft and nontender.? Skin: Skin warm and dry.? Normal skin color.? Normal skin turgor.? Extremities: No lower extremity edema.? No calf ttp. 5/5 strength to bilateral upper and lower extremities Back: No midline tenderness, no C-spine tenderness, full range of motion, no CVA tenderness bilaterally Neuro: Oriented X 3.? No motor deficit.? No sensory deficit. CN 2-12 intact Vital Signs: Vital Signs - 24 hr 12/02/24 14:19 08/10/25 14:32 Temperature 98 F 98 F Pulse Rate 91 91 Respiratory Rate 18 18 Blood Pressure 110/50 L 110/50 L Pulse Oximetry 92 92 Oxygen Delivery Method Room Air Room Air BMI result Body Mass Index 28.4 Vital signs stable Course Reevaluation(s) Reevaluation #1: CBC with a normocytic anemia. Chemistry with low potassium p.o. potassium ordered for when patient mac up. Urine toxicology, CT of head and neck and chest x-ray pending. Time: 16:28 Reevaluation #2: No acute findings on xray Time: 17:14 Reevaluation #3: Patient now ambulating with steady gait normal coordination or alert and oriented x4. No complaints. States he does not want to stay here and would like to go home. I explained to him he can not go home unless he has a sober ride home. I did order head CT on him he does not want to wait for results. He verbalizes understanding of risks of leaving prior to these results. He will be signing out against medical advice I did tell him that his mother should come in and get him he will not be allowed to leave the department without a sober ride home. Patient not suicidal or homicidal. No indication for Section 12. AMA paperwork to be signed by the patient. Patient decided to leave against medical advice. I took the time to go over risks of leaving against medical advice including . Patient verbalizes understanding of this. Advised them to come back if they change their mind. Educated patient on diagnosis and treatment plan, answered all question, patient verbalizes understanding. At this time patient will be discharged home, advised to return with new or worsening symptoms. Educated on worrisome signs and symptoms and when to return. Time: 17:38 Medical Decision Making Medical Decision Making [facility] Narrative: 1550 49-year-old male presents with alcohol intoxication and reported fall. Patient unable to provide history he is very intoxicated. On exam no evidence of trauma however patient is dozing off during my exam. He smells like alcohol on exam. History and physical exam concerning for alcohol intoxication. Will rule out traumatic injuries to head and neck. No evidence of traumatic injury to chest, abdomen or pelvis. Will also rule out substance use disorder. Plan labs, imaging. Differential Diagnosis Differential Diagnoses: The differential diagnosis associated with the presentation includes (History and physical exam concerning for alcohol intoxication. Will rule out traumatic injuries to head and neck. No evidence of traumatic injury to chest, abdomen or pelvis. Will also rule out substance use disorder.) Admission/Observation Consideration of admission/observation: Escalation of care including admission/observation considered (possible ) Lab Data MDM Lab Attestation statement: I reviewed the patient's lab results. 12/02/24 15:35 12/02/24 15:35 Labs: Lab Results 12/02/24 12/02/24 Range/Units 14:36 15:35 WBC 7.2 (4.8-10.8) X10*3/uL RBC 4.25 L (4.60-5.80) X10*6/uL Hgb 12.8 L (14.0-18.0) g/dl Hct 36.6 L (42.0-52.0) % MCV 86.1 (80.0-98.0) fL MCH 30.1 (27.0-33.0) pg MCHC 35.0 (31.0-36.0) g/dl RDW 12.1 (11.0-16.0) % Plt Count 225 D (160-400) X10*3/uL MPV 9.7 (9.4-12.4) fL Immature Gran % (Auto) 0.3 (0.0-0.4) % Neut % (Auto) 53.9 (45-73) % Lymph % (Auto) 37.1 (20-40) % Jay % (Auto) 5.8 (2-11) % Eos % (Auto) 1.9 (0-4) % Baso % (Auto) 1.0 (0-2) % Lymph # (Auto) 2.7 (1.2-4.9) X10*3/uL Jay # (Auto) 0.4 (0.1-1.2) X10*3/uL Eos # (Auto) 0.1 (0.0-0.4) X10*3/uL Baso # (Auto) 0.1 (0.0-0.2) X10*3/uL Abs Immat Gran (auto) 0.02 (0.00-0.03) X10*3/uL Absolute Neuts (auto) 3.9 (2.0-8.3) x10*3/uL Absolute Nucleated RBC 0.000 (0.0-0.012) X10*3/uL Nucleated RBC % (auto) 0.0 (0.0-0.2) /100WBC Sodium 145 (135-145) mmol/L Potassium 3.2 L (3.3-5.1) mmol/L Chloride 105 (96-108) mmol/L Carbon Dioxide 28 (22-29) mmol/L Anion Gap 15 (12-20) BUN 11 (9-16) mg/dL Creatinine 0.72 (0.5-1.4) mg/dL Estim Creat Clear Calc 128.5 Estimated GFR > 60 Random Glucose 135 H (60-115) mg/dL Calcium 8.3 L D (8.4-10.2) mg/dL Magnesium 2.2 (1.6-2.6) mg/dL Total Bilirubin 0.4 (0.0-1.0) mg/dL AST 39 H (5-37) U/L ALT 29 (0-40) U/L Alkaline Phosphatase 60 (39-117) U/L Total Protein 6.8 (6.5-8.0) g/dL Albumin 4.3 (3.5-5.0) g/dL Urine Opiates Screen Not Detected (Not Detect) Ur Buprenorphine Scrn Not Detected (Not Detect) ng/mL Ur Oxycodone Screen Not Detected (Not Detect) ng/mL Urine Methadone Screen Not Detected (Not Detect) ng/mL Urine Fentanyl Screen Not Detected (Not Detect) Ur Barbiturates Screen Not Detected (Not Detect) Ur Phencyclidine Scrn Not Detected (Not Detect) Ur Amphetamines Screen Not Detected (Not Detect) U Benzodiazepines Scrn POSITIVE H (Not Detect) Urine Cocaine Screen Not Detected (Not Detect) U Marijuana (THC) Screen Not Detected (Not Detect) Ethyl Alcohol 346 H* mg/dL Independent Interpretation I performed an independent interpretation of an: CT Scan Radiology Impression Discussion of test interpretation with radiology: I have reviewed the radiologist's reading. Independent Historian Clinical information obtained from an independent historian. History obtained from or confirmed by: EMS External Record Review External record reviewed: Inpatient record, Office record, Outpatient record, Prior outpatient labs, Prior outpatient radiology, Primary care record and Outside ED record Chronic Conditions Patient?s care impacted by: Other (see hpi ) Medications Administered Discontinued Medications Generic Name Dose Route Start Last Admin Trade Name Freq PRN Reason Stop Dose Admin Potassium Chloride 40 meq 12/02/24 15:59 12/02/24 16:42 Potassium Chloride Packet 20 Meq Packet PO 12/02/24 16:00 40 meq ONCE ONE Administration Discharge Plan Discharge Clinical Impression: Alcoholic intoxication, Fall, Left against medical advice Patient Disposition: Still a Patient Instructions: Alcohol Intoxication (ED), Abuse of Alcohol (ED), Fall Prevention (ED) Additional Instructions: Take your medications as prescribed. If you were prescribed antibiotics today, it is important that you take your medication to their entirety, do not skip any doses, do not finish them early. Follow-up with your primary care provider this week. Return to the emergency department with new or worsening symptoms. Such as fevers, chills, chest pain, shortness of breath, nausea, vomiting, dizziness, headache, vision changes, lethargy In case of emergency call 911 Patient decided to leave against medical advice. I took the time to go over risks of leaving against medical advice including . Patient verbalizes understanding of this. Advised them to come back if they change their mind. Prescriptions: No Action atorvastatin 20 mg tablet 1 tab PO DAILY hydroxyzine pamoate 50 mg capsule 1 cap PO TID PRN (Reason: Anxiety) buspirone 10 mg tablet 1 tab PO TID albuterol sulfate 90 mcg/actuation HFA aerosol inhaler 2 puff inhalation Q4H desvenlafaxine succinate 50 mg tablet extended release 24 hr 1 tab PO DAILY thiamine HCl (vitamin B1) [Vitamin B-1] 100 mg tablet 100 mg PO DAILY 30 Days Qty: 30 0RF folic acid 1 mg tablet 1 mg PO DAILY 30 Days Qty: 30 0RF doxycycline hyclate 100 mg capsule 100 mg PO BID 3 Days Qty: 6 0RF sod phos di, mono-K phos mono 250 mg tablet 1 tab PO BID 3 Days Qty: 6 0RF omeprazole 40 mg capsule,delayed release(DR/EC) 40 mg PO DAILY 30 Days Qty: 30 0RF doxycycline hyclate 100 mg tablet 100 mg PO BID 3 Days Qty: 6 0RF ondansetron 4 mg tablet,disintegrating 4 mg PO Q8H PRN (Reason: nausea and vomiting) Qty: 10 0RF chlordiazepoxide HCl 25 mg capsule 50 mg PO TID PRN (Reason: alcohol withdrawal) Qty: 20 0RF Referrals: Loc Guadarrama PA [Primary Care Provider, Internal Medicine] - 1 day Stand Alone Forms: Against Medical Advice Print Language: Romansh
[2024-12-02] MEDS: Potassium Chloride Packet 20 MEQ PACKET 40 MEQ PO (16:42)
--- NOTE | 2024-12-02 17:32 | PC.NURSE ---
Pt wanting to leave AMA, pt attempting to leave ED, vincent alerted RN. Pt advised that he is going to need a sober ride home in order for him to leave. Pt asked that staff call his mom, this RN did, mom stated if he is still drunk she is not going to come and get him, however after discussion with pt mom she did agree to come and pick him up and will be here in 30 minutes. Pt has already self removed his IV at this time, blood noted all over pt, ED floor and bed. Hygeine care provided. Vincent at bedside to discuss plan of care with pt at this time.
[2024-12-02 18:16] VITALS: BP 110/50; PULSE 91; RESP 18; TEMP 36.6; O2SAT 92
== END 2024-12-02 18:17 | disposition still patient (30) ==
PROVIDERS: Physician Assistant; Emergency Provider Emergency Medicine; PCP Physician Assistant Medical
DX: S09.90XA Unspecified injury of head, initial encounter (principal); M54.2 Cervicalgia; R07.89 Other chest pain; R51.9 Headache, unspecified; W17.89XA Other fall from one level to another, initial encounter; F10.129 Alcohol abuse with intoxication, unspecified; Y93.9 Activity, unspecified; Y92.9 Unspecified place or not applicable; Y99.8 Other external cause status; Y90.9 Presence of alcohol in blood, level not specified; Z51.81 Encounter for therapeutic drug level monitoring; Z79.899 Other long term (current) drug therapy
CPT/HCPCS: 36415; 70450; 71045; 72125; 80053; 80307; 83735; 85025; 99284

== ENCOUNTER → 2024-12-02 16:24 | Outpatient (BNV) | payer OTHER, SELFPAY | PROVIDERS: Emergency Provider Emergency Medicine; PCP Physician Assistant Medical; Visit Provider Radiology Diagnostic Radiology | DX: M54.2 Cervicalgia (principal); F10.20 Alcohol dependence, uncomplicated; S09.90XA Unspecified injury of head, initial encounter; S29.9XXA Unspecified injury of thorax, initial encounter; W19.XXXA Unspecified fall, initial encounter | CPT/HCPCS: 70450; 71045; 72125 ==

== ENCOUNTER 2025-01-08 17:50 | Emergency (ER) | payer OTHER, SELFPAY ==
--- OUTSIDE RECORDS SUMMARY | 2025-01-08 11:30 | XMS_ITS | Encounter Summary ---
[facility] Organization [facility] Address [address] [place] [address] Care Team Providers Care Skin Care Therapist Name Role Phone Loc Guadarrama Primary Care Provider [phone] Encounter Details Date Type Department Care Team (Late st Contact Info) Description 01/08/2025 11:30 AM EDT Office Visit Adult Medicine [facility] [address] [place] [phone] Chavez Jenkins, SIDNEY [address] [place] [address] Schizoaffective disorder, bipolar type ([facility] V24, [facility] V28) (Primary Dx); Alcohol use disorder, severe, in early remission ([facility] V24, [facility] V28); Noncompliance with medications; Cigarette nicotine dependence without complication Social History Tobacco Use Types Packs/Day Years Used Date Smoking Tobacco: Every Day Cigarettes 1 2.7 Started: 04/27/2022 Smokeless Tobacco: Never Comments:06/2024: 1/3 PPD Alcohol Use Standard Drinks/Week [...] Record ed Within the last 3 months, dale loredo many times did you visit the emergency [...] your loved ones. For example, early childhood assistant or elderly care for an older adult? [...] file Not on file Not on file documented as of this encounter Last Filed Vital Signs Vital Sign Reading Time Taken Comments Blood Pressure 165/108 01/08/2025 11:13 AM EDT Pulse 112 01/08/2025 11:13 AM EDT Temperature - - Respiratory Rate 17 01/08/2025 11:13 AM EDT Oxygen Saturation - - Inhaled Oxygen Concentration - - Weight - - Height - - Body Mass Index - - documented in this encounter Ordered Prescriptions Prescription Sig Dispense Quantity Refills Last Filled Start Date End Date cloNIDine (CATAPRES) 0.1 mg tablet Take 1 tablet (0.1 mg total) by mouth 2 (two) times a day. 60 each 01/08/2025 02/07/2025 documented in this encounter Progress Notes * Chavez Jenkins NP - 01/08/2025 11:30 AM EDT Images from the original note were not included. Outpatient Psychiatry Follow-Up Visit Chief Complaint: 1 week follow up after medication changes Subjective: Patient ID: Ivan Reis is a 50 y.o. male. History of Present Illness Ivan presents for follow up of anxiety, irritability, and hallucinations. He states that his mood,anxiety has improved since our last visit a week ago, we started paliperidone during that visit. Hedoes endorse persistent irritability with constant anger about life stressors (not having a job, living with mother) that has minimally improved as well. He reports better sleep since last visit as well. He endorses that he is getting a full night sleep and wakes up feeling rested. He does report anxiety, dry heavy, tremors each morning - he attributes this mostly to anxiety. He states that once he wakes up in the morning he has a joyce of anxiety/racing thoughts that overwhelm him and he gets in his head. He reports that Valium or Librium helps with these symptoms. He currently states that he is out of Librium and Valium, he reports taking these sometimes once a day, sometimes three times per day. He denies over taking of these medications and he denies taking both Librium and Valium at the same time. He has a history of poor adherence to the prescribed medication guidelines but does report that he is doing better with this now. He states that he has also had minimal improvement in his visual and auditory hallucinations over the past week. He denied any SI/HI or self-harm behaviors. He reports no alcohol consumption at this time. Psych Review of Symptoms: Anxiety: Generalized Anxiety Symptoms: Difficulty controlling worry, excessive worry, difficulty with concentration, physiological symptoms of anxiety and sleep disturbances due to anxiety. Depressive Symptoms: Depressed mood, decreased interest, fatigue, feelings of worthlessness, withdrawal/isolation, severe temper tantrums, irritable, hopelessness and low self esteem. No hypersomnia. Manic Symptoms: Distinct period of irritable mood, flight of ideas and racing thoughts. Psychotic Symptoms: No disorganized speech, no thought broadcasting and no thought insertion. Halluncination types are positive for auditory and visual. Halluncination types are negative for command. Review of Systems Constitutional: Positive for fatigue. Negative for activity change and appetite change. Respiratory: Negative for chest tightness. Cardiovascular: Negative for chest pain. Gastrointestinal: Negative for abdominal pain. Endocrine: Negative for cold intolerance and heat intolerance. Genitourinary: Negative for difficulty urinating. Musculoskeletal: Negative for arthralgias, back pain, gait problem and joint swelling. Skin: Negative for color change. Neurological: Positive for difficulty with concentration. Negative for dizziness, facial asymmetry,light-headedness, numbness and headaches. Past Medical History: Diagnosis Date Allergic rhinitis 11/21/2017 Asthma 11/21/2017 Bronchiectasis ([facility] V24, [facility] V28) 04/20/2016 Depression 05/25/2017 GERD (gastroesophageal reflux disease) 11/21/2017 History of substance abuse ([facility] V24, [facility] V28) 03/05/2013 Alcohol Hyperlipidemia 11/21/2017 Hypertension 11/21/2017 Hypogammaglobulinemia ([facility] V24) 07/22/2016 Scoliosis 11/12/2013 Patient Active Problem List Diagnosis Date Noted Date Diagnosed Bipolar disorder ([facility] V24, [facility] V28) 11/21/2024 ETOH abuse 05/18/2023 Alcoholic fatty liver 11/04/2021 SVT (supraventricular tachycardia) ([facility] V24) 09/17/2021 Hypogammaglobulinemia ([facility] V24) 08/08/2018 Allergic rhinitis 11/21/2017 Asthma 11/21/2017 GERD (gastroesophageal reflux disease) 11/21/2017 Hyperlipidemia 11/21/2017 Hypertension 11/21/2017 Depression 05/25/2017 Bronchiectasis ([facility] V24, [facility] V28) 04/20/2016 Scoliosis 11/12/2013 History of substance abuse ([facility] V24, [facility] V28) 03/05/2013 Past Surgical History: Procedure Laterality Date COLONOSCOPY 09/03/2021 Grubbs - normal repeat 5 years VASECTOMY Current Outpatient Medications Medication Instructions albuterol HFA (Ventolin HFA) 90 mcg/actuation inhaler 2 puffs, inhalation, Every 4 hours PRN atorvastatin (LIPITOR) 20 mg tablet 1 tablet, Daily busPIRone (BUSPAR) 15 mg, oral chlordiazePOXIDE (LIBRIUM) 10 mg, oral, 3 times daily PRN cloNIDine (CATAPRES) 0.1 mg, oral, 2 times daily desvenlafaxine succinate (PRISTIQ) 100 mg, oral, Daily diazePAM (VALIUM) 5 mg, oral, Every 8 hours PRN divalproex (DEPAKOTE) 250 mg, oral, 2 times daily, Do not crush, chew, or split. EPINEPHrine (EPIPEN) 0.3 mg, intramuscular, Once fluticasone furoate-vilanteroL (BREO ELLIPTA) 200-25 mcg/dose inhaler 1 puff, inhalation, Daily fluticasone propion-salmeteroL (ADVAIR DISKUS) 500-50 mcg/dose diskus inhaler 1 puff, inhalation, 2times daily, Rinse mouth with water after use to reduce aftertaste and incidence of candidiasis. Donot swallow. folic acid (FOLVITE) 1 mg tablet 1 tablet, Daily loratadine (CLARITIN) 10 mg, oral, Daily methocarbamoL (ROBAXIN) 750 mg, oral, 3 times daily PRN metoprolol succinate (TOPROL-XL) 50 mg 24 hr tablet 1 tablet, Daily montelukast (SINGULAIR) 10 mg, oral, Nightly, at bedtime. omeprazole (PRILOSEC) 40 mg, oral, Daily paliperidone (INVEGA) 6 mg, oral, Every morning, Do not crush, chew, or split. thiamine (VITAMIN B-1) 100 mg, oral, Daily triamcinolone (KENALOG) 0.1 % cream APPLY TO AFFECTED AREA 1-2 TIMES DAILY NEEDED. Medications Discontinued During This Encounter Medication Reason cloNIDine (CATAPRES) 0.1 mg tablet Reorder Allergies: Allergies Allergen Reactions Bee Venom Protein (Honey Bee) Family History Problem Relation Name Age of Onset No Known Problems Mother Diabetes Father rectal cancer Hypertension Father No Known Problems Sister No Known Problems Daughter No Known Problems Son No Known Problems Maternal Grandmother No Known Problems Maternal Grandfather No Known Problems Paternal Grandmother No Known Problems Paternal Grandfather Other (Other: cancer) Uncle mets Objective: Visit Vitals BP (!) 165/108 (BP Location: Left arm) Pulse (!) 112 Resp 17 Estimated body mass index is 27.64 kg/m?? as calculated from the following: Height as of 11/21/24: 1.727 m (68 ). Weight as of 11/21/24: 82.5 kg (181 lb 12.8 oz). Physical Exam Constitutional: Appearance: Normal appearance. HENT: Head: Normocephalic and atraumatic. Pulmonary: Effort: Pulmonary effort is normal. Musculoskeletal: General: Normal range of motion. Skin: General: Skin is warm and dry. Neurological: General: No focal deficit present. Mental Status: He is alert and oriented to person, place, and time. Mental Status Exam General Appearance: unkempt and has poor hygiene, and has an average build. Patient is awake and alert Demeanor calm, cooperative, engaged Psychomotor Behavior: no psychomotor abnormality noticed Eye Contact appropriate Speech: normal, clear Mood described irritable Affect: euthymic, appropriate Thought process: Linear and goal-directed, no tangentiality not circumstantial Thought content: No paranoia reported, no delusions elicited Perception/ Hallucinations: Positive auditory hallucinations, noncommand and Positive for visual hallucinations Fund of Knowledge: Shows a typical level of knowledge for age and education Insight: Fair Judgement: Fair Oriented to Time, place and person Cognitive: Grossly Intact Suicide/homicide Suicide Risk assessment : Suicidality: Denies SI, no intent or plan Homicidality: Denies HI, no intent or plan Impulse control: Fair Lab Review: Ordered: - Prolactin; Future - CBC and differential; Future - Comprehensive metabolic panel; Future - Lipid panel with reflex to direct LDL; Future - Valproic acid level, total; Future Assessment/Plan: 1. Schizoaffective disorder, bipolar type ([facility] V24, [facility] V28) (Primary) 2. Alcohol use disorder, severe, in early remission ([facility] V[facility], [facility] V28) 3. Noncompliance with medications 4. Cigarette nicotine dependence without complication - Continue current medications as prescribed. Valproic acid level ordered during this visit. Will discuss possible increase in this medication to assist with mood liability in our next appointment. - He stated that he was out of his clonidine, prescribed this medication for impulse control and anxiety. - Currently he states that he is out of both chlordiazepoxide and diazepam, Epic states the diazepam was refilled on 12/26 but this is not showing on the [employer]INE[employer]. Will discuss this with his PCP. - [place] [employer] reviewed: 12/13/2024 12/12/2024 12/14/2024 1 Chlordiazepoxide 10 Mg Capsule 90 30 [place] [facility] [id number] ([facility] 0/0 1.20 LME Medicaid [place] 11/15/2024 11/15/2024 11/16/2024 1 Diazepam 5 Mg Tablet 90 30 [facility] [id number] ([facility]13) 0/0 1.50 LME Medicaid [place] Follow-up in 2 weeks. - Psychoeducation was provided to the patient regarding the presenting issues, including the rationale for any medication changes, along with a discussion of the risks, benefits, and potential side effects of treatment versus non- treatment. Education on diagnosis and coping strategies was also provided, with the recommendation to participate in outpatient psychotherapy. The patient was also educated on the importance of sleep hygiene, the importance of self-care, diet/lifestyle changes, and SMART goals. The patient was also educated on the importance of medication compliance and adherence. Educated patient resources to use for any suicidal thoughts or plans. Note: This note was partly prepared by electronic dictation software and reasonable attempts were made to rectify errors. If you have any concerns regarding the error please contact this note television script writer for further clarification/Corrections. Time spent on this encounter 30 minutes with more than 50 % time spent in coordinating care and counseling. Chavez Jenkins NP Psychiatric/Mental Health Nurse Practitioner ADULT [address] [address] Dept: [phone] Dept Date of Visit: 01/08/2025 I have verbally consented Ivan Reis prior to the recording. I have advised Ivan Reis that he/she may object to the recording and require the recording to be turned off at any time. * Chavez Jenkins NP - 01/08/2025 11:30 AM EDT Discussed case with Dr. Salcido, the patient had lab work today that revealed a potassium of 2.9. Dr. Salcido ordered replacement therapy. He has been having chronic diarrhea and dry heaving, nausea/vomiting in the AM (possibly related to anxiety) and I would like him to follow up with PCP for these complaints. Sent a message to the nurse pool for him to obtain a follow up appointment with his PCP. Chavez Jenkins NP documented in this encounter Plan of Treatment Upcoming Encounters Date Type Department Care Team (Late st Contact Info) Description 01/22/2025 11:30 AM EDT Office Visit [address] [phone] Chavez Jenkins NP [address] [place] [address] 04/10/2025 2:30 PM EST Office Visit [address] [phone] Loc Guadarrama PA [address] [place] [phone] documented as of this encounter Results * (ABNORMAL) Valproic acid level, total (01/08/2025 11:53 AM EDT) Valproic Acid, Total 40(L) 50 - 100 mcg/mL LAB CHEMISTRY METHOD 01/08/2025 4:31 PM EDT [facility] Blood Venous blood specimen / Unknown Venipuncture / Unknown 01/08/2025 11:53 AM EDT 01/08/2025 11:53 AM EDT us Chavez Jenkins KENNEL HELPER LAB BLOOD ORDERABLES Final R esult Performing Organization Address City/[facility]/ZIP Co de Phone Number [facility] [address] [place] [address], [place] [phone] * (ABNORMAL) Lipid panel with reflex to direct LDL (01/08/2025 11:53 AM EDT) Cholesterol 192 0 - 200 mg/dL LAB CHEMISTRY METHOD 01/08/2025 4:31 PM EDT [facility] Triglycerides 85 0 - 150 mg/dL LAB CHEMISTRY METHOD 01/08/2025 4:31 PM EDT [facility] HDL 73 >=40 mg/dL LAB CHEMISTRY METHOD 01/08/2025 4:31 PM EDT [facility] LDL Calculated 102(H) 0 - 100 mg/dL LAB CHEMISTRY METHOD 01/08/2025 4:31 PM EDT [facility] Comment:Estimated LDL Calcul ated using equation: Total cholesterol - HDL cholesterol - (Triglycerides/5) VLDL Cholesterol Robles 17 mg/dL LAB CHEMISTRY METHOD 01/08/2025 4:31 PM EDT [facility] Non HDL Chol. (LDL+VLDL) 119 <145 mg/dL LAB CHEMISTRY METHOD 01/08/2025 4:31 PM EDT [facility] Chol/HDL Ratio 2.6 0.0 - 4.4 LAB CHEMISTRY METHOD 01/08/2025 4:31 PM EDT [facility] Blood Venous blood specimen / Unknown Venipuncture / Unknown 01/08/2025 11:53 AM EDT 01/08/2025 11:53 AM EDT Chavez Jenkins KENNEL HELPER LAB BLOOD ORDERABLES Final R esult [facility] [address] [place] [address], [place] [phone] * (ABNORMAL) Comprehensive metabolic panel (01/08/2025 11:53 AM EDT) Sodium 138 133 - 145 mmol/L LAB CHEMISTRY METHOD 01/08/2025 4:45 PM [facility] Potassium 2.9(LL) 3.5 - 5.5 mmol/L LAB CHEMISTRY METHOD 01/08/2025 4:45 PM [facility] Chloride 96 96 - 110 mmol/L LAB CHEMISTRY METHOD 01/08/2025 4:45 PM [facility] CO2 32 21 - 32 mmol/L LAB CHEMISTRY METHOD 01/08/2025 4:45 PM [facility] Anion Gap 10 3 - 11 LAB CHEMISTRY METHOD 01/08/2025 4:45 PM [facility] Glucose 103(H) 70 - 100 mg/dL LAB CHEMISTRY METHOD 01/08/2025 4:45 PM [facility] BUN 9 5 - 25 mg/dL LAB CHEMISTRY METHOD 01/08/2025 4:45 PM [facility] Creatinine 0.87 0.70 - 1.30 mg/dL LAB CHEMISTRY METHOD 01/08/2025 4:45 PM [facility] eGFR 104 >=60 mL/min/1. 73m2 LAB CHEMISTRY METHOD 01/08/2025 4:45 PM [facility] Comment:Calculation based on the Chronic Kidney Disease Epidemiology Collaboration (CKD-EPI) equation refit without adjustment for race. BUN/Creatinine Ratio 10.3 LAB CHEMISTRY METHOD 01/08/2025 4:45 PM [facility] Calcium 9.1 8.5 - 10.5 mg/dL LAB CHEMISTRY METHOD 01/08/2025 4:45 PM [facility] AST (SGOT) 96(H) 10 - 42 unit/L LAB CHEMISTRY METHOD 01/08/2025 4:45 PM [facility] ALT (SGPT) 85(H) 10 - 60 unit/L LAB CHEMISTRY METHOD 01/08/2025 4:45 PM EDT [facility] Alkaline Phosphatase 64 42 - 121 unit/L LAB CHEMISTRY METHOD 01/08/2025 4:45 PM EDT [facility] Total Protein 7.3 6.0 - 8.0 g/dL LAB CHEMISTRY METHOD 01/08/2025 4:45 PM EDT [facility] Albumin 4.1 3.2 - 5.0 g/dL LAB CHEMISTRY METHOD 01/08/2025 4:45 PM EDT [facility] Total Bilirubin 0.7 0.0 - 1.4 mg/dL LAB CHEMISTRY METHOD 01/08/2025 4:45 PM EDT [facility] Blood Venous blood specimen / Unknown Venipuncture / Unknown 01/08/2025 11:53 AM EDT 01/08/2025 11:53 AM EDT us Chavez Jenkins KENNEL HELPER LAB BLOOD ORDERABLES Final R esult Performing Organization Address City/[facility]/ZIP Co de Phone Number [facility] [address] [place] [address], [place] [phone] * (ABNORMAL) Prolactin (01/08/2025 11:53 AM EDT) Prolactin 53.60(H) 2.50 - 17.40 ng/mL LAB CHEMISTRY METHOD 01/08/2025 4:31 PM EDT [facility] Blood Venous blood specimen / Unknown Venipuncture / Unknown 01/08/2025 11:53 AM EDT 01/08/2025 11:53 AM EDT us Chavez Jenkins KENNEL HELPER LAB BLOOD ORDERABLES Final R esult [facility] [address] [place] [address], [place] [phone] documented in this encounter Visit Diagnoses Diagnosis Schizoaffective disorder, bipolar type ([facility] V24, [facility] V28)- Primary Schizoaffective disorder, unspecified condition Alcohol use disorder, severe, in early remission ([facility] V24, [facility] V28) Noncompliance with medications Cigarette nicotine dependence without complication documented in this encounter Discontinued Medications Medication Sig Discontinue Reason Start Date End Da te cloNIDine (CATAPRES) 0.1 mg tablet TAKE 1 TABLET BY MOUTH TWICE A DAY Reorder 10/29/2024 01/08/2025 documented as of this encounter Additional Health Concerns Infection Onset Date Last Indicated Resolved Time Parainfluenza Virus 08/09/2024 08/09/2024 Assessment Noted Time PHQ-9 Depression Total Score: 8 10/07/19 25 10:12 AM EDT documented as of this encounter Care Teams Skin Care Therapist Relationship Specialty Start Date End Date Loc Guadarrama PA [address] [place] [address] PCP - General Internal Medicine 04/16/24 documented as of this encounter
[2025-01-08 17:56] VITALS: BP 142/96; BP 143/98; PULSE 93; PULSE 99; RESP 16; TEMP 36.9; O2SAT 95; O2SAT 99; BMI 28.8
--- NOTE | 2025-01-08 18:30 | PC.NURSE ---
4 nips removed from pt belongings and sent to security pending DC. pt also gave TW pack of cigarettes and asked that they stay with his nips. cell phone and belongings at bedside. safety check complete.
--- NOTE | 2025-01-08 19:14 | ED.ALCOHOL ---
HPI - Alcohol General Chief Complaint: ETOH/Substance Use Stated Complaint: ETOH, SOB, no CP, numb & tingling in extremities Time Seen by Provider: 01/08/25 18:21 History of Present Illness ED Provider: Denilson So MD HPI narrative: 50-year-old male nonsuicidal drunk from alcohol tells me that he came in ?I was overwhelmed?. Lives with his mother he has schizophrenia he is prescribed multiple medications and he relapsed with alcohol. No falls or injuries. He feels safe at home describes to me living with his mother. He has been adherent with his medications but has some concerns about them. No reported overdose or other illicit drug. Related Data Home Medications ?Medication ?Instructions ?Recorded ?Confirmed albuterol sulfate 90 mcg/actuation 2 puff inhalation Q4H 04/13/21 04/13/21 aerosol inhaler atorvastatin 20 mg tablet 1 tab PO DAILY 04/13/21 04/13/21 buspirone 10 mg tablet 1 tab PO TID 04/13/21 04/13/21 desvenlafaxine succinate 50 mg 1 tab PO DAILY 04/13/21 04/13/21 tablet,extended release 24 hr hydroxyzine pamoate 50 mg capsule 1 cap PO TID PRN Anxiety 04/13/21 04/13/21 Previous Rx's ?Medication ?Instructions ?Recorded doxycycline hyclate 100 mg capsule 100 mg PO BID 3 days #6 caps 04/16/21 doxycycline hyclate 100 mg tablet 100 mg PO BID 3 days #6 tabs 04/16/21 folic acid 1 mg tablet 1 mg PO DAILY 30 days #30 tabs 04/16/21 omeprazole 40 mg capsule,delayed 40 mg PO DAILY 30 days #30 caps 04/16/21 release sodium di- and 1 tab PO BID 3 days #6 tabs 04/16/21 monophosphate-potassium phos monobasic 250 mg tablet thiamine HCl (vitamin B1) 100 mg 100 mg PO DAILY 30 days #30 tabs 04/16/21 tablet (Vitamin B-1) ondansetron 4 mg disintegrating 4 mg PO Q8H PRN nausea and 06/03/21 tablet vomiting #10 tabs chlordiazepoxide HCl 25 mg capsule 50 mg (2 x 25 mg) PO TID PRN 09/30/24 alcohol withdrawal #20 caps Allergies Allergy/AdvReac Type Severity Reaction Status Date / Time animal dander Allergy Unknown SINUS/RESPI Verified 01/08/25 18:08 [facility] cat dander Allergy Wheezing Verified 01/08/25 18:08 dog dander (dogs) Allergy Wheezing Verified 01/08/25 18:08 [facility] Past Medical History Medical History Asthma Social History Social History Household Members: Family Housing: Unknown / Unable to assess Unable to assess alcohol history related to: Unable to respond Alcohol intake: current Alcohol intake frequency: 3 or more drinks per day Alcohol type: hard liquor Patient Tobacco Use Status: Current everyday Tobacco user Smoked in Last 30 Days: Yes Advance Directives: No Advance Directives Information Provided: No service: No Current occupational status: unemployed Physical Exam ED Exam Exam: EXAM: Gen: Alert, awake, well appearing, well hydrated. Head: Atraumatic Eyes: Anicteric, Normal conjunctiva. ENT: Moist mucosa, no pallor. ? Neck: Supple. Skin: ?No observable rash or bruising on exposed or examined skin Respiratory: Breathing comfortably, No distress.Clear to auscultation bilaterally, symmetric chest expansion, No wheeze, rales, ronchi. Cardiovascular: Regular rate and rhythm. No murmurs or rub. Well perfused periphery, warm extremities. No edema. ? Abdominal: No focal tenderness. Soft, no objective distension. No palpable masses or obvious organomegaly. ?No guarding, no rebound tenderness or other peritoneal findings. : No flank tenderness. Neuro: Alert. Gross movement of all extremities intact. ? Psych: Calm. Cooperative. MSK: No grossly visible deformity. Vital signs: See flowsheet Vital Signs: Vital Signs - 24 hr 01/08/25 21:25 Temperature 98.3 F Pulse Rate 81 Respiratory Rate 18 Blood Pressure 130/91 H Pulse Oximetry 94 Oxygen Delivery Method Room Air BMI result Body Mass Index 28.8 Medical Decision Making Medical Decision Making MDM Narrative: Patient tells me he presented to the emergency department because he felt overwhelmed at home. No SI or HI. He does have schizophrenia and lives with his mother. He said ?I did not want to dropped at at home ?. He has been drinking expresses nonspecific concerns about being prescribed psychiatric medication while on alcohol. Patient was eventually picked up by family member walked with steady gait clear speech Discharge Plan Discharge Clinical Impression: Alcohol use disorder Patient Disposition: Home, Self-Care Instructions: Abuse of Alcohol (ED) Additional Instructions: You were evaluated for relapsing to alcohol use disorder. You were monitored briefly and discharged You were seen in our Emergency Department today for treatment of a behavioral health issue. It is important after your visit that you follow up with either your behavioral health provider or a primary care doctor within 7 days.? If you have trouble finding a therapist you can reach out to [place] [phone] [facility] [employer] [facility] can be reached 7 days a week 24 hours a day.? Call [phone] to speak with someone.? Return for any worsening symptoms or concerns such as thoughts of self harm or harm to others. Please call 911 if you feel your mental health is worsening.? Prescriptions: No Action atorvastatin 20 mg tablet 1 tab PO DAILY hydroxyzine pamoate 50 mg capsule 1 cap PO TID PRN (Reason: Anxiety) buspirone 10 mg tablet 1 tab PO TID albuterol sulfate 90 mcg/actuation HFA aerosol inhaler 2 puff inhalation Q4H desvenlafaxine succinate 50 mg tablet extended release 24 hr 1 tab PO DAILY thiamine HCl (vitamin B1) [Vitamin B-1] 100 mg tablet 100 mg PO DAILY 30 Days Qty: 30 0RF folic acid 1 mg tablet 1 mg PO DAILY 30 Days Qty: 30 0RF doxycycline hyclate 100 mg capsule 100 mg PO BID 3 Days Qty: 6 0RF sod phos di, mono-K phos mono 250 mg tablet 1 tab PO BID 3 Days Qty: 6 0RF omeprazole 40 mg capsule,delayed release(DR/EC) 40 mg PO DAILY 30 Days Qty: 30 0RF doxycycline hyclate 100 mg tablet 100 mg PO BID 3 Days Qty: 6 0RF ondansetron 4 mg tablet,disintegrating 4 mg PO Q8H PRN (Reason: nausea and vomiting) Qty: 10 0RF chlordiazepoxide HCl 25 mg capsule 50 mg PO TID PRN (Reason: alcohol withdrawal) Qty: 20 0RF Interventions: ED Discharge Assessment Last Done: 01/08/25 21:25 Discharge Date/Time: 01/08/25 21:28 Print Language: Indonesian
--- OUTSIDE RECORDS SUMMARY | 2025-01-08 19:18 | XMS_ITS | Clinical Summary ---
Author Organization [facility] [address] [place] [address] Address [address] [place] [address] Phone Care Team Providers Care Statement Clerks Supervisor Name Role Phone Loc Guadarrama Primary Care Provider [phone] Allergies Active Allergy Reactions Criticality Noted Date Comments Bee Venom Protein (Honey Bee) 2024 Medications metoprolol succinate (TOPROL-XL) 50 mg 24 hr tablet Take 1 tablet (50 mg total) by mouth 1 (one) time each day. 08/19/19 24 Active atorvastatin (LIPITOR) 20 mg tablet Take 1 tablet (20 mg total) by mouth 1 (one) time each day. 08/19/19 24 Active folic acid (FOLVITE) 1 mg [...] not swallow. 1 each 05/04/19 25 Active omeprazole (PriLOSEC) [address] capsule TAKE 1 CAPSULE BY MOUTH EVERY DAY 90 capsule 1 06/02/19 25 Active busPIRone (BUSPAR) 15 mg tablet TAKE 1 TABLET BY MOUTH 3 TIMES A DAY. 270 tablet 1 07/03/19 25 Active loratadine (CLARITIN) 10 mg tablet [...] NEEDED. 60 g 2 10/06/19 25 Active thiamine 100 mg tablet TAKE 1 TABLET BY MOUTH EVERY DAY 90 tablet 1 10/11/19 25 Active albuterol HFA (Ventolin HFA) 90 mcg/actuation inhalerIndicati ons:Mild intermittent asthma with acute exacerbation Inhale 2 puffs by mouth every 4 (four) hours if needed for wheezing or shortness of breath. 18 each 3 10/31/19 25 Active divalproex (Depakote) [address] tablet Take 1 tablet (250 mg total) by mouth 2 (two) times a day. Do not crush, chew, or split. 60 each 11 11/22/19 25 Active chlordiazePOXID E (LIBRIUM) 10 mg capsule Take 1 capsule (10 mg total) by mouth 3 (three) times a day if needed for anxiety. Max Daily Amount: 30 mg 90 capsule 12/13/19 25 Active EPINEPHrine (EPIPEN) 0.3 mg/0.3 mL injection INJECT 0.3 ML (0.3 MG TOTAL) INTO THE THIGH 1 (ONE) TIME FOR 1 DOSE. 1 each 12/27/19 25 Active diazePAM (VALIUM) 5 mg tablet Take 1 tablet (5 mg total) by mouth every 8 (eight) hours if needed for anxiety. Max Daily Amount: 15 mg 90 tablet 12/27/19 25 Active desvenlafaxine succinate (PRISTIQ) 100 mg 24 hr tablet TAKE 1 TABLET BY MOUTH EVERY DAY 90 tablet 1 12/29/19 25 Active methocarbamoL (ROBAXIN) 750 mg tablet TAKE 1 TABLET (750 MG TOTAL) BY MOUTH 3 (THREE) TIMES A DAY IF NEEDED FOR MUSCLE SPASMS. 270 tablet 01/02/20 25 Active paliperidone (Invega) 6 mg 24 hr tablet Take 1 tablet (6 mg total) by mouth 1 (one) time each day in the morning. Do not crush, chew, or split. 30 each 01/02/20 25 Active cloNIDine (CATAPRES) 0.1 mg tablet Take 1 tablet (0.1 mg total) by mouth 2 (two) times a day. 60 each 01/09/20 25 Active potassium chloride (KLOR-CON M20) 20 mEq CR tablet Take 1 tablet (20 mEq total) by mouth 2 (two) times a day for 7 days. Tablet may be swallowed whole (do not crush/chew/riddle ck on) OR broken in half and each half swallowed separately OR dissolved (whole tablet) in ~4 ounces of water (allow ~2 minutes to dissolve, stir well and administer immediately). 14 each 01/09/20 25 Active desvenlafaxine 100 mg tablet extended release 24 hr Take 2 tablets by mouth 1 (one) time each day. 05/06/19 24 025 Discontinued(A lternate therapy) acamprosate (CAMPRAL) 333 mg EC tablet TAKE 2 TABLETS BY MOUTH 3 TIMES A DAY 180 tablet 5 06/02/19 25 025 Discontinued(I neffective) desvenlafaxine succinate (PRISTIQ) 100 mg 24 hr tablet TAKE 1 TABLET BY MOUTH EVERY DAY 90 tablet 1 06/02/19 25 025 Discontinued buPROPion SR (WELLBUTRIN SR) 150 mg 12 hr tablet TAKE 1 TABLET BY MOUTH TWICE A DAY 180 tablet 1 06/02/19 25 025 Discontinued(I neffective) hydrOXYzine pamoate (VISTARIL) 50 mg capsule TAKE 1 CAPSULE BY MOUTH 3 TIMES DAILY NEEDED FOR ANXIETY. 270 capsule 1 07/03/19 25 025 Discontinued(I neffective) levoFLOXacin (LEVAQUIN) 750 mg tablet TAKE 1 TABLET BY MOUTH 1 TIME EACH DAY FOR 7 DAYS. 7 tablet 10/03/19 25 025 Discontinued(P rescriber Discontinued) methocarbamoL (ROBAXIN) 750 mg tablet Take 1 tablet (750 mg total) by mouth 3 (three) times a day if needed for muscle spasms. 270 tablet 10/03/19 25 025 Discontinued EPINEPHrine (EpiPen 2-Burton) 0.3 mg/0.3 mL injection Inject 0.3 mL (0.3 mg total) into the thigh 1 (one) time for 1 dose. 1 each 10/11/19 25 025 Discontinued chlordiazePOXID E (LIBRIUM) 10 mg capsule Take 1 capsule (10 mg total) by mouth 3 (three) times a day if needed for anxiety. Max Daily Amount: 30 mg 90 capsule 10/11/19 25 025 Discontinued(R eorder) cloNIDine (CATAPRES) 0.1 mg tablet TAKE 1 TABLET BY MOUTH TWICE A DAY 60 tablet 5 10/30/19 025 Discontinued(R eorder) QUEtiapine (SEROquel) 25 mg tablet Take 1 tablet (25 mg total) by mouth at bedtime. 30 each 10/31/19 25 025 Discontinued diazePAM (VALIUM) 5 mg tablet TAKE 1 TABLET (5 MG TOTAL) BY MOUTH 3 TIMES A DAY IF NEEDED FOR ANXIETY. MAX DAILY AMOUNT: 15 MG 90 tablet 11/16/19 025 Discontinued(R eorder) QUEtiapine (SeroqueL) 50 mg tablet Take 1 tablet (50 mg total) by mouth at bedtime. 30 each 12/19/19 025 Discontinued(A lternate therapy) Active Problems Problem Noted Date Diagnosed Date Bipolar disorder ([facility] V24, [facility] V28) 10/25 ETOH abuse 05/18/2023 Alcoholic fatty liver 11/04/2021 SVT (supraventricular tachycardia) ([facility] V24) 09/17/2021 Overview (03/10/2024): Last Assessment & Plan: Doing better with metoprolol and reducing alcohol intake. His blood pressure slightly higher and pulse rate is in the 80s. I will increase metoprolol to 50 mg daily. I will explore the reason why echo was not done and will reschedule it if no particular reason. Hypogammaglobulinemia ([facility] V24) 08/08/2018 Allergic rhinitis 11/21/2017 Asthma 11/21/2017 GERD (gastroesophageal reflux disease) 8 Hyperlipidemia 11/21/2017 Overview (03/10/2024): Last Assessment & Plan: His triglyceride was quite elevated recently. We will repeat lipid profile after he has significantly reduced alcohol intake for 2 to 3 months. Hypertension 11/21/2017 Depression 05/25/2017 Bronchiectasis ([facility] V24, [facility] V28) 2015 Scoliosis 11/12/2013 History of substance abuse (CMS/HCC V24, [facility]/HCC V28) 03/05/2013 Overview (03/10/2024): alcohol Encounters Date Type Department Care Team Description 01/08/2025 11:30 AM EDT Office Visit Adult [address] [phone] Chavez Jenkins NP Schizoaffective disorder, bipolar type ([facility]/HCC V24, CMS/HCC V28) (Primary Dx); Alcohol use disorder, severe, in early remission (CMS/HCC V24, CMS/HCC V28); Noncompliance with medications; Cigarette nicotine dependence without complication 2025 11:30 AM EDT Office Visit Adult [address] [phone] Chavez Jenkins NP Schizoaffective disorder, bipolar type ([facility]/HCC V24, CMS/HCC V28) (Primary Dx); Alcohol use disorder; Noncompliance with medications; Polypharmacy; Cigarette nicotine dependence without complication 12/18/2024 12:30 PM EDT Office Visit [address] [phone] Chavez Jenkins NP Schizoaffective disorder, bipolar type ([facility]/HCC V24, CMS/HCC V28) (Primary Dx); Alcohol use disorder, severe, in early remission (CMS/HCC V24, CMS/HCC V28); Noncompliance with medications; Cigarette nicotine dependence without complication 11/29/2024 Telephone Adult [facility] - [address] [phone] Loc Guadarrama PA 11/21/2024 8:15 AM EDT Office Visit Adult Medicine [address] [phone] Loc Guadarrama PA Primary hypertension (Primary Dx); Need for vaccination against Streptococcus pneumoniae; Alcoholic fatty liver; Mild intermittent asthma with acute exacerbation; Bronchiectasis with acute lower respiratory infection ([facility] V24, [facility] V28); Hyperlipidemia, unspecified hyperlipidemia type; Bipolar affective disorder, remission status unspecified ([facility] V24, [facility] V28) 10/24/2024 3:32 PM EDT - 10/24/2024 11:59 PM EDT Hospital Encounter Radiology Department [address] [phone] Alcoholic fatty liver; Mild intermittent asthma with acute exacerbation; Depression, unspecified depression type; Primary hypertension; Hyperlipidemia, unspecified hyperlipidemia type; Hospital discharge follow-up; Seizure ([facility]/HCC V24, [facility] V28) Discharge Disposition: Home or Self Care 10/16/2024 Telephone Adult Medicine [address] [phone] Loc Guadarrama PA 10/10/2024 8:15 AM EDT Office Visit [address] [phone] Loc Guadarrama PA Hospital discharge follow-up (Primary Dx); Alcoholic fatty liver; Mild intermittent asthma with acute exacerbation; Depression, unspecified depression type; Primary hypertension; Hyperlipidemia, unspecified hyperlipidemia type; Seizure ([facility] V24, [facility] V28) from Last 3 Months Immunizations Name Administration Dates Next Due Influenza Quadravalent, MDCK , 0.5ml, preservative free (Flucelvax) 6mo and older 01/26/2023,05/05/2022,06/24/2021 Influenza trivalent, 0.5mL, preservative free (Fluarix; FluLaval; Fluzone) ages 6mo and older (Afluria) 3 years and older 02/02/2024 Moderna SARS-CoV-2 COVID-19, mRNA, LNP-S, preservative free 05/09/2021 Pfizer Covid-19 Bivalent, Or iginal + Ba.1 (Non-US Trademark COMIRNATHark Bivalent) 04/13/2022 Pneumococcal conjugate 13 va lent (Prevnar 13, PCV13) 2mo and older 10/20/2015 Pneumococcal conjugate 20 va lent (Prevnar 20, PCV 20) 2mo and older 11/21/2024 Pneumococcal polysaccharide 23 valent (Pneumovax 23) 2yo and older 05/22/2013 RSV, bivalent, protein subun it RSVpreF, 0.5mL, Preservative Free (Arexvy) 60yo and older 12/15/2024 Tdap Tetanus diptheria acell ular pertussis (Boostrix; Adacel) 7yo and older 02/19/2020 Zoster recombinant (Shingrix ) 19yo and older 12/15/2024 Surgical History Surgery Date Site/Laterality Comments VASECTOMY COLONOSCOPY 09/03/2021 Grubbs - normal repeat 5 years Medical History Medical History Date Comments Allergic rhinitis 11/21/2017 Asthma 11/21/2017 Bronchiectasis ([facility] V24, [facility] V28) 2015 Depression 05/25/2017 GERD (gastroesophageal reflux disease) 11/21/2017 History of substance abuse ([facility] V24, [facility] V28) 03/05/2013 Alcohol Hyperlipidemia 11/21/2017 Hypertension 11/21/2017 Hypogammaglobulinemia ([facility] V24) 07/22/2016 Scoliosis 11/12/2013 Family History Medical [...] 1 2.7 Started: 04/27/2022 Smokeless Tobacco: Never Tobacco Cessation:Ready [...] care for your loved ones. For example, childrens club attendant or elderly care for an older adult? [...] Pulse 112 01/08/2025 11:13 AM EDT Temperature 35.9 C (96.7 F) 11/21/2024 8:17 AM EDT Respiratory Rate 17 01/08/2025 11:1 3 AM EDT Oxygen Saturation 100% 08/09/2024 11: [...] Description 01/22/2025 11:30 AM EDT Office Visit Adult Medicine [address] [phone] Chavez Jenkins NP [address] [place] [address] 04/10/2025 2:30 PM EST Office Visit Adult Medicine [address] [phone] Loc Guadarrama PA [address] [place] [phone] Health Maintenance Due Date Last Done Comments Hepatitis A Vaccines (1 of 2 - Risk 2-dose series) 01/02/1992 Hepatitis B Vaccines (1 of 3 - 19+ 3-dose series) 01/02/1992 Influenza Vaccine (#1) 2024 , 01/26/2023, 05/05/2022, Additional history exists Zoster Vaccines (2 of 2) 02/09/2025 12/15/2024 Social Influencers of Health Screening 10/06/2025 10/06/2024, 06/28/2024 Hypertension/CHF/CAD Annual BMP Blood Test 01/08/2026 01/08/2025, 10/10/2024, 04/27/2023 Colorectal Cancer Screening: Colonoscopy 09/03/2026 09/03/2021 Cholesterol Screening (Lipid Panel) 01/08/2030 01/08/2025, 10/10/2024, 04/27/2023 DTaP,Tdap,and Td Vaccines (3 - [...] Procedure Name Priority Date/Time Associated Diagnosis Comments CBC WITH AUTO DIFFERENTIAL Routine 01/08/2025 11:53 AM EDT Schizoaffective disorder, bipolar type ([facility] V24, CMS/HCC V28) THYROID STIMULATING HORMONE WITH REFLEX TO FREE T4 AND FREE T3 Routine 01/08/2025 11:53 AM EDT Need for vaccination against Streptococcus pneumoniae Primary hypertension Alcoholic fatty liver Mild intermittent asthma with acute exacerbation Bronchiectasis with acute lower respiratory infection (CMS/HCC V24, CMS/HCC V28) Hyperlipidemia, unspecified hyperlipidemia type PROLACTIN Routine 01/08/2025 11:53 AM EDT Schizoaffective disorder, bipolar type (CMS/HCC V24, CMS/HCC V28) CBC AND DIFFERENTIAL Routine 01/08/2025 11:53 AM EDT Schizoaffective disorder, bipolar type (CMS/HCC V24, CMS/HCC V28) COMPREHENSIVE METABOLIC PANEL Routine 01/08/2025 11:53 AM EDT Schizoaffective disorder, bipolar type (CMS/HCC V24, CMS/HCC V28) LIPID PANEL WITH REFLEX TO DIRECT LDL Routine 01/08/2025 11:53 AM EDT Schizoaffective disorder, bipolar type (CMS/HCC V24, CMS/HCC V28) VALPROIC ACID LEVEL, TOTAL Routine 01/08/2025 11:53 AM EDT Schizoaffective disorder, bipolar type (CMS/HCC V24, CMS/HCC V28) ECG 12-LEAD Routine 2025 4:14 PM EDT Schizoaffective disorder, bipolar type (CMS/HCC V24, CMS/HCC V28) EXTERNAL CT REPORT 12/02/[address] REPORT 12/02/[address] REPORT 12/02/[address] REPORT 12/02/2024 EXTERNAL XRAY REPORT 12/02/2024 EXTERNAL XRAY REPORT 12/02/2024 MR BRAIN WO AND W CONTRAST Routine 10/24/2024 4:43 PM EDT Alcoholic fatty liver Mild intermittent asthma with acute exacerbation Depression, unspecified depression type Primary hypertension Hyperlipidemia, unspecified hyperlipidemia type Hospital discharge follow-up Seizure (CMS/HCC V24, [facility] V28) CBC WITH AUTO DIFFERENTIAL Routine 10/10/2024 9:10 AM EDT Alcoholic fatty liver Mild intermittent asthma with acute exacerbation Depression, unspecified depression type Primary hypertension Hyperlipidemia, unspecified hyperlipidemia type Hospital discharge follow-up Seizure ([facility] V24, [facility] V28) HEMOGLOBIN A1C Routine 10/10/2024 9:10 AM EDT Bronchiectasis without complication ([facility] V24, [facility] V28) Allergic rhinitis due to pollen, unspecified seasonality Gastroesophageal reflux disease without esophagitis Asthma with status asthmaticus, unspecified asthma severity, unspecified whether persistent LIPID PANEL WITH REFLEX TO DIRECT LDL Routine 10/10/2024 9:10 AM EDT Bronchiectasis without complication ([facility] V24, [facility] V28) Allergic rhinitis due to pollen, unspecified seasonality Gastroesophageal reflux disease without esophagitis Asthma with status asthmaticus, unspecified asthma severity, unspecified whether persistent HIV 1, 2 ANTIBODY, P24 ANTIGEN WITH REFLEX TO DIFFERENTIATION Routine 10/10/2024 9:10 AM EDT Bronchiectasis without complication ([facility] V24, [facility] V28) Allergic rhinitis due to pollen, unspecified [...] unspecified hyperlipidemia type Hospital discharge follow-up Seizure ([facility] V24, [facility] V28) CBC AND DIFFERENTIAL Routine 10/10/2024 9:10 AM EDT Alcoholic fatty liver Mild intermittent asthma with acute exacerbation Depression, unspecified depression type Primary hypertension Hyperlipidemia, unspecified hyperlipidemia type Hospital discharge follow-up Seizure ([facility] V24, [facility]/HCC V28) IRON AND TIBC Routine 10/10/2024 9:10 [...] Recently Relevant to Health Maintenance Results * Thyroid stimulating hormone with reflex to free t4 and free t3 (01/08/2025 11:53 AM EDT) TSH 2.68 0.40 - 4.00 mcIU/mL LAB CHEMISTRY METHOD 01/08/2025 5:23 PM EDT [facility] ([facility] Blood Venous blood specimen / Unknown Venipuncture / Unknown 01/08/2025 11:53 AM EDT 01/08/2025 11:53 AM EDT us Loc POLK LAB BLOOD ORDERABLES Gale l Result [facility] [address] [place] [address], [place] [phone] * (ABNORMAL) Lipid panel with reflex to direct LDL (01/08/2025 11:53 AM EDT) Only the most recent of2 resultswithin the time period is included. Cholesterol 192 0 - 200 mg/dL LAB CHEMISTRY METHOD 01/08/2025 4:31 PM EDT [facility] Triglycerides 85 0 - 150 mg/dL LAB CHEMISTRY METHOD 01/08/2025 4:31 PM EDT [facility] HDL 73 >=40 mg/dL LAB CHEMISTRY METHOD 01/08/2025 4:31 PM EDT [facility] LDL Calculated 102(H) 0 - 100 mg/dL LAB CHEMISTRY METHOD 01/08/2025 4:31 PM EDT [facility] Comment:Estimated LDL Calcul ated using equation: Total cholesterol - HDL cholesterol - (Triglycerides/5) VLDL Cholesterol Robles 17 mg/dL LAB CHEMISTRY METHOD 01/08/2025 4:31 PM EDT [facility] Non HDL Chol. (LDL+VLDL) 119 <145 mg/dL LAB CHEMISTRY METHOD 01/08/2025 4:31 PM EDT [facility] Chol/HDL Ratio 2.6 0.0 - 4.4 LAB CHEMISTRY METHOD 01/08/2025 4:31 PM EDT [facility] Blood Venous blood specimen / Unknown Venipuncture / Unknown 01/08/2025 11:53 AM EDT 01/08/2025 11:53 AM EDT Chavez Jenkins NP LAB BLOOD ORDERABLES Final R esult [facility] [address] [place] [address], [place] [phone] * (ABNORMAL) CBC auto differential (01/08/2025 11:53 AM EDT) Only the most recent of2 resultswithin the time period is included. [facility] Signature WBC 8.3 4.8 - 10.8 K/mcL LAB HEMETOLOGY METHOD 01/08/2025 3:35 PM EDT [facility] RBC 4.60 4.50 - 5.50 M/mcL LAB HEMETOLOGY METHOD 01/08/2025 3:35 PM EDT [facility] Hemoglobin 13.6 13.5 - 17.5 g/dL LAB HEMETOLOGY METHOD 01/08/2025 3:35 PM EDT [facility] Hematocrit 41.6(L) 42.0 - 54.0 % LAB HEMETOLOGY METHOD 01/08[facility]2025 3:[facility] MCV 90.2 79.0 - 98.0 FL LAB HEMETOLOGY METHOD 01/08/2025 3:35 PM EDT [facility] MCH 29.5 27.0 - 32.0 pcg LAB HEMETOLOGY METHOD 01/08/2025 3:35 PM EDT [facility] MCHC 32.7 32.0 - 37.0 g/dL LAB HEMETOLOGY METHOD 01/08/2025 3:35 PM EDT [facility] RDW 14.5 11.0 - 15.0 % LAB HEMETOLOGY METHOD 01/08/2025 3:35 PM EDT [facility] Platelets 141 130 - 400 K/mcL LAB HEMETOLOGY METHOD 01/08/2025 3:35 PM EDT [facility] MPV 10.5 7.0 - 11.0 FL LAB HEMETOLOGY METHOD 01/08/2025 3:35 PM EDT [facility] NRBC 0.0 <1.0 % LAB HEMETOLOGY METHOD 01/08/2025 3:35 PM EDT [facility] NRBC Absolute 0.00 <0.10 K/mcL LAB HEMETOLOGY METHOD 01/08/2025 3:35 PM EDT [facility] Neutrophils Relative 62.8 % LAB HEMETOLOGY METHOD 01/08/2025 3:35 PM [facility] Lymphocytes Relative 24.6 % LAB HEMETOLOGY METHOD 01/08/2025 3:35 PM EDT [facility] Monocytes Relative 9.6 % LAB HEMETOLOGY METHOD 01/08/2025 3:35 PM EDT [facility] Eosinophils Relative 2.2 % LAB HEMETOLOGY METHOD 01/08/2025 3:35 PM [facility] Basophils Relative 0.4 % LAB HEMETOLOGY METHOD 01/08/2025 3:35 PM [facility] Immature Granulocytes Relative 0.4 % LAB HEMETOLOGY METHOD 01/08/2025 3:35 PM [facility] Neutrophils Absolute 5.20 1.50 - 7.00 K/mcL LAB HEMETOLOGY METHOD 01/08/2025 3:35 PM [facility] Lymphocytes Absolute 2.03 1.00 - 5.00 K/mcL LAB HEMETOLOGY METHOD 01/08/2025 3:35 PM EDT [facility] Monocytes Absolute 0.79 0.20 - 1.00 K/mcL LAB HEMETOLOGY METHOD 01/08/2025 3:35 PM EDT [facility] Eosinophils Absolute 0.18 0.00 - 0.50 K/mcL LAB HEMETOLOGY METHOD 01/08/2025 3:35 PM [facility] Basophils Absolute 0.03 0.00 - 0.20 K/mcL LAB HEMETOLOGY METHOD 01/08/2025 3:35 PM [facility] Immature Granulocytes Absolute 0.03 0.00 - 0.03 K/mcL LAB HEMETOLOGY METHOD 01/08/2025 3:35 PM EDT [facility] Blood Venous blood specimen / Unknown Venipuncture / Unknown 01/08/2025 11:53 AM EDT 01/08/2025 11:53 AM EDT us Chavez Jenkins SCHEDULE SUPERVISOR LAB BLOOD ORDERABLES Final R esult Performing Organization Address City/[facility]/ZIP Co de Phone Number [facility] [address] [place] [address], [place] [phone] * (ABNORMAL) Prolactin (01/08/2025 11:53 AM EDT) Prolactin 53.60(H) 2.50 - 17.40 ng/mL LAB CHEMISTRY METHOD 01/08/2025 4:31 PM EDT [facility] Blood Venous blood specimen / Unknown Venipuncture / Unknown 01/08/2025 11:53 AM EDT 01/08/2025 11:53 AM EDT us Chavez Jenkins NP LAB BLOOD ORDERABLES Final R esult Performing Organization Address [facility] de Phone Number [facility] [address] [place] [address], [place] [phone] * (ABNORMAL) Valproic acid level, total (01/08/2025 11:53 AM EDT) Pathologist [facility] Valproic Acid, Total 40(L) 50 - 100 mcg/mL LAB CHEMISTRY METHOD 01/08/2025 4:31 PM EDT [facility] Blood Venous blood specimen / Unknown Venipuncture / Unknown 01/08/2025 11:53 AM EDT 01/08/2025 11:53 AM EDT Chavez Jenkins SCHEDULE SUPERVISOR LAB BLOOD ORDERABLES Final R esult Performing Organization Address [facility] Co de Phone Number [facility] [address] [place] [address], * (ABNORMAL) Comprehensive metabolic panel (01/08/2025 11:53 AM EDT) Only the most recent of2 resultswithin the time period is included. Sodium 138 133 - 145 mmol/L LAB CHEMISTRY METHOD 01/08/2025 4:45 PM EDT [facility] Potassium 2.9(LL) 3.5 - 5.5 mmol/L LAB CHEMISTRY METHOD 01/08/2025 4:45 PM EDT [facility] Chloride 96 96 - 110 mmol/L LAB CHEMISTRY METHOD 01/08/2025 4:45 PM [facility] CO2 32 21 - 32 mmol/L LAB CHEMISTRY METHOD 01/08/2025 4:45 PM [facility] Anion Gap 10 3 - 11 LAB CHEMISTRY METHOD 01/08/2025 4:45 PM [facility] Glucose 103(H) 70 - 100 mg/dL LAB CHEMISTRY METHOD 01/08/2025 4:45 PM [facility] BUN 9 5 - 25 mg/dL LAB CHEMISTRY METHOD 01/08/2025 4:45 PM [facility] Creatinine 0.87 0.70 - 1.30 mg/dL LAB CHEMISTRY METHOD 01/08/2025 4:45 PM [facility] eGFR 104 >=60 mL/min/1. 73m2 LAB CHEMISTRY METHOD 01/08/2025 4:45 PM [facility] Comment:Calculation based on the Chronic Kidney Disease Epidemiology Collaboration (CKD-EPI) equation refit without adjustment for race. BUN/Creatinine Ratio 10.3 LAB CHEMISTRY METHOD 01/08/2025 4:45 PM [facility] Calcium 9.1 8.5 - 10.5 mg/dL LAB CHEMISTRY METHOD 01/08/2025 4:45 PM [facility] AST (SGOT) 96(H) 10 - 42 unit/L LAB CHEMISTRY METHOD 01/08/2025 4:45 PM EDT [facility] ALT (SGPT) 85(H) 10 - 60 unit/L LAB CHEMISTRY METHOD 01/08/2025 4:45 PM EDT [facility] Alkaline Phosphatase 64 42 - 121 unit/L LAB CHEMISTRY METHOD 01/08/2025 4:45 PM EDT [facility] Total Protein 7.3 6.0 - 8.0 g/dL LAB CHEMISTRY METHOD 01/08/2025 4:45 PM EDT [facility] Albumin 4.1 3.2 - 5.0 g/dL LAB CHEMISTRY METHOD 01/08/2025 4:45 PM EDT [facility] Total Bilirubin 0.7 0.0 - 1.4 mg/dL LAB CHEMISTRY METHOD 01/08/2025 4:45 PM EDT [facility] Blood Venous blood specimen / Unknown Venipuncture / Unknown 01/08/2025 11:53 AM EDT 01/08/2025 11:53 AM EDT Chavez Jenkins NP LAB BLOOD ORDERABLES Final R esult [facility] [address] [place] [address], [place] [phone] * ECG 12 lead (2025 4:14 PM EDT) Impressions Chavez Jenkins NP - 2025 4:14 PM EDT SR at 77, no ST changes, QTc corrected to 432 using framingham method Chavez Jenkins NP ECG ORDERABLES Final Result * External Xray Report (12/02/2024) Only the most recent of2 resultswithin the time period is included. Anatomical Region Laterality Modality Radiographic Domitila ging Provider [facility] XR PROCEDURES Final Result * External CT Report (12/02/2024) Only the most recent of4 resultswithin the time period is included. Anatomical Region Laterality Modality Computed Tomogra phy Provider [facility] IMG CT PROCEDURES Final Result * MR Brain wo and w Contrast (10/24/2024 4:43 PM EDT) Anatomical Region Laterality Modality Head and Neck Magnetic Resonan ce 10/24/2024 6:48 PM EDT Impressions 10/24/2024 7:49 PM EDT No evidence of a recent infarction, intracranial hemorrhage, mass, or mass effect. No evidence of mesial temporal sclerosis. POS - [id number] -------- FINAL REPORT -------- Dictated By: Jennifer Link Dictated Date: 10/24/2024 18:48 ET Assigned Physician: Jennifer Link Reviewed and Electronically Signed By: Jennifer Link Signed Date: 10/24/2024 19:49 ET Workstation ID: [id number] Transcribed By: Self Edit Transcribed Date: 10/24/2024 [...] evidence of mesial temporal sclerosis. POS - [id number] -------- FINAL REPORT -------- Dictated By: Jennifer Link Dictated Date: 10/24/2024 18:48 ET Assigned Physician: Jennifer Link Reviewed and Electronically Signed By: Jennifer Link Signed Date: 10/24/2024 19:49 ET Workstation ID: [id number] Transcribed By: Self Edit Transcribed Date: 10/24/2024 19:13 ET Loc [facility] MRI PROCEDURES Final Result * Prostate specific antigen screen (10/10/2024 9:10 AM EDT) PSA 0.54 0.00 - 4.00 ng/mL LAB CHEMISTRY METHOD 10/10/2024 2:17 PM EDT [facility] Blood Venous blood specimen / Unknown Venipuncture / Unknown 10/10/2024 9:10 AM EDT 10/10/2024 9:10 AM EDT Narrative [facility] - 10/10/2024 2:17 PM EDT The Siemens [employer] Chemiluminescent Immunoassay is used. Results obtained with different assay methods or kits cannot be used interchangeably. Results cannot be interpreted as absolute evidence of the presence or absence of malignant disease. [facility] PLOK LAB BLOOD ORDERABLES Final Resul t [facility] [address] [place] [address], * HIV 1,2 antibody, p24 antigen with reflex to differentiation (10/10/2024 9:10 AM EDT) [facility] HIV Combo AB/AG Negative Negative LAB CHEMISTRY [...] ORDERABLES Gale l Result Performing Organization Address [facility]/ZIP Co de Phone Number [facility] [address] [place] [address], [place] [phone] * (ABNORMAL) Iron and TIBC (10/10/2024 9:10 [...] l Result [facility] [address] [place] [address], [place] [phone] * Hemoglobin A1c (10/10/2024 9:10 AM EDT) Pathologist [facility] Hemoglobin A1C 6.1 <6.5 % LAB CHEMISTRY METHOD 10/10/2024 12:34 PM EDT [facility] Mean Bld Glu Estim. 128 mg/dL LAB CHEMISTRY METHOD 10/10/2024 12:34 PM EDT [facility] Blood Venous blood specimen / Unknown Venipuncture / Unknown 10/10/2024 9:10 AM EDT 10/10/2024 9:10 AM EDT [facility] [place] [facility] LAB BLOOD ORDERABLES Gale l Result Performing Organization Address City/[facility]/ZIP Co de Phone Number [facility] [address] [place] [address], [place] [phone] * Folate (10/10/2024 9:10 AM EDT) Pathologist [facility] Folate 8.4 2.8 - 17.0 ng/ml LAB CHEMISTRY METHOD 10/10/2024 1:53 PM EDT [facility] Blood Venous blood specimen / Unknown Venipuncture / Unknown 10/10/2024 9:10 AM EDT 10/10/2024 9:10 AM EDT Loc [place] LAB BLOOD ORDERABLES Gale l Result [facility] [address] [place] [address], [place] [phone] * Ferritin (10/10/2024 9:10 AM EDT) [facility] Ferritin 297 26 - 388 ng/mL LAB CHEMISTRY METHOD 10/10/2024 1:53 PM EDT [facility] Blood Venous blood specimen / Unknown Venipuncture / Unknown 10/10/2024 9:10 AM EDT 10/10/2024 9:10 AM EDT Loc [facility] LAB BLOOD ORDERABLES Gale l Result [facility] [address] [place] [address], [place] [phone] * Vitamin B12 (10/10/2024 9:10 AM EDT) [facility] Vitamin B-12 377 250 - 900 pcg/mL LAB CHEMISTRY METHOD 10/10/2024 1:53 PM EDT [facility] Blood Venous blood specimen / Unknown Venipuncture / Unknown 10/10/2024 9:10 AM EDT 10/10/2024 9:10 AM EDT Loc [facility] LAB BLOOD ORDERABLES Gale l Result [facility] [address] [place] [address], [place] [phone] * Depression Screening (08/19/2023) [facility] Depression Screening abstracted Historical Provider HEALTH MAINTENANCE Final Result * Colonoscopy (09/03/2021) [facility] Colonoscopy no interpretation , abstracted Anatomical Region Laterality Modality Other Historical Provider HEALTH MAINTENANCE Final Result * Hepatitis C Screening (08/19/2021) [facility] Hepatitis C Screening abstracted Historical Provider HEALTH MAINTENANCE Final Result from Last 3 Months or Most Recently Relevant to Health Maintenance Additional Health Concerns Infection Onset Date Last Indicated Parainfluenza Virus 08/09/2024 08/09/2024 Insurance [facility] Care Teams Statement Clerks Supervisor Relationship Specialty Start Date End Date Loc [place] [facility] [address] [place] [address] PCP - General Internal Medicine 04/16/24
--- OUTSIDE RECORDS SUMMARY | 2025-01-08 19:18 | XMS_ITS | Clinical Summary ---
Author Organization [facility] Facility Address [address] [address] Care Team Providers Care Plant Reliability Engineer Name Role Phone Unavailable Primary Care [...] (one) time each day 2 Active PEG 7004-QVj-JpVko-NaC l-NaSulf (PEG-3350/Electrol ytes) 236 g reconstituted solution [...]
[2025-01-08 19:33] VITALS: BP 130/91; PULSE 81; RESP 18; TEMP 36.8; O2SAT 94
[2025-01-08 21:25] VITALS: BP 130/91; PULSE 81; RESP 18; TEMP 36.8; O2SAT 94
== END 2025-01-08 21:28 | disposition home or self-care (01) ==
PROVIDERS: Emergency Provider Emergency Medicine; PCP Physician Assistant Medical
DX: F10.90 Alcohol use, unspecified, uncomplicated (principal)
CPT/HCPCS: 99282; 99284